=== PATIENT | female | born 1945 | race Caucasian/White ===

== ENCOUNTER 2018-05-05 09:03 | Day surgery (SDC) | payer MEDICARE, OTHER ==
[~2018-05-05 09:03] MED LIST: Lactated Ringers 1,000 ML IV SCH; Lidocaine 2% 5 ML SDV ONE; Midazolam 1 MG/ML 2 ML SDV ONE; Propofol 200 MG/20 ML SDV ONE; fentaNYL 100 MCG/2 ML SDV ONE
--- NOTE | 2018-05-05 09:43 | PCM.PREANE ---
Preanesthetic Assessment - Procedure Proposed Procedure: Colonoscopy - Anesthesia/Transfusion/Family Hx Anesthesia History: Prior Anesthesia Without Reaction Other Type of Anesthesia Reaction Comment: she was told she was a difficult intubation several yrs ago, none recently Family History of Anesthesia Reaction: No Transfusion History: No Prior Transfusion(s) - Review of Systems General: Other (planned weight loss (400 to 320)) Pulmonary: Other (sleep apnea) Cardiovascular: Other (HTN - 3 meds) Gastrointestinal: Other (change in bowel habits) Neurological: No Symptoms Other: Reports: Diabetes - Physical Assessment NPO Status Date: 05/04/18 NPO Status Time: 22:00 Height: 5 ft 10 in Weight: 329 lb ASA Class: 3 Mental Status: Alert & Oriented x3 Airway Class: Mallampati = 2 Dentition: Reports: Dentures (permanent) Thyro-Mental Finger Breadths: 3 Mouth Opening Finger Breadths: 3 ROM/Head Extension: Limited/Partial (short, full neck) Cardiovascular: Regular Rate, Regular Rhythm, Murmurs (holosystolic murmur - LSB ) - Imaging/EKG Impressions: ordered EKG; murmur not known to patient - Allergies Allergies/Adverse Reactions: Allergies Allergy/AdvReac Type Severity Reaction Status Date / Time contrast dye Allergy "makes me Uncoded 05/01/18 10:24 goofy" - Blood Blood Available: No Product(s) Available: None - Acknowledgements Anesthesia Type Planned: MAC Pt an Appropriate Candidate for the Planned Anesthesia: Yes Alternatives and Risks of Anesthesia Discussed w Pt/Guardian: Yes Pt/Guardian Understands and Agrees with Anesthesia Plan: Yes PreAnesthesia Questionnaire Cardiovascular History: Reports: Hypertension Respiratory History: Reports: Sleep Apnea Other Respiratory History: uses CPAP Gastrointestinal History: Reports: Colon Polyp, Diverticulosis Genitourinary History: Reports: None 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: Musculoskeletal History: Reports: Osteoarthritis Endocrine/Metabolic History: Reports: Diabetes, Type II, Obesity/BMI 30+ Oncologic (Cancer) History: Reports: Basal Cell Carcinoma Dermatologic History: Reports: None - Past Surgical History Head Surgeries/Procedures: Reports: None GI Surgical History: Reports: Appendectomy, Cholecystectomy, Colonoscopy Female Surgical History: Reports: Hysterectomy, Salpingo-Oophorectomy Musculoskeletal Surgical History: Reports: Hip Replacement, Knee Replacement Other Musculoskeletal Surgeries/Procedures:: rt MAURICIO, maximo TKA Dermatological Surgical History: Reports: Skin Biopsy - SUBSTANCE USE Smoking Status *Q: Never Smoker Recreational Drug Use History: No - HOME MEDS Home Medications: Home Meds Atenolol 100 mg PO DAILY 05/01/18 [History] Cholecalciferol (Vitamin D3) [Vitamin D3] 2,000 units PO DAILY 05/01/18 [History ] Furosemide 20 mg PO DAILY 05/01/18 [History] Glimepiride [Amaryl] 2 mg PO DAILY 05/01/18 [History] Labetalol HCl [Labetalol] 200 mg PO BID 05/01/18 [History] Losartan Potassium 100 mg PO DAILY 05/01/18 [History] hydrALAZINE HCl [Hydralazine HCl] 25 mg PO BID 05/01/18 [History] - CURRENT (IN HOUSE) MEDS Current Meds: Current Medications Lactated Ringer's (Ringers, Lactated) 1,000 mls @ 125 mls/hr IV ASDIRECTED YOLI
[2018-05-05] MEDS ORDERED: Propofol 200 MG/20 ML SDV ONE (11:00)
--- NOTE | 2018-05-05 11:27 | PCM.OPNOTE ---
- General Post-Op/Procedure Note Date of Surgery/Procedure: 05/05/18 Operative Procedure(s): Colonoscopy with cold sigmoid colon polypectomy Pre Op Diagnosis: Change in bowel habits. Personal history of colon polyps. Post-Op Diagnosis: Sigmoid colon polyp. Pancolonic diverticulosis. Anesthesia Technique: MAC (ASA III) Primary Surgeon: David Lui Condition: Good Free Text/Narrative:: DICTATION [id number] CPT CODE 67577
[2018-05-05] MEDS ORDERED: Lactated Ringers 1,000 ML IV SCH (11:30)
--- NOTE | 2018-05-05 11:36 | PCM.POSTAN ---
POST ANESTHESIA ASSESSMENT - MENTAL STATUS Mental Status: Alert, Oriented - VITAL SIGNS SaO2: 96 (RA) - RESPIRATORY Respiratory Status: Respiratory Rate WNL, Airway Patent, O2 Saturation Stable - CARDIOVASCULAR CV Status: Pulse Rate WNL, Blood Pressure Stable - GASTROINTESTINAL GI Status: No Symptoms - POST OP HYDRATION Hydration Status: Adequate & Stable
--- NOTE | 2018-05-05 12:10 | PCM48HPAN ---
Post Anesthesia Note - EVALUATION WITHIN 48HRS OF ANESTHETIC Vital Signs in Normal Range: Yes Patient Participated in Evaluation: Yes Respiratory Function Stable: Yes Airway Patent: Yes Cardiovascular Function Stable: Yes Hydration Status Stable: Yes Pain Control Satisfactory: Yes Nausea and Vomiting Control Satisfactory: Yes Mental Status Recovered: Yes Resp Rate: 19 - COMMENTS/OBSERVATIONS Free Text/Narrative:: Changing into street clothes...stated she was treated well.
--- NOTE | 2018-05-05 12:51 | OR ---
SURGEON: David Liu M.D. DATE OF PROCEDURE: 05/05/2018 OPERATION PERFORMED: Colonoscopy with cold sigmoid colon polypectomy. ANESTHESIA: MAC. ASA CLASSIFICATION: III. PREOPERATIVE DIAGNOSES: 1. Change in bowel habits. 2. Personal history of colon polyps. POSTOPERATIVE DIAGNOSES: 1. Sigmoid colon polyp. 2. Pancolonic diverticulosis. DESCRIPTION OF PROCEDURE: The patient was taken to the endoscopy room and positioned on the endoscopy table in the left lateral decubitus position. Time-out was called for appropriate identification of the patient and procedure. Monitored anesthesia care was provided. The colonoscope was inserted into the rectum and advanced with great difficulty to the cecum. Despite multiple maneuvers, we could never retroflex the colonoscope in the cecum. The colonoscope was then slowly withdrawn. Cecum, ascending colon, hepatic flexure, transverse colon, splenic flexure, and descending colon show no tumors or polyps. Multiple diverticula were identified. No stricture, spasm, or bleeding was noted. There was no evidence of inflammatory bowel disease. One polyp was encountered in the sigmoid colon and removed with cold biopsy forceps. Again, noted with the diverticular changes. The colonoscope was withdrawn to the rectum and retroflexed to visualize the anal orifice from above. No tumors or polyps were seen in the distal rectum and there were no acute hemorrhoidal changes. The colonoscope was then straightened, the rectum aspirated, and the colonoscope removed. The patient tolerated the procedure well and was taken to recovery room in stable condition. ALE MAN /[id number]
== END 2018-05-05 12:25 | disposition home or self-care (01) ==
LOC: MW.SDS 09:03
PROVIDERS: ATTEND Surgery
DX: R19.4 Change in bowel habit (principal); D12.5 Benign neoplasm of sigmoid colon; K57.30 Diverticulosis of large intestine without perforation or abscess without bleeding; I10 Essential (primary) hypertension; E11.9 Type 2 diabetes mellitus without complications; E66.01 Morbid (severe) obesity due to excess calories; Z68.42 Body mass index [BMI] 45.0-49.9, adult; G47.30 Sleep apnea, unspecified; Z86.010 Personal history of colon polyps; Z79.84 Long term (current) use of oral hypoglycemic drugs; Z79.899 Other long term (current) drug therapy; Z99.89 Dependence on other enabling machines and devices
CPT/HCPCS: 45380; 93005; J2250; J3010; 00811; J2704

== ENCOUNTER 2021-03-15 10:40 | Inpatient (IN) | payer MEDICARE, OTHER ==
[2021-03-15] MEDS ORDERED: Sodium Chloride 0.9% 10 ML Syringe FLUSH PRN (10:42)
[2021-03-15] MEDS ORDERED: Sodium Chloride 0.9% 2.5 ML Syringe FLUSH PRN (10:42)
--- NOTE | 2021-03-15 10:57 | EDM.PDOC ---
ED HPI GENERAL MEDICAL PROBLEM - General Stated Complaint: EMS Time Seen by Provider: 03/15/21 10:47 Source of Information: Reports: Patient History Limitations: Reports: No Limitations - History of Present Illness INITIAL COMMENTS - FREE TEXT/NARRATIVE: HISTORY AND PHYSICAL: History of present illness: Patient is a 75-year-old female who presents to the emergency room by [facility] (she lives near [place], [place]) with complaints of increased weakness. Patient lives at home with her , who helps take care of her. The states that she has had increased weakness and has not been up out of the chair to ambulate in a few days. She does have a history of dementia/confusion but is able to follow commands appropriately. The reports that they have been discussing care home placement but "it would be an act of God to get her there". Patient offers no current complaints, but states its painful to move her around. Denies any recent injury or falls. Review of systems: As per history of present illness and below otherwise all systems reviewed and negative. Past medical history: As per history of present illness and as reviewed below otherwise noncontributory. Surgical history: As per history of present illness and as reviewed below otherwise noncontributory. Social history: See social history for further information Family history: As per history of present illness and as reviewed below otherwise noncontributory. Physical exam: General: Well developed and well nourished. Alert and talking. History of dementia, unable to determine baseline. She follows commands but doesn't answer questions appropriate ( states this is baseline). Nontoxic in appearance and in no acute distress. Vital signs are stable and have been reviewed by me. Nursing notes were reviewed. HEENT: Atraumatic, normocephalic, pupils equal and reactive bilaterally, negative for conjunctival pallor or scleral icterus, mucous membranes dry, TMs normal bilaterally, throat clear, neck supple, nontender, trachea midline. No drooling or trismus noted. No meningeal signs. No hot potato voice noted. Lungs: Clear to auscultation bilaterally. No wheezes, rales, or rhonchi. Chest nontender. Normal work of breathing, no accessory muscles used. Heart: S1S2, regular rate and rhythm without overt murmur, gallops, or rubs. No JVD. No peripheral edema Abdomen: Soft, nondistended, nontender. Incontient of stool and urine. Normoactive bowel sounds. Negative for masses or costovertebral tenderness. Skin: Skin break down to cocxy more extensive bilateral medial glutes extending to upper proximal thighs. No lesions or rashes noted. Hematologic: No petechiae or purpra. Mucosa appropriate color and normal nail bed color and refill. Extremities: Atraumatic, moves all extremities per self without difficulty or deficits, negative for cords or calf pain. Neurovascular unremarkable. Neuro: Awake, alert, oriented. Cranial nerves II through XII unremarkable. Cerebellum unremarkable. Motor and sensory unremarkable throughout. Exam nonfocal. Psychiatric: Mood and affect are appropriate. Normal thought process. Answering questions appropriately. Notes: *This patient was seen and evaluated during the 2019 SARS-CoV-2 novel coronavirus pandemic period. Community viral transmission is ongoing at time of this encounter and the emergency department is operating under pandemic response procedures. Pulmonary vascular congestion and mild pulmonary edema. Heart size upper normal. No pneumothorax or pleural effusion. No pneumothorax. No pneumonia per radiology, although viewing the x-ray it does appear to have an infiltrate to the RLL. Patient's COVID and UA is unremarkable. She does have extensive skin breakdown of her buttocks, proximal thighs going into the vagina.. Care was provided. Patient's has not been up here to the emergency room and was not able to get a hold of him via phone. We will admit her to Med-Surg for further care and management. Dr Luis was consulted and agreeable. Diagnostics: CBC, CMP, Troponin, CPK, EKG, CXR, COVID, UA Therapeutics: IV fluids, Rocephin Impression: Self care deficit Dementia Right lower lobe pneumonia Skin breakdown Weakness Plan: Med/Surg admission with telemetry Definitive disposition and diagnosis as appropriate pending reevaluation and review of above. - Related Data Allergies Allergy/AdvReac Type Severity Reaction Status Date / Time contrast dye Allergy "makes me Uncoded 03/15/21 13:30 goofy" Home Meds: Home Meds Furosemide 20 mg PO DAILY 05/01/18 [History] Labetalol HCl [Labetalol] 200 mg PO BID 05/01/18 [History] Losartan Potassium 50 mg PO DAILY 05/01/18 [History] hydrALAZINE HCl [Hydralazine HCl] 50 mg PO BID 05/01/18 [History] Donepezil HCl 10 mg PO BEDTIME 03/15/21 [History] Memantine HCl 5 mg PO BID 03/15/21 [History] Mirabegron [Myrbetriq] 50 mg PO DAILY 03/15/21 [History] Sertraline [Zoloft] 100 mg PO DAILY 03/15/21 [History] Past Medical History Cardiovascular History: Reports: Hypertension Respiratory History: Reports: Sleep Apnea Other Respiratory History: uses CPAP Gastrointestinal History: Reports: Colon Polyp, Diverticulosis Genitourinary History: Reports: 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: Musculoskeletal History: Reports: Osteoarthritis Endocrine/Metabolic History: Reports: Diabetes, Type II, Obesity/BMI 30+ Oncologic (Cancer) History: Reports: Basal Cell Carcinoma Dermatologic History: Reports: None - Past Surgical History Head Surgeries/Procedures: Reports: None GI Surgical History: Reports: Appendectomy, Cholecystectomy, Colonoscopy Female Surgical History: Reports: Hysterectomy, Salpingo-Oophorectomy Musculoskeletal Surgical History: Reports: Hip Replacement, Knee Replacement Other Musculoskeletal Surgeries/Procedures:: rt MAURICIO, maximo TKA Dermatological Surgical History: Reports: Skin Biopsy ED ROS GENERAL - Review of Systems Review Of Systems: Comprehensive ROS is negative, except as noted in HPI. ED EXAM, GENERAL - Physical Exam Exam: See Below (See dictation) Course - Vital Signs Last Recorded V/S: Last Vital Signs Temp 98.0 F 03/15/21 14:50 Pulse 65 03/15/21 14:50 Resp 19 03/15/21 14:50 BP 80/51 L 03/15/21 14:50 Pulse Ox 95 03/15/21 14:50 - Orders/Labs/Meds Orders: Active Orders 24 hr Category Date Time Status Sodium Chloride 0.9% [Normal Saline] 1,000 ml Med 03/15/21 12:28 Active IV STAT Sodium Chloride 0.9% [Saline Flush] Med 03/15/21 10:42 Active 10 ml FLUSH ASDIRECTED PRN Sodium Chloride 0.9% [Saline Flush] Med 03/15/21 10:42 Active 2.5 ml FLUSH ASDIRECTED PRN Saline Lock Insert [OM.PC] Stat Oth 03/15/21 10:42 Ordered Medication Orders Dextrose/Water (50% Dextrose In Water 50 Ml Syringe) 50 ml IVPUSH ASDIRECTED PRN PRN Reason: Hypoglycemia Donepezil HCl (Donepezil 10 Mg Tab) 10 mg PO DAILY [facility] Glucagon (Glucagon,Human Recombinant 1 Mg Vial) 1 mg IM ASDIRECTED PRN PRN Reason: Hypoglycemia Heparin Sodium (Porcine) (Heparin Sodium 5,000 Units/Ml Vial) 5,000 units SUBCUT Q12H [facility] Last Admin: 03/15/21 15:00 Dose: 5,000 units Documented by: GUNJAN Sodium Chloride (Normal Saline) 1,000 mls @ 125 mls/hr IV STAT ONE Stop: 03/15/21 20:27 Last Admin: 03/15/21 13:12 Dose: 125 mls/hr Documented by: SAILAJA Cefepime HCl 1 gm/ Premix 50 mls @ 100 mls/hr IV Q12H [facility] Last Admin: 03/15/21 16:32 Dose: 100 mls/hr Documented by: GUNJAN Insulin Aspart (Insulin Aspart 100 Units/Ml 3 Ml Pen) 0 unit SUBCUT TIDAC [facility]; Protocol Labetalol HCl (Labetalol 100 Mg Tab) 200 mg PO BID [facility] Memantine (Memantine 10 Mg Tab) 5 mg PO BID [facility] Nystatin (Nystatin Topical Powder 15 Gm Bottle) 0 gm TOP QID [facility] Last Admin: 03/15/21 17:57 Dose: 1 applic Documented by: GUNJAN Sertraline HCl (Sertraline 100 Mg Tab) 100 mg PO DAILY [facility] Sodium Chloride (Sodium Chloride 0.9% 10 Ml Syringe) 10 ml FLUSH ASDIRECTED PRN PRN Reason: Keep Vein Open Last Admin: 03/15/21 11:06 Dose: 10 ml Documented by: SAILAJA Sodium Chloride (Sodium Chloride 0.9% 2.5 Ml Syringe) 2.5 ml FLUSH ASDIRECTED PRN PRN Reason: Keep Vein Open Last Admin: 03/15/21 11:06 Dose: 2.5 ml Documented by: SAILAJA Labs: Laboratory Tests 03/15/21 03/15/21 03/15/21 Range/Units 10:57 10:57 11:17 WBC 11.83 H (4.0-11.0) K/uL RBC 4.32 (4.30-5.90) M/uL Hgb 12.4 (12.0-16.0) g/dL Hct 38.5 (36.0-46.0) % MCV 89.1 (80.0-98.0) fL MCH 28.7 (27.0-32.0) pg MCHC 32.2 (31.0-37.0) g/dL RDW Std Deviation 50.7 (28.0-62.0) fl RDW Coeff of Litzy 16 H (11.0-15.0) % Plt Count 174 (150-400) K/uL MPV 11.00 (7.40-12.00) fL Neut % (Auto) 82.4 H (48.0-80.0) % Lymph % (Auto) 4.8 L (16.0-40.0) % [place] % (Auto) 11.8 (0.0-15.0) % Eos % (Auto) 0.8 (0.0-7.0) % Baso % (Auto) 0.2 (0.0-1.5) % Neut # (Auto) 9.7 H (1.4-5.7) K/uL Lymph # (Auto) 0.6 (0.6-2.4) K/uL [place] # (Auto) 1.4 H (0.0-0.8) K/uL Eos # (Auto) 0.1 (0.0-0.7) K/uL Baso # (Auto) 0.0 (0.0-0.1) K/uL Nucleated RBC % 0.0 /100WBC Nucleated RBCs # 0 K/uL Sodium 145 (136-145) mmol/L Potassium 3.6 (3.5-5.1) mmol/L Chloride 110 H (98-107) mmol/L Carbon Dioxide 26.0 (21.0-32.0) mmol/L BUN 39 H (7.0-18.0) mg/dL Creatinine 1.6 H (0.6-1.0) mg/dL Est Cr Clr Drug Dosing 29.09 mL/min Estimated GFR (MDRD) 31.3 ml/min Glucose 193 H (74-106) mg/dL Calcium 8.8 (8.5-10.1) mg/dL Total Bilirubin 1.2 H (0.2-1.0) mg/dL AST 21 (15-37) IU/L ALT 17 (14-63) IU/L Alkaline Phosphatase 61 (46-116) U/L Creatine Kinase 63 (26-308) U/L Troponin I < 0.050 (0.000-0.056) ng/mL Total Protein 7.1 (6.4-8.2) g/dL Albumin 2.5 L (3.4-5.0) g/dL Globulin 4.6 H (2.6-4.0) g/dL Albumin/Globulin Ratio 0.5 L (0.9-1.6) Urine Color Urine Appearance Urine pH (5.0-8.0) Ur Specific [place] (1.001-1.035) Urine Protein (NEGATIVE) mg/dL Urine Glucose (UA) (NEGATIVE) mg/dL Urine Ketones (NEGATIVE) mg/dL Urine Occult Blood (NEGATIVE) Urine Nitrite (NEGATIVE) Urine Bilirubin (NEGATIVE) Urine Urobilinogen (<2.0) EU/dL Ur Leukocyte Esterase (NEGATIVE) Urine RBC (0-2/HPF) Urine WBC (0-5/HPF) Ur Epithelial Cells (NONE-FEW) Other Crystals Urine Mucus (NONE-MOD) SARS-CoV-2 RNA (LUZ) NEGATIVE (NEGATIVE) 03/15/21 Range/Units 12:41 WBC (4.0-11.0) K/uL RBC (4.30-5.90) M/uL Hgb (12.0-16.0) g/dL Hct (36.0-46.0) % MCV (80.0-98.0) fL MCH (27.0-32.0) pg MCHC (31.0-37.0) g/dL RDW Std Deviation (28.0-62.0) fl RDW Coeff of [place] (11.0-15.0) % Plt Count (150-400) K/uL MPV (7.40-12.00) fL Neut % (Auto) (48.0-80.0) % Lymph % (Auto) (16.0-40.0) % [place] % (Auto) (0.0-15.0) % Eos % (Auto) (0.0-7.0) % Baso % (Auto) (0.0-1.5) % Neut # (Auto) (1.4-5.7) K/uL Lymph # (Auto) (0.6-2.4) K/uL [place] # (Auto) (0.0-0.8) K/uL Eos # (Auto) (0.0-0.7) K/uL Baso # (Auto) (0.0-0.1) K/uL Nucleated RBC % /100WBC Nucleated RBCs # K/uL Sodium (136-145) mmol/L Potassium (3.5-5.1) mmol/L Chloride (98-107) mmol/L Carbon Dioxide (21.0-32.0) mmol/L BUN (7.0-18.0) mg/dL Creatinine (0.6-1.0) mg/dL Est Cr Clr Drug Dosing mL/min Estimated GFR (MDRD) ml/min Glucose (74-106) mg/dL Calcium (8.5-10.1) mg/dL Total Bilirubin (0.2-1.0) mg/dL AST (15-37) IU/L ALT (14-63) IU/L Alkaline Phosphatase (46-116) U/L Creatine Kinase (26-308) U/L Troponin I (0.000-0.056) ng/mL Total Protein (6.4-8.2) g/dL Albumin (3.4-5.0) g/dL Globulin (2.6-4.0) g/dL Albumin/Globulin Ratio (0.9-1.6) Urine Color YELLOW Urine Appearance CLEAR Urine pH 5.5 (5.0-8.0) Ur Specific [place] 1.025 (1.001-1.035) Urine Protein 30 H (NEGATIVE) mg/dL Urine Glucose (UA) NEGATIVE (NEGATIVE) mg/dL Urine Ketones NEGATIVE (NEGATIVE) mg/dL Urine Occult Blood TRACE-INTACT H (NEGATIVE) Urine Nitrite NEGATIVE (NEGATIVE) Urine Bilirubin NEGATIVE (NEGATIVE) Urine Urobilinogen 1.0 (<2.0) EU/dL Ur Leukocyte Esterase NEGATIVE (NEGATIVE) Urine RBC 2-4 (0-2/HPF) Urine WBC 0-2 (0-5/HPF) Ur Epithelial Cells FEW (NONE-FEW) Other Crystals FEW Urine Mucus LIGHT (NONE-MOD) SARS-CoV-2 RNA (LUZ) (NEGATIVE) Meds: Medications Generic Name Dose Route Start Last Admin Trade Name Freq PRN Reason Stop Dose Admin Dextrose/Water 50 ml 03/15/21 18:47 50% Dextrose In Water 50 Ml Syringe IVPUSH ASDIRECTED PRN Hypoglycemia Donepezil HCl 10 mg 03/16/21 09:00 Donepezil 10 Mg Tab PO DAILY YOLI Glucagon 1 mg 03/15/21 18:47 Glucagon,Human Recombinant 1 Mg Vial IM ASDIRECTED PRN Hypoglycemia Heparin Sodium (Porcine) 5,000 units 03/15/21 14:45 03/15/21 15:00 Heparin Sodium 5,000 Units/Ml Vial SUBCUT 5,000 units Q12H YOLI Administration Sodium Chloride 1,000 mls @ 125 mls/hr 03/15/21 12:28 03/15/21 13:12 Normal Saline IV 03/15/21 20:27 125 mls/hr STAT ONE Administration Cefepime HCl 1 gm/ Premix 50 mls @ 100 mls/hr 03/15/21 16:00 03/15/21 16:32 IV 100 mls/hr Q12H YOLI Administration Insulin Aspart 0 unit 03/16/21 07:30 Insulin Aspart 100 Units/Ml 3 Ml Pen SUBCUT TIDAC [facility] Protocol Labetalol HCl 200 mg 03/15/21 21:00 Labetalol 100 Mg Tab PO BID YOLI Memantine 5 mg 03/16/21 09:00 Memantine 10 Mg Tab PO BID YOLI Nystatin 0 gm 03/15/21 18:00 03/15/21 17:57 Nystatin Topical Powder 15 Gm Bottle TOP 1 applic QID YOLI Administration Sertraline HCl 100 mg 03/16/21 09:00 Sertraline 100 Mg Tab PO DAILY YOLI Sodium Chloride 10 ml 03/15/21 10:42 03/15/21 11:06 Sodium Chloride 0.9% 10 Ml Syringe FLUSH 10 ml ASDIRECTED PRN Administration Keep Vein Open Sodium Chloride 2.5 ml 03/15/21 10:42 03/15/21 11:06 Sodium Chloride 0.9% 2.5 Ml Syringe FLUSH 2.5 ml ASDIRECTED PRN Administration Keep Vein Open Discontinued Medications Generic Name Dose Route Start Last Admin Trade Name Freq PRN Reason Stop Dose Admin Ceftriaxone Sodium/Dextrose 1 50 mls @ 100 mls/hr 03/15/21 13:09 03/15/21 13:12 gm/ Premix IV 03/15/21 13:38 100 mls/hr ONETIME ONE Administration Departure - Departure Time of Disposition: 19:54 Disposition: Admitted As Inpatient 65 Clinical Impression: Self-care deficit, Skin breakdown, Weakness Dementia Qualifiers: Dementia type: unspecified type Right lower lobe pneumonia Qualifiers: Pneumonia type: due to unspecified organism Qualified Code(s): J18.9 - Pneumonia, unspecified organism - Discharge Information Sepsis Event Note (ED) - Focused Exam Vital Signs: Vital Signs Temp Pulse Resp BP Pulse Ox 03/15/21 10:45 99.4 F 62 18 181/54 H 95 - My Orders Last 24 Hours: My Active Orders 03/15/21 10:42 Sodium Chloride 0.9% [Saline Flush] 10 ml FLUSH ASDIRECTED PRN Sodium Chloride 0.9% [Saline Flush] 2.5 ml FLUSH ASDIRECTED PRN Saline Lock Insert [OM.PC] Stat 03/15/21 12:28 Sodium Chloride 0.9% [Normal Saline] 1,000 ml IV STAT - Assessment/Plan Last 24 Hours: My Active Orders 03/15/21 10:42 Sodium Chloride 0.9% [Saline Flush] 10 ml FLUSH ASDIRECTED PRN Sodium Chloride 0.9% [Saline Flush] 2.5 ml FLUSH ASDIRECTED PRN Saline Lock Insert [OM.PC] Stat 03/15/21 12:28 Sodium Chloride 0.9% [Normal Saline] 1,000 ml IV STAT
--- NOTE | 2021-03-15 11:24 | PCM.EKG ---
#1 Interpretation EKG Date: 03/15/21 Time: 10:53 Rhythm: NSR Rate (Beats/Min): 58 [place]: Normal P-Wave: Present QRS: Normal ST-T: Normal QT: Normal Comparison: No Change (2017) EKG Interpretation Comments: Sinus Rhythm with ectopic atrial beats
[2021-03-15 11:58] LABS: BLOOD UREA NITROGEN,BUN 39 mg/dL (7.0-18.0); CHLORIDE,CL 110 mmol/L (98-107); GLUCOSE RANDOM 193 mg/dL (74-106); POTASSIUM,K 3.6 mmol/L (3.5-5.1); SODIUM,NA 145 mmol/L (136-145)
--- NOTE | 2021-03-15 12:02 | CR ---
INDICATION: Confusion. TECHNIQUE: One-view IMPRESSION : Pulmonary vascular congestion and mild pulmonary edema. Heart size upper normal. No pneumothorax or pleural effusion. No pneumothorax. No pneumonia. Dictated by Kareem Weaver MD @ 03/15/2021 12:00:[address] Kareem Weaver @ Mar 15 2021 12:00PM
[2021-03-15] MEDS ORDERED: Sodium Chloride 0.9% 1,000 ML IV ONE (12:28)
[2021-03-15] MEDS ORDERED: cefTRIAXone 1 GM in Premix Bag 1 BAG IV ONE (13:09)
--- NOTE | 2021-03-15 13:23 | CT ---
INDICATION: Altered mental status. TECHNIQUE: Noncontrast head CT. FINDINGS: No intracranial hemorrhage or hydrocephalus. No mass effect or shift of midline structures. Cerebral and cerebellar atrophy appropriate for the patient`s age. No significant small vessel ischemic type change in the deep white matter of the cerebral hemispheres. Hyperostosis frontalis. The calvarium and skull base are negative for acute fractures although please note there is significant motion artifact degrading image quality. IMPRESSION: 1. No acute intracranial process identified. 2. Chronic age related changes intracranially. 3. No definite calvarial or skullbase fracture. Significant motion artifact degrades image quality. Please note that all CT scans at this facility use dose modulation, iterative reconstruction, and/or weight-based dosing when appropriate to reduce radiation dose to as low as reasonably achievable. Dictated by Alber Vega MD @ 03/15/2021 1:23:[address] Alber Vega @ Mar 15 2021 1:23PM
--- NOTE | 2021-03-15 14:40 | PCM.HP.2 ---
H&P History of Present Illness - General Date of Service: 03/15/21 Admit Problem/Dx: Admission Diagnosis/Problem Admission Diagnosis/Problem Pneumonia Source of Information: Family History Limitations: Reports: Other (Dementia ) - History of Present Illness Initial Comments - Free Text/Narative: Patient is a 75-year-old female with a significant past medical history of dementia, sleep apnea, hypertension, type 2 diabetes presenting today from [place] via ambulance with a chief complaint of increased weakness. Patient is nonverbal and has dementia at baseline and medical history is being relayed to me via phone and son. lives with patient [place] from [facility] and has noticed since Saturday increasing weakness lethargy and decreased p.o. intake. Patient has also been laying in bed against her baseline which is walking around sometimes with assistance of a cane and or sometimes with a walker. notes that conversations regarding long term placement were held prior to this stepdown in her physical abilities but patient had not expressed any definitive answers. ED course: EKG: Sinus rhythm with ectopic atrial beats Chest x-ray: Pulmonary vascular congestion and mild pulmonary edema no pneumonia/pneumothorax. Head CT: No acute intracranial abnormalities. Chronic age-related changes intracranially UA negative for nitrite/leukocyte esterase. Leukocytosis of 11. HERBERT 1.6. Covid negative Bedside: Patient nonverbal at baseline Discussed case with /son. Endorses patient is DNR/DNI and will consider long term placement. Has endorsed patient has been increasingly fatigued/tired and moving away from her baseline since returning back from [place] 1 month prior. Only complaint that patient has been having to family has been random aches and pains and shoulders and knees. - Related Data Allergies/Adverse Reactions: Allergies Allergy/AdvReac Type Severity Reaction Status Date / Time contrast dye Allergy "makes me Uncoded 03/15/21 13:30 goofy" Home Medications: Home Meds Furosemide 20 mg PO DAILY 05/01/18 [History] Labetalol HCl [Labetalol] 200 mg PO BID 05/01/18 [History] Losartan Potassium 50 mg PO DAILY 05/01/18 [History] hydrALAZINE HCl [Hydralazine HCl] 50 mg PO BID 05/01/18 [History] Donepezil HCl 10 mg PO BEDTIME 03/15/21 [History] Memantine HCl 5 mg PO BID 03/15/21 [History] Mirabegron [Myrbetriq] 50 mg PO DAILY 03/15/21 [History] Sertraline [Zoloft] 100 mg PO DAILY 03/15/21 [History] Past Medical History HEENT History: Reports: Hard of Hearing Cardiovascular History: Reports: Hypertension Respiratory History: Reports: Sleep Apnea Other Respiratory History: uses CPAP Gastrointestinal History: Reports: Colon Polyp, Diverticulosis Genitourinary History: Reports: None, Other (See Below) Other Genitourinary History: stress incontinence [employer] History: Reports: Musculoskeletal History: Reports: Osteoarthritis Psychiatric History: Reports: Dementia Endocrine/Metabolic History: Reports: Diabetes, Type II, Obesity/BMI 30+ Oncologic (Cancer) History: Reports: Basal Cell Carcinoma Dermatologic History: Reports: None - Infectious Disease History Infectious Disease History: Reports: None - Past Surgical History Head Surgeries/Procedures: Reports: None HEENT Surgical History: Reports: None GI Surgical History: Reports: Appendectomy, Cholecystectomy, Colonoscopy Female Surgical History: Reports: Hysterectomy, Salpingo-Oophorectomy Musculoskeletal Surgical History: Reports: Hip Replacement, Knee Replacement Other Musculoskeletal Surgeries/Procedures:: rt MAURICIO, maximo TKA Dermatological Surgical History: Reports: Skin Biopsy Social & Family History - Family History Family Medical History: No Pertinent Family History - Tobacco Use Tobacco Use Status *Q: Never Tobacco User - Caffeine Use Caffeine Use: Reports: Soda - Recreational Drug Use Recreational Drug Use: No H&P Review of Systems - Review of Systems: Review Of Systems: Unable To Obtain Reason Not Obtained: significant dementia Exam - Exam Exam: See Below - Vital Signs Vital Signs: Last Vital Signs Temp 99.4 F 03/15/21 10:45 Pulse 62 03/15/21 13:15 Resp 18 03/15/21 13:15 BP 160/117 H 03/15/21 13:15 Pulse Ox 97 03/15/21 13:15 Weight: 107.955 kg - Exam Quality Assessment: No: Supplemental Oxygen General: Alert, Lethargic HEENT: EOMI Neck: Supple, Trachea Midline Lungs: Clear to Auscultation, Normal Respiratory Effort Cardiovascular: Regular Rate, Regular Rhythm GI/Abdominal Exam: Soft, Non-Tender Extremities: Normal Inspection Skin: Other (pressure ulcer noted over buttocks and posterior upper thighs bilaterally; more pronounced on left ) Neuro Extensive - Mental Status: Alert, Normal Mood/Affect Psychiatric: Alert - Patient Data Lab Results Last 24 hrs: Laboratory Results - last 24 hr 03/15/21 03/15/21 03/15/21 Range/Units 10:57 10:57 11:17 WBC 11.83 H (4.0-11.0) K/uL RBC 4.32 (4.30-5.90) M/uL Hgb 12.4 (12.0-16.0) g/dL Hct 38.5 (36.0-46.0) % MCV 89.1 (80.0-98.0) fL MCH 28.7 (27.0-32.0) pg MCHC 32.2 (31.0-37.0) g/dL RDW Std Deviation 50.7 (28.0-62.0) fl RDW Coeff of Litzy 16 H (11.0-15.0) % Plt Count 174 (150-400) K/uL MPV 11.00 (7.40-12.00) fL Neut % (Auto) 82.4 H (48.0-80.0) % Lymph % (Auto) 4.8 L (16.0-40.0) % Bradley % (Auto) 11.8 (0.0-15.0) % Eos % (Auto) 0.8 (0.0-7.0) % Baso % (Auto) 0.2 (0.0-1.5) % Neut # (Auto) 9.7 H (1.4-5.7) K/uL Lymph # (Auto) 0.6 (0.6-2.4) K/uL Bradley # (Auto) 1.4 H (0.0-0.8) K/uL Eos # (Auto) 0.1 (0.0-0.7) K/uL Baso # (Auto) 0.0 (0.0-0.1) K/uL Nucleated RBC % 0.0 /100WBC Nucleated RBCs # 0 K/uL Sodium 145 (136-145) mmol/L Potassium 3.6 (3.5-5.1) mmol/L Chloride 110 H (98-107) mmol/L Carbon Dioxide 26.0 (21.0-32.0) mmol/L BUN 39 H (7.0-18.0) mg/dL Creatinine 1.6 H (0.6-1.0) mg/dL Est Cr Clr Drug Dosing 29.09 mL/min Estimated GFR (MDRD) 31.3 ml/min Glucose 193 H (74-106) mg/dL Calcium 8.8 (8.5-10.1) mg/dL Total Bilirubin 1.2 H (0.2-1.0) mg/dL AST 21 (15-37) IU/L ALT 17 (14-63) IU/L Alkaline Phosphatase 61 (46-116) U/L Creatine Kinase 63 (26-308) U/L Troponin I < 0.050 (0.000-0.056) ng/mL Total Protein 7.1 (6.4-8.2) g/dL Albumin 2.5 L (3.4-5.0) g/dL Globulin 4.6 H (2.6-4.0) g/dL Albumin/Globulin Ratio 0.5 L (0.9-1.6) Urine Color Urine Appearance Urine pH (5.0-8.0) Ur Specific Neihart (1.001-1.035) Urine Protein (NEGATIVE) mg/dL Urine Glucose (UA) (NEGATIVE) mg/dL Urine Ketones (NEGATIVE) mg/dL Urine Occult Blood (NEGATIVE) Urine Nitrite (NEGATIVE) Urine Bilirubin (NEGATIVE) Urine Urobilinogen (<2.0) EU/dL Ur Leukocyte Esterase (NEGATIVE) Urine RBC (0-2/HPF) Urine WBC (0-5/HPF) Ur Epithelial Cells (NONE-FEW) Other Crystals Urine Mucus (NONE-MOD) SARS-CoV-2 RNA (LUZ) NEGATIVE (NEGATIVE) 03/15/21 Range/Units 12:41 WBC (4.0-11.0) K/uL RBC (4.30-5.90) M/uL Hgb (12.0-16.0) g/dL Hct (36.0-46.0) % MCV (80.0-98.0) fL MCH (27.0-32.0) pg MCHC (31.0-37.0) g/dL RDW Std Deviation (28.0-62.0) fl RDW Coeff of Litzy (11.0-15.0) % Plt Count (150-400) K/uL MPV (7.40-12.00) fL Neut % (Auto) (48.0-80.0) % Lymph % (Auto) (16.0-40.0) % Bradley % (Auto) (0.0-15.0) % Eos % (Auto) (0.0-7.0) % Baso % (Auto) (0.0-1.5) % Neut # (Auto) (1.4-5.7) K/uL Lymph # (Auto) (0.6-2.4) K/uL Bradley # (Auto) (0.0-0.8) K/uL Eos # (Auto) (0.0-0.7) K/uL Baso # (Auto) (0.0-0.1) K/uL Nucleated RBC % /100WBC Nucleated RBCs # K/uL Sodium (136-145) mmol/L Potassium (3.5-5.1) mmol/L Chloride (98-107) mmol/L Carbon Dioxide (21.0-32.0) mmol/L BUN (7.0-18.0) mg/dL Creatinine (0.6-1.0) mg/dL Est Cr Clr Drug Dosing mL/min Estimated GFR (MDRD) ml/min Glucose (74-106) mg/dL Calcium (8.5-10.1) mg/dL Total Bilirubin (0.2-1.0) mg/dL AST (15-37) IU/L ALT (14-63) IU/L Alkaline Phosphatase (46-116) U/L Creatine Kinase (26-308) U/L Troponin I (0.000-0.056) ng/mL Total Protein (6.4-8.2) g/dL Albumin (3.4-5.0) g/dL Globulin (2.6-4.0) g/dL Albumin/Globulin Ratio (0.9-1.6) Urine Color YELLOW Urine Appearance CLEAR Urine pH 5.5 (5.0-8.0) Ur Specific [place] 1.025 (1.001-1.035) Urine Protein 30 H (NEGATIVE) mg/dL Urine Glucose (UA) NEGATIVE (NEGATIVE) mg/dL Urine Ketones NEGATIVE (NEGATIVE) mg/dL Urine Occult Blood TRACE-INTACT H (NEGATIVE) Urine Nitrite NEGATIVE (NEGATIVE) Urine Bilirubin NEGATIVE (NEGATIVE) Urine Urobilinogen 1.0 (<2.0) EU/dL Ur Leukocyte Esterase NEGATIVE (NEGATIVE) Urine RBC 2-4 (0-2/HPF) Urine WBC 0-2 (0-5/HPF) Ur Epithelial Cells FEW (NONE-FEW) Other Crystals FEW Urine Mucus LIGHT (NONE-MOD) SARS-CoV-2 RNA (LUZ) (NEGATIVE) Result Diagrams: 03/15/21 10:57 03/15/21 10:57 Sepsis Event Note - Evaluation Sepsis Screening Result: No Definite Risk - Focused Exam Vital Signs: Vital Signs Temp Pulse Resp BP Pulse Ox 03/15/21 13:15 62 18 160/117 H 97 03/15/21 10:45 99.4 F 62 18 181/54 H 95 - Problem List (1) Weakness SNOMED Code(s): 30770783 ICD Code: R53.1 - WEAKNESS Status: Acute Current Visit: Yes (2) Dementia SNOMED Code(s): 49989532 ICD Code: F03.90 - UNSPECIFIED DEMENTIA WITHOUT BEHAVIORAL DISTURBANCE Status: Acute Current Visit: Yes (3) Dehydration SNOMED Code(s): 20141664 ICD Code: E86.0 - DEHYDRATION Status: Acute Current Visit: Yes Problem List Initiated/Reviewed/Updated: Yes Orders Last 24hrs: Active Orders 24 hr Category Date Time Status Admission Status [Patient Status] [ADT] Stat ADT 03/15/21 13:04 Active Antiembolic Devices [RC] PER UNIT ROUTINE Care 03/15/21 14:38 Active Oxygen Therapy [RC] PRN Care 03/15/21 14:37 Active Up With Assistance [RC] ASDIRECTED Care 03/15/21 14:37 Active VTE/DVT Education [RC] PER UNIT ROUTINE Care 03/15/21 14:37 Active Vital Signs [RC] Q4H Care 03/15/21 14:37 Active Regular Diet [DIET] Diet 03/15/21 Dinner Active Donepezil [Aricept] Med 03/16/21 09:00 Ordered 10 mg PO DAILY Memantine [Namenda] Med 03/16/21 09:00 Ordered 5 mg PO DAILY Sertraline [Zoloft] Med 03/16/21 09:00 Ordered 100 mg PO DAILY Sodium Chloride 0.9% [Normal Saline] 1,000 ml Med 03/15/21 12:28 Active IV STAT Sodium Chloride 0.9% [Saline Flush] Med 03/15/21 10:42 Active 10 ml FLUSH ASDIRECTED PRN Sodium Chloride 0.9% [Saline Flush] Med 03/15/21 10:42 Active 2.5 ml FLUSH ASDIRECTED PRN Saline Lock Insert [OM.PC] Stat Ot 03/15/21 10:42 Ordered Sequential Compression Device [OM.PC] Per Unit Routine Ot 03/15/21 14:37 Ordered Resuscitation Status Routine Resus Stat 03/15/21 14:37 Ordered Medication Orders Donepezil HCl (Donepezil 10 Mg Tab) 10 mg PO DAILY YOLI Sodium Chloride (Normal Saline) 1,000 mls @ 125 mls/hr IV STAT ONE Stop: 03/15/21 20:27 Last Admin: 03/15/21 13:12 Dose: 125 mls/hr Documented by: SAILAJA Memantine (Memantine 10 Mg Tab) 5 mg PO DAILY YOLI Sertraline HCl (Sertraline 100 Mg Tab) 100 mg PO DAILY YOLI Sodium Chloride (Sodium Chloride 0.9% 10 Ml Syringe) 10 ml FLUSH ASDIRECTED PRN PRN Reason: Keep Vein Open Last Admin: 03/15/21 11:06 Dose: 10 ml Documented by: SAILAJA Sodium Chloride (Sodium Chloride 0.9% 2.5 Ml Syringe) 2.5 ml FLUSH ASDIRECTED PRN PRN Reason: Keep Vein Open Last Admin: 03/15/21 11:06 Dose: 2.5 ml Documented by: SAILAJA Assessment/Plan Comment:: Assessment: 1. Weakness/fatigue in the setting of dehydration 2. HERBERT 3. Skin ulcer/skin breakdown possibly stage II 3. History of dementia 5. Mild pulmonary congestion without pneumonia 5. Past medical history: Hypertension, type 2 diabetes, dementia, osteoarthritis Plan. admit to inpatient. DNR/DNI. I's and O's per routine Vitals per routine DVT prophylaxis: Heparin Catheter care. 1. Dehydration/HERBERT: Continue IV fluids for total of 1 L NS. Running at 125 cc/h. Continue to monitor I's and O's routinely/vitals. Concerns about giving more fluids in the setting of mild pulmonary congestion. Patient is currently satting on O2/room air Continue to monitor. Recheck BMP in AM 2. Skin breakdown: skin breakdown w. odor noted on posterior buttocks/thighs on admission by nursing staff; area cleaned and wound cultures obtained and sent. Cefepime renal dosing started; may consider broader spectrum if not responding ; no acute signs of sepsis in light of normal VSS and marginally elevated WBC; enterostomal care consult placed for further recommendations. 2. Concerns about dehydration and mild UTI: UA came back negative however was given 1 g of Rocephin. Will send for cultures to ensure no UTI is not the culprit for patient's recent decline.Continue catheter care 3. Past medical history: Continue home medications except Myrbetriq. 4. Weakness: /son endorses patient has been ambulating on her own with a cane/walker but up until Saturday this has changed. Will order PT/OT to evaluate ambulation/ability to feed and take care of herself. 5. Extensive conversation with POA /son regarding goals of care. Would like to keep patient comfortable and continue medications as needed. Currently working on having patient admitted to long term. We will continue to monitor and adjust medications to ensure that this.
[2021-03-15] MEDS: Heparin Sodium 5,000 Units/ML Vial SUBCUT SCH (15:00)
[2021-03-15] MEDS ORDERED: Cefepime 1 GM Vial IM SCH (15:45)
[2021-03-15] MEDS: Cefepime 1 GM in Premix Bag 1 BAG IV SCH (16:32)
[2021-03-15] MEDS: Nystatin Topical Powder 15 GM Bottle TOP SCH (17:57)
[2021-03-15] MEDS ORDERED: Glucagon,Human Recombinant 1 MG Vial IM PRN (18:47)
[2021-03-15] MEDS ORDERED: 50% Dextrose in Water 50 ML Syringe IVPUSH PRN (18:47)
[2021-03-15] MEDS ORDERED: Labetalol 100 MG Tab PO SCH (21:00)
[2021-03-15] MEDS ORDERED: Non-Formulary Medication 1 Each (Memantine Hcl [Memantine Hcl] 5 MG Tablet) PO SCH (21:00)
[2021-03-16] MEDS: Nystatin Topical Powder 15 GM Bottle TOP SCH ×4 (00:28→17:35)
[2021-03-16] MEDS: Cefepime 1 GM in Premix Bag 1 BAG IV SCH ×2 (03:40→16:03)
[2021-03-16] MEDS: Heparin Sodium 5,000 Units/ML Vial SUBCUT SCH ×2 (03:40→14:05)
[2021-03-16 06:05] LABS: CARBON DIOXIDE,CO2 25.9 mmol/L (21.0-32.0); POTASSIUM,K 3.7 mmol/L (3.5-5.1)
--- NOTE | 2021-03-16 09:25 | PCM.PN ---
- General Info Date of Service: 03/16/21 Subjective Update: Bedside: awake. No acute distress but is having some difficulty coughing up secretions ; increased discomfort w movement but abates when not moving Functional Status: Reports: Other - Review of Systems Pulmonary: Reports: No Symptoms Cardiovascular: Reports: No Symptoms Neurological: Reports: Pre-Existing Deficit (ROS otherwise unhelpful due to dementia ) - Patient Data Vitals - Most Recent: Last Vital Signs Temp 99.0 F 03/16/21 07:11 Pulse 53 L 03/16/21 07:11 Resp 16 03/16/21 07:11 BP 96/71 03/16/21 07:11 Pulse Ox 95 03/16/21 07:11 Weight - Most Recent: 107.955 kg I&O - Last 24 Hours: Intake & Output 03/15/21 03/16/21 03/16/21 22:59 06:59 14:59 Intake Total 837 450 Output Total 250 400 Balance 587 50 Lab Results Last 24 Hours: Laboratory Results - last 24 hr 03/15/21 03/15/21 03/15/21 Range/Units 10:57 10:57 11:17 WBC 11.83 H (4.0-11.0) K/uL RBC 4.32 (4.30-5.90) M/uL Hgb 12.4 (12.0-16.0) g/dL Hct 38.5 (36.0-46.0) % MCV 89.1 (80.0-98.0) fL MCH 28.7 (27.0-32.0) pg MCHC 32.2 (31.0-37.0) g/dL RDW Std Deviation 50.7 (28.0-62.0) fl RDW Coeff of Litzy 16 H (11.0-15.0) % Plt Count 174 (150-400) K/uL MPV 11.00 (7.40-12.00) fL Neut % (Auto) 82.4 H (48.0-80.0) % Lymph % (Auto) 4.8 L (16.0-40.0) % [place] % (Auto) 11.8 (0.0-15.0) % Eos % (Auto) 0.8 (0.0-7.0) % Baso % (Auto) 0.2 (0.0-1.5) % Neut # (Auto) 9.7 H (1.4-5.7) K/uL Lymph # (Auto) 0.6 (0.6-2.4) K/uL [place] # (Auto) 1.4 H (0.0-0.8) K/uL Eos # (Auto) 0.1 (0.0-0.7) K/uL Baso # (Auto) 0.0 (0.0-0.1) K/uL Nucleated RBC % 0.0 /100WBC Nucleated RBCs # 0 K/uL Sodium 145 (136-145) mmol/L Potassium 3.6 (3.5-5.1) mmol/L Chloride 110 H (98-107) mmol/L Carbon Dioxide 26.0 (21.0-32.0) mmol/L BUN 39 H (7.0-18.0) mg/dL Creatinine 1.6 H (0.6-1.0) mg/dL Est Cr Clr Drug Dosing 29.09 mL/min Estimated GFR (MDRD) 31.3 ml/min Glucose 193 H (74-106) mg/dL POC Glucose (70-99) mg/dL Calcium 8.8 (8.5-10.1) mg/dL Total Bilirubin 1.2 H (0.2-1.0) mg/dL AST 21 (15-37) IU/L ALT 17 (14-63) IU/L Alkaline Phosphatase 61 (46-116) U/L Creatine Kinase 63 (26-308) U/L Troponin I < 0.050 (0.000-0.056) ng/mL Total Protein 7.1 (6.4-8.2) g/dL Albumin 2.5 L (3.4-5.0) g/dL Globulin 4.6 H (2.6-4.0) g/dL Albumin/Globulin Ratio 0.5 L (0.9-1.6) Urine Color Urine Appearance Urine pH (5.0-8.0) Ur Specific [place] (1.001-1.035) Urine Protein (NEGATIVE) mg/dL Urine Glucose (UA) (NEGATIVE) mg/dL Urine Ketones (NEGATIVE) mg/dL Urine Occult Blood (NEGATIVE) Urine Nitrite (NEGATIVE) Urine Bilirubin (NEGATIVE) Urine Urobilinogen (<2.0) EU/dL Ur Leukocyte Esterase (NEGATIVE) Urine RBC (0-2/HPF) Urine WBC (0-5/HPF) Ur Epithelial Cells (NONE-FEW) Other Crystals Urine Mucus (NONE-MOD) SARS-CoV-2 RNA (LUZ) NEGATIVE (NEGATIVE) 03/15/21 03/16/21 03/16/21 Range/Units 12:41 05:35 05:35 WBC 9.24 (4.0-11.0) K/uL RBC 4.06 L (4.30-5.90) M/uL Hgb 11.6 L (12.0-16.0) g/dL Hct 36.7 (36.0-46.0) % MCV 90.4 (80.0-98.0) fL MCH 28.6 (27.0-32.0) pg MCHC 31.6 (31.0-37.0) g/dL RDW Std Deviation 52.4 (28.0-62.0) fl RDW Coeff of Litzy 16 H (11.0-15.0) % Plt Count 177 (150-400) K/uL MPV 11.80 (7.40-12.00) fL Neut % (Auto) 77.3 (48.0-80.0) % Lymph % (Auto) 9.5 L (16.0-40.0) % [place] % (Auto) 10.5 (0.0-15.0) % Eos % (Auto) 2.4 (0.0-7.0) % Baso % (Auto) 0.3 (0.0-1.5) % Neut # (Auto) 7.1 H (1.4-5.7) K/uL Lymph # (Auto) 0.9 (0.6-2.4) K/uL [place] # (Auto) 1.0 H (0.0-0.8) K/uL Eos # (Auto) 0.2 (0.0-0.7) K/uL Baso # (Auto) 0.0 (0.0-0.1) K/uL Nucleated RBC % 0.0 /100WBC Nucleated RBCs # 0 K/uL Sodium 147 H (136-145) mmol/L Potassium 3.7 (3.5-5.1) mmol/L Chloride 113 H (98-107) mmol/L Carbon Dioxide 25.9 (21.0-32.0) mmol/L BUN 41 H (7.0-18.0) mg/dL Creatinine 1.8 H (0.6-1.0) mg/dL Est Cr Clr Drug Dosing 25.86 mL/min Estimated GFR (MDRD) 27.4 ml/min Glucose 166 H (74-106) mg/dL POC Glucose (70-99) mg/dL Calcium 8.7 (8.5-10.1) mg/dL Total Bilirubin (0.2-1.0) mg/dL AST (15-37) IU/L ALT (14-63) IU/L Alkaline Phosphatase (46-116) U/L Creatine Kinase (26-308) U/L Troponin I (0.000-0.056) ng/mL Total Protein (6.4-8.2) g/dL Albumin (3.4-5.0) g/dL Globulin (2.6-4.0) g/dL Albumin/Globulin Ratio (0.9-1.6) Urine Color YELLOW Urine Appearance CLEAR Urine pH 5.5 (5.0-8.0) Ur Specific [place] 1.025 (1.001-1.035) Urine Protein 30 H (NEGATIVE) mg/dL Urine Glucose (UA) NEGATIVE (NEGATIVE) mg/dL Urine Ketones NEGATIVE (NEGATIVE) mg/dL Urine Occult Blood TRACE-INTACT H (NEGATIVE) Urine Nitrite NEGATIVE (NEGATIVE) Urine Bilirubin NEGATIVE (NEGATIVE) Urine Urobilinogen 1.0 (<2.0) EU/dL Ur Leukocyte Esterase NEGATIVE (NEGATIVE) Urine RBC 2-4 (0-2/HPF) Urine WBC 0-2 (0-5/HPF) Ur Epithelial Cells FEW (NONE-FEW) Other Crystals FEW Urine Mucus LIGHT (NONE-MOD) SARS-CoV-2 RNA (LUZ) (NEGATIVE) 03/16/21 Range/Units 06:19 WBC (4.0-11.0) K/uL RBC (4.30-5.90) M/uL Hgb (12.0-16.0) g/dL Hct (36.0-46.0) % MCV (80.0-98.0) fL MCH (27.0-32.0) pg MCHC (31.0-37.0) g/dL RDW Std Deviation (28.0-62.0) fl RDW Coeff of Lit[place] (11.0-15.0) % Plt Count (150-400) K/uL MPV (7.40-12.00) fL Neut % (Auto) (48.0-80.0) % Lymph % (Auto) (16.0-40.0) % [place] % (Auto) (0.0-15.0) % Eos % (Auto) (0.0-7.0) % Baso % (Auto) (0.0-1.5) % Neut # (Auto) (1.4-5.7) K/uL Lymph # (Auto) (0.6-2.4) K/uL [place] # (Auto) (0.0-0.8) K/uL Eos # (Auto) (0.0-0.7) K/uL Baso # (Auto) (0.0-0.1) K/uL Nucleated RBC % /100WBC Nucleated RBCs # K/uL Sodium (136-145) mmol/L Potassium (3.5-5.1) mmol/L Chloride (98-107) mmol/L Carbon Dioxide (21.0-32.0) mmol/L BUN (7.0-18.0) mg/dL Creatinine (0.6-1.0) mg/dL Est Cr Clr Drug Dosing mL/min Estimated GFR (MDRD) ml/min Glucose (74-106) mg/dL POC Glucose 157 H (70-99) mg/dL Calcium (8.5-10.1) mg/dL Total Bilirubin (0.2-1.0) mg/dL AST (15-37) IU/L ALT (14-63) IU/L Alkaline Phosphatase (46-116) U/L Creatine Kinase (26-308) U/L Troponin I (0.000-0.056) ng/mL Total Protein (6.4-8.2) g/dL Albumin (3.4-5.0) g/dL Globulin (2.6-4.0) g/dL Albumin/Globulin Ratio (0.9-1.6) Urine Color Urine Appearance Urine pH (5.0-8.0) Ur Specific [place] (1.001-1.035) Urine Protein (NEGATIVE) mg/dL Urine Glucose (UA) (NEGATIVE) mg/dL Urine Ketones (NEGATIVE) mg/dL Urine Occult Blood (NEGATIVE) Urine Nitrite (NEGATIVE) Urine Bilirubin (NEGATIVE) Urine Urobilinogen (<2.0) EU/dL Ur Leukocyte Esterase (NEGATIVE) Urine RBC (0-2/HPF) Urine WBC (0-5/HPF) Ur Epithelial Cells (NONE-FEW) Other Crystals Urine Mucus (NONE-MOD) SARS-CoV-2 RNA (LUZ) (NEGATIVE) Med Orders - Current: Current Medications Dextrose/Water (50% Dextrose In Water 50 Ml Syringe) 50 ml IVPUSH ASDIRECTED PRN PRN Reason: Hypoglycemia Donepezil HCl (Donepezil 10 Mg Tab) 10 mg PO DAILY [facility] Glucagon (Glucagon,Human Recombinant 1 Mg Vial) 1 mg IM ASDIRECTED PRN PRN Reason: Hypoglycemia Heparin Sodium (Porcine) (Heparin Sodium 5,000 Units/Ml Vial) 5,000 units SUBCUT Q12H [facility] Last Admin: 03/16/21 03:40 Dose: 5,000 units Documented by: Cefepime HCl 1 gm/ Premix 50 mls @ 100 mls/hr IV Q12H [facility] Last Admin: 03/16/21 03:40 Dose: 100 mls/hr Documented by: Insulin Aspart (Insulin Aspart 100 Units/Ml 3 Ml Pen) 0 unit SUBCUT TIDAC [facility]; Protocol Labetalol HCl (Labetalol 100 Mg Tab) 100 mg PO BID [facility] Memantine (Memantine 10 Mg Tab) 5 mg PO BID [facility] Nystatin (Nystatin Topical Powder 15 Gm Bottle) 0 gm TOP QID [facility] Last Admin: 03/16/21 06:20 Dose: 1 applic Documented by: Sertraline HCl (Sertraline 100 Mg Tab) 100 mg PO DAILY [facility] Sodium Chloride (Sodium Chloride 0.9% 10 Ml Syringe) 10 ml FLUSH ASDIRECTED PRN PRN Reason: Keep Vein Open Last Admin: 03/15/21 11:06 Dose: 10 ml Documented by: Sodium Chloride (Sodium Chloride 0.9% 2.5 Ml Syringe) 2.5 ml FLUSH ASDIRECTED PRN PRN Reason: Keep Vein Open Last Admin: 03/15/21 11:06 Dose: 2.5 ml Documented by: Discontinued Medications Sodium Chloride (Normal Saline) 1,000 mls @ 125 mls/hr IV STAT ONE Stop: 03/15/21 20:27 Last Admin: 03/15/21 13:12 Dose: 125 mls/hr Documented by: Ceftriaxone Sodium/Dextrose 1 (gm/ Premix) 50 mls @ 100 mls/hr IV ONETIME ONE Stop: 03/15/21 13:38 Last Admin: 03/15/21 13:12 Dose: 100 mls/hr Documented by: Labetalol HCl (Labetalol 100 Mg Tab) 200 mg PO BID [facility] Last Admin: 03/15/21 21:24 Dose: 200 mg Documented by: - Exam General: Alert HEENT: EOMI Lungs: Clear to Auscultation, Normal Respiratory Effort Cardiovascular: Regular Rate, Irregular Rhythm GI/Abdominal Exam: Soft, Non-Tender Skin: Other (skin breakdown noted over posterior back/sacrum and upper posterior thighs /) Psy/Mental Status: Alert - Patient Data Lab Results Last 24 hrs: Laboratory Results - last 24 hr 03/15/21 03/15/21 03/15/21 Range/Units 10:57 10:57 11:17 WBC 11.83 H (4.0-11.0) K/uL RBC 4.32 (4.30-5.90) M/uL Hgb 12.4 (12.0-16.0) g/dL Hct 38.5 (36.0-46.0) % MCV 89.1 (80.0-98.0) fL MCH 28.7 (27.0-32.0) pg MCHC 32.2 (31.0-37.0) g/dL RDW Std Deviation 50.7 (28.0-62.0) fl RDW Coeff of Litzy 16 H (11.0-15.0) % Plt Count 174 (150-400) K/uL MPV 11.00 (7.40-12.00) fL Neut % (Auto) 82.4 H (48.0-80.0) % Lymph % (Auto) 4.8 L (16.0-40.0) % [place] % (Auto) 11.8 (0.0-15.0) % Eos % (Auto) 0.8 (0.0-7.0) % Baso % (Auto) 0.2 (0.0-1.5) % Neut # (Auto) 9.7 H (1.4-5.7) K/uL Lymph # (Auto) 0.6 (0.6-2.4) K/uL [place] # (Auto) 1.4 H (0.0-0.8) K/uL Eos # (Auto) 0.1 (0.0-0.7) K/uL Baso # (Auto) 0.0 (0.0-0.1) K/uL Nucleated RBC % 0.0 /100WBC Nucleated RBCs # 0 K/uL Sodium 145 (136-145) mmol/L Potassium 3.6 (3.5-5.1) mmol/L Chloride 110 H (98-107) mmol/L Carbon Dioxide 26.0 (21.0-32.0) mmol/L BUN 39 H (7.0-18.0) mg/dL Creatinine 1.6 H (0.6-1.0) mg/dL Est Cr Clr Drug Dosing 29.09 mL/min Estimated GFR (MDRD) 31.3 ml/min Glucose 193 H (74-106) mg/dL POC Glucose (70-99) mg/dL Calcium 8.8 (8.5-10.1) mg/dL Total Bilirubin 1.2 H (0.2-1.0) mg/dL AST 21 (15-37) IU/L ALT 17 (14-63) IU/L Alkaline Phosphatase 61 (46-116) U/L Creatine Kinase 63 (26-308) U/L Troponin I < 0.050 (0.000-0.056) ng/mL Total Protein 7.1 (6.4-8.2) g/dL Albumin 2.5 L (3.4-5.0) g/dL Globulin 4.6 H (2.6-4.0) g/dL Albumin/Globulin Ratio 0.5 L (0.9-1.6) Urine Color Urine Appearance Urine pH (5.0-8.0) Ur Specific [place] (1.001-1.035) Urine Protein (NEGATIVE) mg/dL Urine Glucose (UA) (NEGATIVE) mg/dL Urine Ketones (NEGATIVE) mg/dL Urine Occult Blood (NEGATIVE) Urine Nitrite (NEGATIVE) Urine Bilirubin (NEGATIVE) Urine Urobilinogen (<2.0) EU/dL Ur Leukocyte Esterase (NEGATIVE) Urine RBC (0-2/HPF) Urine WBC (0-5/HPF) Ur Epithelial Cells (NONE-FEW) Other Crystals Urine Mucus (NONE-MOD) SARS-CoV-2 RNA (LUZ) NEGATIVE (NEGATIVE) 03/15/21 03/16/21 03/16/21 Range/Units 12:41 05:35 05:35 WBC 9.24 (4.0-11.0) K/uL RBC 4.06 L (4.30-5.90) M/uL Hgb 11.6 L (12.0-16.0) g/dL Hct 36.7 (36.0-46.0) % MCV 90.4 (80.0-98.0) fL MCH 28.6 (27.0-32.0) pg MCHC 31.6 (31.0-37.0) g/dL RDW Std Deviation 52.4 (28.0-62.0) fl RDW Coeff of [place] 16 H (11.0-15.0) % Plt Count 177 (150-400) K/uL MPV 11.80 (7.40-12.00) fL Neut % (Auto) 77.3 (48.0-80.0) % Lymph % (Auto) 9.5 L (16.0-40.0) % [place] % (Auto) 10.5 (0.0-15.0) % Eos % (Auto) 2.4 (0.0-7.0) % Baso % (Auto) 0.3 (0.0-1.5) % Neut # (Auto) 7.1 H (1.4-5.7) K/uL Lymph # (Auto) 0.9 (0.6-2.4) K/uL [place] # (Auto) 1.0 H (0.0-0.8) K/uL Eos # (Auto) 0.2 (0.0-0.7) K/uL Baso # (Auto) 0.0 (0.0-0.1) K/uL Nucleated RBC % 0.0 /100WBC Nucleated RBCs # 0 K/uL Sodium 147 H (136-145) mmol/L Potassium 3.7 (3.5-5.1) mmol/L Chloride 113 H (98-107) mmol/L Carbon Dioxide 25.9 (21.0-32.0) mmol/L BUN 41 H (7.0-18.0) mg/dL Creatinine 1.8 H (0.6-1.0) mg/dL Est Cr Clr Drug Dosing 25.86 mL/min Estimated GFR (MDRD) 27.4 ml/min Glucose 166 H (74-106) mg/dL POC Glucose (70-99) mg/dL Calcium 8.7 (8.5-10.1) mg/dL Total Bilirubin (0.2-1.0) mg/dL AST (15-37) IU/L ALT (14-63) IU/L Alkaline Phosphatase (46-116) U/L Creatine Kinase (26-308) U/L Troponin I (0.000-0.056) ng/mL Total Protein (6.4-8.2) g/dL Albumin (3.4-5.0) g/dL Globulin (2.6-4.0) g/dL Albumin/Globulin Ratio (0.9-1.6) Urine Color YELLOW Urine Appearance CLEAR Urine pH 5.5 (5.0-8.0) Ur Specific [place] 1.025 (1.001-1.035) Urine Protein 30 H (NEGATIVE) mg/dL Urine Glucose (UA) NEGATIVE (NEGATIVE) mg/dL Urine Ketones NEGATIVE (NEGATIVE) mg/dL Urine Occult Blood TRACE-INTACT H (NEGATIVE) Urine Nitrite NEGATIVE (NEGATIVE) Urine Bilirubin NEGATIVE (NEGATIVE) Urine Urobilinogen 1.0 (<2.0) EU/dL Ur Leukocyte Esterase NEGATIVE (NEGATIVE) Urine RBC 2-4 (0-2/HPF) Urine WBC 0-2 (0-5/HPF) Ur Epithelial Cells FEW (NONE-FEW) Other Crystals FEW Urine Mucus LIGHT (NONE-MOD) SARS-CoV-2 RNA (LUZ) (NEGATIVE) 03/16/21 Range/Units 06:19 WBC (4.0-11.0) K/uL RBC (4.30-5.90) M/uL Hgb (12.0-16.0) g/dL Hct (36.0-46.0) % MCV (80.0-98.0) fL MCH (27.0-32.0) pg MCHC (31.0-37.0) g/dL RDW Std Deviation (28.0-62.0) fl RDW Coeff of [place] (11.0-15.0) % Plt Count (150-400) K/uL MPV (7.40-12.00) fL Neut % (Auto) (48.0-80.0) % Lymph % (Auto) (16.0-40.0) % [place] % (Auto) (0.0-15.0) % Eos % (Auto) (0.0-7.0) % Baso % (Auto) (0.0-1.5) % Neut # (Auto) (1.4-5.7) K/uL Lymph # (Auto) (0.6-2.4) K/uL [place] # (Auto) (0.0-0.8) K/uL Eos # (Auto) (0.0-0.7) K/uL Baso # (Auto) (0.0-0.1) K/uL Nucleated RBC % /100WBC Nucleated RBCs # K/uL Sodium (136-145) mmol/L Potassium (3.5-5.1) mmol/L Chloride (98-107) mmol/L Carbon Dioxide (21.0-32.0) mmol/L BUN (7.0-18.0) mg/dL Creatinine (0.6-1.0) mg/dL Est Cr Clr Drug Dosing mL/min Estimated GFR (MDRD) ml/min Glucose (74-106) mg/dL POC Glucose 157 H (70-99) mg/dL Calcium (8.5-10.1) mg/dL Total Bilirubin (0.2-1.0) mg/dL AST (15-37) IU/L ALT (14-63) IU/L Alkaline Phosphatase (46-116) U/L Creatine Kinase (26-308) U/L Troponin I (0.000-0.056) ng/mL Total Protein (6.4-8.2) g/dL Albumin (3.4-5.0) g/dL Globulin (2.6-4.0) g/dL Albumin/Globulin Ratio (0.9-1.6) Urine Color Urine Appearance Urine pH (5.0-8.0) Ur Specific [place] (1.001-1.035) Urine Protein (NEGATIVE) mg/dL Urine Glucose (UA) (NEGATIVE) mg/dL Urine Ketones (NEGATIVE) mg/dL Urine Occult Blood (NEGATIVE) Urine Nitrite (NEGATIVE) Urine Bilirubin (NEGATIVE) Urine Urobilinogen (<2.0) EU/dL Ur Leukocyte Esterase (NEGATIVE) Urine RBC (0-2/HPF) Urine WBC (0-5/HPF) Ur Epithelial Cells (NONE-FEW) Other Crystals Urine Mucus (NONE-MOD) SARS-CoV-2 RNA (LUZ) (NEGATIVE) Result Diagrams: 03/16/21 05:35 03/16/21 05:35 Sepsis Event Note - Evaluation Sepsis Screening Result: No Definite Risk - Focused Exam Vital Signs: Vital Signs Temp Temp Pulse Resp BP Pulse Ox 03/16/21 07:11 99.0 F 53 L 16 96/71 95 03/16/21 04:08 98.6 F 64 18 131/57 L 94 L 03/16/21 00:25 98.3 F 60 18 121/82 94 L - Problem List & Annotations (1) Weakness SNOMED Code(s): 03395669 Code(s): R53.1 - WEAKNESS Status: Acute Current Visit: Yes (2) Dementia SNOMED Code(s): 64615271 Code(s): F03.90 - UNSPECIFIED DEMENTIA WITHOUT BEHAVIORAL DISTURBANCE St atus: Acute Current Visit: Yes Qualifiers: Dementia type: unspecified type (3) Dehydration SNOMED Code(s): 10599150 Code(s): E86.0 - DEHYDRATION Status: Acute Current Visit: Yes (4) Self-care deficit SNOMED Code(s): 077054427 Code(s): Z78.9 - OTHER SPECIFIED HEALTH STATUS Status: Acute Current Visit: Yes (5) Skin breakdown SNOMED Code(s): 355895297 Code(s): R23.8 - OTHER SKIN CHANGES Status: Acute Current Visit: Yes - Problem List Review Problem List Initiated/Reviewed/Updated: Yes - My Orders Last 24 Hours: My Active Orders 03/15/21 13:54 Telemetry Monitoring [Cardiac Monitoring] [RC] Q8H 03/15/21 14:37 Oxygen Therapy [RC] PRN Up With Assistance [RC] ASDIRECTED VTE/DVT Education [RC] PER UNIT ROUTINE Vital Signs [RC] Q4H Sequential Compression Device [OM.PC] Per Unit Routine Resuscitation Status Routine 03/15/21 14:38 Antiembolic Devices [RC] PER UNIT ROUTINE 03/15/21 14:45 Heparin Sodium 5,000 units SUBCUT Q12H 03/15/21 15:20 CULTURE WOUND [RM] Urgent 03/15/21 15:21 Consult to Wound Care Services [CONS] Routine 03/15/21 Dinner Regular Diet [DIET] Cefepime [Maxipime in D5W 1 GM/50 ML] 1 gm Premix Bag 1 bag IV Q12H 03/15/21 18:00 Nystatin [Nystop] See Dose Instructions TOP QID 03/15/21 18:46 Accu Check [Blood Glucose Check, Bedside] [RC] TIDMEALS 03/15/21 18:47 Dextrose 50% in Water 50 ml IVPUSH ASDIRECTED PRN Glucagon,Human Recombinant [GlucaGen] 1 mg IM ASDIRECTED PRN 03/16/21 07:30 Insulin Aspart [NovoLOG] See Protocol SUBCUT TIDAC 03/16/21 08:50 Oral Care [OM.PC] Routine 03/16/21 08:51 Labetalol [Normodyne] 100 mg PO BID 03/16/21 09:00 Donepezil [Aricept] 10 mg PO DAILY Memantine [Namenda] 5 mg PO BID Sertraline [Zoloft] 100 mg PO DAILY 03/17/21 05:11 BMP [BASIC METABOLIC PANEL,BMP] [CHEM] AM CBC WITH AUTO DIFF [HEME] AM 03/18/21 05:11 BMP [BASIC METABOLIC PANEL,BMP] [CHEM] AM CBC WITH AUTO DIFF [HEME] AM - Plan Plan:: Assessment: 1. Weakness/fatigue in the setting of dehydration 2. HERBERT 3. Skin ulcer/skin breakdown 3. History of dementia 5. Mild pulmonary congestion without pneumonia 5. Past medical history: Hypertension, type 2 diabetes, dementia, osteoarthritis Plan. 1. Dehydration/HERBERT: Continue IV fluids at 75 cc 1/2 NS . Continue to monitor I's and O's routinely/vitals. Concerns about giving more fluids in the setting of mild pulmonary congestion. Patient is currently satting on O2/room air Continue to monitor. Recheck BMP in AM Oral care ordered Will decrease labetalol dosing to 100 mg BID; hold AM dosing 2. Skin breakdown: Continue Cefepime renal dosing; may consider broader spect rum if not responding ; enterostomal care will continue care and recommendations ; we appreciate their help with this patient Increased pain w. movement ; possibly from skin abrasion; plain radiographs of pelvis/hips bilaterally ordered 2. Concerns about dehydration: Continue catheter care; IV fluids given 3. Past medical history: Continue home medications except Myrbetriq. reduce Labetolol to 100 mg BID 4. Weakness: PT/OT to evaluate ambulation/ability to feed and take care of herself. 5. Extensive conversation with POA /son regarding goals of care. Would like to keep patient comfortable and continue medications as needed. Currently working on having patient admitted to [facility]. We will continue to monitor and adjust medications to ensure that this.
[2021-03-16] MEDS: Insulin Aspart 100 Units/ML 3 ML Pen SUBCUT SCH ×3 (09:53→17:35)
[2021-03-16] MEDS: Memantine 10 MG Tab PO SCH ×2 (09:54→21:00)
[2021-03-16] MEDS: Labetalol 100 MG Tab PO SCH ×2 (09:55→21:35)
[2021-03-16] MEDS: Sertraline 100 MG Tab PO SCH (09:55)
[2021-03-16] MEDS: Donepezil 10 MG Tab PO SCH (09:55)
[2021-03-16] MEDS: Acetaminophen 500 MG Tab PO PRN (11:42)
[2021-03-16] MEDS: Sodium Chloride 0.45% 1,000 ML IV SCH (14:05)
--- NOTE | 2021-03-16 14:20 | CR ---
Indication: Bilateral hip pain Technique: Pelvis and bilateral hip 5 view Comparison: None Findings: Bones: Alignment is normal. No fractures or bone lesions. Joint spaces: Hardware from a right hip arthroplasty is in satisfactory position without evidence of loosening. There is advanced osteoarthritis in the left hip with joint space narrowing, subchondral sclerosis, and small periarticular osteophytes. Soft tissues: Unremarkable. Impression: Unremarkable right hip arthroplasty. Advanced left hip joint osteoarthritis. No other finding to explain pain. Dictated by Ravinder Arora MD @ 03/16/2021 2:18:[address] Ravinder Arora @ Mar 16 2021 2:18PM
[2021-03-16] MEDS ORDERED: hydrALAZINE 25 MG Tab PO ONE (22:18)
[2021-03-17] MEDS: Heparin Sodium 5,000 Units/ML Vial SUBCUT SCH ×2 (02:45→15:07)
[2021-03-17] MEDS: Sodium Chloride 0.45% 1,000 ML IV SCH ×2 (04:00→15:06)
[2021-03-17] MEDS: Cefepime 1 GM in Premix Bag 1 BAG IV SCH ×2 (04:00→17:22)
[2021-03-17] MEDS: Nystatin Topical Powder 15 GM Bottle TOP SCH ×4 (06:00→17:23)
[2021-03-17 06:53] LABS: CARBON DIOXIDE,CO2 23.4 mmol/L (21.0-32.0); POTASSIUM,K 3.5 mmol/L (3.5-5.1)
[2021-03-17] MEDS: Insulin Aspart 100 Units/ML 3 ML Pen SUBCUT SCH ×3 (08:01→17:22)
[2021-03-17] MEDS ORDERED: Sodium Chloride 0.9% 500 ML IV ONE (11:00)
[2021-03-17] MEDS: Labetalol 100 MG Tab PO SCH (11:11)
[2021-03-17] MEDS: hydrALAZINE 25 MG Tab PO SCH ×2 (11:12→20:46)
[2021-03-17] MEDS: Donepezil 10 MG Tab PO SCH (11:18)
[2021-03-17] MEDS: Memantine 10 MG Tab PO SCH ×2 (11:19→20:56)
[2021-03-17] MEDS: Sertraline 100 MG Tab PO SCH (11:19)
--- NOTE | 2021-03-17 12:15 | PCM.PN ---
- General Info Date of Service: 03/17/21 Subjective Update: Bedside: no acute distress. Pain and discomfort only w. movement - Review of Systems General: Denies: Fever Neurological: Reports: Pre-Existing Deficit (hx of dementia; uanble to get accurate ROS ) - Patient Data Vitals - Most Recent: Last Vital Signs Temp 99.3 F 03/17/21 07:59 Pulse 50 L 03/17/21 11:11 Resp 20 03/17/21 07:59 BP 152/62 H 03/17/21 11:12 Pulse Ox 95 03/17/21 07:59 Weight - Most Recent: 107.955 kg I&O - Last 24 Hours: Intake & Output 03/16/21 03/17/21 03/17/21 22:59 06:59 14:59 Intake Total 700 1400 Output Total 450 475 Balance 250 925 Lab Results Last 24 Hours: Laboratory Results - last 24 hr 03/16/21 03/17/21 03/17/21 Range/Units 16:31 06:08 06:08 WBC 7.19 (4.0-11.0) K/uL RBC 3.95 L (4.30-5.90) M/uL Hgb 11.5 L (12.0-16.0) g/dL Hct 35.5 L (36.0-46.0) % MCV 89.9 (80.0-98.0) fL MCH 29.1 (27.0-32.0) pg MCHC 32.4 (31.0-37.0) g/dL RDW Std Deviation 51.1 (28.0-62.0) fl RDW Coeff of Litzy 15 (11.0-15.0) % Plt Count 179 (150-400) K/uL MPV 11.70 (7.40-12.00) fL Neut % (Auto) 71.4 (48.0-80.0) % Lymph % (Auto) 12.4 L (16.0-40.0) % [place] % (Auto) 10.7 (0.0-15.0) % Eos % (Auto) 5.1 (0.0-7.0) % Baso % (Auto) 0.4 (0.0-1.5) % Neut # (Auto) 5.1 (1.4-5.7) K/uL Lymph # (Auto) 0.9 (0.6-2.4) K/uL [place] # (Auto) 0.8 (0.0-0.8) K/uL Eos # (Auto) 0.4 (0.0-0.7) K/uL Baso # (Auto) 0.0 (0.0-0.1) K/uL Nucleated RBC % 0.0 /100WBC Nucleated RBCs # 0 K/uL Sodium 144 (136-145) mmol/L Potassium 3.5 (3.5-5.1) mmol/L Chloride 112 H (98-107) mmol/L Carbon Dioxide 23.4 (21.0-32.0) mmol/L BUN 41 H (7.0-18.0) mg/dL Creatinine 1.6 H (0.6-1.0) mg/dL Est Cr Clr Drug Dosing 29.09 mL/min Estimated GFR (MDRD) 31.3 ml/min Glucose 139 H (74-106) mg/dL POC Glucose 165 H (70-99) mg/dL Calcium 8.6 (8.5-10.1) mg/dL 03/17/21 Range/Units 11:00 WBC (4.0-11.0) K/uL RBC (4.30-5.90) M/uL Hgb (12.0-16.0) g/dL Hct (36.0-46.0) % MCV (80.0-98.0) fL MCH (27.0-32.0) pg MCHC (31.0-37.0) g/dL RDW Std Deviation (28.0-62.0) fl RDW Coeff of Litzy (11.0-15.0) % Plt Count (150-400) K/uL MPV (7.40-12.00) fL Neut % (Auto) (48.0-80.0) % Lymph % (Auto) (16.0-40.0) % [place] % (Auto) (0.0-15.0) % Eos % (Auto) (0.0-7.0) % Baso % (Auto) (0.0-1.5) % Neut # (Auto) (1.4-5.7) K/uL Lymph # (Auto) (0.6-2.4) K/uL [place] # (Auto) (0.0-0.8) K/uL Eos # (Auto) (0.0-0.7) K/uL Baso # (Auto) (0.0-0.1) K/uL Nucleated RBC % /100WBC Nucleated RBCs # K/uL Sodium (136-145) mmol/L Potassium (3.5-5.1) mmol/L Chloride (98-107) mmol/L Carbon Dioxide (21.0-32.0) mmol/L BUN (7.0-18.0) mg/dL Creatinine (0.6-1.0) mg/dL Est Cr Clr Drug Dosing mL/min Estimated GFR (MDRD) ml/min Glucose (74-106) mg/dL POC Glucose 126 H (70-99) mg/dL Calcium (8.5-10.1) mg/dL Med Orders - Current: Current Medications Acetaminophen (Acetaminophen 500 Mg Tab) 500 mg PO Q4H PRN PRN Reason: Pain Last Admin: 03/16/21 11:42 Dose: 500 mg Documented by: Dextrose/Water (50% Dextrose In Water 50 Ml Syringe) 50 ml IVPUSH ASDIRECTED PRN PRN Reason: Hypoglycemia Donepezil HCl (Donepezil 10 Mg Tab) 10 mg PO DAILY [facility] Last Admin: 03/17/21 11:18 Dose: 10 mg Documented by: Glucagon (Glucagon,Human Recombinant 1 Mg Vial) 1 mg IM ASDIRECTED PRN PRN Reason: Hypoglycemia Heparin Sodium (Porcine) (Heparin Sodium 5,000 Units/Ml Vial) 5,000 units SUBCU T Q12H [facility] Last Admin: 03/17/21 02:45 Dose: 5,000 units Documented by: Hydralazine HCl (Hydralazine 25 Mg Tab) 25 mg PO Q12HR [facility] Last Admin: 03/17/21 11:12 Dose: 25 mg Documented by: Cefepime HCl 1 gm/ Premix 50 mls @ 100 mls/hr IV Q12H [facility] Last Admin: 03/17/21 04:00 Dose: 100 mls/hr Documented by: Sodium Chloride (Sodium Chloride 0.45%) 1,000 mls @ 75 mls/hr IV Q13H [facility] Last Admin: 03/17/21 04:00 Dose: 75 mls/hr Documented by: Insulin Aspart (Insulin Aspart 100 Units/Ml 3 Ml Pen) 0 unit SUBCUT TIDAC [facility]; Protocol Last Admin: 03/17/21 11:20 Dose: Not Given Documented by: Labetalol HCl (Labetalol 100 Mg Tab) 100 mg PO BID [facility] Last Admin: 03/17/21 11:11 Dose: Not Given Documented by: Memantine (Memantine 10 Mg Tab) 5 mg PO BID [facility] Last Admin: 03/17/21 11:19 Dose: 5 mg Documented by: Nystatin (Nystatin Topical Powder 15 Gm Bottle) 0 gm TOP QID [facility] Last Admin: 03/17/21 06:00 Dose: 1 applic Documented by: Sertraline HCl (Sertraline 100 Mg Tab) 100 mg PO DAILY [facility] Last Admin: 03/17/21 11:19 Dose: 100 mg Documented by: Sodium Chloride (Sodium Chloride 0.9% 10 Ml Syringe) 10 ml FLUSH ASDIRECTED PRN PRN Reason: Keep Vein Open Last Admin: 03/15/21 11:06 Dose: 10 ml Documented by: Sodium Chloride (Sodium Chloride 0.9% 2.5 Ml Syringe) 2.5 ml FLUSH ASDIRECTED PRN PRN Reason: Keep Vein Open Last Admin: 03/15/21 11:06 Dose: 2.5 ml Documented by: Discontinued Medications Hydralazine HCl (Hydralazine 25 Mg Tab) 25 mg PO ONETIME ONE Stop: 03/16/21 22:19 Last Admin: 03/16/21 22:30 Dose: 25 mg Documented by: Sodium Chloride (Normal Saline) 1,000 mls @ 125 mls/hr IV STAT ONE Stop: 03/15/21 20:27 Last Admin: 03/15/21 13:12 Dose: 125 mls/hr Documented by: Ceftriaxone Sodium/Dextrose 1 (gm/ Premix) 50 mls @ 100 mls/hr IV ONETIME ONE Stop: 03/15/21 13:38 Last Admin: 03/15/21 13:12 Dose: 100 mls/hr Documented by: Sodium Chloride (Normal Saline) 500 mls @ 999 mls/hr IV ONETIME ONE Stop: 03/17/21 11:30 Labetalol HCl (Labetalol 100 Mg Tab) 200 mg PO BID [facility] Last Admin: 03/15/21 21:24 Dose: 200 mg Documented by: - Exam General: Alert HEENT: EOMI Neck: Supple Lungs: Clear to Auscultation, Normal Respiratory Effort Cardiovascular: Regular Rate, Irregular Rhythm Skin: Other (skin breakdown opver posterior back , posterior thighs unchanged from yesterday ) Psy/Mental Status: Alert - Patient Data Lab Results Last 24 hrs: Laboratory Results - last 24 hr 03/16/21 03/17/21 03/17/21 Range/Units 16:31 06:08 06:08 WBC 7.19 (4.0-11.0) K/uL RBC 3.95 L (4.30-5.90) M/uL Hgb 11.5 L (12.0-16.0) g/dL Hct 35.5 L (36.0-46.0) % MCV 89.9 (80.0-98.0) fL MCH 29.1 (27.0-32.0) pg MCHC 32.4 (31.0-37.0) g/dL RDW Std Deviation 51.1 (28.0-62.0) fl RDW Coeff of Litzy 15 (11.0-15.0) % Plt Count 179 (150-400) K/uL MPV 11.70 (7.40-12.00) fL Neut % (Auto) 71.4 (48.0-80.0) % Lymph % (Auto) 12.4 L (16.0-40.0) % [place] % (Auto) 10.7 (0.0-15.0) % Eos % (Auto) 5.1 (0.0-7.0) % Baso % (Auto) 0.4 (0.0-1.5) % Neut # (Auto) 5.1 (1.4-5.7) K/uL Lymph # (Auto) 0.9 (0.6-2.4) K/uL [place] # (Auto) 0.8 (0.0-0.8) K/uL Eos # (Auto) 0.4 (0.0-0.7) K/uL Baso # (Auto) 0.0 (0.0-0.1) K/uL Nucleated RBC % 0.0 /100WBC Nucleated RBCs # 0 K/uL Sodium 144 (136-145) mmol/L Potassium 3.5 (3.5-5.1) mmol/L Chloride 112 H (98-107) mmol/L Carbon Dioxide 23.4 (21.0-32.0) mmol/L BUN 41 H (7.0-18.0) mg/dL Creatinine 1.6 H (0.6-1.0) mg/dL Est Cr Clr Drug Dosing 29.09 mL/min Estimated GFR (MDRD) 31.3 ml/min Glucose 139 H (74-106) mg/dL POC Glucose 165 H (70-99) mg/dL Calcium 8.6 (8.5-10.1) mg/dL 03/17/21 Range/Units 11:00 WBC (4.0-11.0) K/uL RBC (4.30-5.90) M/uL Hgb (12.0-16.0) g/dL Hct (36.0-46.0) % MCV (80.0-98.0) fL MCH (27.0-32.0) pg MCHC (31.0-37.0) g/dL RDW Std Deviation (28.0-62.0) fl RDW Coeff of Litzy (11.0-15.0) % Plt Count (150-400) K/uL MPV (7.40-12.00) fL Neut % (Auto) (48.0-80.0) % Lymph % (Auto) (16.0-40.0) % [place] % (Auto) (0.0-15.0) % Eos % (Auto) (0.0-7.0) % Baso % (Auto) (0.0-1.5) % Neut # (Auto) (1.4-5.7) K/uL Lymph # (Auto) (0.6-2.4) K/uL [place] # (Auto) (0.0-0.8) K/uL Eos # (Auto) (0.0-0.7) K/uL Baso # (Auto) (0.0-0.1) K/uL Nucleated RBC % /100WBC Nucleated RBCs # K/uL Sodium (136-145) mmol/L Potassium (3.5-5.1) mmol/L Chloride (98-107) mmol/L Carbon Dioxide (21.0-32.0) mmol/L BUN (7.0-18.0) mg/dL Creatinine (0.6-1.0) mg/dL Est Cr Clr Drug Dosing mL/min Estimated GFR (MDRD) ml/min Glucose (74-106) mg/dL POC Glucose 126 H (70-99) mg/dL Calcium (8.5-10.1) mg/dL Result Diagrams: 03/17/21 06:08 03/17/21 06:08 Sepsis Event Note - Evaluation Sepsis Screening Result: No Definite Risk - Focused Exam Vital Signs: Vital Signs Temp Pulse Pulse Resp BP BP Pulse Ox 03/17/21 11:12 152/62 H 03/17/21 11:11 50 L 03/17/21 07:59 99.3 F 50 L 20 95 03/17/21 04:00 98.8 F 51 L 17 175/75 H 96 03/17/21 00:56 98.2 F 60 17 140/85 94 L - Problem List & Annotations (1) Weakness SNOMED Code(s): 31925688 Code(s): R53.1 - WEAKNESS Status: Acute Current Visit: Yes (2) Dementia SNOMED Code(s): 82843787 Code(s): F03.90 - UNSPECIFIED DEMENTIA WITHOUT BEHAVIORAL DISTURBANCE Status: Acute Current Visit: Yes Qualifiers: Dementia type: unspecified type (3) Dehydration SNOMED Code(s): 86827298 Code(s): E86.0 - DEHYDRATION Status: Acute Current Visit: Yes (4) Self-care deficit SNOMED Code(s): 731437835 Code(s): Z78.9 - OTHER SPECIFIED HEALTH STATUS Status: Acute Current Visit: Yes (5) Skin breakdown SNOMED Code(s): 715400278 Code(s): R23.8 - OTHER SKIN CHANGES Status: Acute Current Visit: Yes - Problem List Review Problem List Initiated/Reviewed/Updated: Yes - My Orders Last 24 Hours: My Active Orders 03/16/21 11:30 Acetaminophen [Tylenol Extra Strength] 500 mg PO Q4H PRN Sodium Chloride 0.45% 1,000 ml IV Q13H 03/18/21 05:11 BMP [BASIC METABOLIC PANEL,BMP] [CHEM] AM CBC WITH AUTO DIFF [HEME] AM - Plan Plan:: Assessment: 1. Weakness/fatigue in the setting of dehydration 2. HERBERT:improving 3. Skin ulcer/skin breakdown 3. History of dementia 5. Mild pulmonary congestion without pneumonia 5. Past medical history: Hypertension, type 2 diabetes, dementia, osteoarthritis Plan. 1. Dehydration/HERBERT: Continue IV fluids at 75 cc 1/2 NS . Continue to monitor I's and O's routinely/vitals. Concerns about giving more fluids in the setting of mild pulmonary congestion. Additional 500 cc bolus this AM due to poor urine output Patient is currently satting on O2/room air Continue to monitor. Oral care ordered Will decrease labetalol dosing to 100 mg BID; hold dosing for HR < 55; BID dosing for hydralazine as well for BP control. Continue to monitor 2. Skin breakdown: Continue Cefepime renal dosing; may consider broader spectrum if not responding ; enterostomal care will continue care and recommendations ; we appreciate their help with this patient Increased pain w. movement ; possibly from skin abrasion; plain radiographs of pelvis/hips bilaterally negative for acute fx/dislo; significant OA noted bilaterally 2. Concerns about dehydration: Continue catheter care; IV fluids given 3. Past medical history: Continue home medications except Myrbetriq. reduce Labetolol to 100 mg BID 4. Weakness: PT/OT to evaluate ambulation/ability to feed and take care of herself. 5. Extensive conversation with POA /son regarding goals of care. Would like to keep patient comfortable and continue medications as needed. Currently working on having patient admitted to [facility]. We will continue to monitor and adjust medications to ensure that this.
[2021-03-17] MEDS ORDERED: LORazepam 2 MG/ML SDV IVPUSH PRN (14:03)
[2021-03-17] MEDS: Apixaban 5 MG Tab PO SCH (20:46)
[2021-03-18] MEDS: Nystatin Topical Powder 15 GM Bottle TOP SCH ×4 (00:04→18:07)
[2021-03-18] MEDS: Sodium Chloride 0.45% 1,000 ML IV SCH ×2 (02:34→09:25)
[2021-03-18] MEDS: Cefepime 1 GM in Premix Bag 1 BAG IV SCH ×2 (03:10→15:31)
[2021-03-18 06:32] LABS: CARBON DIOXIDE,CO2 22.7 mmol/L (21.0-32.0); POTASSIUM,K 3.7 mmol/L (3.5-5.1)
[2021-03-18] MEDS: Insulin Aspart 100 Units/ML 3 ML Pen SUBCUT SCH ×3 (08:52→17:48)
[2021-03-18] MEDS: hydrALAZINE 25 MG Tab PO SCH ×2 (08:56→21:06)
[2021-03-18] MEDS: Apixaban 5 MG Tab PO SCH ×2 (08:56→21:07)
[2021-03-18] MEDS: Memantine 10 MG Tab PO SCH ×2 (08:57→21:07)
[2021-03-18] MEDS: Donepezil 10 MG Tab PO SCH (08:57)
[2021-03-18] MEDS: Sertraline 100 MG Tab PO SCH (08:57)
--- NOTE | 2021-03-18 13:10 | PCM.PN ---
- General Info Date of Service: 03/18/21 - Review of Systems Systems Review Comment:: denies any pain - Patient Data Vitals - Most Recent: Last Vital Signs Temp 37.2 C 03/18/21 12:00 Pulse 58 L 03/18/21 12:00 Resp 14 03/18/21 12:00 BP 148/56 H 03/18/21 12:00 Pulse Ox 95 03/18/21 12:00 Weight - Most Recent: 107.955 kg I&O - Last 24 Hours: Intake & Output 03/17/21 03/18/21 03/18/21 22:59 06:59 14:59 Intake Total 480 2737 100 Output Total 80 70 Balance -32 205C 11F Lab Results Last 24 Hours: Laboratory Results - last 24 hr 03/17/21 03/18/21 03/18/21 Range/Units 16:25 05:22 05:22 WBC 6.66 (4.0-11.0) K/uL RBC 3.83 L (4.30-5.90) M/uL Hgb 11.1 L (12.0-16.0) g/dL Hct 34.5 L (36.0-46.0) % MCV 90.1 (80.0-98.0) fL MCH 29.0 (27.0-32.0) pg MCHC 32.2 (31.0-37.0) g/dL RDW Std Deviation 50.4 (28.0-62.0) fl RDW Coeff of Litzy 15 (11.0-15.0) % Plt Count 202 (150-400) K/uL MPV 11.90 (7.40-12.00) fL Neut % (Auto) 69.3 (48.0-80.0) % Lymph % (Auto) 13.5 L (16.0-40.0) % [place] % (Auto) 11.0 (0.0-15.0) % Eos % (Auto) 5.7 (0.0-7.0) % Baso % (Auto) 0.5 (0.0-1.5) % Neut # (Auto) 4.6 (1.4-5.7) K/uL Lymph # (Auto) 0.9 (0.6-2.4) K/uL [place] # (Auto) 0.7 (0.0-0.8) K/uL Eos # (Auto) 0.4 (0.0-0.7) K/uL Baso # (Auto) 0.0 (0.0-0.1) K/uL Nucleated RBC % 0.0 /100WBC Nucleated RBCs # 0 K/uL Sodium 142 (136-145) mmol/L Potassium 3.7 (3.5-5.1) mmol/L Chloride 111 H (98-107) mmol/L Carbon Dioxide 22.7 (21.0-32.0) mmol/L BUN 38 H (7.0-18.0) mg/dL Creatinine 1.4 H (0.6-1.0) mg/dL Est Cr Clr Drug Dosing 33.24 mL/min Estimated GFR (MDRD) 36.6 ml/min Glucose 129 H (74-106) mg/dL POC Glucose 112 H (70-99) mg/dL Calcium 8.7 (8.5-10.1) mg/dL 03/18/21 03/18/21 Range/Units 06:41 11:17 WBC (4.0-11.0) K/uL RBC (4.30-5.90) M/uL Hgb (12.0-16.0) g/dL Hct (36.0-46.0) % MCV (80.0-98.0) fL MCH (27.0-32.0) pg MCHC (31.0-37.0) g/dL RDW Std Deviation (28.0-62.0) fl RDW Coeff of Litzy (11.0-15.0) % Plt Count (150-400) K/uL MPV (7.40-12.00) fL Neut % (Auto) (48.0-80.0) % Lymph % (Auto) (16.0-40.0) % [place] % (Auto) (0.0-15.0) % Eos % (Auto) (0.0-7.0) % Baso % (Auto) (0.0-1.5) % Neut # (Auto) (1.4-5.7) K/uL Lymph # (Auto) (0.6-2.4) K/uL [place] # (Auto) (0.0-0.8) K/uL Eos # (Auto) (0.0-0.7) K/uL Baso # (Auto) (0.0-0.1) K/uL Nucleated RBC % /100WBC Nucleated RBCs # K/uL Sodium (136-145) mmol/L Potassium (3.5-5.1) mmol/L Chloride (98-107) mmol/L Carbon Dioxide (21.0-32.0) mmol/L BUN (7.0-18.0) mg/dL Creatinine (0.6-1.0) mg/dL Est Cr Clr Drug Dosing mL/min Estimated GFR (MDRD) ml/min Glucose (74-106) mg/dL POC Glucose 135 H 131 H (70-99) mg/dL Calcium (8.5-10.1) mg/dL Chris Results Last 24 Hours: Microbiology 03/15/21 15:20 Wound Culture - Final Sacrum Escherichia Coli Enterococcus Faecalis Skin Silvina Med Orders - Current: Current Medications Acetaminophen (Acetaminophen 500 Mg Tab) 500 mg PO Q4H PRN PRN Reason: Pain Last Admin: 03/16/21 11:42 Dose: 500 mg Documented by: Apixaban (Apixaban 5 Mg Tab) 5 mg PO BID [facility] Last Admin: 03/18/21 08:56 Dose: 5 mg Documented by: Dextrose/Water (50% Dextrose In Water 50 Ml Syringe) 50 ml IVPUSH ASDIRECTED PRN PRN Reason: Hypoglycemia Docusate Sodium (Docusate Sodium 100 Mg Cap) 100 mg PO BID PRN PRN Reason: Constipation Donepezil HCl (Donepezil 10 Mg Tab) 10 mg PO DAILY [facility] Last Admin: 03/18/21 08:57 Dose: 10 mg Documented by: Glucagon (Glucagon,Human Recombinant 1 Mg Vial) 1 mg IM ASDIRECTED PRN PRN Reason: Hypoglycemia Hydralazine HCl (Hydralazine 25 Mg Tab) 25 mg PO Q12HR [facility] Last Admin: 03/18/21 08:56 Dose: 25 mg Documented by: Cefepime HCl 1 gm/ Premix 50 mls @ 100 mls/hr IV Q12H [facility] Last Admin: 03/18/21 03:10 Dose: 100 mls/hr Documented by: Sodium Chloride (Sodium Chloride 0.45%) 1,000 mls @ 75 mls/hr IV Q13H [facility] Last Admin: 03/18/21 09:25 Dose: 75 mls/hr Documented by: Insulin Aspart (Insulin Aspart 100 Units/Ml 3 Ml Pen) 0 unit SUBCUT TIDAC [facility]; Protocol Last Admin: 03/18/21 11:19 Dose: Not Given Documented by: Lorazepam (Lorazepam 2 Mg/Ml Sdv) 0.5 mg IVPUSH Q4H PRN PRN Reason: Agitation Last Admin: 03/17/21 19:14 Dose: 0.5 mg Documented by: Memantine (Memantine 10 Mg Tab) 5 mg PO BID [facility] Last Admin: 03/18/21 08:57 Dose: 5 mg Documented by: Nystatin (Nystatin Topical Powder 15 Gm Bottle) 0 gm TOP QID [facility] Last Admin: 03/18/21 12:31 Dose: 1 applic Documented by: Sertraline HCl (Sertraline 100 Mg Tab) 100 mg PO DAILY [facility] Last Admin: 03/18/21 08:57 Dose: 100 mg Documented by: Sodium Chloride (Sodium Chloride 0.9% 10 Ml Syringe) 10 ml FLUSH ASDIRECTED PRN PRN Reason: Keep Vein Open Last Admin: 03/15/21 11:06 Dose: 10 ml Documented by: Sodium Chloride (Sodium Chloride 0.9% 2.5 Ml Syringe) 2.5 ml FLUSH ASDIRECTED PRN PRN Reason: Keep Vein Open Last Admin: 03/15/21 11:06 Dose: 2.5 ml Documented by: Discontinued Medications Heparin Sodium (Porcine) (Heparin Sodium 5,000 Units/Ml Vial) 5,000 units SUBCUT Q12H [facility] Last Admin: 03/17/21 15:07 Dose: 5,000 units Documented by: Hydralazine HCl (Hydralazine 25 Mg Tab) 25 mg PO ONETIME ONE Stop: 03/16/21 22:19 Last Admin: 03/16/21 22:30 Dose: 25 mg Documented by: Sodium Chloride (Normal Saline) 1,000 mls @ 125 mls/hr IV STAT ONE Stop: 03/15/21 20:27 Last Admin: 03/15/21 13:12 Dose: 125 mls/hr Documented by: Ceftriaxone Sodium/Dextrose 1 (gm/ Premix) 50 mls @ 100 mls/hr IV ONETIME ONE Stop: 03/15/21 13:38 Last Admin: 03/15/21 13:12 Dose: 100 mls/hr Documented by: Sodium Chloride (Normal Saline) 500 mls @ 999 mls/hr IV ONETIME ONE Stop: 03/17/21 11:30 Last Admin: 03/17/21 11:05 Dose: 999 mls/hr Documented by: Labetalol HCl (Labetalol 100 Mg Tab) 200 mg PO BID [facility] Last Admin: 03/15/21 21:24 Dose: 200 mg Documented by: Labetalol HCl (Labetalol 100 Mg Tab) 100 mg PO BID [facility] Last Admin: 03/17/21 11:11 Dose: Not Given Documented by: - Exam General: Cooperative, No Acute Distress. No: Oriented Lungs: Clear to Auscultation, Normal Respiratory Effort Cardiovascular: Regular Rate, Regular Rhythm GI/Abdominal Exam: Soft, Non-Tender, No Distention Extremities: Non-Tender, No Pedal Edema Skin: Other (skin abrasions on posterior proximal thighs bilateraly, with some erythema, no drainage noted, but wounds are wet) - Patient Data Lab Results Last 24 hrs: Laboratory Results - last 24 hr 03/17/21 03/18/21 03/18/21 Range/Units 16:25 05:22 05:22 WBC 6.66 (4.0-11.0) K/uL RBC 3.83 L (4.30-5.90) M/uL Hgb 11.1 L (12.0-16.0) g/dL Hct 34.5 L (36.0-46.0) % MCV 90.1 (80.0-98.0) fL MCH 29.0 (27.0-32.0) pg MCHC 32.2 (31.0-37.0) g/dL RDW Std Deviation 50.4 (28.0-62.0) fl RDW Coeff of Litzy 15 (11.0-15.0) % Plt Count 202 (150-400) K/uL MPV 11.90 (7.40-12.00) fL Neut % (Auto) 69.3 (48.0-80.0) % Lymph % (Auto) 13.5 L (16.0-40.0) % [place] % (Auto) 11.0 (0.0-15.0) % Eos % (Auto) 5.7 (0.0-7.0) % Baso % (Auto) 0.5 (0.0-1.5) % Neut # (Auto) 4.6 (1.4-5.7) K/uL Lymph # (Auto) 0.9 (0.6-2.4) K/uL [place] # (Auto) 0.7 (0.0-0.8) K/uL Eos # (Auto) 0.4 (0.0-0.7) K/uL Baso # (Auto) 0.0 (0.0-0.1) K/uL Nucleated RBC % 0.0 /100WBC Nucleated RBCs # 0 K/uL Sodium 142 (136-145) mmol/L Potassium 3.7 (3.5-5.1) mmol/L Chloride 111 H (98-107) mmol/L Carbon Dioxide 22.7 (21.0-32.0) mmol/L BUN 38 H (7.0-18.0) mg/dL Creatinine 1.4 H (0.6-1.0) mg/dL Est Cr Clr Drug Dosing 33.24 mL/min Estimated GFR (MDRD) 36.6 ml/min Glucose 129 H (74-106) mg/dL POC Glucose 112 H (70-99) mg/dL Calcium 8.7 (8.5-10.1) mg/dL 03/18/21 03/18/21 Range/Units 06:41 11:17 WBC (4.0-11.0) K/uL RBC (4.30-5.90) M/uL Hgb (12.0-16.0) g/dL Hct (36.0-46.0) % MCV (80.0-98.0) fL MCH (27.0-32.0) pg MCHC (31.0-37.0) g/dL RDW Std Deviation (28.0-62.0) fl RDW Coeff of Litzy (11.0-15.0) % Plt Count (150-400) K/uL MPV (7.40-12.00) fL Neut % (Auto) (48.0-80.0) % Lymph % (Auto) (16.0-40.0) % [place] % (Auto) (0.0-15.0) % Eos % (Auto) (0.0-7.0) % Baso % (Auto) (0.0-1.5) % Neut # (Auto) (1.4-5.7) K/uL Lymph # (Auto) (0.6-2.4) K/uL [place] # (Auto) (0.0-0.8) K/uL Eos # (Auto) (0.0-0.7) K/uL Baso # (Auto) (0.0-0.1) K/uL Nucleated RBC % /100WBC Nucleated RBCs # K/uL Sodium (136-145) mmol/L Potassium (3.5-5.1) mmol/L Chloride (98-107) mmol/L Carbon Dioxide (21.0-32.0) mmol/L BUN (7.0-18.0) mg/dL Creatinine (0.6-1.0) mg/dL Est Cr Clr Drug Dosing mL/min Estimated GFR (MDRD) ml/min Glucose (74-106) mg/dL POC Glucose 135 H 131 H (70-99) mg/dL Calcium (8.5-10.1) mg/dL Result Diagrams: 03/18/21 05:22 03/18/21 05:22 Chris Results Last 24 hrs: Microbiology 03/15/21 15:20 Wound Culture - Final Sacrum Escherichia Coli Enterococcus Faecalis Skin Silvina Sepsis Event Note - Evaluation Sepsis Screening Result: No Definite Risk - Focused Exam Vital Signs: Vital Signs Temp Pulse Resp BP BP BP BP 03/18/21 12:00 37.2 C 58 L 14 148/56 H 135/54 L 03/18/21 08:56 137/52 L 03/18/21 08:00 37.0 C 56 L 16 138/52 L 03/18/21 04:35 36.6 C 51 L 18 92/56 L Pulse Ox 03/18/21 12:00 95 03/18/21 08:56 03/18/21 08:00 95 03/18/21 04:35 96 - Problem List Review Problem List Initiated/Reviewed/Updated: Yes - My Orders Last 24 Hours: My Active Orders 03/18/21 13:04 Docusate Sodium [Colace] 100 mg PO BID PRN - Plan Plan:: 75 yo female with pmh of dementia admitted for general weakness, cellulitis and acute kidney injury. 1. Cellulitis with skin breakdown down over proximal posterior legs, on Cefepime, cultures pending 2. HERBERT: improved with fluids, CXR reported possible pulmonary edema so watching for signs of fluid overload, 3. HTN: holding labetalol due to bradycardia, resumed hydralazine. 4. A.fib: new onset, echocardiogram report pending, started Eliquis 5. generalized weakness: PT consulted, patient will likely need SNF placement.
[2021-03-18] MEDS: Docusate Sodium 100 MG Cap PO PRN (18:07)
[2021-03-19] MEDS: Nystatin Topical Powder 15 GM Bottle TOP SCH ×5 (00:17→23:52)
[2021-03-19] MEDS: Cefepime 1 GM in Premix Bag 1 BAG IV SCH ×2 (03:00→16:59)
[2021-03-19 06:33] LABS: CARBON DIOXIDE,CO2 22.4 mmol/L (21.0-32.0); POTASSIUM,K 3.9 mmol/L (3.5-5.1)
[2021-03-19] MEDS: Insulin Aspart 100 Units/ML 3 ML Pen SUBCUT SCH ×3 (07:30→17:21)
[2021-03-19] MEDS: Sertraline 100 MG Tab PO SCH (08:57)
[2021-03-19] MEDS: Apixaban 5 MG Tab PO SCH ×2 (08:57→19:59)
[2021-03-19] MEDS: Donepezil 10 MG Tab PO SCH (08:58)
[2021-03-19] MEDS: Memantine 10 MG Tab PO SCH ×2 (08:59→20:00)
[2021-03-19] MEDS: hydrALAZINE 25 MG Tab PO SCH ×2 (09:37→19:59)
--- NOTE | 2021-03-19 12:08 | PCM.PN ---
- General Info Date of Service: 03/19/21 - Review of Systems Systems Review Comment:: no complaints - Patient Data Vitals - Most Recent: Last Vital Signs Temp 37.2 C 03/19/21 09:23 Pulse 53 L 03/19/21 09:23 Resp 17 03/19/21 09:23 BP 172/66 H 03/19/21 09:37 Pulse Ox 96 03/19/21 09:23 Weight - Most Recent: 107.955 kg I&O - Last 24 Hours: Intake & Output 03/18/21 03/19/21 03/19/21 22:59 06:59 14:59 Intake Total 1617 335 Output Total 20 85 Balance 143C -49) @ Lab Results Last 24 Hours: Laboratory Results - last 24 hr 03/18/21 03/19/21 03/19/21 Range/Units 16:54 05:25 05:25 WBC 6.41 (4.0-11.0) K/uL RBC 4.02 L (4.30-5.90) M/uL Hgb 11.4 L (12.0-16.0) g/dL Hct 35.6 L (36.0-46.0) % MCV 88.6 (80.0-98.0) fL MCH 28.4 (27.0-32.0) pg MCHC 32.0 (31.0-37.0) g/dL RDW Std Deviation 48.2 (28.0-62.0) fl RDW Coeff of Litzy 15 (11.0-15.0) % Plt Count 211 (150-400) K/uL MPV 11.60 (7.40-12.00) fL Neut % (Auto) 67.6 (48.0-80.0) % Lymph % (Auto) 13.6 L (16.0-40.0) % [place] % (Auto) 11.9 (0.0-15.0) % Eos % (Auto) 6.4 (0.0-7.0) % Baso % (Auto) 0.5 (0.0-1.5) % Neut # (Auto) 4.3 (1.4-5.7) K/uL Lymph # (Auto) 0.9 (0.6-2.4) K/uL [place] # (Auto) 0.8 (0.0-0.8) K/uL Eos # (Auto) 0.4 (0.0-0.7) K/uL Baso # (Auto) 0.0 (0.0-0.1) K/uL Nucleated RBC % 0.0 /100WBC Nucleated RBCs # 0 K/uL Sodium 140 (136-145) mmol/L Potassium 3.9 (3.5-5.1) mmol/L Chloride 106 (98-107) mmol/L Carbon Dioxide 22.4 (21.0-32.0) mmol/L BUN 32 H (7.0-18.0) mg/dL Creatinine 1.4 H (0.6-1.0) mg/dL Est Cr Clr Drug Dosing 33.24 mL/min Estimated GFR (MDRD) 36.6 ml/min Glucose 127 H (74-106) mg/dL POC Glucose 134 H (70-99) mg/dL Calcium 8.6 (8.5-10.1) mg/dL Total Bilirubin 0.5 (0.2-1.0) mg/dL AST 23 (15-37) IU/L ALT 20 (14-63) IU/L Alkaline Phosphatase 54 (46-116) U/L Total Protein 6.3 L (6.4-8.2) g/dL Albumin 2.2 L (3.4-5.0) g/dL Globulin 4.1 H (2.6-4.0) g/dL Albumin/Globulin Ratio 0.5 L (0.9-1.6) // Range/Units 06:53 WBC (4.0-11.0) K/uL RBC (4.30-5.90) M/uL Hgb (12.0-16.0) g/dL Hct (36.0-46.0) % MCV (80.0-98.0) fL MCH (27.0-32.0) pg MCHC (31.0-37.0) g/dL RDW Std Deviation (28.0-62.0) fl RDW Coeff of Litzy (11.0-15.0) % Plt Count (150-400) K/uL MPV (7.40-12.00) fL Neut % (Auto) (48.0-80.0) % Lymph % (Auto) (16.0-40.0) % [place] % (Auto) (0.0-15.0) % Eos % (Auto) (0.0-7.0) % Baso % (Auto) (0.0-1.5) % Neut # (Auto) (1.4-5.7) K/uL Lymph # (Auto) (0.6-2.4) K/uL [place] # (Auto) (0.0-0.8) K/uL Eos # (Auto) (0.0-0.7) K/uL Baso # (Auto) (0.0-0.1) K/uL Nucleated RBC % /100WBC Nucleated RBCs # K/uL Sodium (136-145) mmol/L Potassium (3.5-5.1) mmol/L Chloride (98-107) mmol/L Carbon Dioxide (21.0-32.0) mmol/L BUN (7.0-18.0) mg/dL Creatinine (0.6-1.0) mg/dL Est Cr Clr Drug Dosing mL/min Estimated GFR (MDRD) ml/min Glucose (74-106) mg/dL POC Glucose 113 H (70-99) mg/dL Calcium (8.5-10.1) mg/dL Total Bilirubin (0.2-1.0) mg/dL AST (15-37) IU/L ALT (14-63) IU/L Alkaline Phosphatase (46-116) U/L Total Protein (6.4-8.2) g/dL Albumin (3.4-5.0) g/dL Globulin (2.6-4.0) g/dL Albumin/Globulin Ratio (0.9-1.6) Med Orders - Current: Current Medications Acetaminophen (Acetaminophen 500 Mg Tab) 500 mg PO Q4H PRN PRN Reason: Pain Last Admin: 03/16/21 11:42 Dose: 500 mg Documented by: Apixaban (Apixaban 5 Mg Tab) 5 mg PO BID YOLI Last Admin: 03/19/21 08:57 Dose: 5 mg Documented by: Dextrose/Water (50% Dextrose In Water 50 Ml Syringe) 50 ml IVPUSH ASDIRECTED PRN PRN Reason: Hypoglycemia Docusate Sodium (Docusate Sodium 100 Mg Cap) 100 mg PO BID PRN PRN Reason: Constipation Last Admin: 03/18/21 18:07 Dose: 100 mg Documented by: Donepezil HCl (Donepezil 10 Mg Tab) 10 mg PO DAILY [facility] Last Admin: 03/19/21 08:58 Dose: 10 mg Documented by: Glucagon (Glucagon,Human Recombinant 1 Mg Vial) 1 mg IM ASDIRECTED PRN PRN Reason: Hypoglycemia Hydralazine HCl (Hydralazine 25 Mg Tab) 25 mg PO Q12HR [facility] Last Admin: 03/19/21 09:37 Dose: 25 mg Documented by: Cefepime HCl 1 gm/ Premix 50 mls @ 100 mls/hr IV Q12H [facility] Last Admin: 03/19/21 03:00 Dose: 100 mls/hr Documented by: Insulin Aspart (Insulin Aspart 100 Units/Ml 3 Ml Pen) 0 unit SUBCUT TIDAC [facility]; Protocol Last Admin: 03/19/21 07:30 Dose: Not Given Documented by: Lorazepam (Lorazepam 2 Mg/Ml Sdv) 0.5 mg IVPUSH Q4H PRN PRN Reason: Agitation Last Admin: 03/17/21 19:14 Dose: 0.5 mg Documented by: Memantine (Memantine 10 Mg Tab) 5 mg PO BID [facility] Last Admin: 03/19/21 08:59 Dose: 5 mg Documented by: Nystatin (Nystatin Topical Powder 15 Gm Bottle) 0 gm TOP QID [facility] Last Admin: 03/19/21 06:29 Dose: 1 applic Documented by: Sertraline HCl (Sertraline 100 Mg Tab) 100 mg PO DAILY [facility] Last Admin: 03/19/21 08:57 Dose: 100 mg Documented by: Sodium Chloride (Sodium Chloride 0.9% 10 Ml Syringe) 10 ml FLUSH ASDIRECTED PRN PRN Reason: Keep Vein Open Last Admin: 03/15/21 11:06 Dose: 10 ml Documented by: Sodium Chloride (Sodium Chloride 0.9% 2.5 Ml Syringe) 2.5 ml FLUSH ASDIRECTED PRN PRN Reason: Keep Vein Open Last Admin: 03/15/21 11:06 Dose: 2.5 ml Documented by: Discontinued Medications Heparin Sodium (Porcine) (Heparin Sodium 5,000 Units/Ml Vial) 5,000 units SUBCUT Q12H [facility] Last Admin: 03/17/21 15:07 Dose: 5,000 units Documented by: Hydralazine HCl (Hydralazine 25 Mg Tab) 25 mg PO ONETIME ONE Stop: 03/16/21 22:19 Last Admin: 03/16/21 22:30 Dose: 25 mg Documented by: Sodium Chloride (Normal Saline) 1,000 mls @ 125 mls/hr IV STAT ONE Stop: 03/15/21 20:27 Last Admin: 03/15/21 13:12 Dose: 125 mls/hr Documented by: Ceftriaxone Sodium/Dextrose 1 (gm/ Premix) 50 mls @ 100 mls/hr IV ONETIME ONE Stop: 03/15/21 13:38 Last Admin: 03/15/21 13:12 Dose: 100 mls/hr Documented by: Sodium Chloride (Sodium Chloride 0.45%) 1,000 mls @ 75 mls/hr IV Q13H [facility] Last Admin: 03/18/21 09:25 Dose: 75 mls/hr Documented by: Sodium Chloride (Normal Saline) 500 mls @ 999 mls/hr IV ONETIME ONE Stop: 03/17/21 11:30 Last Admin: 03/17/21 11:05 Dose: 999 mls/hr Documented by: Labetalol HCl (Labetalol 100 Mg Tab) 200 mg PO BID [facility] Last Admin: 03/15/21 21:24 Dose: 200 mg Documented by: Labetalol HCl (Labetalol 100 Mg Tab) 100 mg PO BID [facility] Last Admin: 03/17/21 11:11 Dose: Not Given Documented by: - Exam General: No: Oriented Neck: Supple Lungs: Clear to Auscultation, Normal Respiratory Effort Cardiovascular: Regular Rate, Regular Rhythm GI/Abdominal Exam: Soft, Non-Tender, No Distention Skin: Other (no change in abrasions of posterior proxima thighs bilaterally) - Patient Data Lab Results Last 24 hrs: Laboratory Results - last 24 hr 03/18/21 03/19/21 03/19/21 Range/Units 16:54 05:25 05:25 WBC 6.41 (4.0-11.0) K/uL RBC 4.02 L (4.30-5.90) M/uL Hgb 11.4 L (12.0-16.0) g/dL Hct 35.6 L (36.0-46.0) % MCV 88.6 (80.0-98.0) fL MCH 28.4 (27.0-32.0) pg MCHC 32.0 (31.0-37.0) g/dL RDW Std Deviation 48.2 (28.0-62.0) fl RDW Coeff of Litzy 15 (11.0-15.0) % Plt Count 211 (150-400) K/uL MPV 11.60 (7.40-12.00) fL Neut % (Auto) 67.6 (48.0-80.0) % Lymph % (Auto) 13.6 L (16.0-40.0) % [place] % (Auto) 11.9 (0.0-15.0) % Eos % (Auto) 6.4 (0.0-7.0) % Baso % (Auto) 0.5 (0.0-1.5) % Neut # (Auto) 4.3 (1.4-5.7) K/uL Lymph # (Auto) 0.9 (0.6-2.4) K/uL [place] # (Auto) 0.8 (0.0-0.8) K/uL Eos # (Auto) 0.4 (0.0-0.7) K/uL Baso # (Auto) 0.0 (0.0-0.1) K/uL Nucleated RBC % 0.0 /100WBC Nucleated RBCs # 0 K/uL Sodium 140 (136-145) mmol/L Potassium 3.9 (3.5-5.1) mmol/L Chloride 106 (98-107) mmol/L Carbon Dioxide 22.4 (21.0-32.0) mmol/L BUN 32 H (7.0-18.0) mg/dL Creatinine 1.4 H (0.6-1.0) mg/dL Est Cr Clr Drug Dosing 33.24 mL/min Estimated GFR (MDRD) 36.6 ml/min Glucose 127 H (74-106) mg/dL POC Glucose 134 H (70-99) mg/dL Calcium 8.6 (8.5-10.1) mg/dL Total Bilirubin 0.5 (0.2-1.0) mg/dL AST 23 (15-37) IU/L ALT 20 (14-63) IU/L Alkaline Phosphatase 54 (46-116) U/L Total Protein 6.3 L (6.4-8.2) g/dL Albumin 2.2 L (3.4-5.0) g/dL Globulin 4.1 H (2.6-4.0) g/dL Albumin/Globulin Ratio 0.5 L (0.9-1.6) 03/19/21 Range/Units 06:53 WBC (4.0-11.0) K/uL RBC (4.30-5.90) M/uL Hgb (12.0-16.0) g/dL Hct (36.0-46.0) % MCV (80.0-98.0) fL MCH (27.0-32.0) pg MCHC (31.0-37.0) g/dL RDW Std Deviation (28.0-62.0) fl RDW Coeff of Litzy (11.0-15.0) % Plt Count (150-400) K/uL MPV (7.40-12.00) fL Neut % (Auto) (48.0-80.0) % Lymph % (Auto) (16.0-40.0) % [place] % (Auto) (0.0-15.0) % Eos % (Auto) (0.0-7.0) % Baso % (Auto) (0.0-1.5) % Neut # (Auto) (1.4-5.7) K/uL Lymph # (Auto) (0.6-2.4) K/uL [place] # (Auto) (0.0-0.8) K/uL Eos # (Auto) (0.0-0.7) K/uL Baso # (Auto) (0.0-0.1) K/uL Nucleated RBC % /100WBC Nucleated RBCs # K/uL Sodium (136-145) mmol/L Potassium (3.5-5.1) mmol/L Chloride (98-107) mmol/L Carbon Dioxide (21.0-32.0) mmol/L BUN (7.0-18.0) mg/dL Creatinine (0.6-1.0) mg/dL Est Cr Clr Drug Dosing mL/min Estimated GFR (MDRD) ml/min Glucose (74-106) mg/dL POC Glucose 113 H (70-99) mg/dL Calcium (8.5-10.1) mg/dL Total Bilirubin (0.2-1.0) mg/dL AST (15-37) IU/L ALT (14-63) IU/L Alkaline Phosphatase (46-116) U/L Total Protein (6.4-8.2) g/dL Albumin (3.4-5.0) g/dL Globulin (2.6-4.0) g/dL Albumin/Globulin Ratio (0.9-1.6) Result Diagrams: 03/19/21 05:25 03/19/21 05:25 Sepsis Event Note - Evaluation Sepsis Screening Result: No Definite Risk - Focused Exam Vital Signs: Vital Signs Temp Pulse Resp BP BP Pulse Ox 03/19/21 09:37 172/66 H 03/19/21 09:23 37.2 C 53 L 17 172/66 H 96 03/19/21 04:25 74 130/64 03/19/21 03:36 36.6 C 54 L 18 96 - Problem List Review Problem List Initiated/Reviewed/Updated: Yes - My Orders Last 24 Hours: My Active Orders 03/18/21 13:04 Docusate Sodium [Colace] 100 mg PO BID PRN 03/20/21 05:11 CBC WITH AUTO DIFF [HEME] AM COMPREHENSIVE METABOLIC PN,CMP [CHEM] AM - Plan Plan:: 75 yo female with pmh of dementia admitted for general weakness, cellulitis and acute kidney injury. 1. Cellulitis with skin breakdown down over proximal posterior legs, on Cefepime, cultures pending 2. HERBERT: improved with fluids, CXR reported possible pulmonary edema so watching for signs of fluid overload, 3. HTN: holding labetalol due to bradycardia, resumed hydralazine. 4. A.fib: new onset, echocardiogram report pending, started Eliquis 5. generalized weakness: PT consulted, patient will likely need SNF placement. 6. dispo: pending placement
[2021-03-19] MEDS: Docusate Sodium 100 MG Cap PO PRN (20:01)
[2021-03-20] MEDS: Cefepime 1 GM in Premix Bag 1 BAG IV SCH ×2 (03:50→17:07)
[2021-03-20 06:07] LABS: CARBON DIOXIDE,CO2 24.9 mmol/L (21.0-32.0); POTASSIUM,K 3.8 mmol/L (3.5-5.1)
[2021-03-20] MEDS: Nystatin Topical Powder 15 GM Bottle TOP SCH ×4 (06:30→23:59)
[2021-03-20] MEDS ORDERED: Bisacodyl 10 MG Supp RECTAL ONE (07:33)
[2021-03-20] MEDS: Insulin Aspart 100 Units/ML 3 ML Pen SUBCUT SCH ×3 (08:33→17:10)
[2021-03-20] MEDS: Sertraline 100 MG Tab PO SCH (08:44)
[2021-03-20] MEDS: Apixaban 5 MG Tab PO SCH ×2 (08:45→22:46)
[2021-03-20] MEDS: Memantine 10 MG Tab PO SCH ×2 (08:45→22:46)
[2021-03-20] MEDS: Donepezil 10 MG Tab PO SCH (08:45)
[2021-03-20] MEDS: hydrALAZINE 25 MG Tab PO SCH ×2 (08:47→22:56)
[2021-03-20] MEDS: amLODIPine 5 MG Tab PO SCH (12:32)
--- NOTE | 2021-03-20 12:49 | PCM.PN ---
<Grant Gambino - Last Filed: 03/20/21 12:46> - General Info Date of Service: 03/20/21 Subjective Update: No new complaints this AM - Review of Systems General: Denies: Fever Pulmonary: Denies: No Symptoms Cardiovascular: Denies: Chest Pain (ROS not accurate as pt has dementia/non- verbal ) - Patient Data Vitals - Most Recent: Last Vital Signs Temp 98.6 F 03/20/21 12:26 Pulse 58 L 03/20/21 12:26 Resp 17 03/20/21 12:26 BP 189/57 H 03/20/21 12:32 Pulse Ox 96 03/20/21 12:26 Weight - Most Recent: 107.955 kg Bad tableLab Results Last 24 Hours: Laboratory Results - last 24 hr 03/19/21 03/20/21 03/20/21 Range/Units 17: 05:10 05:10 WBC 6.77 (4.0-11.0) K/uL RBC 4.20 L (4.30-5.90) M/uL Hgb 12.1 (12.0-16.0) g/dL Hct 36.7 (36.0-46.0) % MCV 87.4 (80.0-98.0) fL MCH 28.8 (27.0-32.0) pg MCHC 33.0 (31.0-37.0) g/dL RDW Std Deviation 46.4 (28.0-62.0) fl RDW Coeff of Litzy 15 (11.0-15.0) % Plt Count 227 (150-400) K/uL MPV 11.40 (7.40-12.00) fL Neut % (Auto) 67.2 (48.0-80.0) % Lymph % (Auto) 12.9 L (16.0-40.0) % Moore % (Auto) 15.2 H (0.0-15.0) % Eos % (Auto) 4.4 (0.0-7.0) % Baso % (Auto) 0.3 (0.0-1.5) % Neut # (Auto) 4.6 (1.4-5.7) K/uL Lymph # (Auto) 0.9 (0.6-2.4) K/uL Moore # (Auto) 1.0 H (0.0-0.8) K/uL Eos # (Auto) 0.3 (0.0-0.7) K/uL Baso # (Auto) 0.0 (0.0-0.1) K/uL Nucleated RBC % 0.0 /100WBC Nucleated RBCs # 0 K/uL Sodium 139 (136-145) mmol/L Potassium 3.8 (3.5-5.1) mmol/L Chloride 106 (98-107) mmol/L Carbon Dioxide 24.9 (21.0-32.0) mmol/L BUN 26 H (7.0-18.0) mg/dL Creatinine 1.3 H (0.6-1.0) mg/dL Est Cr Clr Drug Dosing 35.80 mL/min Estimated GFR (MDRD) 39.8 ml/min Glucose 125 H (74-106) mg/dL POC Glucose 109 H (70-99) mg/dL Calcium 8.8 (8.5-10.1) mg/dL Total Bilirubin 0.5 (0.2-1.0) mg/dL AST 31 (15-37) IU/L ALT 22 (14-63) IU/L Alkaline Phosphatase 59 (46-116) U/L Total Protein 6.5 (6.4-8.2) g/dL Albumin 2.2 L (3.4-5.0) g/dL Globulin 4.3 H (2.6-4.0) g/dL Albumin/Globulin Ratio 0.5 L (0.9-1.6) 03/20/21 03/20/21 Range/Units 06:28 12:24 WBC (4.0-11.0) K/uL RBC (4.30-5.90) M/uL Hgb (12.0-16.0) g/dL Hct (36.0-46.0) % MCV (80.0-98.0) fL MCH (27.0-32.0) pg MCHC (31.0-37.0) g/dL RDW Std Deviation (28.0-62.0) fl RDW Coeff of Litzy (11.0-15.0) % Plt Count (150-400) K/uL MPV (7.40-12.00) fL Neut % (Auto) (48.0-80.0) % Lymph % (Auto) (16.0-40.0) % Moore % (Auto) (0.0-15.0) % Eos % (Auto) (0.0-7.0) % Baso % (Auto) (0.0-1.5) % Neut # (Auto) (1.4-5.7) K/uL Lymph # (Auto) (0.6-2.4) K/uL Moore # (Auto) (0.0-0.8) K/uL Eos # (Auto) (0.0-0.7) K/uL Baso # (Auto) (0.0-0.1) K/uL Nucleated RBC % /100WBC Nucleated RBCs # K/uL Sodium (136-145) mmol/L Potassium (3.5-5.1) mmol/L Chloride (98-107) mmol/L Carbon Dioxide (21.0-32.0) mmol/L BUN (7.0-18.0) mg/dL Creatinine (0.6-1.0) mg/dL Est Cr Clr Drug Dosing mL/min Estimated GFR (MDRD) ml/min Glucose (74-106) mg/dL POC Glucose 116 H 135 H (70-99) mg/dL Calcium (8.5-10.1) mg/dL Total Bilirubin (0.2-1.0) mg/dL AST (15-37) IU/L ALT (14-63) IU/L Alkaline Phosphatase (46-116) U/L Total Protein (6.4-8.2) g/dL Albumin (3.4-5.0) g/dL Globulin (2.6-4.0) g/dL Albumin/Globulin Ratio (0.9-1.6) Med Orders - Current: Current Medications Acetaminophen (Acetaminophen 500 Mg Tab) 500 mg PO Q4H PRN PRN Reason: Pain Last Admin: 03/16/21 11:42 Dose: 500 mg Documented by: Amlodipine Besylate (Amlodipine 5 Mg Tab) 5 mg PO DAILY [facility] Last Admin: 03/20/21 12:32 Dose: 5 mg Documented by: Apixaban (Apixaban 5 Mg Tab) 5 mg PO BID [facility] Last Admin: 03/20/21 08:45 Dose: 5 mg Documented by: Dextrose/Water (50% Dextrose In Water 50 Ml Syringe) 50 ml IVPUSH ASDIRECTED PRN PRN Reason: Hypoglycemia Docusate Sodium (Docusate Sodium 100 Mg Cap) 100 mg PO BID PRN PRN Reason: Constipation Last Admin: 03/19/21 20:01 Dose: 100 mg Documented by: Donepezil HCl (Donepezil 10 Mg Tab) 10 mg PO DAILY [facility] Last Admin: 03/20/21 08:45 Dose: 10 mg Documented by: Glucagon (Glucagon,Human Recombinant 1 Mg Vial) 1 mg IM ASDIRECTED PRN PRN Reason: Hypoglycemia Hydralazine HCl (Hydralazine 25 Mg Tab) 25 mg PO Q12HR [facility] Last Admin: 03/20/21 08:47 Dose: 25 mg Documented by: Cefepime HCl 1 gm/ Premix 50 mls @ 100 mls/hr IV Q12H [facility] Last Admin: 03/20/21 03:50 Dose: 100 mls/hr Documented by: Insulin Aspart (Insulin Aspart 100 Units/Ml 3 Ml Pen) 0 unit SUBCUT TIDAC [facility]; Protocol Last Admin: 03/20/21 12:25 Dose: Not Given Documented by: Lorazepam (Lorazepam 2 Mg/Ml Sdv) 0.5 mg IVPUSH Q4H PRN PRN Reason: Agitation Last Admin: 03/17/21 19:14 Dose: 0.5 mg Documented by: Memantine (Memantine 10 Mg Tab) 5 mg PO BID [facility] Last Admin: 03/20/21 08:45 Dose: 5 mg Documented by: Nystatin (Nystatin Topical Powder 15 Gm Bottle) 0 gm TOP QID [facility] Last Admin: 03/20/21 12:33 Dose: 1 applic Documented by: Sertraline HCl (Sertraline 100 Mg Tab) 100 mg PO DAILY [facility] Last Admin: 03/20/21 08:44 Dose: 100 mg Documented by: Sodium Chloride (Sodium Chloride 0.9% 10 Ml Syringe) 10 ml FLUSH ASDIRECTED PRN PRN Reason: Keep Vein Open Last Admin: 03/15/21 11:06 Dose: 10 ml Documented by: Sodium Chloride (Sodium Chloride 0.9% 2.5 Ml Syringe) 2.5 ml FLUSH ASDIRECTED PRN PRN Reason: Keep Vein Open Last Admin: 03/15/21 11:06 Dose: 2.5 ml Documented by: Discontinued Medications Bisacodyl (Bisacodyl 10 Mg Supp) 10 mg RECTAL ONETIME ONE Stop: 03/20/21 07:34 Last Admin: 03/20/21 08:44 Dose: 10 mg Documented by: Heparin Sodium (Porcine) (Heparin Sodium 5,000 Units/Ml Vial) 5,000 units SUBCUT Q12H [facility] Last Admin: 03/17/21 15:07 Dose: 5,000 units Documented by: Hydralazine HCl (Hydralazine 25 Mg Tab) 25 mg PO ONETIME ONE Stop: 03/16/21 22:19 Last Admin: 03/16/21 22:30 Dose: 25 mg Documented by: Sodium Chloride (Normal Saline) 1,000 mls @ 125 mls/hr IV STAT ONE Stop: 03/15/21 20:27 Last Admin: 03/15/21 13:12 Dose: 125 mls/hr Documented by: Ceftriaxone Sodium/Dextrose 1 (gm/ Premix) 50 mls @ 100 mls/hr IV ONETIME ONE Stop: 03/15/21 13:38 Last Admin: 03/15/21 13:12 Dose: 100 mls/hr Documented by: Sodium Chloride (Sodium Chloride 0.45%) 1,000 mls @ 75 mls/hr IV Q13H [facility] Last Admin: 03/18/21 09:25 Dose: 75 mls/hr Documented by: Sodium Chloride (Normal Saline) 500 mls @ 999 mls/hr IV ONETIME ONE Stop: 03/17/21 11:30 Last Admin: 03/17/21 11:05 Dose: 999 mls/hr Documented by: Labetalol HCl (Labetalol 100 Mg Tab) 200 mg PO BID [facility] Last Admin: 03/15/21 21:24 Dose: 200 mg Documented by: Labetalol HCl (Labetalol 100 Mg Tab) 100 mg PO BID [facility] Last Admin: 03/17/21 11:11 Dose: Not Given Documented by: - Exam General: Alert Lungs: Clear to Auscultation, Normal Respiratory Effort Cardiovascular: Regular Rate, Irregular Rhythm GI/Abdominal Exam: Soft Back Exam: Other (skin abrasions improving ; ) Psy/Mental Status: Alert - Patient Data Lab Results Last 24 hrs: Laboratory Results - last 24 hr 03/19/21 03/20/21 03/20/21 Range/Units 17:21 05:10 05:10 WBC 6.77 (4.0-11.0) K/uL RBC 4.20 L (4.30-5.90) M/uL Hgb 12.1 (12.0-16.0) g/dL Hct 36.7 (36.0-46.0) % MCV 87.4 (80.0-98.0) fL MCH 28.8 (27.0-32.0) pg MCHC 33.0 (31.0-37.0) g/dL RDW Std Deviation 46.4 (28.0-62.0) fl RDW Coeff of Litzy 15 (11.0-15.0) % Plt Count 227 (150-400) K/uL MPV 11.40 (7.40-12.00) fL Neut % (Auto) 67.2 (48.0-80.0) % Lymph % (Auto) 12.9 L (16.0-40.0) % Moore % (Auto) 15.2 H (0.0-15.0) % Eos % (Auto) 4.4 (0.0-7.0) % Baso % (Auto) 0.3 (0.0-1.5) % Neut # (Auto) 4.6 (1.4-5.7) K/uL Lymph # (Auto) 0.9 (0.6-2.4) K/uL Moore # (Auto) 1.0 H (0.0-0.8) K/uL Eos # (Auto) 0.3 (0.0-0.7) K/uL Baso # (Auto) 0.0 (0.0-0.1) K/uL Nucleated RBC % 0.0 /100WBC Nucleated RBCs # 0 K/uL Sodium 139 (136-145) mmol/L Potassium 3.8 (3.5-5.1) mmol/L Chloride 106 (98-107) mmol/L Carbon Dioxide 24.9 (21.0-32.0) mmol/L BUN 26 H (7.0-18.0) mg/dL Creatinine 1.3 H (0.6-1.0) mg/dL Est Cr Clr Drug Dosing 35.80 mL/min Estimated GFR (MDRD) 39.8 ml/min Glucose 125 H (74-106) mg/dL POC Glucose 109 H (70-99) mg/dL Calcium 8.8 (8.5-10.1) mg/dL Total Bilirubin 0.5 (0.2-1.0) mg/dL AST 31 (15-37) IU/L ALT 22 (14-63) IU/L Alkaline Phosphatase 59 (46-116) U/L Total Protein 6.5 (6.4-8.2) g/dL Albumin 2.2 L (3.4-5.0) g/dL Globulin 4.3 H (2.6-4.0) g/dL Albumin/Globulin Ratio 0.5 L (0.9-1.6) 03/20/21 03/20/21 Range/Units 06:28 12:24 WBC (4.0-11.0) K/uL RBC (4.30-5.90) M/uL Hgb (12.0-16.0) g/dL Hct (36.0-46.0) % MCV (80.0-98.0) fL MCH (27.0-32.0) pg MCHC (31.0-37.0) g/dL RDW Std Deviation (28.0-62.0) fl RDW Coeff of Litzy (11.0-15.0) % Plt Count (150-400) K/uL MPV (7.40-12.00) fL Neut % (Auto) (48.0-80.0) % Lymph % (Auto) (16.0-40.0) % Moore % (Auto) (0.0-15.0) % Eos % (Auto) (0.0-7.0) % Baso % (Auto) (0.0-1.5) % Neut # (Auto) (1.4-5.7) K/uL Lymph # (Auto) (0.6-2.4) K/uL Moore # (Auto) (0.0-0.8) K/uL Eos # (Auto) (0.0-0.7) K/uL Baso # (Auto) (0.0-0.1) K/uL Nucleated RBC % /100WBC Nucleated RBCs # K/uL Sodium (136-145) mmol/L Potassium (3.5-5.1) mmol/L Chloride (98-107) mmol/L Carbon Dioxide (21.0-32.0) mmol/L BUN (7.0-18.0) mg/dL Creatinine (0.6-1.0) mg/dL Est Cr Clr Drug Dosing mL/min Estimated GFR (MDRD) ml/min Glucose (74-106) mg/dL POC Glucose 116 H 135 H (70-99) mg/dL Calcium (8.5-10.1) mg/dL Total Bilirubin (0.2-1.0) mg/dL AST (15-37) IU/L ALT (14-63) IU/L Alkaline Phosphatase (46-116) U/L Total Protein (6.4-8.2) g/dL Albumin (3.4-5.0) g/dL Globulin (2.6-4.0) g/dL Albumin/Globulin Ratio (0.9-1.6) Result Diagrams: 03/20/21 05:10 03/20/21 05:10 Sepsis Event Note - Evaluation Sepsis Screening Result: No Definite Risk - Focused Exam Vital Signs: Vital Signs Temp Pulse Resp BP BP Pulse Ox 03/20/21 12:32 189/57 H 03/20/21 12:26 98.6 F 58 L 17 189/57 H 96 03/20/21 08:47 179/68 H 03/20/21 08:34 98.0 F 51 L 18 179/68 H 96 03/20/21 03:57 98.7 F 50 L 18 162/72 H 96 - Problem List & Annotations (1) Weakness SNOMED Code(s): 78588535 Code(s): R53.1 - WEAKNESS Status: Acute Current Visit: Yes (2) Dementia SNOMED Code(s): 46528314 Code(s): F03.90 - UNSPECIFIED DEMENTIA WITHOUT BEHAVIORAL DISTURBANCE Status: Acute Current Visit: Yes Qualifiers: Dementia type: unspecified type (3) Dehydration SNOMED Code(s): 04119526 Code(s): E86.0 - DEHYDRATION Status: Acute Current Visit: Yes (4) Self-care deficit SNOMED Code(s): 947095530 Code(s): Z78.9 - OTHER SPECIFIED HEALTH STATUS Status: Acute Current Visit: Yes (5) Skin breakdown SNOMED Code(s): 465268012 Code(s): R23.8 - OTHER SKIN CHANGES Status: Acute Current Visit: Yes - Problem List Review Problem List Initiated/Reviewed/Updated: Yes - My Orders Last 24 Hours: My Active Orders 03/20/21 12:15 amLODIPine [Norvasc] 5 mg PO DAILY - Plan Plan:: 75 yo female with pmh of dementia admitted for general weakness, cellulitis and acute kidney injury. 1. Cellulitis with skin breakdown down over proximal posterior legs, on Cefepime, cultures suggest enterococcus faecalis, ec magdy and skin isaiah; sensitive to levofloxacin; can switch to PO at discharge 2. HERBERT: improved with fluids 3. HTN: holding labetalol due to bradycardia, resumed hydralazine ; added Amlodipine 5 mg today ; can titrate as needed 4. A.fib: new onset, echocardiogram report pending, continue Eliquis 5. generalized weakness: PT consulted, patient will likely need SNF placement. 6. dispo: pending placement <Alyssa Armstrong - Last Filed: 03/20/21 18:21> - Patient Data Vitals - Most Recent: Last Vital Signs Temp 37.1 C 03/20/21 17:12 Pulse 55 L 03/20/21 17:12 Resp 17 03/20/21 17:12 BP 177/57 H 03/20/21 17:12 Pulse Ox 94 L 03/20/21 17:12 I&O - Last 24 Hours: Intake & Output 03/20/21 03/20/21 03/20/21 06:59 14:59 22:59 Intake Total 305 215 Output Total 80 115 Balance -47) @ -92/ Lab Results Last 24 Hours: Laboratory Results - last 24 hr 03/20/21 03/20/21 03/20/21 Range/Units 05:10 05:10 06:28 WBC 6.77 (4.0-11.0) K/uL RBC 4.20 L (4.30-5.90) M/uL Hgb 12.1 (12.0-16.0) g/dL Hct 36.7 (36.0-46.0) % MCV 87.4 (80.0-98.0) fL MCH 28.8 (27.0-32.0) pg MCHC 33.0 (31.0-37.0) g/dL RDW Std Deviation 46.4 (28.0-62.0) fl RDW Coeff of Litzy 15 (11.0-15.0) % Plt Count 227 (150-400) K/uL MPV 11.40 (7.40-12.00) fL Neut % (Auto) 67.2 (48.0-80.0) % Lymph % (Auto) 12.9 L (16.0-40.0) % Moore % (Auto) 15.2 H (0.0-15.0) % Eos % (Auto) 4.4 (0.0-7.0) % Baso % (Auto) 0.3 (0.0-1.5) % Neut # (Auto) 4.6 (1.4-5.7) K/uL Lymph # (Auto) 0.9 (0.6-2.4) K/uL Moore # (Auto) 1.0 H (0.0-0.8) K/uL Eos # (Auto) 0.3 (0.0-0.7) K/uL Baso # (Auto) 0.0 (0.0-0.1) K/uL Nucleated RBC % 0.0 /100WBC Nucleated RBCs # 0 K/uL Sodium 139 (136-145) mmol/L Potassium 3.8 (3.5-5.1) mmol/L Chloride 106 (98-107) mmol/L Carbon Dioxide 24.9 (21.0-32.0) mmol/L BUN 26 H (7.0-18.0) mg/dL Creatinine 1.3 H (0.6-1.0) mg/dL Est Cr Clr Drug Dosing 35.80 mL/min Estimated GFR (MDRD) 39.8 ml/min Glucose 125 H (74-106) mg/dL POC Glucose 116 H (70-99) mg/dL Calcium 8.8 (8.5-10.1) mg/dL Total Bilirubin 0.5 (0.2-1.0) mg/dL AST 31 (15-37) IU/L ALT 22 (14-63) IU/L Alkaline Phosphatase 59 (46-116) U/L Total Protein 6.5 (6.4-8.2) g/dL Albumin 2.2 L (3.4-5.0) g/dL Globulin 4.3 H (2.6-4.0) g/dL Albumin/Globulin Ratio 0.5 L (0.9-1.6) 03/20/21 03/20/21 Range/Units 12:24 17:09 WBC (4.0-11.0) K/uL RBC (4.30-5.90) M/uL Hgb (12.0-16.0) g/dL Hct (36.0-46.0) % MCV (80.0-98.0) fL MCH (27.0-32.0) pg MCHC (31.0-37.0) g/dL RDW Std Deviation (28.0-62.0) fl RDW Coeff of Litzy (11.0-15.0) % Plt Count (150-400) K/uL MPV (7.40-12.00) fL Neut % (Auto) (48.0-80.0) % Lymph % (Auto) (16.0-40.0) % Moore % (Auto) (0.0-15.0) % Eos % (Auto) (0.0-7.0) % Baso % (Auto) (0.0-1.5) % Neut # (Auto) (1.4-5.7) K/uL Lymph # (Auto) (0.6-2.4) K/uL Moore # (Auto) (0.0-0.8) K/uL Eos # (Auto) (0.0-0.7) K/uL Baso # (Auto) (0.0-0.1) K/uL Nucleated RBC % /100WBC Nucleated RBCs # K/uL Sodium (136-145) mmol/L Potassium (3.5-5.1) mmol/L Chloride (98-107) mmol/L Carbon Dioxide (21.0-32.0) mmol/L BUN (7.0-18.0) mg/dL Creatinine (0.6-1.0) mg/dL Est Cr Clr Drug Dosing mL/min Estimated GFR (MDRD) ml/min Glucose (74-106) mg/dL POC Glucose 135 H 118 H (70-99) mg/dL Calcium (8.5-10.1) mg/dL Total Bilirubin (0.2-1.0) mg/dL AST (15-37) IU/L ALT (14-63) IU/L Alkaline Phosphatase (46-116) U/L Total Protein (6.4-8.2) g/dL Albumin (3.4-5.0) g/dL Globulin (2.6-4.0) g/dL Albumin/Globulin Ratio (0.9-1.6) Med Orders - Current: Current Medications Acetaminophen (Acetaminophen 500 Mg Tab) 500 mg PO Q4H PRN PRN Reason: Pain Last Admin: 03/16/21 11:42 Dose: 500 mg Documented by: Amlodipine Besylate (Amlodipine 5 Mg Tab) 5 mg PO DAILY [facility] Last Admin: 03/20/21 12:32 Dose: 5 mg Documented by: Apixaban (Apixaban 5 Mg Tab) 5 mg PO BID [facility] Last Admin: 03/20/21 08:45 Dose: 5 mg Documented by: Dextrose/Water (50% Dextrose In Water 50 Ml Syringe) 50 ml IVPUSH ASDIRECTED P RN PRN Reason: Hypoglycemia Docusate Sodium (Docusate Sodium 100 Mg Cap) 100 mg PO BID PRN PRN Reason: Constipation Last Admin: 03/19/21 20:01 Dose: 100 mg Documented by: Donepezil HCl (Donepezil 10 Mg Tab) 10 mg PO DAILY [facility] Last Admin: 03/20/21 08:45 Dose: 10 mg Documented by: Glucagon (Glucagon,Human Recombinant 1 Mg Vial) 1 mg IM ASDIRECTED PRN PRN Reason: Hypoglycemia Hydralazine HCl (Hydralazine 25 Mg Tab) 25 mg PO Q12HR [facility] Last Admin: 03/20/21 08:47 Dose: 25 mg Documented by: Cefepime HCl 1 gm/ Premix 50 mls @ 100 mls/hr IV Q12H [facility] Last Admin: 03/20/21 17:07 Dose: 100 mls/hr Documented by: Insulin Aspart (Insulin Aspart 100 Units/Ml 3 Ml Pen) 0 unit SUBCUT TIDAC [facility]; Protocol Last Admin: 03/20/21 17:10 Dose: Not Given Documented by: Lorazepam (Lorazepam 2 Mg/Ml Sdv) 0.5 mg IVPUSH Q4H PRN PRN Reason: Agitation Last Admin: 03/17/21 19:14 Dose: 0.5 mg Documented by: Memantine (Memantine 10 Mg Tab) 5 mg PO BID [facility] Last Admin: 03/20/21 08:45 Dose: 5 mg Documented by: Nystatin (Nystatin Topical Powder 15 Gm Bottle) 0 gm TOP QID [facility] Last Admin: 03/20/21 17:10 Dose: 1 applic Documented by: Sertraline HCl (Sertraline 100 Mg Tab) 100 mg PO DAILY [facility] Last Admin: 03/20/21 08:44 Dose: 100 mg Documented by: Sodium Chloride (Sodium Chloride 0.9% 10 Ml Syringe) 10 ml FLUSH ASDIRECTED PRN PRN Reason: Keep Vein Open Last Admin: 03/15/21 11:06 Dose: 10 ml Documented by: Sodium Chloride (Sodium Chloride 0.9% 2.5 Ml Syringe) 2.5 ml FLUSH ASDIRECTED PRN PRN Reason: Keep Vein Open Last Admin: 03/15/21 11:06 Dose: 2.5 ml Documented by: Discontinued Medications Bisacodyl (Bisacodyl 10 Mg Supp) 10 mg RECTAL ONETIME ONE Stop: 03/20/21 07:34 Last Admin: 03/20/21 08:44 Dose: 10 mg Documented by: Heparin Sodium (Porcine) (Heparin Sodium 5,000 Units/Ml Vial) 5,000 units SUBCUT Q12H [facility] Last Admin: 03/17/21 15:07 Dose: 5,000 units Documented by: Hydralazine HCl (Hydralazine 25 Mg Tab) 25 mg PO ONETIME ONE Stop: 03/16/21 22:19 Last Admin: 03/16/21 22:30 Dose: 25 mg Documented by: Sodium Chloride (Normal Saline) 1,000 mls @ 125 mls/hr IV STAT ONE Stop: 03/15/21 20:27 Last Admin: 03/15/21 13:12 Dose: 125 mls/hr Documented by: Ceftriaxone Sodium/Dextrose 1 (gm/ Premix) 50 mls @ 100 mls/hr IV ONETIME ONE Stop: 03/15/21 13:38 Last Admin: 03/15/21 13:12 Dose: 100 mls/hr Documented by: Sodium Chloride (Sodium Chloride 0.45%) 1,000 mls @ 75 mls/hr IV Q13H [facility] Last Admin: 03/18/21 09:25 Dose: 75 mls/hr Documented by: Sodium Chloride (Normal Saline) 500 mls @ 999 mls/hr IV ONETIME ONE Stop: 03/17/21 11:30 Last Admin: 03/17/21 11:05 Dose: 999 mls/hr Documented by: Labetalol HCl (Labetalol 100 Mg Tab) 200 mg PO BID [facility] Last Admin: 03/15/21 21:24 Dose: 200 mg Documented by: Labetalol HCl (Labetalol 100 Mg Tab) 100 mg PO BID [facility] Last Admin: 03/17/21 11:11 Dose: Not Given Documented by: - Patient Data Lab Results Last 24 hrs: Laboratory Results - last 24 hr 03/20/21 03/20/21 03/20/21 Range/Units 05:10 05:10 06:28 WBC 6.77 (4.0-11.0) K/uL RBC 4.20 L (4.30-5.90) M/uL Hgb 12.1 (12.0-16.0) g/dL Hct 36.7 (36.0-46.0) % MCV 87.4 (80.0-98.0) fL MCH 28.8 (27.0-32.0) pg MCHC 33.0 (31.0-37.0) g/dL RDW Std Deviation 46.4 (28.0-62.0) fl RDW Coeff of Litzy 15 (11.0-15.0) % Plt Count 227 (150-400) K/uL MPV 11.40 (7.40-12.00) fL Neut % (Auto) 67.2 (48.0-80.0) % Lymph % (Auto) 12.9 L (16.0-40.0) % Moore % (Auto) 15.2 H (0.0-15.0) % Eos % (Auto) 4.4 (0.0-7.0) % Baso % (Auto) 0.3 (0.0-1.5) % Neut # (Auto) 4.6 (1.4-5.7) K/uL Lymph # (Auto) 0.9 (0.6-2.4) K/uL Moore # (Auto) 1.0 H (0.0-0.8) K/uL Eos # (Auto) 0.3 (0.0-0.7) K/uL Baso # (Auto) 0.0 (0.0-0.1) K/uL Nucleated RBC % 0.0 /100WBC Nucleated RBCs # 0 K/uL Sodium 139 (136-145) mmol/L Potassium 3.8 (3.5-5.1) mmol/L Chloride 106 (98-107) mmol/L Carbon Dioxide 24.9 (21.0-32.0) mmol/L BUN 26 H (7.0-18.0) mg/dL Creatinine 1.3 H (0.6-1.0) mg/dL Est Cr Clr Drug Dosing 35.80 mL/min Estimated GFR (MDRD) 39.8 ml/min Glucose 125 H (74-106) mg/dL POC Glucose 116 H (70-99) mg/dL Calcium 8.8 (8.5-10.1) mg/dL Total Bilirubin 0.5 (0.2-1.0) mg/dL AST 31 (15-37) IU/L ALT 22 (14-63) IU/L Alkaline Phosphatase 59 (46-116) U/L Total Protein 6.5 (6.4-8.2) g/dL Albumin 2.2 L (3.4-5.0) g/dL Globulin 4.3 H (2.6-4.0) g/dL Albumin/Globulin Ratio 0.5 L (0.9-1.6) 03/20/21 03/20/21 Range/Units 12:24 17:09 WBC (4.0-11.0) K/uL RBC (4.30-5.90) M/uL Hgb (12.0-16.0) g/dL Hct (36.0-46.0) % MCV (80.0-98.0) fL MCH (27.0-32.0) pg MCHC (31.0-37.0) g/dL RDW Std Deviation (28.0-62.0) fl RDW Coeff of Litzy (11.0-15.0) % Plt Count (150-400) K/uL MPV (7.40-12.00) fL Neut % (Auto) (48.0-80.0) % Lymph % (Auto) (16.0-40.0) % Moore % (Auto) (0.0-15.0) % Eos % (Auto) (0.0-7.0) % Baso % (Auto) (0.0-1.5) % Neut # (Auto) (1.4-5.7) K/uL Lymph # (Auto) (0.6-2.4) K/uL Moore # (Auto) (0.0-0.8) K/uL Eos # (Auto) (0.0-0.7) K/uL Baso # (Auto) (0.0-0.1) K/uL Nucleated RBC % /100WBC Nucleated RBCs # K/uL Sodium (136-145) mmol/L Potassium (3.5-5.1) mmol/L Chloride (98-107) mmol/L Carbon Dioxide (21.0-32.0) mmol/L BUN (7.0-18.0) mg/dL Creatinine (0.6-1.0) mg/dL Est Cr Clr Drug Dosing mL/min Estimated GFR (MDRD) ml/min Glucose (74-106) mg/dL POC Glucose 135 H 118 H (70-99) mg/dL Calcium (8.5-10.1) mg/dL Total Bilirubin (0.2-1.0) mg/dL AST (15-37) IU/L ALT (14-63) IU/L Alkaline Phosphatase (46-116) U/L Total Protein (6.4-8.2) g/dL Albumin (3.4-5.0) g/dL Globulin (2.6-4.0) g/dL Albumin/Globulin Ratio (0.9-1.6) Result Diagrams: 03/20/21 05:10 03/20/21 05:10 Sepsis Event Note - Focused Exam Vital Signs: Vital Signs Temp Pulse Resp BP BP Pulse Ox 03/20/21 17:12 37.1 C 55 L 17 177/57 H 94 L 03/20/21 12:32 189/57 H 03/20/21 12:26 37.0 C 58 L 17 189/57 H 96 03/20/21 08:47 179/68 H 03/20/21 08:34 36.7 C 51 L 18 179/68 H 96 - Plan Plan:: I have seen and evaluated the patient. I have discussed findings and treatment plan with resident. I agree with the assessment and plan in the following note.
[2021-03-21] MEDS: Cefepime 1 GM in Premix Bag 1 BAG IV SCH ×2 (03:45→17:34)
[2021-03-21] MEDS: Nystatin Topical Powder 15 GM Bottle TOP SCH ×3 (06:04→18:49)
[2021-03-21] MEDS: Insulin Aspart 100 Units/ML 3 ML Pen SUBCUT SCH ×3 (08:42→17:35)
[2021-03-21 09:05] LABS: CARBON DIOXIDE,CO2 24.4 mmol/L (21.0-32.0); POTASSIUM,K 4.4 mmol/L (3.5-5.1)
[2021-03-21] MEDS: Memantine 10 MG Tab PO SCH ×4 (09:11→21:06)
[2021-03-21] MEDS: amLODIPine 5 MG Tab PO SCH ×3 (09:11→10:57)
[2021-03-21] MEDS: Sertraline 100 MG Tab PO SCH ×3 (09:11→10:57)
[2021-03-21] MEDS: Apixaban 5 MG Tab PO SCH ×4 (09:12→21:06)
[2021-03-21] MEDS: Donepezil 10 MG Tab PO SCH ×3 (09:12→10:57)
[2021-03-21] MEDS: hydrALAZINE 25 MG Tab PO SCH ×4 (09:12→21:06)
--- NOTE | 2021-03-21 11:42 | PCM.PN ---
- General Info Date of Service: 03/21/21 Subjective Update: Bedside: no new complaints - Review of Systems General: Denies: Fever Pulmonary: Denies: Shortness of Breath Cardiovascular: Denies: Chest Pain Neurological: Reports: Pre-Existing Deficit (baseline dementia; unreliable ROS ) - Patient Data Vitals - Most Recent: Last Vital Signs Temp 98.2 F 03/21/21 09:00 Pulse 50 L 03/21/21 09:00 Resp 19 03/21/21 09:00 BP 139/63 03/21/21 10:57 Pulse Ox 97 03/21/21 09:00 Weight - Most Recent: 107.955 kg Bad tableLab Results Last 24 Hours: Laboratory Results - last 24 hr 03/20/21 03/20/21 03/21/21 Range/Units 12:24 17:09 06:32 WBC (4.0-11.0) K/uL RBC (4.30-5.90) M/uL Hgb (12.0-16.0) g/dL Hct (36.0-46.0) % MCV (80.0-98.0) fL MCH (27.0-32.0) pg MCHC (31.0-37.0) g/dL RDW Std Deviation (28.0-62.0) fl RDW Coeff of Litzy (11.0-15.0) % Plt Count (150-400) K/uL MPV (7.40-12.00) fL Neut % (Auto) (48.0-80.0) % Lymph % (Auto) (16.0-40.0) % [place] % (Auto) (0.0-15.0) % Eos % (Auto) (0.0-7.0) % Baso % (Auto) (0.0-1.5) % Neut # (Auto) (1.4-5.7) K/uL Lymph # (Auto) (0.6-2.4) K/uL [place] # (Auto) (0.0-0.8) K/uL Eos # (Auto) (0.0-0.7) K/uL Baso # (Auto) (0.0-0.1) K/uL Nucleated RBC % /100WBC Nucleated RBCs # K/uL Sodium (136-145) mmol/L Potassium (3.5-5.1) mmol/L Chloride (98-107) mmol/L Carbon Dioxide (21.0-32.0) mmol/L BUN (7.0-18.0) mg/dL Creatinine (0.6-1.0) mg/dL Est Cr Clr Drug Dosing mL/min Estimated GFR (MDRD) ml/min Glucose (74-106) mg/dL POC Glucose 135 H 118 H 126 H (70-99) mg/dL Calcium (8.5-10.1) mg/dL 03/21/21 03/21/21 Range/Units 08:30 08:30 WBC 8.31 (4.0-11.0) K/uL RBC 4.43 (4.30-5.90) M/uL Hgb 12.8 (12.0-16.0) g/dL Hct 38.6 (36.0-46.0) % MCV 87.1 (80.0-98.0) fL MCH 28.9 (27.0-32.0) pg MCHC 33.2 (31.0-37.0) g/dL RDW Std Deviation 46.7 (28.0-62.0) fl RDW Coeff of Litzy 15 (11.0-15.0) % Plt Count 224 (150-400) K/uL MPV 11.00 (7.40-12.00) fL Neut % (Auto) 72.3 (48.0-80.0) % Lymph % (Auto) 11.1 L (16.0-40.0) % [place] % (Auto) 13.2 (0.0-15.0) % Eos % (Auto) 3.2 (0.0-7.0) % Baso % (Auto) 0.2 (0.0-1.5) % Neut # (Auto) 6.0 H (1.4-5.7) K/uL Lymph # (Auto) 0.9 (0.6-2.4) K/uL [place] # (Auto) 1.1 H (0.0-0.8) K/uL Eos # (Auto) 0.3 (0.0-0.7) K/uL Baso # (Auto) 0.0 (0.0-0.1) K/uL Nucleated RBC % 0.0 /100WBC Nucleated RBCs # 0 K/uL Sodium 143 (136-145) mmol/L Potassium 4.4 (3.5-5.1) mmol/L Chloride 109 H (98-107) mmol/L Carbon Dioxide 24.4 (21.0-32.0) mmol/L BUN 25 H (7.0-18.0) mg/dL Creatinine 1.2 H (0.6-1.0) mg/dL Est Cr Clr Drug Dosing 38.78 mL/min Estimated GFR (MDRD) 43.7 ml/min Glucose 131 H (74-106) mg/dL POC Glucose (70-99) mg/dL Calcium 8.5 (8.5-10.1) mg/dL Med Orders - Current: Current Medications Acetaminophen (Acetaminophen 500 Mg Tab) 500 mg PO Q4H PRN PRN Reason: Pain Last Admin: 03/16/21 11:42 Dose: 500 mg Documented by: Amlodipine Besylate (Amlodipine 5 Mg Tab) 5 mg PO DAILY [facility] Last Admin: 03/21/21 10:57 Dose: 5 mg Documented by: Apixaban (Apixaban 5 Mg Tab) 5 mg PO BID [facility] Last Admin: 03/21/21 10:55 Dose: 5 mg Documented by: Dextrose/Water (50% Dextrose In Water 50 Ml Syringe) 50 ml IVPUSH ASDIRECTED PRN PRN Reason: Hypoglycemia Docusate Sodium (Docusate Sodium 100 Mg Cap) 100 mg PO BID PRN PRN Reason: Constipation Last Admin: 03/19/21 20:01 Dose: 100 mg Documented by: Donepezil HCl (Donepezil 10 Mg Tab) 10 mg PO DAILY [facility] Last Admin: 03/21/21 10:57 Dose: 10 mg Documented by: Glucagon (Glucagon,Human Recombinant 1 Mg Vial) 1 mg IM ASDIRECTED PRN PRN Reason: Hypoglycemia Hydralazine HCl (Hydralazine 25 Mg Tab) 25 mg PO Q12HR [facility] Last Admin: 03/21/21 10:54 Dose: 25 mg Documented by: Cefepime HCl 1 gm/ Premix 50 mls @ 100 mls/hr IV Q12H [facility] Last Admin: 03/21/21 03:45 Dose: 100 mls/hr Documented by: Insulin Aspart (Insulin Aspart 100 Units/Ml 3 Ml Pen) 0 unit SUBCUT TIDAC [facility]; Protocol Last Admin: 03/21/21 08:42 Dose: Not Given Documented by: Lorazepam (Lorazepam 2 Mg/Ml Sdv) 0.5 mg IVPUSH Q4H PRN PRN Reason: Agitation Last Admin: 03/17/21 19:14 Dose: 0.5 mg Documented by: Memantine (Memantine 10 Mg Tab) 5 mg PO BID [facility] Last Admin: 03/21/21 10:56 Dose: 5 mg Documented by: Nystatin (Nystatin Topical Powder 15 Gm Bottle) 0 gm TOP QID [facility] Last Admin: 03/21/21 06:04 Dose: 1 applic Documented by: Sertraline HCl (Sertraline 100 Mg Tab) 100 mg PO DAILY [facility] Last Admin: 03/21/21 10:57 Dose: 100 mg Documented by: Sodium Chloride (Sodium Chloride 0.9% 10 Ml Syringe) 10 ml FLUSH ASDIRECTED PRN PRN Reason: Keep Vein Open Last Admin: 03/15/21 11:06 Dose: 10 ml Documented by: Sodium Chloride (Sodium Chloride 0.9% 2.5 Ml Syringe) 2.5 ml FLUSH ASDIRECTED PRN PRN Reason: Keep Vein Open Last Admin: 03/15/21 11:06 Dose: 2.5 ml Documented by: Discontinued Medications Bisacodyl (Bisacodyl 10 Mg Supp) 10 mg RECTAL ONETIME ONE Stop: 03/20/21 07:34 Last Admin: 03/20/21 08:44 Dose: 10 mg Documented by: Heparin Sodium (Porcine) (Heparin Sodium 5,000 Units/Ml Vial) 5,000 units SUBCUT Q12H [facility] Last Admin: 03/17/21 15:07 Dose: 5,000 units Documented by: Hydralazine HCl (Hydralazine 25 Mg Tab) 25 mg PO ONETIME ONE Stop: 03/16/21 22:19 Last Admin: 03/16/21 22:30 Dose: 25 mg Documented by: Sodium Chloride (Normal Saline) 1,000 mls @ 125 mls/hr IV STAT ONE Stop: 03/15/21 20:27 Last Admin: 03/15/21 13:12 Dose: 125 mls/hr Documented by: Ceftriaxone Sodium/Dextrose 1 (gm/ Premix) 50 mls @ 100 mls/hr IV ONETIME ONE Stop: 03/15/21 13:38 Last Admin: 03/15/21 13:12 Dose: 100 mls/hr Documented by: Sodium Chloride (Sodium Chloride 0.45%) 1,000 mls @ 75 mls/hr IV Q13H [facility] Last Admin: 03/18/21 09:25 Dose: 75 mls/hr Documented by: Sodium Chloride (Normal Saline) 500 mls @ 999 mls/hr IV ONETIME ONE Stop: 03/17/21 11:30 Last Admin: 03/17/21 11:05 Dose: 999 mls/hr Documented by: Labetalol HCl (Labetalol 100 Mg Tab) 200 mg PO BID [facility] Last Admin: 03/15/21 21:24 Dose: 200 mg Documented by: Labetalol HCl (Labetalol 100 Mg Tab) 100 mg PO BID [facility] Last Admin: 03/17/21 11:11 Dose: Not Given Documented by: - Exam General: Alert Lungs: Clear to Auscultation, Normal Respiratory Effort Cardiovascular: Irregular Rhythm GI/Abdominal Exam: Soft, Non-Tender Skin: Other (increased skin sloughing of lower back noted ; stage 1-2 pressure ulcers noted over buttocks and posterior thighs left > right ) Wound/Incisions: Decubitis Psy/Mental Status: Alert, Normal Mood - Patient Data Lab Results Last 24 hrs: Laboratory Results - last 24 hr 03/20/21 03/20/21 03/21/21 Range/Units 12:24 17:09 06:32 WBC (4.0-11.0) K/uL RBC (4.30-5.90) M/uL Hgb (12.0-16.0) g/dL Hct (36.0-46.0) % MCV (80.0-98.0) fL MCH (27.0-32.0) pg MCHC (31.0-37.0) g/dL RDW Std Deviation (28.0-62.0) fl RDW Coeff of Litzy (11.0-15.0) % Plt Count (150-400) K/uL MPV (7.40-12.00) fL Neut % (Auto) (48.0-80.0) % Lymph % (Auto) (16.0-40.0) % [place] % (Auto) (0.0-15.0) % Eos % (Auto) (0.0-7.0) % Baso % (Auto) (0.0-1.5) % Neut # (Auto) (1.4-5.7) K/uL Lymph # (Auto) (0.6-2.4) K/uL [place] # (Auto) (0.0-0.8) K/uL Eos # (Auto) (0.0-0.7) K/uL Baso # (Auto) (0.0-0.1) K/uL Nucleated RBC % /100WBC Nucleated RBCs # K/uL Sodium (136-145) mmol/L Potassium (3.5-5.1) mmol/L Chloride (98-107) mmol/L Carbon Dioxide (21.0-32.0) mmol/L BUN (7.0-18.0) mg/dL Creatinine (0.6-1.0) mg/dL Est Cr Clr Drug Dosing mL/min Estimated GFR (MDRD) ml/min Glucose (74-106) mg/dL POC Glucose 135 H 118 H 126 H (70-99) mg/dL Calcium (8.5-10.1) mg/dL 03/21/21 03/21/21 Range/Units 08:30 08:30 WBC 8.31 (4.0-11.0) K/uL RBC 4.43 (4.30-5.90) M/uL Hgb 12.8 (12.0-16.0) g/dL Hct 38.6 (36.0-46.0) % MCV 87.1 (80.0-98.0) fL MCH 28.9 (27.0-32.0) pg MCHC 33.2 (31.0-37.0) g/dL RDW Std Deviation 46.7 (28.0-62.0) fl RDW Coeff of Litzy 15 (11.0-15.0) % Plt Count 224 (150-400) K/uL MPV 11.00 (7.40-12.00) fL Neut % (Auto) 72.3 (48.0-80.0) % Lymph % (Auto) 11.1 L (16.0-40.0) % [place] % (Auto) 13.2 (0.0-15.0) % Eos % (Auto) 3.2 (0.0-7.0) % Baso % (Auto) 0.2 (0.0-1.5) % Neut # (Auto) 6.0 H (1.4-5.7) K/uL Lymph # (Auto) 0.9 (0.6-2.4) K/uL [place] # (Auto) 1.1 H (0.0-0.8) K/uL Eos # (Auto) 0.3 (0.0-0.7) K/uL Baso # (Auto) 0.0 (0.0-0.1) K/uL Nucleated RBC % 0.0 /100WBC Nucleated RBCs # 0 K/uL Sodium 143 (136-145) mmol/L Potassium 4.4 (3.5-5.1) mmol/L Chloride 109 H (98-107) mmol/L Carbon Dioxide 24.4 (21.0-32.0) mmol/L BUN 25 H (7.0-18.0) mg/dL Creatinine 1.2 H (0.6-1.0) mg/dL Est Cr Clr Drug Dosing 38.78 mL/min Estimated GFR (MDRD) 43.7 ml/min Glucose 131 H (74-106) mg/dL POC Glucose (70-99) mg/dL Calcium 8.5 (8.5-10.1) mg/dL Result Diagrams: 03/21/21 08:30 03/21/21 08:30 Sepsis Event Note - Evaluation Sepsis Screening Result: No Definite Risk - Focused Exam Vital Signs: Vital Signs Temp Pulse Resp BP BP BP Pulse Ox 03/21/21 10:57 139/63 03/21/21 10:54 139/63 03/21/21 09:00 98.2 F 50 L 19 139/63 97 03/21/21 03:48 98.2 F 50 L 19 175/72 H 96 - Problem List & Annotations (1) Weakness SNOMED Code(s): 62480986 Code(s): R53.1 - WEAKNESS Status: Acute Current Visit: Yes (2) Dementia SNOMED Code(s): 50249841 Code(s): F03.90 - UNSPECIFIED DEMENTIA WITHOUT BEHAVIORAL DISTURBANCE Status: Acute Current Visit: Yes Qualifiers: Dementia type: unspecified type (3) Dehydration SNOMED Code(s): 31790845 Code(s): E86.0 - DEHYDRATION Status: Acute Current Visit: Yes (4) Self-care deficit SNOMED Code(s): 223022431 Code(s): Z78.9 - OTHER SPECIFIED HEALTH STATUS Status: Acute Current Visit: Yes (5) Skin breakdown SNOMED Code(s): 572278992 Code(s): R23.8 - OTHER SKIN CHANGES Status: Acute Current Visit: Yes - Problem List Review Problem List Initiated/Reviewed/Updated: Yes - My Orders Last 24 Hours: My Active Orders 03/20/21 12:15 amLODIPine [Norvasc] 5 mg PO DAILY - Plan Plan:: 75 yo female with pmh of dementia admitted for general weakness, cellulitis and acute kidney injury. 1. Cellulitis with skin breakdown down over proximal posterior legs, on Cef epime, cultures suggest enterococcus faecalis, ec magdy and skin isaiah; sensitive to levofloxacin; can switch to PO at discharge 2. HERBERT: improved with fluids 3. HTN: holding labetalol due to bradycardia, resumed hydralazine ; cont Amlodipine 5 mg today ; can titrate as needed 4. A.fib: new onset, echocardiogram report pending, continue Eliquis 5. generalized weakness: PT consulted, patient will likely need SNF placement. Concerns regarding pts significant dementia w. wounds noted over back + decreased mobility and round-the -clock care; will discuss with family possible palliative consultation for goals of care discussion and intensity of treatment inpatient and at discharge 6. dispo: pending placement
--- NOTE | 2021-03-21 13:13 | ECHO ---
EXAM DATE: 03/15/21 PATIENT'S AGE: 75 The ECHO report has been scanned into [email or web address] and can be seen in this patient's EMR (Electronic Medical Record) under the REPORTS section. The report has also been scanned into PACS. XIANG
[2021-03-21] MEDS: Sodium Chloride 0.9% 250 ML IV SCH (18:47)
[2021-03-22] MEDS: Nystatin Topical Powder 15 GM Bottle TOP SCH ×4 (00:14→17:09)
[2021-03-22] MEDS: Cefepime 1 GM in Premix Bag 1 BAG IV SCH ×2 (04:30→15:32)
[2021-03-22] MEDS: Insulin Aspart 100 Units/ML 3 ML Pen SUBCUT SCH ×3 (07:41→18:40)
--- NOTE | 2021-03-22 09:08 | PCM.PN ---
- General Info Date of Service: 03/22/21 Subjective Update: Bedside: no acute signs of distress - Review of Systems General: Denies: Fever Psychiatric: Reports: No Symptoms (ROS not reliable ) - Patient Data Vitals - Most Recent: Last Vital Signs Temp 97.3 F 03/22/21 07:13 Pulse 57 L 03/22/21 07:13 Resp 16 03/22/21 07:13 BP 128/57 L 03/22/21 07:13 Pulse Ox 96 03/22/21 07:13 Weight - Most Recent: 107.955 kg I&O - Last 24 Hours: Intake & Output 03/21/21 03/22/21 03/22/21 22:59 06:59 14:59 Intake Total 200 280 Output Total 50 50 Balance -28$ -20$ Lab Results Last 24 Hours: Laboratory Results - last 24 hr 03/21/21 03/21/21 03/21/21 Range/Units 12:14 16:18 20:34 POC Glucose 131 H 110 H 173 H (70-99) mg/dL 03/22/21 Range/Units 07:02 POC Glucose 122 H (70-99) mg/dL Med Orders - Current: Current Medications Acetaminophen (Acetaminophen 500 Mg Tab) 500 mg PO Q4H PRN PRN Reason: Pain Last Admin: 03/16/21 11:42 Dose: 500 mg Documented by: Amlodipine Besylate (Amlodipine 5 Mg Tab) 5 mg PO DAILY [facility] Last Admin: 03/21/21 10:57 Dose: 5 mg Documented by: Apixaban (Apixaban 5 Mg Tab) 5 mg PO BID [facility] Last Admin: 03/21/21 21:06 Dose: 5 mg Documented by: Dextrose/Water (50% Dextrose In Water 50 Ml Syringe) 50 ml IVPUSH ASDIRECTED PRN PRN Reason: Hypoglycemia Docusate Sodium (Docusate Sodium 100 Mg Cap) 100 mg PO BID PRN PRN Reason: Constipation Last Admin: 03/19/21 20:01 Dose: 100 mg Documented by: Donepezil HCl (Donepezil 10 Mg Tab) 10 mg PO DAILY [facility] Last Admin: 03/21/21 10:57 Dose: 10 mg Documented by: Glucagon (Glucagon,Human Recombinant 1 Mg Vial) 1 mg IM ASDIRECTED PRN PRN Reason: Hypoglycemia Hydralazine HCl (Hydralazine 25 Mg Tab) 25 mg PO Q12HR [facility] Last Admin: 03/21/21 21:06 Dose: 25 mg Documented by: Cefepime HCl 1 gm/ Premix 50 mls @ 100 mls/hr IV Q12H [facility] Last Admin: 03/22/21 04:30 Dose: 100 mls/hr Documented by: Sodium Chloride (Normal Saline) 250 mls @ 999 mls/hr IV STAT [facility] Last Admin: 03/21/21 18:47 Dose: 999 mls/hr Documented by: Insulin Aspart (Insulin Aspart 100 Units/Ml 3 Ml Pen) 0 unit SUBCUT TIDAC [facility]; Protocol Last Admin: 03/22/21 07:41 Dose: Not Given Documented by: Lorazepam (Lorazepam 2 Mg/Ml Sdv) 0.5 mg IVPUSH Q4H PRN PRN Reason: Agitation Last Admin: 03/17/21 19:14 Dose: 0.5 mg Documented by: Memantine (Memantine 10 Mg Tab) 5 mg PO BID [facility] Last Admin: 03/21/21 21:06 Dose: 5 mg Documented by: Multi-Ingred Cream/Lotion/Oil/Oint (Zinc Oxide 13% Crm 56 Gm Tube) 0 gm TOP DAILY [facility] Nystatin (Nystatin Topical Powder 15 Gm Bottle) 0 gm TOP QID [facility] Last Admin: 03/22/21 06:49 Dose: 1 applic Documented by: Sertraline HCl (Sertraline 100 Mg Tab) 100 mg PO DAILY [facility] Last Admin: 03/21/21 10:57 Dose: 100 mg Documented by: Sodium Chloride (Sodium Chloride 0.9% 10 Ml Syringe) 10 ml FLUSH ASDIRECTED PRN PRN Reason: Keep Vein Open Last Admin: 03/15/21 11:06 Dose: 10 ml Documented by: Sodium Chloride (Sodium Chloride 0.9% 2.5 Ml Syringe) 2.5 ml FLUSH ASDIRECTED PRN PRN Reason: Keep Vein Open Last Admin: 03/15/21 11:06 Dose: 2.5 ml Documented by: Discontinued Medications Bisacodyl (Bisacodyl 10 Mg Supp) 10 mg RECTAL ONETIME ONE Stop: 03/20/21 07:34 Last Admin: 03/20/21 08:44 Dose: 10 mg Documented by: Heparin Sodium (Porcine) (Heparin Sodium 5,000 Units/Ml Vial) 5,000 units SUBCUT Q12H [facility] Last Admin: 03/17/21 15:07 Dose: 5,000 units Documented by: Hydralazine HCl (Hydralazine 25 Mg Tab) 25 mg PO ONETIME ONE Stop: 03/16/21 22:19 Last Admin: 03/16/21 22:30 Dose: 25 mg Documented by: Sodium Chloride (Normal Saline) 1,000 mls @ 125 mls/hr IV STAT ONE Stop: 03/15/21 20:27 Last Admin: 03/15/21 13:12 Dose: 125 mls/hr Documented by: Ceftriaxone Sodium/Dextrose 1 (gm/ Premix) 50 mls @ 100 mls/hr IV ONETIME ONE Stop: 03/15/21 13:38 Last Admin: 03/15/21 13:12 Dose: 100 mls/hr Documented by: Sodium Chloride (Sodium Chloride 0.45%) 1,000 mls @ 75 mls/hr IV Q13H [facility] Last Admin: 03/18/21 09:25 Dose: 75 mls/hr Documented by: Sodium Chloride (Normal Saline) 500 mls @ 999 mls/hr IV ONETIME ONE Stop: 03/17/21 11:30 Last Admin: 03/17/21 11:05 Dose: 999 mls/hr Documented by: Labetalol HCl (Labetalol 100 Mg Tab) 200 mg PO BID [facility] Last Admin: 03/15/21 21:24 Dose: 200 mg Documented by: Labetalol HCl (Labetalol 100 Mg Tab) 100 mg PO BID [facility] Last Admin: 03/17/21 11:11 Dose: Not Given Documented by: - Exam General: Alert, No Acute Distress Lungs: Clear to Auscultation, Normal Respiratory Effort Cardiovascular: Bradycardia GI/Abdominal Exam: Soft Skin: Other (wounds unchanged from yesterday ) Psy/Mental Status: Alert - Patient Data Lab Results Last 24 hrs: Laboratory Results - last 24 hr 03/21/21 03/21/21 03/21/21 Range/Units 12:14 16:18 20:34 POC Glucose 131 H 110 H 173 H (70-99) mg/dL 03/22/21 Range/Units 07:02 POC Glucose 122 H (70-99) mg/dL Result Diagrams: 03/21/21 08:30 03/21/21 08:30 Sepsis Event Note - Evaluation Sepsis Screening Result: No Definite Risk - Focused Exam Vital Signs: Vital Signs Temp Pulse Resp BP Pulse Ox 03/22/21 07:13 97.3 F 57 L 16 128/57 L 96 03/22/21 04:33 97.7 F 53 L 18 178/60 H 95 - Problem List & Annotations (1) Weakness SNOMED Code(s): 05341966 Code(s): R53.1 - WEAKNESS Status: Acute Current Visit: Yes (2) Dementia SNOMED Code(s): 31235901 Code(s): F03.90 - UNSPECIFIED DEMENTIA WITHOUT BEHAVIORAL DISTURBANCE Status: Acute Current Visit: Yes Qualifiers: Dementia type: unspecified type (3) Dehydration SNOMED Code(s): 44986712 Code(s): E86.0 - DEHYDRATION Status: Acute Current Visit: Yes (4) Self-care deficit SNOMED Code(s): 338107836 Code(s): Z78.9 - OTHER SPECIFIED HEALTH STATUS Status: Acute Current Visit: Yes (5) Skin breakdown SNOMED Code(s): 266159882 Code(s): R23.8 - OTHER SKIN CHANGES Status: Acute Current Visit: Yes - Problem List Review Problem List Initiated/Reviewed/Updated: Yes - My Orders Last 24 Hours: My Active Orders 03/21/21 18:08 Foot Care [RC] ASDIRECTED Consult to Hospice [CONS] Routine 03/21/21 18:15 Sodium Chloride 0.9% [Normal Saline] 250 ml IV STAT 03/22/21 09:15 Zinc Oxide [Desitin Creamy Diaper Rash Crm] See Dose Instructions TOP DAILY - Plan Plan:: 75 yo female with pmh of dementia admitted for general weakness, cellulitis and acute kidney injury. 1. Cellulitis with skin breakdown down over proximal posterior legs, on Cefepime, cultures suggest enterococcus faecalis, ec magdy and skin isaiah; sensitive to levofloxacin; can switch to PO at discharge : Desitin cream application daily to areas of skin breakdown :wound appears improved this AM w. granulation tissue 2. HERBERT: improved with fluids 3. HTN: holding labetalol due to bradycardia, resumed hydralazine ; hold Amlodipine 5 mg today ; can titrate as needed (possibly start 2.5 if necessary) 4. A.fib: new onset, echocardiogram report pending, continue Eliquis 5. generalized weakness: PT consulted, patient will likely need SNF placement. Spoke at length with son , SHAMAR Campo, regarding goals of care. Alber expressed understanding and also believes her dementia is advanced and this may be her new baseline. Alber would like to discuss goals of care with Palliative team to adress specifi goals of care and determine quality of life measures e.g : deferring physical therapy, pain medication etc Pain control: will give 1 mg morphine q4hrs PRN pain for prior to movement; 6. dispo: pending placement
[2021-03-22] MEDS: Apixaban 5 MG Tab PO SCH ×2 (09:19→20:44)
[2021-03-22] MEDS: Donepezil 10 MG Tab PO SCH (09:19)
[2021-03-22] MEDS: Sertraline 100 MG Tab PO SCH (09:19)
[2021-03-22] MEDS: hydrALAZINE 25 MG Tab PO SCH ×2 (09:20→20:46)
[2021-03-22] MEDS: Memantine 10 MG Tab PO SCH ×2 (09:20→20:45)
[2021-03-22] MEDS: amLODIPine 5 MG Tab PO SCH (09:23)
[2021-03-22] MEDS: Acetaminophen 500 MG Tab PO PRN (11:04)
[2021-03-22] MEDS ORDERED: Morphine 2 MG/ML SYRINGE IVPUSH PRN (11:04)
[2021-03-22] MEDS: Zinc Oxide 13% Crm 56 GM Tube TOP SCH (11:24)
[2021-03-23] MEDS: Nystatin Topical Powder 15 GM Bottle TOP SCH ×3 (00:16→12:37)
[2021-03-23] MEDS: Cefepime 1 GM in Premix Bag 1 BAG IV SCH (04:18)
[2021-03-23 06:16] LABS: CARBON DIOXIDE,CO2 24.4 mmol/L (21.0-32.0)
[2021-03-23] MEDS: Insulin Aspart 100 Units/ML 3 ML Pen SUBCUT SCH ×2 (07:35→12:36)
[2021-03-23] MEDS ORDERED: Sodium Chloride 0.9% 250 ML IV SCH (08:45)
[2021-03-23] MEDS: Sodium Chloride 0.9% 250 ML IV SCH (09:39)
[2021-03-23] MEDS: Donepezil 10 MG Tab PO SCH (09:40)
[2021-03-23] MEDS: Sertraline 100 MG Tab PO SCH (09:41)
[2021-03-23] MEDS: Memantine 10 MG Tab PO SCH (09:41)
[2021-03-23] MEDS: hydrALAZINE 25 MG Tab PO SCH (09:42)
[2021-03-23] MEDS: Apixaban 5 MG Tab PO SCH (09:42)
[2021-03-23] MEDS: Docusate Sodium 100 MG Cap PO PRN (09:43)
[2021-03-23] MEDS: Zinc Oxide 13% Crm 56 GM Tube TOP SCH (10:09)
--- NOTE | 2021-03-23 12:30 | PCM.DCSUM1 ---
Discharge Summary - Hospital Course Free Text/Narrative:: Patient is a 75-year-old female with a significant past medical history of dementia, sleep apnea, hypertension, type 2 diabetes presenting March 15, 2021 from [place] via ambulance with a chief complaint of increased weakness. Patient is nonverbal and has dementia at baseline and medical history is being relayed to me via father and son. lives with patient [address] [facility] and has noticed since Saturday increasing weakness lethargy and decreased p.o. intake. Patient has also been laying in bed against her baseline which is walking around sometimes with assistance of a cane and or sometimes with a walker. notes that conversations regarding penitentiary placement were held prior to this stepdown in her physical abilities but patient had not expressed any definitive answers. ED course: EKG: Sinus rhythm with ectopic atrial beats Chest x-ray: Pulmonary vascular congestion and mild pulmonary edema no pneumonia/pneumothorax. Head CT: No acute intracranial abnormalities. Chronic age-related changes intracranially UA negative for nitrite/leukocyte esterase. Leukocytosis of 11. HERBERT 1.6. Covid negative Hospital course: Discussed case with /son. Endorses patient is DNR/DNI and will consider penitentiary placement. Has endorsed patient has been increasingly fatigued/tired and moving away from her baseline since returning back from [place] 1 month prior. Only complaint that patient has been having to family has been random aches and pains and shoulders and knees. 75-year-old female with significant past medical history of dementia, sleep apnea, hypertension type 2 diabetes presenting with increasing weakness and fatigue and worsening dementia. Of note patient on admission was noted to have multiple bedsores and wounds over the posterior back and buttocks. Wound cultures were ordered showing ultimately E. coli/Enterococcus faecalis and skin isaiah. Patient was started on cefepime per cultures and has been on it throughout the stay of her hospital admission. Wound care was administered per enterostomal care consultation and patient was dried and cleaned daily with a dressing applied with zinc oxide. Pressure ulcers were noted to be stage I/stage II. Concerned about worsening ulceration secondary to patient's body habitus coupled with patient not ambulating at bedside. Chaney catheter was placed with concerns about not moving and medical noncompliance. Patient was combative at times especially with moving and was complaining of pains aches and sores doing her cleaning and wound dressing. Concerns about fracture/dislocation were brought up hip x-rays were ordered suggesting no acute fractures however osteoarthritis was noted. Following day of admission atrial fibrillation was noted on telemetry however heart rate was in the low 40s with the lowest/robbie at 36. Patient labetalol 200 mg twice daily was held and patient was ultimately started on hydralazine +eliquis. Patient was given as needed doses of BP meds but this was not needed often . Patient was tolerating foods with nursing staff at times but was also refusing medications secondary to dementia/mentation. Except for above-mentioned vital signs and bradycardia which improved with cessation of labetalol . CBC was unremarkable throughout her stay. Blood glucose was managed with sliding scale insulin. No severe electrolyte abnormalities noted throughout stay. Patient was Covid negative. Did discuss at length with son Alber who is the designated POA and about possible palliative care consult. Ultimate goal by family and per patient prior to her dementia was to be comfortable without any heroic measures. Palliative care consult placed. Patient was discharged in stable condition to [facility]. Wound care instructions were provided for enterostomal care. A. fib: Started on Eliquis 5 mg twice daily. Hypertension: Discontinued labetalol. Continue to hydralazine. Chaney catheter care Oxycodone 5 mg q 4-6 hts PRN prior to moving /dressing change Discussed case w. pts PCP, Dr Aparna Muñoz prior to discharge - Discharge Data Discharge Date: 03/23/21 Discharge Disposition: [facility] Condition: Stable - Referral to Home Health Primary Care Physician: Fermin Muñoz MD - Discharge Diagnosis/Problem(s) (1) Weakness SNOMED Code(s): 50738778 ICD Code: R53.1 - WEAKNESS Status: Acute (2) Dementia SNOMED Code(s): 89773346 ICD Code: F03.90 - UNSPECIFIED DEMENTIA WITHOUT BEHAVIORAL DISTURBANCE Status: Acute Qualifiers: Dementia type: unspecified type (3) Dehydration SNOMED Code(s): 95194150 ICD Code: E86.0 - DEHYDRATION Status: Acute (4) Self-care deficit SNOMED Code(s): 864651424 ICD Code: Z78.9 - OTHER SPECIFIED HEALTH STATUS Status: Acute (5) Skin breakdown SNOMED Code(s): 567887642 ICD Code: R23.8 - OTHER SKIN CHANGES Status: Acute - Patient Summary/Data Consults: Consultations 03/15/21 15:21 Consult to Wound Care Services [CONS] Routine 03/20/21 11:30 Consult to Physical Therapy [PT Evaluation and Treatment] [CONS] Routine 03/21/21 18:08 Consult to Hospice [CONS] Routine - Patient Instructions Diet: Heart Healthy Diet Diet, Other: soft Other/Special Instructions: Wound care instructions will be given along with discharge paperwork. A aplliative consult has been placed per family and POA. PT /OT ordered. Wound care ordered for bed sores noted prior to admission - Discharge Plan *PRESCRIPTION DRUG MONITORING PROGRAM REVIEWED*: No *COPY OF PRESCRIPTION DRUG MONITORING REPORT IN PATIENT TIFFANI: No Prescriptions/Med Rec: Zinc Oxide [Desitin Creamy Diaper Rash Crm] 1 gm TOP DAILY 30 Days #1 tube Apixaban [Eliquis] 5 mg PO BID 30 Days #60 tablet levoFLOXacin [Levofloxacin] 750 mg PO DAILY 3 Days #3 tablet Home Medications: Home Meds Furosemide 20 mg PO DAILY 05/01/18 [History] Losartan Potassium 50 mg PO DAILY 05/01/18 [History] Donepezil HCl 10 mg PO BEDTIME 03/15/21 [History] Memantine HCl 5 mg PO BID 03/15/21 [History] Mirabegron [Myrbetriq] 50 mg PO DAILY 03/15/21 [History] Sertraline [Zoloft] 100 mg PO DAILY 03/15/21 [History] Acetaminophen [Tylenol Extra Strength] 500 mg PO Q4H PRN tablet 03/23/21 [Rx] Apixaban [Eliquis] 5 mg PO BID 30 Days #60 tablet 03/23/21 [Rx] Docusate Sodium [Colace] 100 mg PO BID PRN cap 03/23/21 [Rx] Memantine [Namenda] 5 mg PO BID tablet 03/23/21 [Rx] Nystatin [Nystop] 1 gram TOP QID 21 Days #1 bottle 03/23/21 [Rx] Zinc Oxide [Desitin Creamy Diaper Rash Crm] 1 gm TOP DAILY 30 Days #1 tube 03/23/21 [Rx] hydrALAZINE [Apresoline] 25 mg PO Q12HR tablet 03/23/21 [Rx] levoFLOXacin [Levofloxacin] 750 mg PO DAILY 3 Days #3 tablet 03/23/21 [Rx] Referrals: Fermin Muñoz MD [Primary Care Provider] - 03/24/21 10:00 am - Discharge Summary/Plan Comment DC Time >30 min.: No - Patient Data Vitals - Most Recent: Last Vital Signs Temp 97.3 F 03/23/21 11:00 Pulse 45 L 03/23/21 11:00 Resp 18 03/23/21 11:00 BP 149/72 H 03/23/21 11:00 Pulse Ox 96 03/23/21 11:00 Weight - Most Recent: 107.955 kg I&O - Last 24 hours: Intake & Output 03/22/21 03/23/21 03/23/21 22:59 06:59 14:59 Intake Total 300 250 Output Total 40 50 Balance -8$ -23$ P Lab Results - Last 24 hrs: Laboratory Results - last 24 hr 03/22/21 03/22/21 03/23/21 Range/Units 12:24 17:19 04:45 Sodium 142 (136-145) mmol/L Potassium 4.0 (3.5-5.1) mmol/L Chloride 108 H (98-107) mmol/L Carbon Dioxide 24.4 (21.0-32.0) mmol/L BUN 27 H (7.0-18.0) mg/dL Creatinine 1.3 H (0.6-1.0) mg/dL Est Cr Clr Drug Dosing 35.80 mL/min Estimated GFR (MDRD) 39.8 ml/min Glucose 126 H (74-106) mg/dL POC Glucose 129 H 103 H (70-99) mg/dL Calcium 9.1 (8.5-10.1) mg/dL SARS-CoV-2 RNA (LUZ) (NEGATIVE) 03/23/21 03/23/21 03/23/21 Range/Units 06:32 10:20 11:32 Sodium (136-145) mmol/L Potassium (3.5-5.1) mmol/L Chloride (98-107) mmol/L Carbon Dioxide (21.0-32.0) mmol/L BUN (7.0-18.0) mg/dL Creatinine (0.6-1.0) mg/dL Est Cr Clr Drug Dosing mL/min Estimated GFR (MDRD) ml/min Glucose (74-106) mg/dL POC Glucose 111 H 117 H (70-99) mg/dL Calcium (8.5-10.1) mg/dL SARS-CoV-2 RNA (LUZ) NEGATIVE (NEGATIVE) Med Orders - Current: Current Medications Acetaminophen (Acetaminophen 500 Mg Tab) 500 mg PO Q4H PRN PRN Reason: Pain Last Admin: 03/22/21 11:04 Dose: 500 mg Documented by: Apixaban (Apixaban 5 Mg Tab) 5 mg PO BID [facility] Last Admin: 03/23/21 09:42 Dose: 5 mg Documented by: Dextrose/Water (50% Dextrose In Water 50 Ml Syringe) 50 ml IVPUSH ASDIRECTED PRN PRN Reason: Hypoglycemia Docusate Sodium (Docusate Sodium 100 Mg Cap) 100 mg PO BID PRN PRN Reason: Constipation Last Admin: 03/23/21 09:43 Dose: 100 mg Documented by: Donepezil HCl (Donepezil 10 Mg Tab) 10 mg PO DAILY [facility] Last Admin: 03/23/21 09:40 Dose: 10 mg Documented by: Glucagon (Glucagon,Human Recombinant 1 Mg Vial) 1 mg IM ASDIRECTED PRN PRN Reason: Hypoglycemia Hydralazine HCl (Hydralazine 25 Mg Tab) 25 mg PO Q12HR [facility] Last Admin: 03/23/21 09:42 Dose: 25 mg Documented by: Cefepime HCl 1 gm/ Premix 50 mls @ 100 mls/hr IV Q12H [facility] Last Admin: 03/23/21 04:18 Dose: 100 mls/hr Documented by: Sodium Chloride (Normal Saline) 250 mls @ 999 mls/hr IV STAT [facility] Last Admin: 03/23/21 09:39 Dose: 999 mls/hr Documented by: Sodium Chloride (Normal Saline) 250 mls @ 999 mls/hr IV STAT [facility] Insulin Aspart (Insulin Aspart 100 Units/Ml 3 Ml Pen) 0 unit SUBCUT TIDAC [facility]; Protocol Last Admin: 03/23/21 07:35 Dose: Not Given Documented by: Lorazepam (Lorazepam 2 Mg/Ml Sdv) 0.5 mg IVPUSH Q4H PRN PRN Reason: Agitation Last Admin: 03/17/21 19:14 Dose: 0.5 mg Documented by: Memantine (Memantine 10 Mg Tab) 5 mg PO BID [facility] Last Admin: 03/23/21 09:41 Dose: 5 mg Documented by: Morphine Sulfate (Morphine 2 Mg/Ml Syringe) 1 mg IVPUSH Q4H PRN PRN Reason: Pain Last Admin: 03/23/21 05:29 Dose: 1 mg Documented by: Multi-Ingred Cream/Lotion/Oil/Oint (Zinc Oxide 13% Crm 56 Gm Tube) 0 gm TOP DAILY [facility] Last Admin: 03/23/21 10:09 Dose: 1 applic Documented by: Nystatin (Nystatin Topical Powder 15 Gm Bottle) 0 gm TOP QID [facility] Last Admin: 03/23/21 06:35 Dose: 1 applic Documented by: Sertraline HCl (Sertraline 100 Mg Tab) 100 mg PO DAILY [facility] Last Admin: 03/23/21 09:41 Dose: 100 mg Documented by: Sodium Chloride (Sodium Chloride 0.9% 10 Ml Syringe) 10 ml FLUSH ASDIRECTED PRN PRN Reason: Keep Vein Open Last Admin: 03/15/21 11:06 Dose: 10 ml Documented by: Sodium Chloride (Sodium Chloride 0.9% 2.5 Ml Syringe) 2.5 ml FLUSH ASDIRECTED PRN PRN Reason: Keep Vein Open Last Admin: 03/15/21 11:06 Dose: 2.5 ml Documented by: Discontinued Medications Amlodipine Besylate (Amlodipine 5 Mg Tab) 5 mg PO DAILY [facility] Last Admin: 03/22/21 09:23 Dose: Not Given Documented by: Bisacodyl (Bisacodyl 10 Mg Supp) 10 mg RECTAL ONETIME ONE Stop: 03/20/21 07:34 Last Admin: 03/20/21 08:44 Dose: 10 mg Documented by: Heparin Sodium (Porcine) (Heparin Sodium 5,000 Units/Ml Vial) 5,000 units SUBCUT Q12H [facility] Last Admin: 03/17/21 15:07 Dose: 5,000 units Documented by: Hydralazine HCl (Hydralazine 25 Mg Tab) 25 mg PO ONETIME ONE Stop: 03/16/21 22:19 Last Admin: 03/16/21 22:30 Dose: 25 mg Documented by: Sodium Chloride (Normal Saline) 1,000 mls @ 125 mls/hr IV STAT ONE Stop: 03/15/21 20:27 Last Admin: 03/15/21 13:12 Dose: 125 mls/hr Documented by: Ceftriaxone Sodium/Dextrose 1 (gm/ Premix) 50 mls @ 100 mls/hr IV ONETIME ONE Stop: 03/15/21 13:38 Last Admin: 03/15/21 13:12 Dose: 100 mls/hr Documented by: Sodium Chloride (Sodium Chloride 0.45%) 1,000 mls @ 75 mls/hr IV Q13H [facility] Last Admin: 03/18/21 09:25 Dose: 75 mls/hr Documented by: Sodium Chloride (Normal Saline) 500 mls @ 999 mls/hr IV ONETIME ONE Stop: 03/17/21 11:30 Last Admin: 03/17/21 11:05 Dose: 999 mls/hr Documented by: Labetalol HCl (Labetalol 100 Mg Tab) 200 mg PO BID [facility] Last Admin: 03/15/21 21:24 Dose: 200 mg Documented by: Labetalol HCl (Labetalol 100 Mg Tab) 100 mg PO BID [facility] Last Admin: 03/17/21 11:11 Dose: Not Given Documented by:
== END 2021-03-23 12:25 | DRG 683 ==
LOC: MW.ED 10:40 → MW.MS 13:04
PROVIDERS: ADMIT Internal Medicine; ATTEND Internal Medicine
DX: J18.9 Pneumonia, unspecified organism (principal); R53.1 Weakness; N17.9 Acute kidney failure, unspecified; Z74.1 Need for assistance with personal care; L03.115 Cellulitis of right lower limb; L03.116 Cellulitis of left lower limb; E86.0 Dehydration; R09.89 Other specified symptoms and signs involving the circulatory and respiratory systems; F03.90 Unspecified dementia, unspecified severity, without behavioral disturbance, psychotic disturbance, mood disturbance, and anxiety; I10 Essential (primary) hypertension; M19.90 Unspecified osteoarthritis, unspecified site; I48.91 Unspecified atrial fibrillation; Z20.822 Contact with and (suspected) exposure to COVID-19; Z66 Do not resuscitate; H91.90 Unspecified hearing loss, unspecified ear; K57.90 Diverticulosis of intestine, part unspecified, without perforation or abscess without bleeding; E11.9 Type 2 diabetes mellitus without complications; E66.9 Obesity, unspecified; Z96.653 Presence of artificial knee joint, bilateral; Z96.641 Presence of right artificial hip joint; L89.322 Pressure ulcer of left buttock, stage 2; L89.312 Pressure ulcer of right buttock, stage 2; L89.892 Pressure ulcer of other site, stage 2; E11.622 Type 2 diabetes mellitus with other skin ulcer; B96.20 Unspecified Escherichia coli [E. coli] as the cause of diseases classified elsewhere; B95.2 Enterococcus as the cause of diseases classified elsewhere; B96.89 Other specified bacterial agents as the cause of diseases classified elsewhere; Z91.041 Radiographic dye allergy status; Z79.899 Other long term (current) drug therapy; Z78.9 Other specified health status; Z90.49 Acquired absence of other specified parts of digestive tract; Z90.710 Acquired absence of both cervix and uterus; G47.30 Sleep apnea, unspecified; Z85.828 Personal history of other malignant neoplasm of skin; Z86.010 Personal history of colon polyps; Z68.37 Body mass index [BMI] 37.0-37.9, adult
CPT/HCPCS: 70450; 71045; 80053; 81001; 82550; 84484; 85025; 93005; 99285; U0002; 36415; 73521; 73521-26; 80048; 82947; 87070; 87077; 87186; 93306; A9270-GY; J0692; J0696; J1644; J1815-GY; J2060; J2270; J7030; J7040; J7050

== ENCOUNTER 2021-04-05 14:45 | Inpatient (IN) | payer MEDICARE, OTHER ==
--- NOTE | 2021-04-05 14:55 | EDM.PDOC ---
ED HPI GENERAL MEDICAL PROBLEM - General Chief Complaint: Trauma Stated Complaint: FALL Time Seen by Provider: 04/05/21 14:48 Source of Information: Reports: EMS History Limitations: Reports: Altered Mental Status - History of Present Illness INITIAL COMMENTS - FREE TEXT/NARRATIVE: Patient is a 75-year-old female from longterm presents today from fall from standing. Patient was on a couch and had a possible seizure-like activity fell off and hit her head. There was no LOC. Patient currently not have any seizures. Patient baseline is not speaking but does follow some commands. Patient is get her baseline right now. Patient seems to be well extremities and does have any signs of trauma to the head. We rolled the patient patient did scream when moving her left knee we also ran a spine and did not see any signs of bruising on her back as well. Airway was intact I bilateral breath sounds and blood pressure circulation all over, Pain Score (Numeric/FACES): 0 - Related Data Allergies Allergy/AdvReac Type Severity Reaction Status Date / Time contrast dye Allergy "makes me Uncoded 04/05/21 15:02 goofy" Home Meds: Home Meds Furosemide 20 mg PO DAILY 05/01/18 [History] Losartan Potassium 50 mg PO DAILY 05/01/18 [History] Donepezil HCl 10 mg PO BEDTIME 03/15/21 [History] Mirabegron [Myrbetriq] 50 mg PO DAILY 03/15/21 [History] Sertraline [Zoloft] 100 mg PO DAILY 03/15/21 [History] Acetaminophen [Tylenol Extra Strength] 500 mg PO Q4H PRN tablet 03/23/21 [Rx] Docusate Sodium [Colace] 100 mg PO BID PRN cap 03/23/21 [Rx] Memantine [Namenda] 5 mg PO BID tablet 03/23/21 [Rx] Zinc Oxide [Desitin Creamy Diaper Rash Crm] 1 gm TOP DAILY 30 Days #1 tube 03/23/21 [Rx] levoFLOXacin [Levofloxacin] 750 mg PO DAILY 3 Days #3 tablet 03/23/21 [Rx] Apixaban [Eliquis] 5 mg PO BID 04/05/21 [History] Nystatin [Nystop] 1 gram TOP QID 04/05/21 [History] buPROPion [buPROPion XL] 150 mg PO DAILY 04/05/21 [History] hydrALAZINE [Apresoline] 25 mg PO Q12HR 04/05/21 [History] oxyCODONE 5 mg PO Q12H 04/05/21 [History] polyethylene glycoL 3350 [MiraLAX] 17 gm PO BID 04/05/21 [History] Past Medical History HEENT History: Reports: Hard of Hearing Cardiovascular History: Reports: Hypertension Respiratory History: Reports: Sleep Apnea Other Respiratory History: uses CPAP Gastrointestinal History: Reports: Colon Polyp, Diverticulosis Genitourinary History: Reports: None, Other (See Below) Other Genitourinary History: stress incontinence [employer] History: Reports: Musculoskeletal History: Reports: Osteoarthritis Psychiatric History: Reports: Dementia Endocrine/Metabolic History: Reports: Diabetes, Type II, Obesity/BMI 30+ Oncologic (Cancer) History: Reports: Basal Cell Carcinoma Dermatologic History: Reports: None - Infectious Disease History Infectious Disease History: Reports: None - Past Surgical History Head Surgeries/Procedures: Reports: None HEENT Surgical History: Reports: None GI Surgical History: Reports: Appendectomy, Cholecystectomy, Colonoscopy Female Surgical History: Reports: Hysterectomy, Salpingo-Oophorectomy Musculoskeletal Surgical History: Reports: Hip Replacement, Knee Replacement Other Musculoskeletal Surgeries/Procedures:: rt MAURICIO, maximo TKA Dermatological Surgical History: Reports: Skin Biopsy Social & Family History - Family History Family Medical History: No Pertinent Family History - Caffeine Use Caffeine Use: Reports: Soda Review of Systems - Review of Systems Review Of Systems: Unable To Obtain Reason Not Obtained: AMS ED EXAM, GENERAL - Physical Exam Exam: See Below Exam Limited By: Other (Nonverbal) General Appearance: Alert, WD/WN, No Apparent Distress Eye Exam: Bilateral Eye: EOMI, PERRL Head: Atraumatic, Normocephalic Neck: Other (In collar) Respiratory/Chest: No Respiratory Distress, Lungs Clear, Normal Breath Sounds Cardiovascular: Normal Peripheral Pulses, Regular Rate, Rhythm, No Edema Peripheral Pulses: 2+: Radial (L), Radial (R) GI/Abdominal: Normal Bowel Sounds, Soft, Non-Tender Back Exam: Normal Inspection Extremities: Normal Inspection. No: Non-Tender (Pain with movement of left knee) Neurological: Alert. No: Oriented (Seems to be baseline) Course - Vital Signs Last Recorded V/S: Last Vital Signs Temp 97.3 F 04/05/21 14:58 Pulse 83 04/05/21 14:58 Resp 18 04/05/21 14:58 BP Pulse Ox 94 L 04/05/21 14:58 - Orders/Labs/Meds Orders: Active Orders 24 hr Category Date Time Status EKG 12 Lead [EKG Documentation Completion] [RC] STAT Care 04/05/21 19:05 Ordered TROPONIN I [CHEM] Stat Lab 04/05/21 19:05 Ordered UA W/LINDSEY RFLX IF INDICATED [URIN] Stat Lab 04/05/21 19:03 Ordered Sodium Chloride 0.9% @ Wide Open @ Dosing Amount 20 ML/ Med 04/05/21 19:03 Ordered KG (1,000ml) Sodium Chloride 0.9% [Normal Saline] 1,000 ml IV .BOLUS Medication Orders Sodium Chloride (Normal Saline) 1,000 mls @ 999 mls/hr IV .BOLUS ONE Stop: 04/05/21 20:03 Labs: Laboratory Tests 04/05/21 04/05/21 04/05/21 Range/Units 16:49 16:49 16:49 WBC 12.75 H (4.0-11.0) K/uL RBC 5.56 (4.30-5.90) M/uL Hgb 16.2 H (12.0-16.0) g/dL Hct 50.3 H (36.0-46.0) % MCV 90.5 (80.0-98.0) fL MCH 29.1 (27.0-32.0) pg MCHC 32.2 (31.0-37.0) g/dL RDW Std Deviation 51.7 (28.0-62.0) fl RDW Coeff of Litzy 16 H (11.0-15.0) % Plt Count 154 (150-400) K/uL MPV 12.30 H (7.40-12.00) fL Neut % (Auto) 81.5 H (48.0-80.0) % Lymph % (Auto) 8.9 L (16.0-40.0) % Mingo % (Auto) 7.8 (0.0-15.0) % Eos % (Auto) 1.6 (0.0-7.0) % Baso % (Auto) 0.2 (0.0-1.5) % Neut # (Auto) 10.4 H (1.4-5.7) K/uL Lymph # (Auto) 1.1 (0.6-2.4) K/uL Mingo # (Auto) 1.0 H (0.0-0.8) K/uL Eos # (Auto) 0.2 (0.0-0.7) K/uL Baso # (Auto) 0.0 (0.0-0.1) K/uL Nucleated RBC % 0.0 /100WBC Nucleated RBCs # 0 K/uL INR 1.17 APTT 24.7 (18.6-31.3) SEC Sodium 155 H (136-145) mmol/L Potassium 4.1 (3.5-5.1) mmol/L Chloride 116 H (98-107) mmol/L Carbon Dioxide 24.4 (21.0-32.0) mmol/L BUN 93 H (7.0-18.0) mg/dL Creatinine 2.8 H (0.6-1.0) mg/dL Est Cr Clr Drug Dosing 17.86 mL/min Estimated GFR (MDRD) 16.4 ml/min Glucose 211 H (74-106) mg/dL Calcium 10.7 H (8.5-10.1) mg/dL Troponin I < 0.050 (0.000-0.056) ng/mL Meds: Medications Generic Name Dose Route Start Last Admin Trade Name Freq PRN Reason Stop Dose Admin Sodium Chloride 1,000 mls @ 999 mls/hr 04/05/21 19:03 Normal Saline IV 04/05/21 20:03 .BOLUS ONE - Re-Assessments/Exams Free Text/Narrative Re-Assessment/Exam: 04/05/21 19:08 Patient creatinine is 2.8 hypernatremic as well. Could been likely caused patient seizures. Patient will be admitted to the hospital for HERBERT. Departure - Departure Time of Disposition: 19:07 Disposition: Refer to Observation Condition: Good Clinical Impression: Fall, Seizure, HERBERT (acute kidney injury) - Discharge Information *PRESCRIPTION DRUG MONITORING PROGRAM REVIEWED*: Not Applicable *COPY OF PRESCRIPTION DRUG MONITORING REPORT IN PATIENT TIFFANI: Not Applicable Instructions: Seizure, Adult, Wewt-[id number] Forms: ED Department Discharge Sepsis Event Note (ED) - Focused Exam Vital Signs: Vital Signs Temp Pulse Resp Pulse Ox 04/05/21 14:58 97.3 F 83 18 94 L - My Orders Last 24 Hours: My Active Orders 04/05/21 19:03 UA W/LINDSEY RFLX IF INDICATED [URIN] Stat Sodium Chloride 0.9% @ Wide Open @ Dosing Amount 20 ML/KG (1,000ml) Sodium Chloride 0.9% [Normal Saline] 1,000 ml IV .BOLUS 04/05/21 19:05 EKG 12 Lead [EKG Documentation Completion] [RC] STAT TROPONIN I [CHEM] Stat - Assessment/Plan Last 24 Hours: My Active Orders 04/05/21 19:03 UA W/LINDSEY RFLX IF INDICATED [URIN] Stat Sodium Chloride 0.9% @ Wide Open @ Dosing Amount 20 ML/KG (1,000ml) Sodium Chloride 0.9% [Normal Saline] 1,000 ml IV .BOLUS 04/05/21 19:05 EKG 12 Lead [EKG Documentation Completion] [RC] STAT TROPONIN I [CHEM] Stat Plan: Patient is a 75-year-old female presents today for possible seizure and fall from standing. Will obtain CT head C-spine labs and reassess.
--- NOTE | 2021-04-05 15:46 | CT ---
For Patients: As a result of the Century Cures Act, medical imaging exams and procedure reports are released immediately into your electronic medical record. You may view this report before your referring provider. If you have questions, please contact your health care provider. INDICATION: Trauma, fall from couch on blood thinners. Patient has dementia. COMPARISON: CT head 03/15/2021. TECHNIQUE: CT of the head without IV contrast. Coronal and sagittal reconstructions are provided. FINDINGS: Exam significantly limited by motion artifact through the posterior fossa and skullbase. Within these limitations, no intracranial hemorrhage, mass effect, or acute infarct is identified. No midline shift. No abnormal extra-axial fluid collections. Mild generalized cerebral and cerebellar volume loss. Normal caliber ventricular system. Old tiny lacunar infarct in the right basal ganglia. Orbits and extraocular muscles are symmetric. The paranasal sinuses and mastoid air cells are clear. Mild hyperostosis frontalis internus. No definite acute fracture. Soft tissues are unremarkable. IMPRESSION: : 1. Exam significantly limited by motion artifact through the posterior fossa and skullbase. 2. Within these limitations, no acute intracranial findings are identified. Please note that all CT scans at this facility use dose modulation, iterative reconstruction, and/or weight-based dosing when appropriate to reduce radiation dose to as low as reasonably achievable. Dictated by Amaris Raoch MD @ 04/05/2021 3:46:[address] Amaris Roach @ Apr 05 2021 3:46PM
--- NOTE | 2021-04-05 15:54 | CT ---
For Patients: As a result of the Century Cures Act, medical imaging exams and procedure reports are released immediately into your electronic medical record. You may view this report before your referring provider. If you have questions, please contact your health care provider. Indication: Trauma, fall from couch, on blood thinners. Patient has dementia. Technique: CT of the cervical spine without IV contrast. Coronal and sagittal reconstructions. Comparison: None. Findings: No acute fracture or traumatic malalignment of the cervical spine. Vertebral body heights are well maintained. Normal vertebral body alignment. No significant disc space narrowing. Mild facet arthropathy. No significant spinal canal stenosis. No prevertebral soft tissue swelling. Visualized intracranial contents are unremarkable. The mastoid air cells are clear. Nodularity of the right thyroid lobe. Two tiny nodules along the left major fissure (series 502, image 130). The lung apices are otherwise clear. Impression: 1. No acute fracture or traumatic malalignment of the cervical spine. 2. Nodularity of the right thyroid lobe. This could be further evaluated with nonemergent thyroid ultrasound. Please note that all CT scans at this facility use dose modulation, iterative reconstruction, and/or weight-based dosing when appropriate to reduce radiation dose to as low as reasonably achievable. Dictated by Amaris Roach MD @ 04/05/2021 3:53:[address] Amaris Roach @ Apr 05 2021 3:53PM
--- NOTE | 2021-04-05 16:03 | CT ---
For Patients: As a result of the Century Cures Act, medical imaging exams and procedure reports are released immediately into your electronic medical record. You may view this report before your referring provider. If you have questions, please contact your health care provider. Indication: Trauma, fall from couch, on blood thinners. Patient has dementia. Technique: CT of the lumbar spine without IV contrast. Coronal and sagittal reconstructions. Comparison: None. Findings: Exam somewhat limited by motion artifact. There are 5 lumbar-type vertebral bodies. No acute fracture or traumatic malalignment of the lumbar spine. Vertebral body heights are well maintained. Minimal anterolisthesis of L4 on L5. No significant disc space narrowing. Diffuse facet arthropathy. The T12 vertebral body is partially included on this study and is negative. No significant spinal canal stenosis. Paraspinal soft tissues are unremarkable. The sacroiliac joints are unremarkable. Partially visualized right hip arthroplasty. Degenerative changes of the left hip. Cholecystectomy. Left renal cyst. Mild vascular calcifications. Impression: 1. No acute fracture or traumatic malalignment of the lumbar spine. 2. Minimal anterolisthesis of L4 on L5. 3. Diffuse facet arthropathy. Please note that all CT scans at this facility use dose modulation, iterative reconstruction, and/or weight-based dosing when appropriate to reduce radiation dose to as low as reasonably achievable. Dictated by Amaris Roach MD @ 04/05/2021 4:01:[address] Amaris Roach @ Apr 05 2021 4:01PM
--- NOTE | 2021-04-05 16:09 | CT ---
For Patients: As a result of the Century Cures Act, medical imaging exams and procedure reports are released immediately into your electronic medical record. You may view this report before your referring provider. If you have questions, please contact your health care provider. Indication: Trauma, fall from couch, on blood thinners. Patient has dementia. Technique: CT of the thoracic spine without IV contrast. Coronal and sagittal reconstructions. Comparison: None. Findings: Exam somewhat limited by motion artifact. There are 12 rib-bearing thoracic type vertebral bodies. The T12 vertebral body is only partially included on this study. Mild right convex thoracic curve. No acute fracture or traumatic malalignment of the thoracic spine. Vertebral body heights are well maintained. Normal vertebral body alignment. Schmorl`s node inferior endplate of T11. Mild diffuse anterior hypertrophic spurring. No significant spinal canal stenosis. Paraspinal soft tissues are unremarkable. Nodularity of the right thyroid lobe. Enlargement of the central pulmonary arteries which can be seen with pulmonary hypertension. Small hiatal hernia. Cholecystectomy. The visualized lungs are clear. Impression: 1. Exam somewhat limited by motion artifact. 2. Within these limitations, no acute fracture or traumatic malalignment of the thoracic spine is identified. Please note that all CT scans at this facility use dose modulation, iterative reconstruction, and/or weight-based dosing when appropriate to reduce radiation dose to as low as reasonably achievable. Dictated by Amaris Roach MD @ 04/05/2021 4:08:[address] Amaris Roach @ Apr 05 2021 4:08PM
--- NOTE | 2021-04-05 16:43 | CR ---
For Patients: As a result of the Cures Act, medical imaging exams and procedure reports are released immediately into your electronic medical record. You may view this report before your referring provider. If you have questions, please contact your health care provider. INDICATION: Fall from standing. TECHNIQUE: Chest 1 view. COMPARISON: Chest radiograph 03/15/2021. FINDINGS: Resolution of previously seen pulmonary vascular congestion. No focal consolidation, pleural effusion, or pneumothorax. Heart size upper limits of normal. Normal pulmonary vascularity. The bones are unremarkable. IMPRESSION: No acute cardiopulmonary findings. Dictated by Amaris Roach MD @ 04/05/2021 4:42:[address] Amaris Roach @ Apr 05 2021 4:42PM
--- NOTE | 2021-04-05 16:45 | CR ---
For Patients: As a result of the Cures Act, medical imaging exams and procedure reports are released immediately into your electronic medical record. You may view this report before your referring provider. If you have questions, please contact your health care provider. INDICATION: Fall from standing. TECHNIQUE: AP pelvis. COMPARISON: Pelvis radiograph 03/16/2021. FINDINGS: No acute fracture identified. The hips appear normally aligned. Right total hip arthroplasty appears intact. Moderate degenerative changes of the left hip. Degenerative changes of the lower lumbar spine. The sacroiliac joints are normal in appearance. Soft tissues are unremarkable. IMPRESSION: No acute findings. Dictated by Amaris Roach MD @ 04/05/2021 4:44:[address] Amaris Roach @ Apr 05 2021 4:44PM
[2021-04-05 17:31] LABS: BLOOD UREA NITROGEN,BUN 93 mg/dL (7.0-18.0); CARBON DIOXIDE,CO2 24.4 mmol/L (21.0-32.0); GLUCOSE RANDOM 211 mg/dL (74-106)
[2021-04-05 17:35] LABS: CHLORIDE,CL 116 mmol/L (98-107); POTASSIUM,K 4.1 mmol/L (3.5-5.1); SODIUM,NA 155 mmol/L (136-145)
--- NOTE | 2021-04-05 18:29 | CR ---
For Patients: As a result of the Cures Act, medical imaging exams and procedure reports are released immediately into your electronic medical record. You may view this report before your referring provider. If you have questions, please contact your health care provider. Indication: Fall, pain Technique: Three views of the left knee Comparison: None Findings/Impression: No evidence of acute fracture or joint dislocation. Knee arthroplasty appears intact. No sizable pleural effusion. Asymmetric widening of the medial patellofemoral compartment on sunrise view. Correlate clinically. Dictated by Felix Sheehan MD @ 04/05/2021 6:28:[address] Felix Sheehan @ Apr 05 2021 6:28PM
[2021-04-05] MEDS ORDERED: Sodium Chloride 0.9% 1,000 ML IV ONE (19:03)
--- NOTE | 2021-04-05 19:44 | PCM.EKG ---
#1 Interpretation EKG Interpretation Comments: EKG: As interpreted by ER physician: Germain: Nonspecific ST-T wave abnormalities Normal axis No evidence of ST elevation CT Atrial fibrillation with a heart rate of 82
[2021-04-05] MEDS ORDERED: Ondansetron 4 MG/2 ML SDV IVPUSH PRN (20:52)
[2021-04-05] MEDS ORDERED: Albuterol/Ipratropium 3.0-0.5 MG/3 ML Neb Soln NEB PRN (20:52)
[2021-04-05] MEDS ORDERED: Docusate Sodium 100 MG Cap PO PRN (20:59)
[2021-04-05] MEDS ORDERED: Pantoprazole 40 MG Vial IV SCH (21:00)
--- NOTE | 2021-04-05 21:15 | PCM.HP.2 ---
H&P History of Present Illness - General Date of Service: 04/05/21 Admit Problem/Dx: Admission Diagnosis/Problem Admission Diagnosis/Problem Kidney disease - History of Present Illness Initial Comments - Free Text/Narative: Patient is a 75-year-old female currently residing at [facility] who presents to the ER after sustaining a fall. According to the reports patient was sitting on the couch and had a possible seizure-like activity which resulted in her falling off and hitting her head. There was no reported loss of consciousness. Patient has no prior history of seizures. Patient is on a blood thinner. Patient does not speak but does follow some commands. CT of the head did not reveal any intracranial hemorrhage and CT of the whole spine did not reveal any fractures, x-ray of the the left knee, pelvis did not show any acute fractures either. Patient's lab work was significant for some h yponatremia as well as HERBERT with creatinine significant of 2.8. UA was also found to be positive for UTI. Patient was admitted to the hospital for further management all over, Pain Score (Numeric/FACES): 0 - Related Data Allergies/Adverse Reactions: Allergies Allergy/AdvReac Type Severity Reaction Status Date / Time contrast dye Allergy "makes me Uncoded 04/05/21 15:02 goofy" Home Medications: Home Meds Furosemide 20 mg PO DAILY 05/01/18 [History] Losartan Potassium 50 mg PO DAILY 05/01/18 [History] Donepezil HCl 10 mg PO BEDTIME 03/15/21 [History] Mirabegron [Myrbetriq] 50 mg PO DAILY 03/15/21 [History] Sertraline [Zoloft] 100 mg PO DAILY 03/15/21 [History] Acetaminophen [Tylenol Extra Strength] 500 mg PO Q4H PRN tablet 03/23/21 [Rx] Docusate Sodium [Colace] 100 mg PO BID PRN cap 03/23/21 [Rx] Memantine [Namenda] 5 mg PO BID tablet 03/23/21 [Rx] Zinc Oxide [Desitin Creamy Diaper Rash Crm] 1 gm TOP DAILY 30 Days #1 tube 03/23/21 [Rx] levoFLOXacin [Levofloxacin] 750 mg PO DAILY 3 Days #3 tablet 03/23/21 [Rx] Apixaban [Eliquis] 5 mg PO BID 04/05/21 [History] Nystatin [Nystop] 1 gram TOP QID 04/05/21 [History] buPROPion [buPROPion XL] 150 mg PO DAILY 04/05/21 [History] hydrALAZINE [Apresoline] 25 mg PO Q12HR 04/05/21 [History] oxyCODONE 5 mg PO Q12H 04/05/21 [History] polyethylene glycoL 3350 [MiraLAX] 17 gm PO BID 04/05/21 [History] Past Medical History HEENT History: Reports: Hard of Hearing Cardiovascular History: Reports: Hypertension Respiratory History: Reports: Sleep Apnea Other Respiratory History: uses CPAP Gastrointestinal History: Reports: Colon Polyp, Diverticulosis Genitourinary History: Reports: None, Other (See Below) Other Genitourinary History: stress incontinence 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: Musculoskeletal History: Reports: Osteoarthritis Psychiatric History: Reports: Dementia Endocrine/Metabolic History: Reports: Diabetes, Type II, Obesity/BMI 30+ Oncologic (Cancer) History: Reports: Basal Cell Carcinoma Dermatologic History: Reports: None - Infectious Disease History Infectious Disease History: Reports: None - Past Surgical History Head Surgeries/Procedures: Reports: None HEENT Surgical History: Reports: None GI Surgical History: Reports: Appendectomy, Cholecystectomy, Colonoscopy Female Surgical History: Reports: Hysterectomy, Salpingo-Oophorectomy Musculoskeletal Surgical History: Reports: Hip Replacement, Knee Replacement Other Musculoskeletal Surgeries/Procedures:: rt MAURICIO, maximo TKA Dermatological Surgical History: Reports: Skin Biopsy Social & Family History - Family History Family Medical History: No Pertinent Family History - Caffeine Use Caffeine Use: Reports: Soda H&P Review of Systems - Review of Systems: Review Of Systems: Unable To Obtain Reason Not Obtained: Patient is mute at baseline likely secondary to advanced dementia Exam - Exam Exam: See Below - Vital Signs Vital Signs: Last Vital Signs Temp 36.4 C 04/05/21 20:21 Pulse 82 04/05/21 20:21 Resp 18 04/05/21 20:21 BP 141/57 H 04/05/21 20:21 Pulse Ox 96 04/05/21 20:21 Weight: 93.44 kg - Exam Quality Assessment: No: Supplemental Oxygen General: Cooperative. No: Alert, Oriented Neck: Supple, Trachea Midline Lungs: Clear to Auscultation, Normal Respiratory Effort Cardiovascular: Regular Rate, Regular Rhythm GI/Abdominal Exam: Normal Bowel Sounds, Soft, Non-Tender Extremities: Normal Inspection, Normal Range of Motion, Non-Tender - Patient Data Lab Results Last 24 hrs: Laboratory Results - last 24 hr 04/05/21 04/05/21 04/05/21 Range/Units 16:49 16:49 16:49 WBC 12.75 H (4.0-11.0) K/uL RBC 5.56 (4.30-5.90) M/uL Hgb 16.2 H (12.0-16.0) g/dL Hct 50.3 H (36.0-46.0) % MCV 90.5 (80.0-98.0) fL MCH 29.1 (27.0-32.0) pg MCHC 32.2 (31.0-37.0) g/dL RDW Std Deviation 51.7 (28.0-62.0) fl RDW Coeff of Litzy 16 H (11.0-15.0) % Plt Count 154 (150-400) K/uL MPV 12.30 H (7.40-12.00) fL Neut % (Auto) 81.5 H (48.0-80.0) % Lymph % (Auto) 8.9 L (16.0-40.0) % [place] % (Auto) 7.8 (0.0-15.0) % Eos % (Auto) 1.6 (0.0-7.0) % Baso % (Auto) 0.2 (0.0-1.5) % Neut # (Auto) 10.4 H (1.4-5.7) K/uL Lymph # (Auto) 1.1 (0.6-2.4) K/uL [place] # (Auto) 1.0 H (0.0-0.8) K/uL Eos # (Auto) 0.2 (0.0-0.7) K/uL Baso # (Auto) 0.0 (0.0-0.1) K/uL Nucleated RBC % 0.0 /100WBC Nucleated RBCs # 0 K/uL INR 1.17 APTT 24.7 (18.6-31.3) SEC Sodium 155 H (136-145) mmol/L Potassium 4.1 (3.5-5.1) mmol/L Chloride 116 H (98-107) mmol/L Carbon Dioxide 24.4 (21.0-32.0) mmol/L BUN 93 H (7.0-18.0) mg/dL Creatinine 2.8 H (0.6-1.0) mg/dL Est Cr Clr Drug Dosing 17.86 mL/min Estimated GFR (MDRD) 16.4 ml/min Glucose 211 H (74-106) mg/dL Calcium 10.7 H (8.5-10.1) mg/dL Troponin I < 0.050 (0.000-0.056) ng/mL Urine Color Urine Appearance Urine pH (5.0-8.0) Ur Specific [place] (1.001-1.035) Urine Protein (NEGATIVE) mg/dL Urine Glucose (UA) (NEGATIVE) mg/dL Urine Ketones (NEGATIVE) mg/dL Urine Occult Blood (NEGATIVE) Urine Nitrite (NEGATIVE) Urine Bilirubin (NEGATIVE) Urine Ictotest Urine Urobilinogen (<2.0) EU/dL Ur Leukocyte Esterase (NEGATIVE) Urine RBC (0-2/HPF) Urine WBC (0-5/HPF) Ur Epithelial Cells (NONE-FEW) Amorphous Sediment (NEGATIVE) Urine Bacteria (NEGATIVE) Urine Yeast Urinalysis Comment SARS-CoV-2 RNA (LUZ) (NEGATIVE) 04/05/21 04/05/21 04/05/21 Range/Units 19:15 19:15 20:10 WBC (4.0-11.0) K/uL RBC (4.30-5.90) M/uL Hgb (12.0-16.0) g/dL Hct (36.0-46.0) % MCV (80.0-98.0) fL MCH (27.0-32.0) pg MCHC (31.0-37.0) g/dL RDW Std Deviation (28.0-62.0) fl RDW Coeff of Litzy (11.0-15.0) % Plt Count (150-400) K/uL MPV (7.40-12.00) fL Neut % (Auto) (48.0-80.0) % Lymph % (Auto) (16.0-40.0) % [place] % (Auto) (0.0-15.0) % Eos % (Auto) (0.0-7.0) % Baso % (Auto) (0.0-1.5) % Neut # (Auto) (1.4-5.7) K/uL Lymph # (Auto) (0.6-2.4) K/uL [place] # (Auto) (0.0-0.8) K/uL Eos # (Auto) (0.0-0.7) K/uL Baso # (Auto) (0.0-0.1) K/uL Nucleated RBC % /100WBC Nucleated RBCs # K/uL INR APTT (18.6-31.3) SEC Sodium (136-145) mmol/L Potassium (3.5-5.1) mmol/L Chloride (98-107) mmol/L Carbon Dioxide (21.0-32.0) mmol/L BUN (7.0-18.0) mg/dL Creatinine (0.6-1.0) mg/dL Est Cr Clr Drug Dosing mL/min Estimated GFR (MDRD) ml/min Glucose (74-106) mg/dL Calcium (8.5-10.1) mg/dL Troponin I < 0.050 (0.000-0.056) ng/mL Urine Color YELLOW Urine Appearance CLOUDY Urine pH 5.0 (5.0-8.0) Ur Specific [place] >= 1.030 (1.001-1.035) Urine Protein >=300 H (NEGATIVE) mg/dL Urine Glucose (UA) NEGATIVE (NEGATIVE) mg/dL Urine Ketones TRACE H (NEGATIVE) mg/dL Urine Occult Blood LARGE H (NEGATIVE) Urine Nitrite POSITIVE H (NEGATIVE) Urine Bilirubin MODERATE H (NEGATIVE) Urine Ictotest NEGATIVE Urine Urobilinogen 2.0 H (<2.0) EU/dL Ur Leukocyte Esterase MODERATE H (NEGATIVE) Urine RBC 3-6 (0-2/HPF) Urine WBC 15-20 (0-5/HPF) Ur Epithelial Cells RARE (NONE-FEW) Amorphous Sediment LIGHT (NEGATIVE) Urine Bacteria 2+ H (NEGATIVE) Urine Yeast MODERATE Urinalysis Comment SARS-CoV-2 RNA (LUZ) NEGATIVE (NEGATIVE) Result Diagrams: 04/05/21 16:49 04/05/21 16:49 Sepsis Event Note - Evaluation Sepsis Screening Result: No Definite Risk - Focused Exam Vital Signs: Vital Signs Temp Pulse Resp BP Pulse Ox 04/05/21 20:21 36.4 C 82 18 141/57 H 96 04/05/21 19:45 90 18 173/136 H 99 04/05/21 19:05 67 18 165/103 H 96 04/05/21 14:58 36.3 C 83 18 94 L - Problem List (1) HERBERT (acute kidney injury) SNOMED Code(s): 55075027, 54724555 ICD Code: N17.9 - ACUTE KIDNEY FAILURE, UNSPECIFIED Status: Acute Current Visit: Yes (2) Fall SNOMED Code(s): 9816639, 487201510 ICD Code: W19.XXXA - UNSPECIFIED FALL, INITIAL ENCOUNTER Status: Acute Current Visit: Yes (3) Dehydration SNOMED Code(s): 42048517 ICD Code: E86.0 - DEHYDRATION Status: Acute Current Visit: No (4) Dementia SNOMED Code(s): 93437448 ICD Code: F03.90 - UNSPECIFIED DEMENTIA WITHOUT BEHAVIORAL DISTURBANCE Status: Acute Current Visit: No Qualifiers: Dementia type: unspecified type Problem List Initiated/Reviewed/Updated: Yes Orders Last 24hrs: Active Orders 24 hr Category Date Time Status Patient Status [ADT] Routine ADT 04/05/21 19:09 Active Ambulate [RC] ASDIRECTED Care 04/05/21 20:52 Active Antiembolic Devices [RC] PER UNIT ROUTINE Care 04/05/21 20:54 Active Oxygen Therapy [RC] PRN Care 04/05/21 20:52 Active Pulse Oximetry [RC] PRN Care 04/05/21 20:52 Active RT Aerosol Therapy [RC] ASDIRECTED Care 04/05/21 20:54 Active Telemetry Monitoring [Cardiac Monitoring] [RC] . Care 04/05/21 20:21 Active DIRECTED VTE/DVT Education [RC] PER UNIT ROUTINE Care 04/05/21 20:52 Active Vital Signs [RC] Q4H Care 04/05/21 20:52 Active Clear Liquid Diet [DIET] Diet 04/05/21 Dinner Active BMP [BASIC METABOLIC PANEL,BMP] [CHEM] AM Lab 04/06/21 05:11 Ordered CBC WITH AUTO DIFF [HEME] AM Lab 04/06/21 05:11 Ordered CULTURE URINE [MREF] Routine Lab 04/05/21 20:10 Ordered MAGNESIUM [CHEM] AM Lab 04/06/21 05:11 Ordered PHOSPHORUS [CHEM] AM Lab 04/06/21 05:11 Ordered Acetaminophen [Tylenol Extra Strength] Med 04/05/21 20:59 Active 500 mg PO Q4H PRN Albuterol/Ipratropium [DuoNeb 3.0-0.5 MG/3 ML] Med 04/05/21 20:52 Active 3 ml NEB Q4HRRT PRN Dextrose 5% in Water 1,000 ml Med 04/05/21 21:00 Active IV ASDIRECTED Docusate Sodium [Colace] Med 04/05/21 20:59 Active 100 mg PO BID PRN Donepezil [Aricept] Med 04/05/21 21:00 Active 10 mg PO BEDTIME Memantine [Namenda] Med 04/05/21 21:00 Active 5 mg PO BID Nystatin [Nystop] Med 04/06/21 00:00 Active 0 gm TOP QID Ondansetron [Zofran] Med 04/05/21 20:52 Active 4 mg IVPUSH Q4H PRN Pantoprazole [ProTONIX IV] Med 04/05/21 21:00 Active 40 mg IV DAILY Sertraline [Zoloft] Med 04/06/21 09:00 Active 100 mg PO DAILY buPROPion [Wellbutrin XL] Med 04/06/21 09:00 Active 150 mg PO DAILY cefTRIAXone [Rocephin in Dextrose,Iso-Osm 1 GM/50 ML] 1 Med 04/05/21 21:00 Active gm Premix Bag 1 bag IV Q24H hydrALAZINE [Apresoline] Med 04/05/21 21:00 Active 25 mg PO Q12HR Sequential Compression Device [OM.PC] Per Unit Routine Oth 04/05/21 20:53 Ordered Medication Orders Acetaminophen (Acetaminophen 500 Mg Tab) 500 mg PO Q4H PRN PRN Reason: Pain Albuterol/Ipratropium (Albuterol/Ipratropium 3.0-0.5 Mg/3 Ml Neb Soln) 3 ml NEB Q4HRRT PRN PRN Reason: Shortness Of Breath/wheezing Bupropion HCl (Bupropion 150 Mg Tab.Er) 150 mg PO DAILY YOLI Docusate Sodium (Docusate Sodium 100 Mg Cap) 100 mg PO BID PRN PRN Reason: Constipation Donepezil HCl (Donepezil 10 Mg Tab) 10 mg PO BEDTIME YOLI Hydralazine HCl (Hydralazine 25 Mg Tab) 25 mg PO Q12HR YOLI Ceftriaxone Sodium/Dextrose 1 (gm/ Premix) 50 mls @ 100 mls/hr IV Q24H YOLI Dextrose/Water (Dextrose 5% In Water) 1,000 mls @ 100 mls/hr IV ASDIRECTED YOLI Memantine (Memantine 10 Mg Tab) 5 mg PO BID YOLI Nystatin (Nystatin Topical Powder 15 Gm Bottle) 0 gm TOP QID YOLI Ondansetron HCl (Ondansetron 4 Mg/2 Ml Sdv) 4 mg IVPUSH Q4H PRN PRN Reason: Nausea/Vomiting Pantoprazole Sodium (Pantoprazole 40 Mg Vial) 40 mg IV DAILY YOLI Sertraline HCl (Sertraline 100 Mg Tab) 100 mg PO DAILY YOLI Assessment/Plan Comment:: 75-year-old female admitted secondary to fall, unsure patient had a seizure CT of the brain although suboptimal study did not reveal any bleeding, CT of the spine was negative for any acute fractures, x-ray of the left knee and pelvis are negative for acute fractures as well Patient appears to be mildly dehydrated on exam as well as lab findings suggest possible hypovolemic hyponatremia with likely prerenal HERBERT We will start patient on D5 water to correct hypernatremia Repeat BMP in a.m. UA suggestive for UTI Start IV ceftriaxone Follow-up and urine culture Continue home medications as appropriate DuoNebs as needed Monitor and replete electrolytes as necessary
[2021-04-05] MEDS: hydrALAZINE 25 MG Tab PO SCH (21:30)
[2021-04-05] MEDS: cefTRIAXone 1 GM in Premix Bag 1 BAG IV SCH (21:30)
[2021-04-05] MEDS: Memantine 10 MG Tab PO SCH (21:30)
[2021-04-05] MEDS: Donepezil 10 MG Tab PO SCH (21:34)
[2021-04-05] MEDS: Dextrose 5% in Water 1,000 ML IV SCH (23:00)
[2021-04-06] MEDS: Nystatin Topical Powder 15 GM Bottle TOP SCH ×4 (05:25→17:45)
[2021-04-06 06:45] LABS: CARBON DIOXIDE,CO2 26.8 mmol/L (21.0-32.0); POTASSIUM,K 4.2 mmol/L (3.5-5.1)
[2021-04-06] MEDS: Pantoprazole 40 MG in Sodium Chloride 0.9% 10 ML IV SCH (08:38)
--- NOTE | 2021-04-06 09:28 | PCM.PN ---
- General Info Date of Service: 04/06/21 Admission Dx/Problem (Free Text): Admission Diagnosis/Problem Admission Diagnosis/Problem Kidney disease Subjective Update: Nonverbal patient appears comfortable lying in bed - Patient Data Vitals - Most Recent: Last Vital Signs Temp 96.4 F L 04/06/21 07:30 Pulse 87 04/06/21 07:30 Resp 17 04/06/21 07:30 BP 139/73 04/06/21 07:30 Pulse Ox 97 04/06/21 07:30 Weight - Most Recent: 93.44 kg I&O - Last 24 Hours: Intake & Output 04/05/21 04/06/21 04/06/21 22:59 06:59 14:59 Intake Total 100 Output Total 200 Balance -100 Lab Results Last 24 Hours: Laboratory Results - last 24 hr 04/05/21 04/05/21 04/05/21 Range/Units 16:49 16:49 16:49 WBC 12.75 H (4.0-11.0) K/uL RBC 5.56 (4.30-5.90) M/uL Hgb 16.2 H (12.0-16.0) g/dL Hct 50.3 H (36.0-46.0) % MCV 90.5 (80.0-98.0) fL MCH 29.1 (27.0-32.0) pg MCHC 32.2 (31.0-37.0) g/dL RDW Std Deviation 51.7 (28.0-62.0) fl RDW Coeff of Litzy 16 H (11.0-15.0) % Plt Count 154 (150-400) K/uL MPV 12.30 H (7.40-12.00) fL Neut % (Auto) 81.5 H (48.0-80.0) % Lymph % (Auto) 8.9 L (16.0-40.0) % [place] % (Auto) 7.8 (0.0-15.0) % Eos % (Auto) 1.6 (0.0-7.0) % Baso % (Auto) 0.2 (0.0-1.5) % Neut # (Auto) 10.4 H (1.4-5.7) K/uL Lymph # (Auto) 1.1 (0.6-2.4) K/uL [place] # (Auto) 1.0 H (0.0-0.8) K/uL Eos # (Auto) 0.2 (0.0-0.7) K/uL Baso # (Auto) 0.0 (0.0-0.1) K/uL Nucleated RBC % 0.0 /100WBC Nucleated RBCs # 0 K/uL INR 1.17 APTT 24.7 (18.6-31.3) SEC Sodium 155 H (136-145) mmol/L Potassium 4.1 (3.5-5.1) mmol/L Chloride 116 H (98-107) mmol/L Carbon Dioxide 24.4 (21.0-32.0) mmol/L BUN 93 H (7.0-18.0) mg/dL Creatinine 2.8 H (0.6-1.0) mg/dL Est Cr Clr Drug Dosing 17.86 mL/min Estimated GFR (MDRD) 16.4 ml/min Glucose 211 H (74-106) mg/dL POC Glucose (70-99) mg/dL Calcium 10.7 H (8.5-10.1) mg/dL Phosphorus (2.6-4.7) mg/dL Magnesium (1.8-2.4) mg/dL Troponin I < 0.050 (0.000-0.056) ng/mL Urine Color Urine Appearance Urine pH (5.0-8.0) Ur Specific [place] (1.001-1.035) Urine Protein (NEGATIVE) mg/dL Urine Glucose (UA) (NEGATIVE) mg/dL Urine Ketones (NEGATIVE) mg/dL Urine Occult Blood (NEGATIVE) Urine Nitrite (NEGATIVE) Urine Bilirubin (NEGATIVE) Urine Ictotest Urine Urobilinogen (<2.0) EU/dL Ur Leukocyte Esterase (NEGATIVE) Urine RBC (0-2/HPF) Urine WBC (0-5/HPF) Ur Epithelial Cells (NONE-FEW) Amorphous Sediment (NEGATIVE) Urine Bacteria (NEGATIVE) Urine Yeast Urinalysis Comment SARS-CoV-2 RNA (LUZ) (NEGATIVE) 04/05/21 04/05/21 04/05/21 Range/Units 19:15 19:15 20:10 WBC (4.0-11.0) K/uL RBC (4.30-5.90) M/uL Hgb (12.0-16.0) g/dL Hct (36.0-46.0) % MCV (80.0-98.0) fL MCH (27.0-32.0) pg MCHC (31.0-37.0) g/dL RDW Std Deviation (28.0-62.0) fl RDW Coeff of Litzy (11.0-15.0) % Plt Count (150-400) K/uL MPV (7.40-12.00) fL Neut % (Auto) (48.0-80.0) % Lymph % (Auto) (16.0-40.0) % [place] % (Auto) (0.0-15.0) % Eos % (Auto) (0.0-7.0) % Baso % (Auto) (0.0-1.5) % Neut # (Auto) (1.4-5.7) K/uL Lymph # (Auto) (0.6-2.4) K/uL [place] # (Auto) (0.0-0.8) K/uL Eos # (Auto) (0.0-0.7) K/uL Baso # (Auto) (0.0-0.1) K/uL Nucleated RBC % /100WBC Nucleated RBCs # K/uL INR APTT (18.6-31.3) SEC Sodium (136-145) mmol/L Potassium (3.5-5.1) mmol/L Chloride (98-107) mmol/L Carbon Dioxide (21.0-32.0) mmol/L BUN (7.0-18.0) mg/dL Creatinine (0.6-1.0) mg/dL Est Cr Clr Drug Dosing mL/min Estimated GFR (MDRD) ml/min Glucose (74-106) mg/dL POC Glucose (70-99) mg/dL Calcium (8.5-10.1) mg/dL Phosphorus (2.6-4.7) mg/dL Magnesium (1.8-2.4) mg/dL Troponin I < 0.050 (0.000-0.056) ng/mL Urine Color YELLOW Urine Appearance CLOUDY Urine pH 5.0 (5.0-8.0) Ur Specific [place] >= 1.030 (1.001-1.035) Urine Protein >=300 H (NEGATIVE) mg/dL Urine Glucose (UA) NEGATIVE (NEGATIVE) mg/dL Urine Ketones TRACE H (NEGATIVE) mg/dL Urine Occult Blood LARGE H (NEGATIVE) Urine Nitrite POSITIVE H (NEGATIVE) Urine Bilirubin MODERATE H (NEGATIVE) Urine Ictotest NEGATIVE Urine Urobilinogen 2.0 H (<2.0) EU/dL Ur Leukocyte Esterase MODERATE H (NEGATIVE) Urine RBC 3-6 (0-2/HPF) Urine WBC 15-20 (0-5/HPF) Ur Epithelial Cells RARE (NONE-FEW) Amorphous Sediment LIGHT (NEGATIVE) Urine Bacteria 2+ H (NEGATIVE) Urine Yeast MODERATE Urinalysis Comment SARS-CoV-2 RNA (LUZ) NEGATIVE (NEGATIVE) 04/06/21 04/06/21 04/06/21 Range/Units 05:28 05:40 05:40 WBC 10.69 (4.0-11.0) K/uL RBC 5.13 (4.30-5.90) M/uL Hgb 14.9 (12.0-16.0) g/dL Hct 46.5 H (36.0-46.0) % MCV 90.6 (80.0-98.0) fL MCH 29.0 (27.0-32.0) pg MCHC 32.0 (31.0-37.0) g/dL RDW Std Deviation 52.8 (28.0-62.0) fl RDW Coeff of Litzy 16 H (11.0-15.0) % Plt Count 135 L (150-400) K/uL MPV 13.20 H (7.40-12.00) fL Neut % (Auto) 73.6 (48.0-80.0) % Lymph % (Auto) 13.1 L (16.0-40.0) % [place] % (Auto) 9.1 (0.0-15.0) % Eos % (Auto) 3.7 (0.0-7.0) % Baso % (Auto) 0.5 (0.0-1.5) % Neut # (Auto) 7.9 H (1.4-5.7) K/uL Lymph # (Auto) 1.4 (0.6-2.4) K/uL [place] # (Auto) 1.0 H (0.0-0.8) K/uL Eos # (Auto) 0.4 (0.0-0.7) K/uL Baso # (Auto) 0.1 (0.0-0.1) K/uL Nucleated RBC % 0.0 /100WBC Nucleated RBCs # 0 K/uL INR APTT (18.6-31.3) SEC Sodium 157 H (136-145) mmol/L Potassium 4.2 (3.5-5.1) mmol/L Chloride 121 H (98-107) mmol/L Carbon Dioxide 26.8 (21.0-32.0) mmol/L BUN 95 H (7.0-18.0) mg/dL Creatinine 2.7 H (0.6-1.0) mg/dL Est Cr Clr Drug Dosing 18.52 mL/min Estimated GFR (MDRD) 17.1 ml/min Glucose 207 H (74-106) mg/dL POC Glucose 181 H (70-99) mg/dL Calcium 9.9 (8.5-10.1) mg/dL Phosphorus 3.8 (2.6-4.7) mg/dL Magnesium 2.2 (1.8-2.4) mg/dL Troponin I (0.000-0.056) ng/mL Urine Color Urine Appearance Urine pH (5.0-8.0) Ur Specific [place] (1.001-1.035) Urine Protein (NEGATIVE) mg/dL Urine Glucose (UA) (NEGATIVE) mg/dL Urine Ketones (NEGATIVE) mg/dL Urine Occult Blood (NEGATIVE) Urine Nitrite (NEGATIVE) Urine Bilirubin (NEGATIVE) Urine Ictotest Urine Urobilinogen (<2.0) EU/dL Ur Leukocyte Esterase (NEGATIVE) Urine RBC (0-2/HPF) Urine WBC (0-5/HPF) Ur Epithelial Cells (NONE-FEW) Amorphous Sediment (NEGATIVE) Urine Bacteria (NEGATIVE) Urine Yeast Urinalysis Comment SARS-CoV-2 RNA (LUZ) (NEGATIVE) Med Orders - Current: Current Medications Acetaminophen (Acetaminophen 500 Mg Tab) 500 mg PO Q4H PRN PRN Reason: Pain Albuterol/Ipratropium (Albuterol/Ipratropium 3.0-0.5 Mg/3 Ml Neb Soln) 3 ml NEB Q4HRRT PRN PRN Reason: Shortness Of Breath/wheezing Bupropion HCl (Bupropion 150 Mg Tab.Er) 150 mg PO DAILY [facility] Docusate Sodium (Docusate Sodium 100 Mg Cap) 100 mg PO BID PRN PRN Reason: Constipation Donepezil HCl (Donepezil 10 Mg Tab) 10 mg PO BEDTIME [facility] Last Admin: 04/05/21 21:34 Dose: 10 mg Documented by: Hydralazine HCl (Hydralazine 25 Mg Tab) 25 mg PO Q12HR [facility] Last Admin: 04/05/21 21:30 Dose: 25 mg Documented by: Ceftriaxone Sodium/Dextrose 1 (gm/ Premix) 50 mls @ 100 mls/hr IV Q24H [facility] Last Admin: 04/05/21 21:30 Dose: 100 mls/hr Documented by: Dextrose/Water (Dextrose 5% In Water) 1,000 mls @ 100 mls/hr IV ASDIRECTED [facility] Last Admin: 04/05/21 23:00 Dose: 100 mls/hr Documented by: Pantoprazole Sodium 40 mg/ (Sodium Chloride) 10 mls @ 200 mls/hr IV DAILY [facility] Last Admin: 04/06/21 08:38 Dose: 200 mls/hr Documented by: Memantine (Memantine 10 Mg Tab) 5 mg PO BID [facility] Last Admin: 04/05/21 21:30 Dose: 5 mg Documented by: Nystatin (Nystatin Topical Powder 15 Gm Bottle) 0 gm TOP QID [facility] Last Admin: 04/06/21 05:25 Dose: 1 applic Documented by: Ondansetron HCl (Ondansetron 4 Mg/2 Ml Sdv) 4 mg IVPUSH Q4H PRN PRN Reason: Nausea/Vomiting Sertraline HCl (Sertraline 100 Mg Tab) 100 mg PO DAILY [facility] Discontinued Medications Sodium Chloride (Normal Saline) 1,000 mls @ 999 mls/hr IV .BOLUS ONE Stop: 04/05/21 20:03 Last Admin: 04/05/21 19:47 Dose: 999 mls/hr Documented by: Pantoprazole Sodium (Pantoprazole 40 Mg Vial) 40 mg IV DAILY [facility] Last Admin: 04/05/21 21:34 Dose: 40 mg Documented by: - Exam General: Alert Lungs: Clear to Auscultation, Normal Respiratory Effort Cardiovascular: Regular Rate, Regular Rhythm GI/Abdominal Exam: Normal Bowel Sounds, Soft, Non-Tender Back Exam: Normal Inspection, Full Range of Motion Extremities: Normal Inspection, Normal Range of Motion, Non-Tender, No Pedal Edema Skin: Warm, Dry, Other (Tenting noted) Wound/Incisions: Erythema (Candidiasis noted under breasts as well as abdominal folds.) Neurological: No New Focal Deficit Psy/Mental Status: Alert, Normal Affect, Normal Mood - Patient Data Lab Results Last 24 hrs: Laboratory Results - last 24 hr 04/05/21 04/05/21 04/05/21 Range/Units 16:49 16:49 16:49 WBC 12.75 H (4.0-11.0) K/uL RBC 5.56 (4.30-5.90) M/uL Hgb 16.2 H (12.0-16.0) g/dL Hct 50.3 H (36.0-46.0) % MCV 90.5 (80.0-98.0) fL MCH 29.1 (27.0-32.0) pg MCHC 32.2 (31.0-37.0) g/dL RDW Std Deviation 51.7 (28.0-62.0) fl RDW Coeff of Litzy 16 H (11.0-15.0) % Plt Count 154 (150-400) K/uL MPV 12.30 H (7.40-12.00) fL Neut % (Auto) 81.5 H (48.0-80.0) % Lymph % (Auto) 8.9 L (16.0-40.0) % [place] % (Auto) 7.8 (0.0-15.0) % Eos % (Auto) 1.6 (0.0-7.0) % Baso % (Auto) 0.2 (0.0-1.5) % Neut # (Auto) 10.4 H (1.4-5.7) K/uL Lymph # (Auto) 1.1 (0.6-2.4) K/uL [place] # (Auto) 1.0 H (0.0-0.8) K/uL Eos # (Auto) 0.2 (0.0-0.7) K/uL Baso # (Auto) 0.0 (0.0-0.1) K/uL Nucleated RBC % 0.0 /100WBC Nucleated RBCs # 0 K/uL INR 1.17 APTT 24.7 (18.6-31.3) SEC Sodium 155 H (136-145) mmol/L Potassium 4.1 (3.5-5.1) mmol/L Chloride 116 H (98-107) mmol/L Carbon Dioxide 24.4 (21.0-32.0) mmol/L BUN 93 H (7.0-18.0) mg/dL Creatinine 2.8 H (0.6-1.0) mg/dL Est Cr Clr Drug Dosing 17.86 mL/min Estimated GFR (MDRD) 16.4 ml/min Glucose 211 H (74-106) mg/dL POC Glucose (70-99) mg/dL Calcium 10.7 H (8.5-10.1) mg/dL Phosphorus (2.6-4.7) mg/dL Magnesium (1.8-2.4) mg/dL Troponin I < 0.050 (0.000-0.056) ng/mL Urine Color Urine Appearance Urine pH (5.0-8.0) Ur Specific [place] (1.001-1.035) Urine Protein (NEGATIVE) mg/dL Urine Glucose (UA) (NEGATIVE) mg/dL Urine Ketones (NEGATIVE) mg/dL Urine Occult Blood (NEGATIVE) Urine Nitrite (NEGATIVE) Urine Bilirubin (NEGATIVE) Urine Ictotest Urine Urobilinogen (<2.0) EU/dL Ur Leukocyte Esterase (NEGATIVE) Urine RBC (0-2/HPF) Urine WBC (0-5/HPF) Ur Epithelial Cells (NONE-FEW) Amorphous Sediment (NEGATIVE) Urine Bacteria (NEGATIVE) Urine Yeast Urinalysis Comment SARS-CoV-2 RNA (LUZ) (NEGATIVE) 04/05/21 04/05/21 04/05/21 Range/Units 19:15 19:15 20:10 WBC (4.0-11.0) K/uL RBC (4.30-5.90) M/uL Hgb (12.0-16.0) g/dL Hct (36.0-46.0) % MCV (80.0-98.0) fL MCH (27.0-32.0) pg MCHC (31.0-37.0) g/dL RDW Std Deviation (28.0-62.0) fl RDW Coeff of Litzy (11.0-15.0) % Plt Count (150-400) K/uL MPV (7.40-12.00) fL Neut % (Auto) (48.0-80.0) % Lymph % (Auto) (16.0-40.0) % [place] % (Auto) (0.0-15.0) % Eos % (Auto) (0.0-7.0) % Baso % (Auto) (0.0-1.5) % Neut # (Auto) (1.4-5.7) K/uL Lymph # (Auto) (0.6-2.4) K/uL [place] # (Auto) (0.0-0.8) K/uL Eos # (Auto) (0.0-0.7) K/uL Baso # (Auto) (0.0-0.1) K/uL Nucleated RBC % /100WBC Nucleated RBCs # K/uL INR APTT (18.6-31.3) SEC Sodium (136-145) mmol/L Potassium (3.5-5.1) mmol/L Chloride (98-107) mmol/L Carbon Dioxide (21.0-32.0) mmol/L BUN (7.0-18.0) mg/dL Creatinine (0.6-1.0) mg/dL Est Cr Clr Drug Dosing mL/min Estimated GFR (MDRD) ml/min Glucose (74-106) mg/dL POC Glucose (70-99) mg/dL Calcium (8.5-10.1) mg/dL Phosphorus (2.6-4.7) mg/dL Magnesium (1.8-2.4) mg/dL Troponin I < 0.050 (0.000-0.056) ng/mL Urine Color YELLOW Urine Appearance CLOUDY Urine pH 5.0 (5.0-8.0) Ur Specific [place] >= 1.030 (1.001-1.035) Urine Protein >=300 H (NEGATIVE) mg/dL Urine Glucose (UA) NEGATIVE (NEGATIVE) mg/dL Urine Ketones TRACE H (NEGATIVE) mg/dL Urine Occult Blood LARGE H (NEGATIVE) Urine Nitrite POSITIVE H (NEGATIVE) Urine Bilirubin MODERATE H (NEGATIVE) Urine Ictotest NEGATIVE Urine Urobilinogen 2.0 H (<2.0) EU/dL Ur Leukocyte Esterase MODERATE H (NEGATIVE) Urine RBC 3-6 (0-2/HPF) Urine WBC 15-20 (0-5/HPF) Ur Epithelial Cells RARE (NONE-FEW) Amorphous Sediment LIGHT (NEGATIVE) Urine Bacteria 2+ H (NEGATIVE) Urine Yeast MODERATE Urinalysis Comment SARS-CoV-2 RNA (LUZ) NEGATIVE (NEGATIVE) 04/06/21 04/06/21 04/06/21 Range/Units 05:28 05:40 05:40 WBC 10.69 (4.0-11.0) K/uL RBC 5.13 (4.30-5.90) M/uL Hgb 14.9 (12.0-16.0) g/dL Hct 46.5 H (36.0-46.0) % MCV 90.6 (80.0-98.0) fL MCH 29.0 (27.0-32.0) pg MCHC 32.0 (31.0-37.0) g/dL RDW Std Deviation 52.8 (28.0-62.0) fl RDW Coeff of Litzy 16 H (11.0-15.0) % Plt Count 135 L (150-400) K/uL MPV 13.20 H (7.40-12.00) fL Neut % (Auto) 73.6 (48.0-80.0) % Lymph % (Auto) 13.1 L (16.0-40.0) % [place] % (Auto) 9.1 (0.0-15.0) % Eos % (Auto) 3.7 (0.0-7.0) % Baso % (Auto) 0.5 (0.0-1.5) % Neut # (Auto) 7.9 H (1.4-5.7) K/uL Lymph # (Auto) 1.4 (0.6-2.4) K/uL [place] # (Auto) 1.0 H (0.0-0.8) K/uL Eos # (Auto) 0.4 (0.0-0.7) K/uL Baso # (Auto) 0.1 (0.0-0.1) K/uL Nucleated RBC % 0.0 /100WBC Nucleated RBCs # 0 K/uL INR APTT (18.6-31.3) SEC Sodium 157 H (136-145) mmol/L Potassium 4.2 (3.5-5.1) mmol/L Chloride 121 H (98-107) mmol/L Carbon Dioxide 26.8 (21.0-32.0) mmol/L BUN 95 H (7.0-18.0) mg/dL Creatinine 2.7 H (0.6-1.0) mg/dL Est Cr Clr Drug Dosing 18.52 mL/min Estimated GFR (MDRD) 17.1 ml/min Glucose 207 H (74-106) mg/dL POC Glucose 181 H (70-99) mg/dL Calcium 9.9 (8.5-10.1) mg/dL Phosphorus 3.8 (2.6-4.7) mg/dL Magnesium 2.2 (1.8-2.4) mg/dL Troponin I (0.000-0.056) ng/mL Urine Color Urine Appearance Urine pH (5.0-8.0) Ur Specific [place] (1.001-1.035) Urine Protein (NEGATIVE) mg/dL Urine Glucose (UA) (NEGATIVE) mg/dL Urine Ketones (NEGATIVE) mg/dL Urine Occult Blood (NEGATIVE) Urine Nitrite (NEGATIVE) Urine Bilirubin (NEGATIVE) Urine Ictotest Urine Urobilinogen (<2.0) EU/dL Ur Leukocyte Esterase (NEGATIVE) Urine RBC (0-2/HPF) Urine WBC (0-5/HPF) Ur Epithelial Cells (NONE-FEW) Amorphous Sediment (NEGATIVE) Urine Bacteria (NEGATIVE) Urine Yeast Urinalysis Comment SARS-CoV-2 RNA (LUZ) (NEGATIVE) Result Diagrams: 04/06/21 05:40 04/06/21 05:40 Sepsis Event Note - Evaluation Sepsis Screening Result: No Definite Risk - Focused Exam Vital Signs: Vital Signs Temp Pulse Resp BP BP Pulse Ox 04/06/21 07:30 96.4 F L 87 17 139/73 97 04/06/21 03:45 96.9 F 73 17 135/61 97 04/06/21 00:00 96.6 F L 76 17 134/53 L 96 04/05/21 21:30 105/75 - Problem List & Annotations (1) Fall SNOMED Code(s): 3079203, 342655347 Code(s): W19.XXXA - UNSPECIFIED FALL, INITIAL ENCOUNTER Status: Acute Current Visit: Yes Qualifiers: Encounter type: initial encounter Qualified Code(s): W19.XXXA - Unspecified fall, initial encounter (2) Candidiasis of breast SNOMED Code(s): 43241585, 133495409 Code(s): B37.89 - OTHER SITES OF CANDIDIASIS Status: Acute Current Visit: Yes (3) Hypernatremia SNOMED Code(s): 273145262 Code(s): E87.0 - HYPEROSMOLALITY AND HYPERNATREMIA Status: Acute Current Visit: Yes (4) UTI (urinary tract infection) SNOMED Code(s): 91129498 Code(s): N39.0 - URINARY TRACT INFECTION, SITE NOT SPECIFIED Status: Acute Current Visit: Yes (5) HERBERT (acute kidney injury) SNOMED Code(s): 55142502, 11896826 Code(s): N17.9 - ACUTE KIDNEY FAILURE, UNSPECIFIED Status: Acute Current Visit: Yes (6) Dehydration SNOMED Code(s): 81637581 Code(s): E86.0 - DEHYDRATION Status: Acute Current Visit: No (7) Dementia SNOMED Code(s): 51868666 Code(s): F03.90 - UNSPECIFIED DEMENTIA WITHOUT BEHAVIORAL DISTURBANCE Status: Chronic Current Visit: No Qualifiers: Dementia type: unspecified type (8) Self-care deficit SNOMED Code(s): 315258452 Code(s): Z78.9 - OTHER SPECIFIED HEALTH STATUS Status: Chronic Current Visit: No (9) Hypertension SNOMED Code(s): 12577841 Code(s): I10 - ESSENTIAL (PRIMARY) HYPERTENSION Status: Chronic Current Visit: Yes - Problem List Review Problem List Initiated/Reviewed/Updated: Yes - My Orders Last 24 Hours: My Active Orders 04/06/21 08:33 Intake and Output [RC] QSHIFT - Plan Plan:: 75-year-old female admitted secondary to fall, unsure patient had a seizure 1. 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 CT head negative -Continue to monitor -PT to evaluate when patient more alert 2. Hypernatremia -Sodium remains elevated this morning 157 -Urine appears dark skin tenting noted patient likely dehydrated will give 1 L LR bolus -Encourage free water intake -Continue D5 at 125/h -Recheck sodium this evening 3. UTI -Continue Rocephin -urine cultures pending -Chaney catheter in place 4. HERBERT - Hold nephrotoxic meds - IVFs 5. Hypertension -Continue antihypertensive medications VTE prophylaxis: Eliquis GI prophylaxis: Protonix CODE STATUS: DNR/DNI Dispo: 2-3 days pending improvement
[2021-04-06] MEDS: hydrALAZINE 25 MG Tab PO SCH ×2 (09:41→21:37)
[2021-04-06] MEDS: Acetaminophen 500 MG Tab PO PRN (09:41)
[2021-04-06] MEDS: buPROPion 150 MG Tab.ER PO SCH (09:43)
[2021-04-06] MEDS: Sertraline 100 MG Tab PO SCH (09:44)
[2021-04-06] MEDS: Memantine 10 MG Tab PO SCH ×2 (09:44→21:36)
[2021-04-06] MEDS ORDERED: Lactated Ringers 1,000 ML IV ONE (12:21)
[2021-04-06 16:51] LABS: CARBON DIOXIDE,CO2 27.1 mmol/L (21.0-32.0)
[2021-04-06] MEDS: cefTRIAXone 1 GM in Premix Bag 1 BAG IV SCH (21:30)
[2021-04-06] MEDS: Donepezil 10 MG Tab PO SCH (21:36)
[2021-04-07] MEDS: Nystatin Topical Powder 15 GM Bottle TOP SCH ×5 (00:59→23:24)
[2021-04-07] MEDS: Dextrose 5% in Water 1,000 ML IV SCH ×2 (01:02→11:46)
[2021-04-07] MEDS: Acetaminophen 500 MG Tab PO PRN (06:01)
[2021-04-07 06:09] LABS: CARBON DIOXIDE,CO2 26.4 mmol/L (21.0-32.0); POTASSIUM,K 3.5 mmol/L (3.5-5.1)
--- NOTE | 2021-04-07 08:09 | PCM.PN ---
- General Info Date of Service: 04/07/21 Admission Dx/Problem (Free Text): Admission Diagnosis/Problem Admission Diagnosis/Problem Kidney disease Subjective Update: Non verbal - Patient Data Vitals - Most Recent: Last Vital Signs Temp 97.7 F 04/07/21 04:45 Pulse 56 L 04/07/21 04:45 Resp 17 04/07/21 04:45 BP 132/63 04/07/21 04:45 Pulse Ox 96 04/07/21 04:45 Weight - Most Recent: 93.44 kg I&O - Last 24 Hours: Intake & Output 04/06/21 04/07/21 04/07/21 22:59 06:59 14:59 Intake Total 2040 300 Output Total 400 650 Balance 1640 -350 Lab Results Last 24 Hours: Laboratory Results - last 24 hr 04/06/21 04/07/21 04/07/21 Range/Units 16:20 05:05 05:05 WBC 7.92 (4.0-11.0) K/uL RBC 4.72 (4.30-5.90) M/uL Hgb 13.6 (12.0-16.0) g/dL Hct 43.0 (36.0-46.0) % MCV 91.1 (80.0-98.0) fL MCH 28.8 (27.0-32.0) pg MCHC 31.6 (31.0-37.0) g/dL RDW Std Deviation 52.2 (28.0-62.0) fl RDW Coeff of Litzy 15 (11.0-15.0) % Plt Count 129 L (150-400) K/uL MPV 13.50 H (7.40-12.00) fL Neut % (Auto) 69.4 (48.0-80.0) % Lymph % (Auto) 15.9 L (16.0-40.0) % [place] % (Auto) 7.6 (0.0-15.0) % Eos % (Auto) 6.7 (0.0-7.0) % Baso % (Auto) 0.4 (0.0-1.5) % Neut # (Auto) 5.5 (1.4-5.7) K/uL Lymph # (Auto) 1.3 (0.6-2.4) K/uL [place] # (Auto) 0.6 (0.0-0.8) K/uL Eos # (Auto) 0.5 (0.0-0.7) K/uL Baso # (Auto) 0.0 (0.0-0.1) K/uL Nucleated RBC % 0.0 /100WBC Nucleated RBCs # 0 K/uL Sodium 152 H 148 H (136-145) mmol/L Potassium 4.0 3.5 (3.5-5.1) mmol/L Chloride 116 H 114 H (98-107) mmol/L Carbon Dioxide 27.1 26.4 (21.0-32.0) mmol/L BUN 87 H 72 H (7.0-18.0) mg/dL Creatinine 2.3 H 1.9 H (0.6-1.0) mg/dL Est Cr Clr Drug Dosing 21.75 26.32 mL/min Estimated GFR (MDRD) 20.6 25.7 ml/min Glucose 172 H 179 H (74-106) mg/dL Calcium 9.4 9.2 (8.5-10.1) mg/dL Med Orders - Current: Current Medications Acetaminophen (Acetaminophen 500 Mg Tab) 500 mg PO Q4H PRN PRN Reason: Pain Last Admin: 04/07/21 06:01 Dose: 500 mg Documented by: Albuterol/Ipratropium (Albuterol/Ipratropium 3.0-0.5 Mg/3 Ml Neb Soln) 3 ml NEB Q4HRRT PRN PRN Reason: Shortness Of Breath/wheezing Bupropion HCl (Bupropion 150 Mg Tab.Er) 150 mg PO DAILY [facility] Last Admin: 04/06/21 09:43 Dose: 150 mg Documented by: Docusate Sodium (Docusate Sodium 100 Mg Cap) 100 mg PO BID PRN PRN Reason: Constipation Donepezil HCl (Donepezil 10 Mg Tab) 10 mg PO BEDTIME [facility] Last Admin: 04/06/21 21:36 Dose: 10 mg Documented by: Hydralazine HCl (Hydralazine 25 Mg Tab) 25 mg PO Q12HR [facility] Last Admin: 04/06/21 21:37 Dose: 25 mg Documented by: Ceftriaxone Sodium/Dextrose 1 (gm/ Premix) 50 mls @ 100 mls/hr IV Q24H [facility] Last Admin: 04/06/21 21:30 Dose: 100 mls/hr Documented by: Dextrose/Water (Dextrose 5% In Water) 1,000 mls @ 125 mls/hr IV ASDIRECTED [facility] Last Admin: 04/07/21 01:02 Dose: 100 mls/hr Documented by: Pantoprazole Sodium 40 mg/ (Sodium Chloride) 10 mls @ 200 mls/hr IV DAILY [facility] Last Admin: 04/06/21 08:38 Dose: 200 mls/hr Documented by: Memantine (Memantine 10 Mg Tab) 5 mg PO BID [facility] Last Admin: 04/06/21 21:36 Dose: 5 mg Documented by: Nystatin (Nystatin Topical Powder 15 Gm Bottle) 0 gm TOP QID [facility] Last Admin: 04/07/21 05:55 Dose: 1 applic Documented by: Ondansetron HCl (Ondansetron 4 Mg/2 Ml Sdv) 4 mg IVPUSH Q4H PRN PRN Reason: Nausea/Vomiting Sertraline HCl (Sertraline 100 Mg Tab) 100 mg PO DAILY [facility] Last Admin: 04/06/21 09:44 Dose: 100 mg Documented by: Discontinued Medications Sodium Chloride (Normal Saline) 1,000 mls @ 999 mls/hr IV .BOLUS ONE Stop: 04/05/21 20:03 Last Admin: 04/05/21 19:47 Dose: 999 mls/hr Documented by: Lactated Ringer's (Ringers, Lactated) 1,000 mls @ 999 mls/hr IV .BOLUS ONE Stop: 04/06/21 13:21 Last Admin: 04/06/21 12:52 Dose: 999 mls/hr Documented by: Pantoprazole Sodium (Pantoprazole 40 Mg Vial) 40 mg IV DAILY [facility] Last Admin: 04/05/21 21:34 Dose: 40 mg Documented by: - Exam General: Alert, No Acute Distress Lungs: Clear to Auscultation, Normal Respiratory Effort Cardiovascular: Regular Rate, Regular Rhythm GI/Abdominal Exam: Normal Bowel Sounds, Soft, Non-Tender Extremities: Normal Inspection, Normal Range of Motion, Non-Tender, No Pedal Edema Skin: Warm, Dry Wound/Incisions: Erythema (under breasts, candidiasis) Neurological: No New Focal Deficit Psy/Mental Status: Alert - Patient Data Lab Results Last 24 hrs: Laboratory Results - last 24 hr 04/06/21 04/07/21 04/07/21 Range/Units 16:20 05:05 05:05 WBC 7.92 (4.0-11.0) K/uL RBC 4.72 (4.30-5.90) M/uL Hgb 13.6 (12.0-16.0) g/dL Hct 43.0 (36.0-46.0) % MCV 91.1 (80.0-98.0) fL MCH 28.8 (27.0-32.0) pg MCHC 31.6 (31.0-37.0) g/dL RDW Std Deviation 52.2 (28.0-62.0) fl RDW Coeff of Litzy 15 (11.0-15.0) % Plt Count 129 L (150-400) K/uL MPV 13.50 H (7.40-12.00) fL Neut % (Auto) 69.4 (48.0-80.0) % Lymph % (Auto) 15.9 L (16.0-40.0) % [place] % (Auto) 7.6 (0.0-15.0) % Eos % (Auto) 6.7 (0.0-7.0) % Baso % (Auto) 0.4 (0.0-1.5) % Neut # (Auto) 5.5 (1.4-5.7) K/uL Lymph # (Auto) 1.3 (0.6-2.4) K/uL [place] # (Auto) 0.6 (0.0-0.8) K/uL Eos # (Auto) 0.5 (0.0-0.7) K/uL Baso # (Auto) 0.0 (0.0-0.1) K/uL Nucleated RBC % 0.0 /100WBC Nucleated RBCs # 0 K/uL Sodium 152 H 148 H (136-145) mmol/L Potassium 4.0 3.5 (3.5-5.1) mmol/L Chloride 116 H 114 H (98-107) mmol/L Carbon Dioxide 27.1 26.4 (21.0-32.0) mmol/L BUN 87 H 72 H (7.0-18.0) mg/dL Creatinine 2.3 H 1.9 H (0.6-1.0) mg/dL Est Cr Clr Drug Dosing 21.75 26.32 mL/min Estimated GFR (MDRD) 20.6 25.7 ml/min Glucose 172 H 179 H (74-106) mg/dL Calcium 9.4 9.2 (8.5-10.1) mg/dL Result Diagrams: 04/07/21 05:05 04/07/21 05:05 Sepsis Event Note - Evaluation Sepsis Screening Result: No Definite Risk - Focused Exam Vital Signs: Vital Signs Temp Pulse Resp BP BP Pulse Ox 04/07/21 04:45 97.7 F 56 L 17 132/63 96 04/07/21 01:00 97.7 F 58 L 16 129/65 97 04/06/21 21:37 133/64 - Problem List & Annotations (1) Fall SNOMED Code(s): 4699833, 521110279 Code(s): W19.XXXA - UNSPECIFIED FALL, INITIAL ENCOUNTER Status: Acute Current Visit: Yes Qualifiers: Encounter type: initial encounter Qualified Code(s): W19.XXXA - Unspecified fall, initial encounter (2) Candidiasis of breast SNOMED Code(s): 57761397, 747583866 Code(s): B37.89 - OTHER SITES OF CANDIDIASIS Status: Acute Current Visit: Yes (3) Hypernatremia SNOMED Code(s): 015964106 Code(s): E87.0 - HYPEROSMOLALITY AND HYPERNATREMIA Status: Acute Current Visit: Yes (4) UTI (urinary tract infection) SNOMED Code(s): 00948493 Code(s): N39.0 - URINARY TRACT INFECTION, SITE NOT SPECIFIED Status: Acute Current Visit: Yes (5) HERBERT (acute kidney injury) SNOMED Code(s): 25580919, 78589355 Code(s): N17.9 - ACUTE KIDNEY FAILURE, UNSPECIFIED Status: Acute Current Visit: Yes (6) Dehydration SNOMED Code(s): 15508631 Code(s): E86.0 - DEHYDRATION Status: Acute Current Visit: No (7) Dementia SNOMED Code(s): 75170467 Code(s): F03.90 - UNSPECIFIED DEMENTIA WITHOUT BEHAVIORAL DISTURBANCE Status: Chronic Current Visit: No Qualifiers: Dementia type: unspecified type (8) Self-care deficit SNOMED Code(s): 318015740 Code(s): Z78.9 - OTHER SPECIFIED HEALTH STATUS Status: Chronic Current Visit: No (9) Hypertension SNOMED Code(s): 40358842 Code(s): I10 - ESSENTIAL (PRIMARY) HYPERTENSION Status: Chronic Current Visit: Yes - Problem List Review Problem List Initiated/Reviewed/Updated: Yes - My Orders Last 24 Hours: My Active Orders 04/06/21 08:33 Intake and Output [RC] QSHIFT 04/06/21 12:21 Lactated Ringers [Ringers, Lactated] 1,000 ml IV .BOLUS 04/06/21 19:19 Resuscitation Status Routine 04/08/21 05:11 BASIC METABOLIC PANEL,BMP [CHEM] AM CBC WITH AUTO DIFF [HEME] AM - Plan Plan:: 75-year-old female admitted secondary to fall, unsure patient had a seizure 1. Fall -[employer] Tender fall [place] seizure-like activity unsure of any seizure. CT head negative -Continue to monitor -PT to evaluate when patient more alert 2. Hypernatremia -Improving with hydration -Urine clearing -Encourage free water intake -Continue D5 at 125/h -Recheck sodium this evening 3. UTI -Continue Rocephin -urine cultures pending -Chaney catheter in place, noted the catheter is chronic. Upon further investigation Chaney catheter was not replaced with a new catheter in ER upon admission. Will remove Chaney and replace with new at this time. 4. HERBERT - Improving - Hold nephrotoxic meds - IVFs 5. Hypertension -Continue antihypertensive medications VTE prophylaxis: Eliquis GI prophylaxis: Protonix CODE STATUS: DNR/DNI Dispo: will make inpatient as she will likely need 1-2 more days
[2021-04-07] MEDS: Pantoprazole 40 MG in Sodium Chloride 0.9% 10 ML IV SCH (08:48)
[2021-04-07] MEDS: Memantine 10 MG Tab PO SCH ×2 (08:50→20:40)
[2021-04-07] MEDS: hydrALAZINE 25 MG Tab PO SCH ×2 (08:51→20:39)
[2021-04-07] MEDS: Sertraline 100 MG Tab PO SCH (08:51)
[2021-04-07] MEDS: buPROPion 150 MG Tab.ER PO SCH (08:51)
[2021-04-07 16:18] LABS: CARBON DIOXIDE,CO2 23.6 mmol/L (21.0-32.0); POTASSIUM,K 4.1 mmol/L (3.5-5.1)
[2021-04-07] MEDS: Lactated Ringers 1,000 ML IV SCH (17:27)
[2021-04-07] MEDS: cefTRIAXone 1 GM in Premix Bag 1 BAG IV SCH (20:36)
[2021-04-07] MEDS: Donepezil 10 MG Tab PO SCH (20:39)
[2021-04-08] MEDS: Nystatin Topical Powder 15 GM Bottle TOP SCH ×3 (05:44→17:03)
[2021-04-08] MEDS: Lactated Ringers 1,000 ML IV SCH ×3 (06:25→22:10)
[2021-04-08 06:31] LABS: CARBON DIOXIDE,CO2 26.3 mmol/L (21.0-32.0)
[2021-04-08] MEDS: Pantoprazole 40 MG in Sodium Chloride 0.9% 10 ML IV SCH (08:59)
[2021-04-08] MEDS: Memantine 10 MG Tab PO SCH ×2 (09:57→22:00)
[2021-04-08] MEDS: hydrALAZINE 25 MG Tab PO SCH ×2 (09:57→22:01)
[2021-04-08] MEDS: Sertraline 100 MG Tab PO SCH (09:58)
[2021-04-08] MEDS: buPROPion 150 MG Tab.ER PO SCH (09:58)
--- NOTE | 2021-04-08 17:06 | PCM.PN ---
- General Info Date of Service: 04/08/21 Admission Dx/Problem (Free Text): Admission Diagnosis/Problem Admission Diagnosis/Problem Kidney disease Subjective Update: Patient has been seen at bedside, resting in bed uncomfortably, opening her eyes to stimulus maintaining eye contact follow some basic commands is usually nonverbal but does speak occasionally. P.o. intake has been minimal. Patient's was at bedside and was given a short update Functional Status: Reports: Urinating. Denies: Tolerating Diet, Ambulating - Review of Systems General: Denies: Weakness Systems Review Comment:: Unable to obtain review of systems due to patient's nonverbal status - Patient Data Vitals - Most Recent: Last Vital Signs Temp 35.2 C L 04/08/21 15:00 Pulse 41 L 04/08/21 15:00 Resp 16 04/08/21 15:00 BP 138/42 L 04/08/21 15:00 Pulse Ox 97 04/08/21 15:00 Weight - Most Recent: 93.44 kg I&O - Last 24 Hours: Intake & Output 04/08/21 04/08/21 04/08/21 06:59 14:59 22:59 Intake Total 1378 1779 Output Total 950 1000 Balance 428 779 Lab Results Last 24 Hours: Laboratory Results - last 24 hr 04/08/21 04/08/21 Range/Units 06:05 06:05 WBC 7.35 (4.0-11.0) K/uL RBC 4.82 (4.30-5.90) M/uL Hgb 13.7 (12.0-16.0) g/dL Hct 43.2 (36.0-46.0) % MCV 89.6 (80.0-98.0) fL MCH 28.4 (27.0-32.0) pg MCHC 31.7 (31.0-37.0) g/dL RDW Std Deviation 49.2 (28.0-62.0) fl RDW Coeff of Litzy 15 (11.0-15.0) % Plt Count 119 L (150-400) K/uL MPV 11.80 (7.40-12.00) fL Neut % (Auto) 66.4 (48.0-80.0) % Lymph % (Auto) 18.5 (16.0-40.0) % Andrews % (Auto) 8.7 (0.0-15.0) % Eos % (Auto) 6.0 (0.0-7.0) % Baso % (Auto) 0.4 (0.0-1.5) % Neut # (Auto) 4.9 (1.4-5.7) K/uL Lymph # (Auto) 1.4 (0.6-2.4) K/uL Andrews # (Auto) 0.6 (0.0-0.8) K/uL Eos # (Auto) 0.4 (0.0-0.7) K/uL Baso # (Auto) 0.0 (0.0-0.1) K/uL Nucleated RBC % 0.0 /100WBC Nucleated RBCs # 0 K/uL Sodium 144 (136-145) mmol/L Potassium 4.0 (3.5-5.1) mmol/L Chloride 112 H (98-107) mmol/L Carbon Dioxide 26.3 (21.0-32.0) mmol/L BUN 51 H (7.0-18.0) mg/dL Creatinine 1.6 H (0.6-1.0) mg/dL Est Cr Clr Drug Dosing 31.26 mL/min Estimated GFR (MDRD) 31.3 ml/min Glucose 121 H (74-106) mg/dL Calcium 9.2 (8.5-10.1) mg/dL Chris Results Last 24 Hours: Microbiology 04/06/21 02:40 Urine Culture - Preliminary Urine Maliha Albicans Med Orders - Current: Current Medications Acetaminophen (Acetaminophen 500 Mg Tab) 500 mg PO Q4H PRN PRN Reason: Pain Last Admin: 04/07/21 06:01 Dose: 500 mg Documented by: Albuterol/Ipratropium (Albuterol/Ipratropium 3.0-0.5 Mg/3 Ml Neb Soln) 3 ml NEB Q4HRRT PRN PRN Reason: Shortness Of Breath/wheezing Bupropion HCl (Bupropion 150 Mg Tab.Er) 150 mg PO DAILY [facility] Last Admin: 04/08/21 09:58 Dose: 150 mg Documented by: Docusate Sodium (Docusate Sodium 100 Mg Cap) 100 mg PO BID PRN PRN Reason: Constipation Hydralazine HCl (Hydralazine 25 Mg Tab) 25 mg PO Q12HR [facility] Last Admin: 04/08/21 09:57 Dose: 25 mg Documented by: Pantoprazole Sodium 40 mg/ (Sodium Chloride) 10 mls @ 200 mls/hr IV DAILY [facility] Last Admin: 04/08/21 08:59 Dose: 200 mls/hr Documented by: Lactated Ringer's (Ringers, Lactated) 1,000 mls @ 100 mls/hr IV Q10H [facility] Last Admin: 04/08/21 16:54 Dose: 100 mls/hr Documented by: Memantine (Memantine 10 Mg Tab) 5 mg PO BID [facility] Last Admin: 04/08/21 09:57 Dose: 5 mg Documented by: Nystatin (Nystatin Topical Powder 15 Gm Bottle) 0 gm TOP QID [facility] Last Admin: 04/08/21 17:03 Dose: 1 applic Documented by: Ondansetron HCl (Ondansetron 4 Mg/2 Ml Sdv) 4 mg IVPUSH Q4H PRN PRN Reason: Nausea/Vomiting Sertraline HCl (Sertraline 100 Mg Tab) 100 mg PO DAILY [facility] Last Admin: 04/08/21 09:58 Dose: 100 mg Documented by: Discontinued Medications Donepezil HCl (Donepezil 10 Mg Tab) 10 mg PO BEDTIME [facility] Last Admin: 04/07/21 20:39 Dose: 10 mg Documented by: Sodium Chloride (Normal Saline) 1,000 mls @ 999 mls/hr IV .BOLUS ONE Stop: 04/05/21 20:03 Last Admin: 04/05/21 19:47 Dose: 999 mls/hr Documented by: Ceftriaxone Sodium/Dextrose 1 (gm/ Premix) 50 mls @ 100 mls/hr IV Q24H [facility] Last Admin: 04/07/21 20:36 Dose: 100 mls/hr Documented by: Dextrose/Water (Dextrose 5% In Water) 1,000 mls @ 125 mls/hr IV ASDIRECTED [facility] Last Admin: 04/07/21 11:46 Dose: 100 mls/hr Documented by: Lactated Ringer's (Ringers, Lactated) 1,000 mls @ 999 mls/hr IV .BOLUS ONE Stop: 04/06/21 13:21 Last Admin: 04/06/21 12:52 Dose: 999 mls/hr Documented by: Pantoprazole Sodium (Pantoprazole 40 Mg Vial) 40 mg IV DAILY [facility] Last Admin: 04/05/21 21:34 Dose: 40 mg Documented by: - Exam Urinary Catheter Total Time: 0Days 6Hours General: Cooperative, No Acute Distress. No: Alert, Oriented Lungs: Clear to Auscultation Cardiovascular: Regular Rate, Regular Rhythm GI/Abdominal Exam: Normal Bowel Sounds, Soft, Non-Tender - Patient Data Lab Results Last 24 hrs: Laboratory Results - last 24 hr 04/08/21 04/08/21 Range/Units 06:05 06:05 WBC 7.35 (4.0-11.0) K/uL RBC 4.82 (4.30-5.90) M/uL Hgb 13.7 (12.0-16.0) g/dL Hct 43.2 (36.0-46.0) % MCV 89.6 (80.0-98.0) fL MCH 28.4 (27.0-32.0) pg MCHC 31.7 (31.0-37.0) g/dL RDW Std Deviation 49.2 (28.0-62.0) fl RDW Coeff of Litzy 15 (11.0-15.0) % Plt Count 119 L (150-400) K/uL MPV 11.80 (7.40-12.00) fL Neut % (Auto) 66.4 (48.0-80.0) % Lymph % (Auto) 18.5 (16.0-40.0) % Andrews % (Auto) 8.7 (0.0-15.0) % Eos % (Auto) 6.0 (0.0-7.0) % Baso % (Auto) 0.4 (0.0-1.5) % Neut # (Auto) 4.9 (1.4-5.7) K/uL Lymph # (Auto) 1.4 (0.6-2.4) K/uL Andrews # (Auto) 0.6 (0.0-0.8) K/uL Eos # (Auto) 0.4 (0.0-0.7) K/uL Baso # (Auto) 0.0 (0.0-0.1) K/uL Nucleated RBC % 0.0 /100WBC Nucleated RBCs # 0 K/uL Sodium 144 (136-145) mmol/L Potassium 4.0 (3.5-5.1) mmol/L Chloride 112 H (98-107) mmol/L Carbon Dioxide 26.3 (21.0-32.0) mmol/L BUN 51 H (7.0-18.0) mg/dL Creatinine 1.6 H (0.6-1.0) mg/dL Est Cr Clr Drug Dosing 31.26 mL/min Estimated GFR (MDRD) 31.3 ml/min Glucose 121 H (74-106) mg/dL Calcium 9.2 (8.5-10.1) mg/dL Result Diagrams: 04/08/21 06:05 04/08/21 06:05 Chris Results Last 24 hrs: Microbiology 04/06/21 02:40 Urine Culture - Preliminary Urine Maliha Albicans Sepsis Event Note - Evaluation Sepsis Screening Result: No Definite Risk - Focused Exam Vital Signs: Vital Signs Temp Pulse Resp BP BP BP Pulse Ox 04/08/21 15:00 35.2 C L 41 L 16 138/42 L 97 04/08/21 11:54 35.9 C L 59 L 18 140/58 L 97 04/08/21 09:57 140/59 L 04/08/21 08:56 36.2 C 53 L 17 140/59 L 100 - Problem List & Annotations (1) HERBERT (acute kidney injury) SNOMED Code(s): 66994376, 60513768 Code(s): N17.9 - ACUTE KIDNEY FAILURE, UNSPECIFIED Status: Acute Current Visit: Yes (2) Fall SNOMED Code(s): 9006047, 055738292 Code(s): W19.XXXA - UNSPECIFIED FALL, INITIAL ENCOUNTER Status: Acute Current Visit: Yes Qualifiers: Encounter type: initial encounter Qualified Code(s): W19.XXXA - Unspecified fall, initial encounter (3) Dehydration SNOMED Code(s): 92551550 Code(s): E86.0 - DEHYDRATION Status: Acute Current Visit: No (4) Dementia SNOMED Code(s): 99002741 Code(s): F03.90 - UNSPECIFIED DEMENTIA WITHOUT BEHAVIORAL DISTURBANCE Status: Chronic Current Visit: No Qualifiers: Dementia type: unspecified type - Problem List Review Problem List Initiated/Reviewed/Updated: Yes - Plan Plan:: 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 CT head negative -Continue to monitor -PT to evaluate when patient more alert 2. Hypernatremia -Resolved with IV hydration -Urine clearing -Encourage free water intake -Patient does not have significant oral intake which is a concern, will continue to encourage oral feeds. If patient does not eat well may require further goals of care discussion with the family. 3. UTI -We will discontinue Rocephin as urine cultures are showing yeast -Chaney catheter in place, noted the catheter is chronic. Has been replaced yesterday 4. HERBERT - Improving - Hold nephrotoxic meds - IVFs 5. Hypertension -Continue antihypertensive medications VTE prophylaxis: Eliquis GI prophylaxis: Protonix CODE STATUS: DNR/DNI Dispo: will make inpatient as she will likely need 1-2 more iwona
[2021-04-09] MEDS: Nystatin Topical Powder 15 GM Bottle TOP SCH ×4 (00:58→11:25)
[2021-04-09 07:13] LABS: CARBON DIOXIDE,CO2 29.6 mmol/L (21.0-32.0); POTASSIUM,K 3.8 mmol/L (3.5-5.1)
[2021-04-09] MEDS ORDERED: Apixaban 5 MG Tab PO SCH (09:00)
[2021-04-09] MEDS: Pantoprazole 40 MG in Sodium Chloride 0.9% 10 ML IV SCH (09:25)
[2021-04-09] MEDS: Sertraline 100 MG Tab PO SCH (09:31)
[2021-04-09] MEDS: buPROPion 150 MG Tab.ER PO SCH (09:31)
[2021-04-09] MEDS ORDERED: Phosphorus #1 250 MG Tab PO ONE (09:31)
[2021-04-09] MEDS: hydrALAZINE 25 MG Tab PO SCH (09:31)
[2021-04-09] MEDS: Memantine 10 MG Tab PO SCH (09:31)
[2021-04-09] MEDS ORDERED: Magnesium Sulfate/Water 4 GM/100 ML BAG IV ONE (09:32)
--- NOTE | 2021-04-09 10:10 | PCM.PN ---
- General Info Date of Service: 04/09/21 - Patient Data Vitals - Most Recent: Last Vital Signs Temp 97.2 F 04/09/21 07:44 Pulse 48 L 04/09/21 07:44 Resp 17 04/09/21 07:44 BP 149/56 H 04/09/21 09:31 Pulse Ox 95 04/09/21 07:44 Weight - Most Recent: 206 lb I&O - Last 24 Hours: Intake & Output 04/08/21 04/09/21 04/09/21 22:59 06:59 14:59 Intake Total 2031 Output Total 1000 Balance 1031 Lab Results Last 24 Hours: Laboratory Results - last 24 hr 04/09/21 04/09/21 Range/Units 06:15 06:15 WBC 6.40 (4.0-11.0) K/uL RBC 4.55 (4.30-5.90) M/uL Hgb 13.1 (12.0-16.0) g/dL Hct 40.4 (36.0-46.0) % MCV 88.8 (80.0-98.0) fL MCH 28.8 (27.0-32.0) pg MCHC 32.4 (31.0-37.0) g/dL RDW Std Deviation 47.4 (28.0-62.0) fl RDW Coeff of Litzy 15 (11.0-15.0) % Plt Count 108 L (150-400) K/uL MPV 11.60 (7.40-12.00) fL Neut % (Auto) 65.3 (48.0-80.0) % Lymph % (Auto) 18.0 (16.0-40.0) % [place] % (Auto) 11.1 (0.0-15.0) % Eos % (Auto) 5.3 (0.0-7.0) % Baso % (Auto) 0.3 (0.0-1.5) % Neut # (Auto) 4.2 (1.4-5.7) K/uL Lymph # (Auto) 1.2 (0.6-2.4) K/uL [place] # (Auto) 0.7 (0.0-0.8) K/uL Eos # (Auto) 0.3 (0.0-0.7) K/uL Baso # (Auto) 0.0 (0.0-0.1) K/uL Nucleated RBC % 0.0 /100WBC Nucleated RBCs # 0 K/uL Sodium 146 H (136-145) mmol/L Potassium 3.8 (3.5-5.1) mmol/L Chloride 113 H (98-107) mmol/L Carbon Dioxide 29.6 (21.0-32.0) mmol/L BUN 32 H (7.0-18.0) mg/dL Creatinine 1.3 H (0.6-1.0) mg/dL Est Cr Clr Drug Dosing 38.47 mL/min Estimated GFR (MDRD) 39.8 ml/min Glucose 109 H (74-106) mg/dL Calcium 9.2 (8.5-10.1) mg/dL Phosphorus 2.4 L (2.6-4.7) mg/dL Magnesium 1.5 L (1.8-2.4) mg/dL Chris Results Last 24 Hours: Microbiology 04/06/21 02:40 Urine Culture - Final Urine Maliha Albicans Med Orders - Current: Current Medications Acetaminophen (Acetaminophen 500 Mg Tab) 500 mg PO Q4H PRN PRN Reason: Pain Last Admin: 04/07/21 06:01 Dose: 500 mg Documented by: Albuterol/Ipratropium (Albuterol/Ipratropium 3.0-0.5 Mg/3 Ml Neb Soln) 3 ml NEB Q4HRRT PRN PRN Reason: Shortness Of Breath/wheezing Apixaban (Apixaban 5 Mg Tab) 5 mg PO BID [facility] Bupropion HCl (Bupropion 150 Mg Tab.Er) 150 mg PO DAILY [facility] Last Admin: 04/09/21 09:31 Dose: 150 mg Documented by: Docusate Sodium (Docusate Sodium 100 Mg Cap) 100 mg PO BID PRN PRN Reason: Constipation Hydralazine HCl (Hydralazine 25 Mg Tab) 25 mg PO Q12HR [facility] Last Admin: 04/09/21 09:31 Dose: 25 mg Documented by: Pantoprazole Sodium 40 mg/ (Sodium Chloride) 10 mls @ 200 mls/hr IV DAILY [facility] Last Admin: 04/09/21 09:25 Dose: 200 mls/hr Documented by: Lactated Ringer's (Ringers, Lactated) 1,000 mls @ 100 mls/hr IV Q10H [facility] Last Admin: 04/08/21 22:10 Dose: 100 mls/hr Documented by: Magnesium Sulfate (Magnesium Sulfate In Water 4 Gm/100 Ml) 4 gm in 100 mls @ 33.333 mls/hr IV ONETIME ONE Stop: 04/09/21 12:31 Memantine (Memantine 10 Mg Tab) 5 mg PO BID [facility] Last Admin: 04/09/21 09:31 Dose: 5 mg Documented by: Nystatin (Nystatin Topical Powder 15 Gm Bottle) 0 gm TOP QID [facility] Last Admin: 04/09/21 07:07 Dose: Not Given Documented by: Ondansetron HCl (Ondansetron 4 Mg/2 Ml Sdv) 4 mg IVPUSH Q4H PRN PRN Reason: Nausea/Vomiting Sertraline HCl (Sertraline 100 Mg Tab) 100 mg PO DAILY [facility] Last Admin: 04/09/21 09:31 Dose: 100 mg Documented by: Discontinued Medications Donepezil HCl (Donepezil 10 Mg Tab) 10 mg PO BEDTIME [facility] Last Admin: 04/07/21 20:39 Dose: 10 mg Documented by: Sodium Chloride (Normal Saline) 1,000 mls @ 999 mls/hr IV .BOLUS ONE Stop: 04/05/21 20:03 Last Admin: 04/05/21 19:47 Dose: 999 mls/hr Documented by: Ceftriaxone Sodium/Dextrose 1 (gm/ Premix) 50 mls @ 100 mls/hr IV Q24H [facility] Last Admin: 04/07/21 20:36 Dose: 100 mls/hr Documented by: Dextrose/Water (Dextrose 5% In Water) 1,000 mls @ 125 mls/hr IV ASDIRECTED [facility] Last Admin: 04/07/21 11:46 Dose: 100 mls/hr Documented by: Lactated Ringer's (Ringers, Lactated) 1,000 mls @ 999 mls/hr IV .BOLUS ONE Stop: 04/06/21 13:21 Last Admin: 04/06/21 12:52 Dose: 999 mls/hr Documented by: Pantoprazole Sodium (Pantoprazole 40 Mg Vial) 40 mg IV DAILY [facility] Last Admin: 04/05/21 21:34 Dose: 40 mg Documented by: Sodium Phosphate (Phosphorus #1 250 Mg Tab) 250 mg PO ONETIME ONE Stop: 04/09/21 09:32 Last Admin: 04/09/21 09:41 Dose: 250 mg Documented by: - Exam Urinary Catheter Total Time: 0Days 6Hours - Patient Data Lab Results Last 24 hrs: Laboratory Results - last 24 hr 04/09/21 04/09/21 Range/Units 06:15 06:15 WBC 6.40 (4.0-11.0) K/uL RBC 4.55 (4.30-5.90) M/uL Hgb 13.1 (12.0-16.0) g/dL Hct 40.4 (36.0-46.0) % MCV 88.8 (80.0-98.0) fL MCH 28.8 (27.0-32.0) pg MCHC 32.4 (31.0-37.0) g/dL RDW Std Deviation 47.4 (28.0-62.0) fl RDW Coeff of Litzy 15 (11.0-15.0) % Plt Count 108 L (150-400) K/uL MPV 11.60 (7.40-12.00) fL Neut % (Auto) 65.3 (48.0-80.0) % Lymph % (Auto) 18.0 (16.0-40.0) % [place] % (Auto) 11.1 (0.0-15.0) % Eos % (Auto) 5.3 (0.0-7.0) % Baso % (Auto) 0.3 (0.0-1.5) % Neut # (Auto) 4.2 (1.4-5.7) K/uL Lymph # (Auto) 1.2 (0.6-2.4) K/uL Thurston # (Auto) 0.7 (0.0-0.8) K/uL Eos # (Auto) 0.3 (0.0-0.7) K/uL Baso # (Auto) 0.0 (0.0-0.1) K/uL Nucleated RBC % 0.0 /100WBC Nucleated RBCs # 0 K/uL Sodium 146 H (136-145) mmol/L Potassium 3.8 (3.5-5.1) mmol/L Chloride 113 H (98-107) mmol/L Carbon Dioxide 29.6 (21.0-32.0) mmol/L BUN 32 H (7.0-18.0) mg/dL Creatinine 1.3 H (0.6-1.0) mg/dL Est Cr Clr Drug Dosing 38.47 mL/min Estimated GFR (MDRD) 39.8 ml/min Glucose 109 H (74-106) mg/dL Calcium 9.2 (8.5-10.1) mg/dL Phosphorus 2.4 L (2.6-4.7) mg/dL Magnesium 1.5 L (1.8-2.4) mg/dL Result Diagrams: 04/09/21 06:15 04/09/21 06:15 Chris Results Last 24 hrs: Microbiology 04/06/21 02:40 Urine Culture - Final Urine Maliha Albicans Sepsis Event Note - Evaluation Sepsis Screening Result: No Definite Risk - Focused Exam Vital Signs: Vital Signs Temp Pulse Resp BP BP Pulse Ox 04/09/21 09:31 149/56 H 04/09/21 07:44 97.2 F 48 L 17 149/56 H 95 04/09/21 01:53 97.8 F 45 L 16 154/71 H 95 - Plan Plan:: 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 CT head negative -Continue to monitor -PT to evaluate when patient more alert 2. Hypernatremia -Resolved with IV hydration -Urine clearing -Encourage free water intake -Patient does not have significant oral intake which is a concern, will continue to encourage oral feeds. If patient does not eat well may require further goals of care discussion with the family. 3. UTI -We will discontinue Rocephin as urine cultures are showing yeast -Chaney catheter in place, noted the catheter is chronic. Has been replaced yesterday 4. HERBERT - Improving - Hold nephrotoxic meds - IVFs 5. Hypertension -Continue antihypertensive medications VTE prophylaxis: Eliquis GI prophylaxis: Protonix CODE STATUS: DNR/DNI Dispo: will make inpatient as she will likely need 1-2 more iwona
[2021-04-09] MEDS ORDERED: Fluconazole 100 MG Tab PO ONE (11:00)
--- NOTE | 2021-04-09 11:09 | PCM.DCSUM1 ---
Discharge Summary - Hospital Course Diagnosis: Stroke: No - Discharge Data Discharge Disposition: Home, Self-Care 01 Condition: Fair - Referral to Home Health Primary Care Physician: PCP None - Discharge Diagnosis/Problem(s) (1) HERBERT (acute kidney injury) SNOMED Code(s): 50489088, 02364801 ICD Code: N17.9 - ACUTE KIDNEY FAILURE, UNSPECIFIED Status: Acute Current Visit: Yes (2) Fall SNOMED Code(s): 2680699, 618072437 ICD Code: W19.XXXA - UNSPECIFIED FALL, INITIAL ENCOUNTER Status: Acute Current Visit: Yes Qualifiers: Encounter type: initial encounter Qualified Code(s): W19.XXXA - Unspecified fall, initial encounter (3) Dehydration SNOMED Code(s): 12017101 ICD Code: E86.0 - DEHYDRATION Status: Acute Current Visit: No (4) Dementia SNOMED Code(s): 50071164 ICD Code: F03.90 - UNSPECIFIED DEMENTIA WITHOUT BEHAVIORAL DISTURBANCE Status: Chronic Current Visit: No Qualifiers: Dementia type: unspecified type - Patient Instructions Diet: Mechanical Soft Activity: As Tolerated Driving: Do Not Drive Showering/Bathing: May Shower Notify Provider of: Fever, Increased Pain, Swelling and Redness, Drainage, Nausea and/or Vomiting Other/Special Instructions: Donepezil was held due to bradycardia, resume as tolerated. cont PT/OT as tolerated - Discharge Plan *PRESCRIPTION DRUG MONITORING PROGRAM REVIEWED*: Not Applicable *COPY OF PRESCRIPTION DRUG MONITORING REPORT IN PATIENT TIFFANI: Not Applicable Prescriptions/Med Rec: Fluconazole [Diflucan] 200 mg PO DAILY #14 tablet Home Medications: Home Meds Furosemide 20 mg PO DAILY 05/01/18 [History] Losartan Potassium 50 mg PO DAILY 05/01/18 [History] Mirabegron [Myrbetriq] 50 mg PO DAILY 03/15/21 [History] Sertraline [Zoloft] 100 mg PO DAILY 03/15/21 [History] Acetaminophen [Tylenol Extra Strength] 500 mg PO Q4H PRN tablet 03/23/21 [Rx] Docusate Sodium [Colace] 100 mg PO BID PRN cap 03/23/21 [Rx] Memantine [Namenda] 5 mg PO BID tablet 03/23/21 [Rx] Zinc Oxide [Desitin Creamy Diaper Rash Crm] 1 gm TOP DAILY 30 Days #1 tube 03/23/21 [Rx] Apixaban [Eliquis] 5 mg PO BID 04/05/21 [History] Nystatin [Nystop] 1 gram TOP QID 04/05/21 [History] buPROPion [buPROPion XL] 150 mg PO DAILY 04/05/21 [History] hydrALAZINE [Apresoline] 25 mg PO Q12HR 04/05/21 [History] oxyCODONE 5 mg PO Q12H 04/05/21 [History] polyethylene glycoL 3350 [MiraLAX] 17 gm PO BID 04/05/21 [History] Fluconazole [Diflucan] 200 mg PO DAILY #14 tablet 04/09/21 [Rx] Referrals: Fermin Muñoz MD [Ordering Only Provider] - - Patient Data Vitals - Most Recent: Last Vital Signs Temp 36.2 C 04/09/21 07:44 Pulse 48 L 04/09/21 07:44 Resp 17 04/09/21 07:44 BP 149/56 H 04/09/21 09:31 Pulse Ox 95 04/09/21 07:44 Weight - Most Recent: 93.44 kg I&O - Last 24 hours: Intake & Output 04/08/21 04/09/21 04/09/21 22:59 06:59 14:59 Intake Total 2031 Output Total 1000 Balance 1031 Lab Results - Last 24 hrs: Laboratory Results - last 24 hr 04/09/21 04/09/21 Range/Units 06:15 06:15 WBC 6.40 (4.0-11.0) K/uL RBC 4.55 (4.30-5.90) M/uL Hgb 13.1 (12.0-16.0) g/dL Hct 40.4 (36.0-46.0) % MCV 88.8 (80.0-98.0) fL MCH 28.8 (27.0-32.0) pg MCHC 32.4 (31.0-37.0) g/dL RDW Std Deviation 47.4 (28.0-62.0) fl RDW Coeff of Litzy 15 (11.0-15.0) % Plt Count 108 L (150-400) K/uL MPV 11.60 (7.40-12.00) fL Neut % (Auto) 65.3 (48.0-80.0) % Lymph % (Auto) 18.0 (16.0-40.0) % [place] % (Auto) 11.1 (0.0-15.0) % Eos % (Auto) 5.3 (0.0-7.0) % Baso % (Auto) 0.3 (0.0-1.5) % Neut # (Auto) 4.2 (1.4-5.7) K/uL Lymph # (Auto) 1.2 (0.6-2.4) K/uL [place] # (Auto) 0.7 (0.0-0.8) K/uL Eos # (Auto) 0.3 (0.0-0.7) K/uL Baso # (Auto) 0.0 (0.0-0.1) K/uL Nucleated RBC % 0.0 /100WBC Nucleated RBCs # 0 K/uL Sodium 146 H (136-145) mmol/L Potassium 3.8 (3.5-5.1) mmol/L Chloride 113 H (98-107) mmol/L Carbon Dioxide 29.6 (21.0-32.0) mmol/L BUN 32 H (7.0-18.0) mg/dL Creatinine 1.3 H (0.6-1.0) mg/dL Est Cr Clr Drug Dosing 38.47 mL/min Estimated GFR (MDRD) 39.8 ml/min Glucose 109 H (74-106) mg/dL Calcium 9.2 (8.5-10.1) mg/dL Phosphorus 2.4 L (2.6-4.7) mg/dL Magnesium 1.5 L (1.8-2.4) mg/dL LINDSEY Results - Last 24 hrs: Microbiology 04/06/21 02:40 Urine Culture - Final Urine Maliha Albicans Med Orders - Current: Current Medications Acetaminophen (Acetaminophen 500 Mg Tab) 500 mg PO Q4H PRN PRN Reason: Pain Last Admin: 04/07/21 06:01 Dose: 500 mg Documented by: Albuterol/Ipratropium (Albuterol/Ipratropium 3.0-0.5 Mg/3 Ml Neb Soln) 3 ml NEB Q4HRRT PRN PRN Reason: Shortness Of Breath/wheezing Apixaban (Apixaban 5 Mg Tab) 5 mg PO BID COUNT INCLUDES THE [facility] Last Admin: 04/09/21 10:06 Dose: 5 mg Documented by: Bupropion HCl (Bupropion 150 Mg Tab.Er) 150 mg PO DAILY COUNT INCLUDES THE [facility] Last Admin: 04/09/21 09:31 Dose: 150 mg Documented by: Docusate Sodium (Docusate Sodium 100 Mg Cap) 100 mg PO BID PRN PRN Reason: Constipation Fluconazole (Fluconazole 100 Mg Tab) 200 mg PO DAILY COUNT INCLUDES THE [facility] Hydralazine HCl (Hydralazine 25 Mg Tab) 25 mg PO Q12HR COUNT INCLUDES THE [facility] Last Admin: 04/09/21 09:31 Dose: 25 mg Documented by: Pantoprazole Sodium 40 mg/ (Sodium Chloride) 10 mls @ 200 mls/hr IV DAILY COUNT INCLUDES THE [facility] Last Admin: 04/09/21 09:25 Dose: 200 mls/hr Documented by: Lactated Ringer's (Ringers, Lactated) 1,000 mls @ 100 mls/hr IV Q10H COUNT INCLUDES THE [facility] Last Admin: 04/08/21 22:10 Dose: 100 mls/hr Documented by: Magnesium Sulfate (Magnesium Sulfate In Water 4 Gm/100 Ml) 4 gm in 100 mls @ 33.333 mls/hr IV ONETIME ONE Stop: 04/09/21 12:31 Last Admin: 04/09/21 10:07 Dose: 33.333 mls/hr Documented by: Memantine (Memantine 10 Mg Tab) 5 mg PO BID COUNT INCLUDES THE [facility] Last Admin: 04/09/21 09:31 Dose: 5 mg Documented by: Nystatin (Nystatin Topical Powder 15 Gm Bottle) 0 gm TOP QID COUNT INCLUDES THE [facility] Last Admin: 04/09/21 07:07 Dose: Not Given Documented by: Ondansetron HCl (Ondansetron 4 Mg/2 Ml Sdv) 4 mg IVPUSH Q4H PRN PRN Reason: Nausea/Vomiting Sertraline HCl (Sertraline 100 Mg Tab) 100 mg PO DAILY COUNT INCLUDES THE [facility] Last Admin: 04/09/21 09:31 Dose: 100 mg Documented by: Discontinued Medications Donepezil HCl (Donepezil 10 Mg Tab) 10 mg PO BEDTIME COUNT INCLUDES THE [facility] Last Admin: 04/07/21 20:39 Dose: 10 mg Documented by: Fluconazole (Fluconazole 100 Mg Tab) 200 mg PO ONETIME ONE Stop: 04/09/21 11:01 Sodium Chloride (Normal Saline) 1,000 mls @ 999 mls/hr IV .BOLUS ONE Stop: 04/05/21 20:03 Last Admin: 04/05/21 19:47 Dose: 999 mls/hr Documented by: Ceftriaxone Sodium/Dextrose 1 (gm/ Premix) 50 mls @ 100 mls/hr IV Q24H COUNT INCLUDES THE [facility] Last Admin: 04/07/21 20:36 Dose: 100 mls/hr Documented by: Dextrose/Water (Dextrose 5% In Water) 1,000 mls @ 125 mls/hr IV ASDIRECTED COUNT INCLUDES THE [facility] Last Admin: 04/07/21 11:46 Dose: 100 mls/hr Documented by: Lactated Ringer's (Ringers, Lactated) 1,000 mls @ 999 mls/hr IV .BOLUS ONE Stop: 04/06/21 13:21 Last Admin: 04/06/21 12:52 Dose: 999 mls/hr Documented by: Pantoprazole Sodium (Pantoprazole 40 Mg Vial) 40 mg IV DAILY COUNT INCLUDES THE [facility] Last Admin: 04/05/21 21:34 Dose: 40 mg Documented by: Sodium Phosphate (Phosphorus #1 250 Mg Tab) 250 mg PO ONETIME ONE Stop: 04/09/21 09:32 Last Admin: 04/09/21 09:41 Dose: 250 mg Documented by:
[2021-04-09] MEDS ORDERED: Fluconazole 100 MG Tab PO SCH (11:30)
== END 2021-04-09 13:20 | DRG 683 ==
LOC: MW.ED 14:45 → MW.MS 19:09 → MW.ED 20:38 → OBSVTOIN 04-07 11:37
PROVIDERS: ADMIT Student in an Organized Health Care Education/Training Program; ATTEND Student in an Organized Health Care Education/Training Program
DX: N17.9 Acute kidney failure, unspecified (principal); E87.0 Hyperosmolality and hypernatremia; B37.89 Other sites of candidiasis; W19.XXXA Unspecified fall, initial encounter; N39.0 Urinary tract infection, site not specified; R56.9 Unspecified convulsions; Z66 Do not resuscitate; Z20.822 Contact with and (suspected) exposure to COVID-19; E86.0 Dehydration; F03.90 Unspecified dementia, unspecified severity, without behavioral disturbance, psychotic disturbance, mood disturbance, and anxiety; H91.90 Unspecified hearing loss, unspecified ear; I10 Essential (primary) hypertension; K57.90 Diverticulosis of intestine, part unspecified, without perforation or abscess without bleeding; E11.9 Type 2 diabetes mellitus without complications; M19.90 Unspecified osteoarthritis, unspecified site; E66.9 Obesity, unspecified; N39.3 Stress incontinence (female) (male); Z96.653 Presence of artificial knee joint, bilateral; Z96.641 Presence of right artificial hip joint; G47.30 Sleep apnea, unspecified; R00.1 Bradycardia, unspecified; Z91.041 Radiographic dye allergy status; Z79.899 Other long term (current) drug therapy; Z90.49 Acquired absence of other specified parts of digestive tract; Z90.710 Acquired absence of both cervix and uterus; Z78.9 Other specified health status; Z68.30 Body mass index [BMI] 30.0-30.9, adult; Z85.828 Personal history of other malignant neoplasm of skin; Z79.01 Long term (current) use of anticoagulants
CPT/HCPCS: 36415 ×3; 70450; 71045; 72125; 72128; 72131; 72170; 73562; 80048 ×4; 81001; 82947; 83735; 84100; 84484 ×2; 85025 ×3; 85610; 85730; 87086; 93005; 99285; A9270 ×17; C9113 ×3; J0696 ×2; J7030; J7060 ×2; J7120; U0002; 96365; 96375; 96376; 99284; G0378; J3475

== ENCOUNTER 2021-05-22 23:39 | Inpatient (IN) | payer MEDICARE, OTHER ==
[2021-05-22] MEDS ORDERED: Sodium Chloride 0.9% 1,000 ML IV ONE (23:41)
[2021-05-22] MEDS ORDERED: Sodium Chloride 0.9% 10 ML Syringe FLUSH PRN (23:41)
--- NOTE | 2021-05-22 23:52 | EDM.PDOC ---
ED HPI GENERAL MEDICAL PROBLEM - General Stated Complaint: MASS ON NECK Time Seen by Provider: 05/22/21 23:40 Source of Information: Reports: [facility]way Records History Limitations: Reports: Other (demented nonverbal) - History of Present Illness INITIAL COMMENTS - FREE TEXT/NARRATIVE: 75-year-old female past medical history nonverbal with dementia, hypertension, atrial fibrillation on Eliquis presents for mass on neck and fever. Patient is unable to provide history secondary to baseline dementia. History is from nursing on paperwork. History also from EMS. Patient for the last day has had a growing mass on left side of neck that was warm and tender to palpation. She was [facility] a provider [facility] this morning and has been given 2 times doses of Augmentin as well as Tylenol throughout the day which did not seem to be resolving symptoms. They note that the mass seems to be growing. No other history provided. - Related Data Allergies Allergy/AdvReac Type Severity Reaction Status Date / Time contrast dye Allergy "makes me Uncoded 04/05/21 15:02 goofy" Home Meds: Home Meds Furosemide 20 mg PO DAILY 05/01/18 [History] Losartan Potassium 50 mg PO DAILY 05/01/18 [History] Mirabegron [Myrbetriq] 50 mg PO DAILY 03/15/21 [History] Sertraline [Zoloft] 100 mg PO DAILY 03/15/21 [History] Acetaminophen [Tylenol Extra Strength] 500 mg PO Q4H PRN tablet 03/23/21 [Rx] Docusate Sodium [Colace] 100 mg PO BID PRN cap 03/23/21 [Rx] Memantine [Namenda] 5 mg PO BID tablet 03/23/21 [Rx] Zinc Oxide [Desitin Creamy Diaper Rash Crm] 1 gm TOP DAILY 30 Days #1 tube 03/23/21 [Rx] Apixaban [Eliquis] 5 mg PO BID 04/05/21 [History] Nystatin [Nystop] 1 gram TOP QID 04/05/21 [History] buPROPion [buPROPion XL] 150 mg PO DAILY 04/05/21 [History] hydrALAZINE [Apresoline] 25 mg PO Q12HR 04/05/21 [History] oxyCODONE 5 mg PO Q12H 04/05/21 [History] polyethylene glycoL 3350 [MiraLAX] 17 gm PO BID 04/05/21 [History] Fluconazole [Diflucan] 200 mg PO DAILY #14 tablet 04/09/21 [Rx] Past Medical History HEENT History: Reports: Hard of Hearing Cardiovascular History: Reports: Hypertension Respiratory History: Reports: Sleep Apnea Other Respiratory History: uses CPAP Gastrointestinal History: Reports: Colon Polyp, Diverticulosis Genitourinary History: Reports: None, Other (See Below) Other Genitourinary History: stress incontinence [employer]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: Musculoskeletal History: Reports: Osteoarthritis Psychiatric History: Reports: Dementia Endocrine/Metabolic History: Reports: Diabetes, Type II, Obesity/BMI 30+ Oncologic (Cancer) History: Reports: Basal Cell Carcinoma Dermatologic History: Reports: None - Infectious Disease History Infectious Disease History: Reports: None - Past Surgical History Head Surgeries/Procedures: Reports: None HEENT Surgical History: Reports: None GI Surgical History: Reports: Appendectomy, Cholecystectomy, Colonoscopy Female Surgical History: Reports: Hysterectomy, Salpingo-Oophorectomy Musculoskeletal Surgical History: Reports: Hip Replacement, Knee Replacement Other Musculoskeletal Surgeries/Procedures:: rt MAURICIO, maximo TKA Dermatological Surgical History: Reports: Skin Biopsy Social & Family History - Family History Family Medical History: No Pertinent Family History - Caffeine Use Caffeine Use: Reports: Soda ED ROS GENERAL - Review of Systems Review Of Systems: Comprehensive ROS is negative, except as noted in HPI. ED EXAM, GENERAL - Physical Exam Exam: See Below Exam Limited By: Other (nonverbal dementia) General Appearance: WD/WN, No Apparent Distress Eye Exam: Bilateral Eye: PERRL Throat/Mouth: No Airway Compromise Head: Atraumatic, Normocephalic Neck: Other (large palpable warm mass on left sided neck consistent with possible lymphadenitis) Respiratory/Chest: No Respiratory Distress, Lungs Clear, Normal Breath Sounds, No Accessory Muscle Use Cardiovascular: Normal Peripheral Pulses GI/Abdominal: Soft, Non-Tender Extremities: Normal Inspection, Other (no open wounds on b/l heels) Neurological: Alert Psychiatric: Normal Affect, Normal Mood Skin Exam: Warm, Dry, Intact, Normal Color #1 Interpretation EKG Date: 05/22/21 Time: 23:55 Rhythm: A-Fib Rate (Beats/Min): 85 [place]: Normal P-Wave: Present QRS: Normal ST-T: Normal QT: Normal EKG Interpretation Comments: Afib no ischemic changes Course - Vital Signs Last Recorded V/S: Last Vital Signs Temp 101.3 F H 05/22/21 23:50 Pulse 86 05/22/21 23:50 Resp 18 05/22/21 23:50 BP 144/66 H 05/22/21 23:50 Pulse Ox 95 05/22/21 23:50 - Orders/Labs/Meds Orders: Active Orders 24 hr Category Date Time Status EKG Documentation Completion [RC] STAT Care 05/22/21 23:41 Active CORONAVIRUS COVID-19 LUZ [MOLEC] Stat Lab 05/22/21 23:41 Ordered CULTURE BLOOD [BC] Stat Lab 05/23/21 00:00 Received CULTURE BLOOD [BC] Stat Lab 05/23/21 00:35 Received REFLEX LACTIC ACID YES OR NO [CHEM] Routine Lab 05/23/21 00:42 Received Sodium Chloride 0.9% [Normal Saline] 1,000 ml Med 05/23/21 01:18 Active IV .Bolus Sodium Chloride 0.9% [Saline Flush] Med 05/22/21 23:41 Active 10 ml FLUSH ASDIRECTED PRN Sodium Chloride 0.9% [Saline Flush] Med 05/22/21 23:41 Active 2.5 ml FLUSH ASDIRECTED PRN VANCOmycin 1.5 GM/300 ML 1.5 gm Med 05/23/21 01:44 Ordered Premix Bag 1 bag IV ONETIME Blood Culture x2 Reflex Set [OM.PC] Stat Oth 05/23/21 00:10 Ordered Saline Lock Insert [OM.PC] Stat Oth 05/22/21 23:41 Ordered Medication Orders Sodium Chloride (Normal Saline) 1,000 mls @ 999 mls/hr IV .Bolus ONE Stop: 05/23/21 02:18 Vancomycin HCl 1.5 gm/ Premix 300 mls @ 200 mls/hr IV ONETIME ONE Stop: 05/23/21 03:13 Sodium Chloride (Sodium Chloride 0.9% 10 Ml Syringe) 10 ml FLUSH ASDIRECTED PRN PRN Reason: Keep Vein Open Last Admin: 05/23/21 00:40 Dose: 10 ml Documented by: KEMAR Sodium Chloride (Sodium Chloride 0.9% 2.5 Ml Syringe) 2.5 ml FLUSH ASDIRECTED PRN PRN Reason: Keep Vein Open Last Admin: 05/23/21 00:41 Dose: 2.5 ml Documented by: [facility] Labs: Laboratory Tests 05/23/21 05/23/21 05/23/21 Range/Units 00:00 00:00 00:00 WBC 23.96 H (4.0-11.0) K/uL RBC 4.91 (4.30-5.90) M/uL Hgb 14.5 (12.0-16.0) g/dL Hct 43.7 (36.0-46.0) % MCV 89.0 (80.0-98.0) fL MCH 29.5 (27.0-32.0) pg MCHC 33.2 (31.0-37.0) g/dL RDW Std Deviation 52.9 (28.0-62.0) fl RDW Coeff of Litzy 16 H (11.0-15.0) % Plt Count 131 L (150-400) K/uL MPV 12.20 H (7.40-12.00) fL Neut % (Auto) 88.6 H (48.0-80.0) % Lymph % (Auto) 4.7 L (16.0-40.0) % [place] % (Auto) 6.6 (0.0-15.0) % Eos % (Auto) 0.0 (0.0-7.0) % Baso % (Auto) 0.1 (0.0-1.5) % Neut # (Auto) 21.2 H (1.4-5.7) K/uL Lymph # (Auto) 1.1 (0.6-2.4) K/uL [place] # (Auto) 1.6 H (0.0-0.8) K/uL Eos # (Auto) 0.0 (0.0-0.7) K/uL Baso # (Auto) 0.0 (0.0-0.1) K/uL Nucleated RBC % 0.0 /100WBC Nucleated RBCs # 0 K/uL Sodium 147 H (136-145) mmol/L Potassium 3.3 L (3.5-5.1) mmol/L Chloride 112 H (98-107) mmol/L Carbon Dioxide 24.1 (21.0-32.0) mmol/L BUN 51 H (7.0-18.0) mg/dL Creatinine 1.8 H (0.6-1.0) mg/dL Est Cr Clr Drug Dosing TNP Estimated GFR (MDRD) 27.4 ml/min Glucose 354 H (74-106) mg/dL Lactic Acid 2.1 H* (0.4-2.0) mmol/L Calcium 9.7 (8.5-10.1) mg/dL Magnesium 1.9 (1.8-2.4) mg/dL Total Bilirubin 0.7 (0.2-1.0) mg/dL AST 24 (15-37) IU/L ALT 34 (14-63) IU/L Alkaline Phosphatase 89 (46-116) U/L Troponin I < 0.050 (0.000-0.056) ng/mL C-Reactive Protein 23.10 H (0.00-0.90) mg/dL Total Protein 7.0 (6.4-8.2) g/dL Albumin 2.6 L (3.4-5.0) g/dL Globulin 4.4 H (2.6-4.0) g/dL Albumin/Globulin Ratio 0.6 L (0.9-1.6) Urine Color Urine Appearance Urine pH (5.0-8.0) Ur Specific [place] (1.001-1.035) Urine Protein (NEGATIVE) mg/dL Urine Glucose (UA) (NEGATIVE) mg/dL Urine Ketones (NEGATIVE) mg/dL Urine Occult Blood (NEGATIVE) Urine Nitrite (NEGATIVE) Urine Bilirubin (NEGATIVE) Urine Urobilinogen (<2.0) EU/dL Ur Leukocyte Esterase (NEGATIVE) Urine RBC (0-2/HPF) Urine WBC (0-5/HPF) Ur Epithelial Cells (NONE-FEW) Triple Phos Crystals (NEGATIVE) Amorphous Sediment (NEGATIVE) Urine Bacteria (NEGATIVE) 05/23/21 Range/Units 00:45 WBC (4.0-11.0) K/uL RBC (4.30-5.90) M/uL Hgb (12.0-16.0) g/dL Hct (36.0-46.0) % MCV (80.0-98.0) fL MCH (27.0-32.0) pg MCHC (31.0-37.0) g/dL RDW Std Deviation (28.0-62.0) fl RDW Coeff of Litzy (11.0-15.0) % Plt Count (150-400) K/uL MPV (7.40-12.00) fL Neut % (Auto) (48.0-80.0) % Lymph % (Auto) (16.0-40.0) % [place] % (Auto) (0.0-15.0) % Eos % (Auto) (0.0-7.0) % Baso % (Auto) (0.0-1.5) % Neut # (Auto) (1.4-5.7) K/uL Lymph # (Auto) (0.6-2.4) K/uL [place] # (Auto) (0.0-0.8) K/uL Eos # (Auto) (0.0-0.7) K/uL Baso # (Auto) (0.0-0.1) K/uL Nucleated RBC % /100WBC Nucleated RBCs # K/uL Sodium (136-145) mmol/L Potassium (3.5-5.1) mmol/L Chloride (98-107) mmol/L Carbon Dioxide (21.0-32.0) mmol/L BUN (7.0-18.0) mg/dL Creatinine (0.6-1.0) mg/dL Est Cr Clr Drug Dosing Estimated GFR (MDRD) ml/min Glucose (74-106) mg/dL Lactic Acid (0.4-2.0) mmol/L Calcium (8.5-10.1) mg/dL Magnesium (1.8-2.4) mg/dL Total Bilirubin (0.2-1.0) mg/dL AST (15-37) IU/L ALT (14-63) IU/L Alkaline Phosphatase (46-116) U/L Troponin I (0.000-0.056) ng/mL C-Reactive Protein (0.00-0.90) mg/dL Total Protein (6.4-8.2) g/dL Albumin (3.4-5.0) g/dL Globulin (2.6-4.0) g/dL Albumin/Globulin Ratio (0.9-1.6) Urine Color YELLOW Urine Appearance CLOUDY Urine pH 8.5 H (5.0-8.0) Ur Specific [place] <= 1.005 (1.001-1.035) Urine Protein 100 H (NEGATIVE) mg/dL Urine Glucose (UA) 250 H (NEGATIVE) mg/dL Urine Ketones NEGATIVE (NEGATIVE) mg/dL Urine Occult Blood MODERATE H (NEGATIVE) Urine Nitrite POSITIVE H (NEGATIVE) Urine Bilirubin NEGATIVE (NEGATIVE) Urine Urobilinogen 0.2 (<2.0) EU/dL Ur Leukocyte Esterase LARGE H (NEGATIVE) Urine RBC 20-30 (0-2/HPF) Urine WBC 3-6 (0-5/HPF) Ur Epithelial Cells FEW (NONE-FEW) Triple Phos Crystals MANY (NEGATIVE) Amorphous Sediment MODERATE (NEGATIVE) Urine Bacteria 1+ H (NEGATIVE) Meds: Medications Generic Name Dose Route Start Last Admin Trade Name Freq PRN Reason Stop Dose Admin Sodium Chloride 1,000 mls @ 999 mls/hr 05/23/21 01:18 Normal Saline IV 05/23/21 02:18 .Bolus ONE Vancomycin HCl 1.5 gm/ Premix 300 mls @ 200 mls/hr 05/23/21 01:44 IV 05/23/21 03:13 ONETIME ONE Sodium Chloride 10 ml 05/22/21 23:41 05/23/21 00:40 Sodium Chloride 0.9% 10 Ml Syringe FLUSH 10 ml ASDIRECTED PRN Administration Keep Vein Open Sodium Chloride 2.5 ml 05/22/21 23:41 05/23/21 00:41 Sodium Chloride 0.9% 2.5 Ml Syringe FLUSH 2.5 ml ASDIRECTED PRN Administration Keep Vein Open Discontinued Medications Generic Name Dose Route Start Last Admin Trade Name Cristian PRN Reason Stop Dose Admin Sodium Chloride 1,000 mls @ 999 mls/hr 05/22/21 23:41 05/23/21 00:40 Normal Saline IV 05/23/21 00:41 999 mls/hr .Bolus ONE Administration Piperacillin Sod/Tazobactam 50 mls @ 100 mls/hr 05/23/21 00:09 05/23/21 00:40 Sod 3.375 gm/ Sodium Chloride IV 05/23/21 00:38 100 mls/hr ONETIME ONE Administration - Re-Assessments/Exams Free Text/Narrative Re-Assessment/Exam: 05/22/21 23:52 Patient presents with fever and left-sided neck mass. Will get sepsis work-up labs and CT imaging of the neck. 05/23/21 01:18 Patient's labs remarkable for leukocytosis, hypernatremia, elevated lactate of 2.1, elevated BUN and creatinine at baseline, hyperglycemia. 2 L IV fluid bolus has been ordered which covers 20 cc/kg of ideal body weight. Zosyn has been ordered. Patient does have evidence of urinary tract infection. Blood cultures have been drawn. 05/23/21 01:47 CT imaging is remarkable for severe parotitis with surrounding cellulitis. No abscess formation. No evidence of fascitis or muscular involvement. Spoke with Dr. Luis hospitalist who recommends adding vancomycin for MRSA coverage and agrees to admit. Departure - Departure Time of Disposition: 01:48 Disposition: Admitted As Inpatient 65 Condition: Fair Clinical Impression: Parotitis Cellulitis Qualifiers: Site of cellulitis: neck Qualified Code(s): L03.221 - Cellulitis of neck - Discharge Information Referrals: Fermin Muñoz MD [Primary Care Provider] - Critical Care Note - Critical Care Note Total Time (mins): 40 Sepsis Event Note (ED) - Focused Exam Vital Signs: Vital Signs Temp Pulse Resp BP Pulse Ox 05/22/21 23:50 101.3 F H 86 18 144/66 H 95 - My Orders Last 24 Hours: My Active Orders 05/22/21 23:41 EKG Documentation Completion [RC] STAT CORONAVIRUS COVID-19 LUZ [MOLEC] Stat Sodium Chloride 0.9% [Saline Flush] 10 ml FLUSH ASDIRECTED PRN Sodium Chloride 0.9% [Saline Flush] 2.5 ml FLUSH ASDIRECTED PRN Saline Lock Insert [OM.PC] Stat 05/23/21 00:00 CULTURE BLOOD [BC] Stat 05/23/21 00:10 Blood Culture x2 Reflex Set [OM.PC] Stat 05/23/21 00:35 CULTURE BLOOD [BC] Stat 05/23/21 00:42 REFLEX LACTIC ACID YES OR NO [CHEM] Routine 05/23/21 01:18 Sodium Chloride 0.9% [Normal Saline] 1,000 ml IV .Bolus 05/23/21 01:44 VANCOmycin 1.5 GM/300 ML 1.5 gm Premix Bag 1 bag IV ONETIME - Assessment/Plan Last 24 Hours: My Active Orders 05/22/21 23:41 EKG Documentation Completion [RC] STAT CORONAVIRUS COVID-19 ULZ [MOLEC] Stat Sodium Chloride 0.9% [Saline Flush] 10 ml FLUSH ASDIRECTED PRN Sodium Chloride 0.9% [Saline Flush] 2.5 ml FLUSH ASDIRECTED PRN Saline Lock Insert [OM.PC] Stat 05/23/21 00:00 CULTURE BLOOD [BC] Stat 05/23/21 00:10 Blood Culture x2 Reflex Set [OM.PC] Stat 05/23/21 00:35 CULTURE BLOOD [BC] Stat 05/23/21 00:42 REFLEX LACTIC ACID YES OR NO [CHEM] Routine 05/23/21 01:18 Sodium Chloride 0.9% [Normal Saline] 1,000 ml IV .Bolus 05/23/21 01:44 VANCOmycin 1.5 GM/300 ML 1.5 gm Premix Bag 1 bag IV ONETIME
[2021-05-23] MEDS ORDERED: Piperacillin/Tazobactam 3.375 GM in Sodium Chloride 0.9% 50 ML IV ONE (00:09)
--- NOTE | 2021-05-23 00:33 | CR ---
For Patients: As a result of the Cures Act, medical imaging exams and procedure reports are released immediately into your electronic medical record. You may view this report before your referring provider. If you have questions, please contact your health care provider. INDICATION: Fever shortness of breath TECHNIQUE: Chest radiograph 1 view COMPARISON: 04/05/2021 FINDINGS: Moderate degradation of image quality noted due to body habitus. Mediastinum: The mediastinum is normal in appearance. The heart silhouette is normal in size and morphology. Lung: Both lungs are unremarkable in appearance. No sign of pleural effusion seen. No pneumothorax is identified. Bone and Soft tissue: Unremarkable for age. IMPRESSION: 1. No acute cardiopulmonary disease is seen. Dictated by: Jose E Goodman MD @ 05/23/2021 00:31:58 (Electronically Signed)
[2021-05-23 00:39] LABS: BLOOD UREA NITROGEN,BUN 51 mg/dL (7.0-18.0); CARBON DIOXIDE,CO2 24.1 mmol/L (21.0-32.0); CHLORIDE,CL 112 mmol/L (98-107); GLUCOSE RANDOM 354 mg/dL (74-106); POTASSIUM,K 3.3 mmol/L (3.5-5.1); SODIUM,NA 147 mmol/L (136-145)
[2021-05-23] MEDS: Sodium Chloride 0.9% 2.5 ML Syringe FLUSH PRN (00:41)
[2021-05-23] MEDS ORDERED: Sodium Chloride 0.9% 1,000 ML IV ONE (01:18)
--- NOTE | 2021-05-23 01:32 | CT ---
For Patients: As a result of the Century Cures Act, medical imaging exams and procedure reports are released immediately into your electronic medical record. You may view this report before your referring provider. If you have questions, please contact your health care provider. INDICATION: Left neck swelling with fever. No IV contrast due to elevated GFR. CT NECK WITHOUT CONTRAST TECHNIQUE: Axial multidetector CT imaging was performed through the neck without intravenous contrast administration. Coronal and sagittal reconstructions were generated. FINDINGS: Evaluation is moderately limited by lack of IV contrast. There is marked enlargement of the left parotid with surrounding fat stranding, consistent with severe left-sided parotitis. Subcutaneous fat stranding consistent with cellulitis extends inferiorly from the left parotid to the left supraclavicular region and overlying the left trapezius muscle. Inflammation also extends into the deeper left neck with thickening of the left pharyngeal wall and effacement of the left piriform sinus. There is no definite fluid collection suggestive of an abscess. There are a few upper normal sized left jugulodigastric lymph nodes which are likely reactive. No sialoliths are identified. The right parotid, submandibular, and thyroid glands are unremarkable aside from mild lobulation and nodularity of the right thyroid lobe which could be further evaluated with outpatient thyroid ultrasound. There are mild atherosclerotic calcifications at the carotid bulbs bilaterally, greatest on the left. Osseous structures show no significant findings aside from spinal degenerative changes. Included lung apices are unremarkable. IMPRESSION: 1. Limited evaluation due to lack of IV contrast. 2. Severe left-sided parotitis, with surrounding cellulitis which extends deeper into the left neck with thickening of the left pharyngeal wall and effacement of the left piriform sinus. Cellulitis also extends inferiorly into the left supraclavicular region and overlying the left trapezius muscle. 3. No abscess identified. SHANNON LUCAS MD [facility] Dictated by Julio César Lucas MD @ 05/23/2021 1:31:28 AM Please note that all CT scans at this facility use dose modulation, iterative reconstruction, and/or weight-based dosing when appropriate to reduce radiation dose to as low as reasonably achievable. Dictated by: Julio César Lucas MD @ 05/23/2021 01:32:01 (Electronically Signed)
[2021-05-23] MEDS ORDERED: VANCOmycin 1.5 GM/300 ML 1.5 GM in Premix Bag 1 BAG IV ONE (01:44)
[2021-05-23] MEDS ORDERED: Sodium Chloride 0.9% 1,000 ML IV SCH (02:15)
--- NOTE | 2021-05-23 02:25 | PCM.HP.2 ---
H&P History of Present Illness - General Date of Service: 05/23/21 Admit Problem/Dx: Admission Diagnosis/Problem Admission Diagnosis/Problem Cellulitis - History of Present Illness Initial Comments - Free Text/Narative: 75 yo female with pmh of dementia, hypertension, SCARLETT, and atrial fibrillation who presented to the ED from [place] as nurses noted fever and jaw/neck mass. According to family patient had not been eating well for past few days. The neck mass appeared two days ago and has been getting larger. - Related Data Allergies/Adverse Reactions: Allergies Allergy/AdvReac Type Severity Reaction Status Date / Time contrast dye Allergy "makes me Uncoded 05/23/21 03:24 goofy" Home Medications: Home Meds Furosemide 20 mg PO DAILY 05/01/18 [History] Losartan Potassium 50 mg PO DAILY 05/01/18 [History] Mirabegron [Myrbetriq] 50 mg PO DAILY 03/15/21 [History] Sertraline [Zoloft] 100 mg PO DAILY 03/15/21 [History] Acetaminophen [Tylenol Extra Strength] 500 mg PO Q4H PRN tablet 03/23/21 [Rx] Docusate Sodium [Colace] 100 mg PO BID PRN cap 03/23/21 [Rx] Memantine [Namenda] 5 mg PO BID tablet 03/23/21 [Rx] Zinc Oxide [Desitin Creamy Diaper Rash Crm] 1 gm TOP DAILY 30 Days #1 tube 03/23/21 [Rx] Apixaban [Eliquis] 5 mg PO BID 04/05/21 [History] Nystatin [Nystop] 1 gram TOP QID 04/05/21 [History] buPROPion [buPROPion XL] 150 mg PO DAILY 04/05/21 [History] hydrALAZINE [Apresoline] 25 mg PO Q12HR 04/05/21 [History] oxyCODONE 5 mg PO Q12H 04/05/21 [History] polyethylene glycoL 3350 [MiraLAX] 17 gm PO BID 04/05/21 [History] Fluconazole [Diflucan] 200 mg PO DAILY #14 tablet 04/09/21 [Rx] Amoxicillin/Clavulanate K [Augmentin 875-125 MG] 1 tab PO BID 05/23/21 [History] Past Medical History HEENT History: Reports: Hard of Hearing Cardiovascular History: Reports: Hypertension Respiratory History: Reports: Sleep Apnea Other Respiratory History: uses CPAP Gastrointestinal History: Reports: Colon Polyp, Diverticulosis Genitourinary History: Reports: None, Other (See Below) Other Genitourinary History: stress incontinence [employer] History: Reports: Musculoskeletal History: Reports: Osteoarthritis Psychiatric History: Reports: Dementia Endocrine/Metabolic History: Reports: Diabetes, Type II, Obesity/BMI 30+ Oncologic (Cancer) History: Reports: Basal Cell Carcinoma Dermatologic History: Reports: None - Infectious Disease History Infectious Disease History: Reports: None - Past Surgical History Head Surgeries/Procedures: Reports: None HEENT Surgical History: Reports: None GI Surgical History: Reports: Appendectomy, Cholecystectomy, Colonoscopy Female Surgical History: Reports: Hysterectomy, Salpingo-Oophorectomy Musculoskeletal Surgical History: Reports: Hip Replacement, Knee Replacement Other Musculoskeletal Surgeries/Procedures:: rt MAURICIO, maximo TKA Dermatological Surgical History: Reports: Skin Biopsy Social & Family History - Family History Family Medical History: No Pertinent Family History - Tobacco Use Tobacco Use Status *Q: Never Tobacco User - Caffeine Use Caffeine Use: Reports: None - Recreational Drug Use Recreational Drug Use: No H&P Review of Systems - Review of Systems: Review Of Systems: Comprehensive ROS is negative, except as noted in HPI. Exam - Exam Exam: See Below - Vital Signs Vital Signs: Last Vital Signs Temp 38.5 C H 05/22/21 23:50 Pulse 86 05/22/21 23:50 Resp 18 05/22/21 23:50 BP 144/66 H 05/22/21 23:50 Pulse Ox 95 05/22/21 23:50 - Exam General: No: Mild Distress HEENT: Other (left preauricular mass noted, no drainage, no erythema) Lungs: Clear to Auscultation, Normal Respiratory Effort Cardiovascular: Regular Rate, Regular Rhythm GI/Abdominal Exam: Soft, Non-Tender Extremities: Non-Tender, No Pedal Edema Skin: Warm, Dry, Intact Neurological: No: Focal Deficit - Patient Data Lab Results Last 24 hrs: Laboratory Results - last 24 hr 05/23/21 05/23/21 05/23/21 Range/Units 00:00 00:00 00:00 WBC 23.96 H (4.0-11.0) K/uL RBC 4.91 (4.30-5.90) M/uL Hgb 14.5 (12.0-16.0) g/dL Hct 43.7 (36.0-46.0) % MCV 89.0 (80.0-98.0) fL MCH 29.5 (27.0-32.0) pg MCHC 33.2 (31.0-37.0) g/dL RDW Std Deviation 52.9 (28.0-62.0) fl RDW Coeff of Litzy 16 H (11.0-15.0) % Plt Count 131 L (150-400) K/uL MPV 12.20 H (7.40-12.00) fL Neut % (Auto) 88.6 H (48.0-80.0) % Lymph % (Auto) 4.7 L (16.0-40.0) % Laurens % (Auto) 6.6 (0.0-15.0) % Eos % (Auto) 0.0 (0.0-7.0) % Baso % (Auto) 0.1 (0.0-1.5) % Neut # (Auto) 21.2 H (1.4-5.7) K/uL Lymph # (Auto) 1.1 (0.6-2.4) K/uL Laurens # (Auto) 1.6 H (0.0-0.8) K/uL Eos # (Auto) 0.0 (0.0-0.7) K/uL Baso # (Auto) 0.0 (0.0-0.1) K/uL Nucleated RBC % 0.0 /100WBC Nucleated RBCs # 0 K/uL Sodium 147 H (136-145) mmol/L Potassium 3.3 L (3.5-5.1) mmol/L Chloride 112 H (98-107) mmol/L Carbon Dioxide 24.1 (21.0-32.0) mmol/L BUN 51 H (7.0-18.0) mg/dL Creatinine 1.8 H (0.6-1.0) mg/dL Est Cr Clr Drug Dosing TNP Estimated GFR (MDRD) 27.4 ml/min Glucose 354 H (74-106) mg/dL Lactic Acid 2.1 H* (0.4-2.0) mmol/L Calcium 9.7 (8.5-10.1) mg/dL Magnesium 1.9 (1.8-2.4) mg/dL Total Bilirubin 0.7 (0.2-1.0) mg/dL AST 24 (15-37) IU/L ALT 34 (14-63) IU/L Alkaline Phosphatase 89 (46-116) U/L Troponin I < 0.050 (0.000-0.056) ng/mL C-Reactive Protein 23.10 H (0.00-0.90) mg/dL Total Protein 7.0 (6.4-8.2) g/dL Albumin 2.6 L (3.4-5.0) g/dL Globulin 4.4 H (2.6-4.0) g/dL Albumin/Globulin Ratio 0.6 L (0.9-1.6) Urine Color Urine Appearance Urine pH (5.0-8.0) Ur Specific Canadensis (1.001-1.035) Urine Protein (NEGATIVE) mg/dL Urine Glucose (UA) (NEGATIVE) mg/dL Urine Ketones (NEGATIVE) mg/dL Urine Occult Blood (NEGATIVE) Urine Nitrite (NEGATIVE) Urine Bilirubin (NEGATIVE) Urine Urobilinogen (<2.0) EU/dL Ur Leukocyte Esterase (NEGATIVE) Urine RBC (0-2/HPF) Urine WBC (0-5/HPF) Ur Epithelial Cells (NONE-FEW) Triple Phos Crystals (NEGATIVE) Amorphous Sediment (NEGATIVE) Urine Bacteria (NEGATIVE) 05/23/21 Range/Units 00:45 WBC (4.0-11.0) K/uL RBC (4.30-5.90) M/uL Hgb (12.0-16.0) g/dL Hct (36.0-46.0) % MCV (80.0-98.0) fL MCH (27.0-32.0) pg MCHC (31.0-37.0) g/dL RDW Std Deviation (28.0-62.0) fl RDW Coeff of Litzy (11.0-15.0) % Plt Count (150-400) K/uL MPV (7.40-12.00) fL Neut % (Auto) (48.0-80.0) % Lymph % (Auto) (16.0-40.0) % Laurens % (Auto) (0.0-15.0) % Eos % (Auto) (0.0-7.0) % Baso % (Auto) (0.0-1.5) % Neut # (Auto) (1.4-5.7) K/uL Lymph # (Auto) (0.6-2.4) K/uL Laurens # (Auto) (0.0-0.8) K/uL Eos # (Auto) (0.0-0.7) K/uL Baso # (Auto) (0.0-0.1) K/uL Nucleated RBC % /100WBC Nucleated RBCs # K/uL Sodium (136-145) mmol/L Potassium (3.5-5.1) mmol/L Chloride (98-107) mmol/L Carbon Dioxide (21.0-32.0) mmol/L BUN (7.0-18.0) mg/dL Creatinine (0.6-1.0) mg/dL Est Cr Clr Drug Dosing Estimated GFR (MDRD) ml/min Glucose (74-106) mg/dL Lactic Acid (0.4-2.0) mmol/L Calcium (8.5-10.1) mg/dL Magnesium (1.8-2.4) mg/dL Total Bilirubin (0.2-1.0) mg/dL AST (15-37) IU/L ALT (14-63) IU/L Alkaline Phosphatase (46-116) U/L Troponin I (0.000-0.056) ng/mL C-Reactive Protein (0.00-0.90) mg/dL Total Protein (6.4-8.2) g/dL Albumin (3.4-5.0) g/dL Globulin (2.6-4.0) g/dL Albumin/Globulin Ratio (0.9-1.6) Urine Color YELLOW Urine Appearance CLOUDY Urine pH 8.5 H (5.0-8.0) Ur Specific [place] <= 1.005 (1.001-1.035) Urine Protein 100 H (NEGATIVE) mg/dL Urine Glucose (UA) 250 H (NEGATIVE) mg/dL Urine Ketones NEGATIVE (NEGATIVE) mg/dL Urine Occult Blood MODERATE H (NEGATIVE) Urine Nitrite POSITIVE H (NEGATIVE) Urine Bilirubin NEGATIVE (NEGATIVE) Urine Urobilinogen 0.2 (<2.0) EU/dL Ur Leukocyte Esterase LARGE H (NEGATIVE) Urine RBC 20-30 (0-2/HPF) Urine WBC 3-6 (0-5/HPF) Ur Epithelial Cells FEW (NONE-FEW) Triple Phos Crystals MANY (NEGATIVE) Amorphous Sediment MODERATE (NEGATIVE) Urine Bacteria 1+ H (NEGATIVE) Result Diagrams: 05/24/21 05:17 05/24/21 05:17 Sepsis Event Note - Evaluation Sepsis Screening Result: No Definite Risk - Focused Exam Vital Signs: Vital Signs Temp Pulse Resp BP Pulse Ox 05/22/21 23:50 38.5 C H 86 18 144/66 H 95 - Problem List (1) Sepsis SNOMED Code(s): 03461283 ICD Code: A41.9 - SEPSIS, UNSPECIFIED ORGANISM Status: Acute Current Visit: Yes (2) Hypernatremia SNOMED Code(s): 841628622 ICD Code: E87.0 - HYPEROSMOLALITY AND HYPERNATREMIA Status: Acute Current Visit: Yes (3) Cellulitis SNOMED Code(s): 204455027 ICD Code: L03.90 - CELLULITIS, UNSPECIFIED Status: Acute Current Visit: Yes Qualifiers: Site of cellulitis: neck Qualified Code(s): L03.221 - Cellulitis of neck (4) Parotitis SNOMED Code(s): 81212773 ICD Code: K11.20 - SIALOADENITIS, UNSPECIFIED Status: Acute Current Visit: Yes (5) Dehydration SNOMED Code(s): 32679878 ICD Code: E86.0 - DEHYDRATION Status: Acute Current Visit: Yes (6) Hypernatremia SNOMED Code(s): 906103485 ICD Code: E87.0 - HYPEROSMOLALITY AND HYPERNATREMIA Status: Acute Current Visit: No (7) UTI (urinary tract infection) SNOMED Code(s): 50498277 ICD Code: N39.0 - URINARY TRACT INFECTION, SITE NOT SPECIFIED Status: Acute Current Visit: Yes (8) Dementia SNOMED Code(s): 19386855 ICD Code: F03.90 - UNSPECIFIED DEMENTIA WITHOUT BEHAVIORAL DISTURBANCE Status: Chronic Current Visit: Yes Qualifiers: Dementia type: unspecified type (9) Hypertension SNOMED Code(s): 75478579 ICD Code: I10 - ESSENTIAL (PRIMARY) HYPERTENSION Status: Chronic Current Visit: Yes Problem List Initiated/Reviewed/Updated: Yes Orders Last 24hrs: Active Orders 24 hr Category Date Time Status Patient Status [ADT] Routine ADT 05/23/21 01:53 Active Antiembolic Devices [RC] PER UNIT ROUTINE Care 05/23/21 02:16 Ordered EKG Documentation Completion [RC] STAT Care 05/22/21 23:41 Active Oxygen Therapy [RC] PRN Care 05/23/21 02:15 Ordered VTE/DVT Education [RC] PER UNIT ROUTINE Care 05/23/21 02:15 Ordered Vital Signs [RC] Q4H Care 05/23/21 02:15 Ordered Regular Diet [DIET] Diet 05/23/21 Breakfast Ordered CBC WITH AUTO DIFF [HEME] AM Lab 05/23/21 05:11 Ordered COMPREHENSIVE METABOLIC PN,CMP [CHEM] AM Lab 05/23/21 05:11 Ordered CORONAVIRUS COVID-19 LUZ [MOLEC] Stat Lab 05/22/21 23:41 Ordered CULTURE BLOOD [BC] Stat Lab 05/23/21 00:00 Received CULTURE BLOOD [BC] Stat Lab 05/23/21 00:35 Received REFLEX LACTIC ACID YES OR NO [CHEM] Routine Lab 05/23/21 00:42 Received Pharmacy to Dose - Vancomycin Med 05/23/21 02:15 Ordered 1 dose .XX ASDIRECTED Piperacillin/Tazobactam [Piperacil-Tazobact] 3.375 gm Med 05/23/21 06:00 Active Sodium Chloride 0.9% [Normal Saline] 50 ml IV Q6H Sodium Chloride 0.9% @ 125 MLS/HR (1000ml) Med 05/23/21 02:15 Ordered Sodium Chloride 0.9% [Normal Saline] 1,000 ml IV ASDIRECTED Sodium Chloride 0.9% [Saline Flush] Med 05/22/21 23:41 Active 10 ml FLUSH ASDIRECTED PRN Sodium Chloride 0.9% [Saline Flush] Med 05/22/21 23:41 Active 2.5 ml FLUSH ASDIRECTED PRN VANCOmycin 1.5 GM/300 ML 1.5 gm Med 05/23/21 01:44 Active Premix Bag 1 bag IV ONETIME Blood Culture x2 Reflex Set [OM.PC] Stat Oth 05/23/21 00:10 Ordered Saline Lock Insert [OM.PC] Stat Oth 05/22/21 23:41 Ordered Sequential Compression Device [OM.PC] Per Unit Routine Oth 05/23/21 02:15 Ordered Resuscitation Status Routine Resus Stat 05/23/21 02:15 Ordered Medication Orders Vancomycin HCl 1.5 gm/ Premix 300 mls @ 200 mls/hr IV ONETIME ONE Stop: 05/23/21 03:13 Last Admin: 05/23/21 02:04 Dose: 200 mls/hr Documented by: KEMAR Piperacillin Sod/Tazobactam (Sod 3.375 gm/ Sodium Chloride) 50 mls @ 100 mls/hr IV Q6H YOLI Sodium Chloride (Normal Saline) 1,000 mls @ 125 mls/hr IV ASDIRECTED YOLI Stop: 05/23/21 10:14 Sodium Chloride (Sodium Chloride 0.9% 10 Ml Syringe) 10 ml FLUSH ASDIRECTED PRN PRN Reason: Keep Vein Open Last Admin: 05/23/21 00:40 Dose: 10 ml Documented by: KEMAR Sodium Chloride (Sodium Chloride 0.9% 2.5 Ml Syringe) 2.5 ml FLUSH ASDIRECTED PRN PRN Reason: Keep Vein Open Last Admin: 05/23/21 00:41 Dose: 2.5 ml Documented by: KEMAR Vancomycin HCl (Pharmacy To Dose - Vancomycin) 1 dose .XX ASDIRECTED [facility] Assessment/Plan Comment:: 75 yo female admitted for parotiditis and possible UTI. We will treat with Zosyn and vancomycin. Cultures have been ordered. Discussed treatment plan with son who is at bedside. Goals of care are primary comfort and palliative
[2021-05-23 05:45] LABS: CARBON DIOXIDE,CO2 24.7 mmol/L (21.0-32.0); POTASSIUM,K 3.3 mmol/L (3.5-5.1)
[2021-05-23] MEDS ORDERED: Piperacillin/Tazobactam 2.25 GM in Sodium Chloride 0.9% 50 ML IV SCH (06:00)
[2021-05-23] MEDS ORDERED: Piperacillin/Tazobactam 3.375 GM in Sodium Chloride 0.9% 50 ML IV SCH (06:00)
[2021-05-23] MEDS ORDERED: 50% Dextrose in Water 50 ML Syringe IVPUSH PRN (08:20)
[2021-05-23] MEDS ORDERED: Glucagon,Human Recombinant 1 MG Vial IM PRN (08:20)
[2021-05-23] MEDS ORDERED: Potassium Chloride 20 MEQ Tab.ER PO ONE (09:11)
[2021-05-23] MEDS: Furosemide 20 MG Tab PO SCH (10:16)
[2021-05-23] MEDS: buPROPion 150 MG Tab.ER PO SCH (10:16)
[2021-05-23] MEDS: Losartan 50 MG Tab PO SCH (10:16)
[2021-05-23] MEDS: Apixaban 5 MG Tab PO SCH ×2 (10:16→22:32)
[2021-05-23] MEDS: Sertraline 100 MG Tab PO SCH (10:16)
[2021-05-23] MEDS: Dextrose 5% in Water 1,000 ML IV SCH (10:32)
[2021-05-23] MEDS: Piperacillin/Tazobactam 2.25 GM in Sodium Chloride 0.9% 100 ML IV SCH ×3 (11:49→22:45)
[2021-05-23] MEDS: Insulin Aspart 100 Units/ML 3 ML Pen SUBCUT SCH ×2 (12:16→17:35)
[2021-05-23] MEDS: oxyCODONE 5 MG Tab PO SCH ×2 (12:17→23:45)
--- NOTE | 2021-05-23 16:52 | PCM.PN ---
- General Info Date of Service: 05/23/21 Subjective Update: Difficult to ascertain information from patient due to history of dementia. Patient however is responsive to sound and touch. Family members were present this morning during rounds and stated that for the past day patient has been lethargic and not as responsive as normal. - Review of Systems General: Denies: Fever Pulmonary: Denies: Cough - Patient Data Vitals - Most Recent: Last Vital Signs Temp 97.4 F 05/23/21 12:00 Pulse 61 05/23/21 12:00 Resp 20 05/23/21 12:00 BP 120/60 05/23/21 12:00 Pulse Ox 93 L 05/23/21 12:00 Weight - Most Recent: 199 lb 8.293 oz I&O - Last 24 Hours: Intake & Output 05/23/21 05/23/21 05/23/21 06:59 14:59 22:59 Intake Total 0 Output Total 300 Balance -300 Lab Results Last 24 Hours: Laboratory Results - last 24 hr 05/23/21 05/23/21 05/23/21 Range/Units 00:00 00:00 00:00 WBC 23.96 H (4.0-11.0) K/uL RBC 4.91 (4.30-5.90) M/uL Hgb 14.5 (12.0-16.0) g/dL Hct 43.7 (36.0-46.0) % MCV 89.0 (80.0-98.0) fL MCH 29.5 (27.0-32.0) pg MCHC 33.2 (31.0-37.0) g/dL RDW Std Deviation 52.9 (28.0-62.0) fl RDW Coeff of Litzy 16 H (11.0-15.0) % Plt Count 131 L (150-400) K/uL MPV 12.20 H (7.40-12.00) fL Neut % (Auto) 88.6 H (48.0-80.0) % Lymph % (Auto) 4.7 L (16.0-40.0) % [place] % (Auto) 6.6 (0.0-15.0) % Eos % (Auto) 0.0 (0.0-7.0) % Baso % (Auto) 0.1 (0.0-1.5) % Neut # (Auto) 21.2 H (1.4-5.7) K/uL Lymph # (Auto) 1.1 (0.6-2.4) K/uL [place] # (Auto) 1.6 H (0.0-0.8) K/uL Eos # (Auto) 0.0 (0.0-0.7) K/uL Baso # (Auto) 0.0 (0.0-0.1) K/uL Nucleated RBC % 0.0 /100WBC Nucleated RBCs # 0 K/uL Sodium 147 H (136-145) mmol/L Potassium 3.3 L (3.5-5.1) mmol/L Chloride 112 H (98-107) mmol/L Carbon Dioxide 24.1 (21.0-32.0) mmol/L BUN 51 H (7.0-18.0) mg/dL Creatinine 1.8 H (0.6-1.0) mg/dL Est Cr Clr Drug Dosing TNP Estimated GFR (MDRD) 27.4 ml/min Glucose 354 H (74-106) mg/dL POC Glucose (70-99) mg/dL Lactic Acid 2.1 H* (0.4-2.0) mmol/L Calcium 9.7 (8.5-10.1) mg/dL Magnesium 1.9 (1.8-2.4) mg/dL Total Bilirubin 0.7 (0.2-1.0) mg/dL AST 24 (15-37) IU/L ALT 34 (14-63) IU/L Alkaline Phosphatase 89 (46-116) U/L Troponin I < 0.050 (0.000-0.056) ng/mL C-Reactive Protein 23.10 H (0.00-0.90) mg/dL Total Protein 7.0 (6.4-8.2) g/dL Albumin 2.6 L (3.4-5.0) g/dL Globulin 4.4 H (2.6-4.0) g/dL Albumin/Globulin Ratio 0.6 L (0.9-1.6) Urine Color Urine Appearance Urine pH (5.0-8.0) Ur Specific [place] (1.001-1.035) Urine Protein (NEGATIVE) mg/dL Urine Glucose (UA) (NEGATIVE) mg/dL Urine Ketones (NEGATIVE) mg/dL Urine Occult Blood (NEGATIVE) Urine Nitrite (NEGATIVE) Urine Bilirubin (NEGATIVE) Urine Urobilinogen (<2.0) EU/dL Ur Leukocyte Esterase (NEGATIVE) Urine RBC (0-2/HPF) Urine WBC (0-5/HPF) Ur Epithelial Cells (NONE-FEW) Triple Phos Crystals (NEGATIVE) Amorphous Sediment (NEGATIVE) Urine Bacteria (NEGATIVE) 05/23/21 05/23/21 05/23/21 Range/Units 00:45 05:10 05:10 WBC 19.22 H (4.0-11.0) K/uL RBC 4.37 (4.30-5.90) M/uL Hgb 12.8 (12.0-16.0) g/dL Hct 39.3 (36.0-46.0) % MCV 89.9 (80.0-98.0) fL MCH 29.3 (27.0-32.0) pg MCHC 32.6 (31.0-37.0) g/dL RDW Std Deviation 53.8 (28.0-62.0) fl RDW Coeff of Litzy 16 H (11.0-15.0) % Plt Count 110 L (150-400) K/uL MPV 12.30 H (7.40-12.00) fL Neut % (Auto) 87.3 H (48.0-80.0) % Lymph % (Auto) 5.7 L (16.0-40.0) % [place] % (Auto) 6.9 (0.0-15.0) % Eos % (Auto) 0.0 (0.0-7.0) % Baso % (Auto) 0.1 (0.0-1.5) % Neut # (Auto) 16.8 H (1.4-5.7) K/uL Lymph # (Auto) 1.1 (0.6-2.4) K/uL [place] # (Auto) 1.3 H (0.0-0.8) K/uL Eos # (Auto) 0.0 (0.0-0.7) K/uL Baso # (Auto) 0.0 (0.0-0.1) K/uL Nucleated RBC % 0.0 /100WBC Nucleated RBCs # 0 K/uL Sodium 151 H (136-145) mmol/L Potassium 3.3 L (3.5-5.1) mmol/L Chloride 116 H (98-107) mmol/L Carbon Dioxide 24.7 (21.0-32.0) mmol/L BUN 47 H (7.0-18.0) mg/dL Creatinine 1.7 H (0.6-1.0) mg/dL Est Cr Clr Drug Dosing 29.42 Estimated GFR (MDRD) 29.2 ml/min Glucose 303 H (74-106) mg/dL POC Glucose (70-99) mg/dL Lactic Acid (0.4-2.0) mmol/L Calcium 8.9 (8.5-10.1) mg/dL Magnesium (1.8-2.4) mg/dL Total Bilirubin 0.7 (0.2-1.0) mg/dL AST 18 (15-37) IU/L ALT 31 (14-63) IU/L Alkaline Phosphatase 81 (46-116) U/L Troponin I (0.000-0.056) ng/mL C-Reactive Protein (0.00-0.90) mg/dL Total Protein 6.0 L (6.4-8.2) g/dL Albumin 2.2 L (3.4-5.0) g/dL Globulin 3.8 (2.6-4.0) g/dL Albumin/Globulin Ratio 0.6 L (0.9-1.6) Urine Color YELLOW Urine Appearance CLOUDY Urine pH 8.5 H (5.0-8.0) Ur Specific [place] <= 1.005 (1.001-1.035) Urine Protein 100 H (NEGATIVE) mg/dL Urine Glucose (UA) 250 H (NEGATIVE) mg/dL Urine Ketones NEGATIVE (NEGATIVE) mg/dL Urine Occult Blood MODERATE H (NEGATIVE) Urine Nitrite POSITIVE H (NEGATIVE) Urine Bilirubin NEGATIVE (NEGATIVE) Urine Urobilinogen 0.2 (<2.0) EU/dL Ur Leukocyte Esterase LARGE H (NEGATIVE) Urine RBC 20-30 (0-2/HPF) Urine WBC 3-6 (0-5/HPF) Ur Epithelial Cells FEW (NONE-FEW) Triple Phos Crystals MANY (NEGATIVE) Amorphous Sediment MODERATE (NEGATIVE) Urine Bacteria 1+ H (NEGATIVE) 05/23/21 05/23/21 05/23/21 Range/Units 05:10 06:29 11:35 WBC (4.0-11.0) K/uL RBC (4.30-5.90) M/uL Hgb (12.0-16.0) g/dL Hct (36.0-46.0) % MCV (80.0-98.0) fL MCH (27.0-32.0) pg MCHC (31.0-37.0) g/dL RDW Std Deviation (28.0-62.0) fl RDW Coeff of Litzy (11.0-15.0) % Plt Count (150-400) K/uL MPV (7.40-12.00) fL Neut % (Auto) (48.0-80.0) % Lymph % (Auto) (16.0-40.0) % [place] % (Auto) (0.0-15.0) % Eos % (Auto) (0.0-7.0) % Baso % (Auto) (0.0-1.5) % Neut # (Auto) (1.4-5.7) K/uL Lymph # (Auto) (0.6-2.4) K/uL [place] # (Auto) (0.0-0.8) K/uL Eos # (Auto) (0.0-0.7) K/uL Baso # (Auto) (0.0-0.1) K/uL Nucleated RBC % /100WBC Nucleated RBCs # K/uL Sodium (136-145) mmol/L Potassium (3.5-5.1) mmol/L Chloride (98-107) mmol/L Carbon Dioxide (21.0-32.0) mmol/L BUN (7.0-18.0) mg/dL Creatinine (0.6-1.0) mg/dL Est Cr Clr Drug Dosing Estimated GFR (MDRD) ml/min Glucose (74-106) mg/dL POC Glucose 290 H 251 H (70-99) mg/dL Lactic Acid 1.9 (0.4-2.0) mmol/L Calcium (8.5-10.1) mg/dL Magnesium (1.8-2.4) mg/dL Total Bilirubin (0.2-1.0) mg/dL AST (15-37) IU/L ALT (14-63) IU/L Alkaline Phosphatase (46-116) U/L Troponin I (0.000-0.056) ng/mL C-Reactive Protein (0.00-0.90) mg/dL Total Protein (6.4-8.2) g/dL Albumin (3.4-5.0) g/dL Globulin (2.6-4.0) g/dL Albumin/Globulin Ratio (0.9-1.6) Urine Color Urine Appearance Urine pH (5.0-8.0) Ur Specific [place] (1.001-1.035) Urine Protein (NEGATIVE) mg/dL Urine Glucose (UA) (NEGATIVE) mg/dL Urine Ketones (NEGATIVE) mg/dL Urine Occult Blood (NEGATIVE) Urine Nitrite (NEGATIVE) Urine Bilirubin (NEGATIVE) Urine Urobilinogen (<2.0) EU/dL Ur Leukocyte Esterase (NEGATIVE) Urine RBC (0-2/HPF) Urine WBC (0-5/HPF) Ur Epithelial Cells (NONE-FEW) Triple Phos Crystals (NEGATIVE) Amorphous Sediment (NEGATIVE) Urine Bacteria (NEGATIVE) Med Orders - Current: Current Medications Apixaban (Apixaban 5 Mg Tab) 5 mg PO BID [facility] Last Admin: 05/23/21 10:16 Dose: 5 mg Documented by: Bupropion HCl (Bupropion 150 Mg Tab.Er) 150 mg PO DAILY [facility] Last Admin: 05/23/21 10:16 Dose: 150 mg Documented by: Dextrose/Water (50% Dextrose In Water 50 Ml Syringe) 50 ml IVPUSH ASDIRECTED PRN PRN Reason: Hypoglycemia Furosemide (Furosemide 20 Mg Tab) 20 mg PO DAILY [facility] Last Admin: 05/23/21 10:16 Dose: 20 mg Documented by: Glucagon (Glucagon,Human Recombinant 1 Mg Vial) 1 mg IM ASDIRECTED PRN PRN Reason: Hypoglycemia Hydralazine HCl (Hydralazine 25 Mg Tab) 25 mg PO Q12HR [facility] Vancomycin HCl 1.25 gm/ Sodium (Chloride) 250 mls @ 166.667 mls/hr IV Q24H [facility] Dextrose/Water (Dextrose 5% In Water) 1,000 mls @ 75 mls/hr IV Q13H [facility] Last Admin: 05/23/21 10:32 Dose: 75 mls/hr Documented by: Piperacillin Sod/Tazobactam (Sod 2.25 gm/ Sodium Chloride) 100 mls @ 200 mls/hr IV Q6H [facility] Last Admin: 05/23/21 11:49 Dose: 200 mls/hr Documented by: Insulin Aspart (Insulin Aspart 100 Units/Ml 3 Ml Pen) 0 unit SUBCUT TIDAC [facility]; Protocol Last Admin: 05/23/21 12:16 Dose: 3 units Documented by: Losartan Potassium (Losartan 50 Mg Tab) 50 mg PO DAILY [facility] Last Admin: 05/23/21 10:16 Dose: 50 mg Documented by: Oxycodone HCl (Oxycodone 5 Mg Tab) 5 mg PO Q12H [facility] Last Admin: 05/23/21 12:17 Dose: 5 mg Documented by: Sertraline HCl (Sertraline 100 Mg Tab) 100 mg PO DAILY [facility] Last Admin: 05/23/21 10:16 Dose: 100 mg Documented by: Sodium Chloride (Sodium Chloride 0.9% 10 Ml Syringe) 10 ml FLUSH ASDIRECTED PRN PRN Reason: Keep Vein Open Last Admin: 05/23/21 00:40 Dose: 10 ml Documented by: Sodium Chloride (Sodium Chloride 0.9% 2.5 Ml Syringe) 2.5 ml FLUSH ASDIRECTED PRN PRN Reason: Keep Vein Open Last Admin: 05/23/21 00:41 Dose: 2.5 ml Documented by: Vancomycin HCl (Pharmacy To Dose - Vancomycin) 1 dose .XX ASDIRECTED YOLI Discontinued Medications Sodium Chloride (Normal Saline) 1,000 mls @ 999 mls/hr IV .Bolus ONE Stop: 05/23/21 00:41 Last Admin: 05/23/21 00:40 Dose: 999 mls/hr Documented by: Piperacillin Sod/Tazobactam (Sod 3.375 gm/ Sodium Chloride) 50 mls @ 100 mls/hr IV ONETIME ONE Stop: 05/23/21 00:38 Last Admin: 05/23/21 00:40 Dose: 100 mls/hr Documented by: Sodium Chloride (Normal Saline) 1,000 mls @ 999 mls/hr IV .Bolus ONE Stop: 05/23/21 02:18 Last Admin: 05/23/21 02:05 Dose: 999 mls/hr Documented by: Vancomycin HCl 1.5 gm/ Premix 300 mls @ 200 mls/hr IV ONETIME ONE Stop: 05/23/21 03:13 Last Admin: 05/23/21 02:04 Dose: 200 mls/hr Documented by: Piperacillin Sod/Tazobactam (Sod 3.375 gm/ Sodium Chloride) 50 mls @ 100 mls/hr IV Q6H [facility]OLI Sodium Chloride (Normal Saline) 1,000 mls @ 125 mls/hr IV ASDIRECTED YOLI Stop: 05/23/21 10:14 Last Admin: 05/23/21 04:33 Dose: 125 mls/hr Documented by: Piperacillin Sod/Tazobactam (Sod 2.25 gm/ Sodium Chloride) 50 mls @ 100 mls/hr IV Q6H [facility] Last Admin: 05/23/21 06:12 Dose: 100 mls/hr Documented by: Potassium Chloride (Potassium Chloride 20 Meq Tab.Er) 40 meq PO ONETIME ONE Stop: 05/23/21 09:12 Last Admin: 05/23/21 10:15 Dose: 40 meq Documented by: - Exam General: Lethargic HEENT: Other (Area of swelling, erythema noted at patient's left jaw, left neck.) Lungs: Clear to Auscultation, Normal Respiratory Effort Cardiovascular: Regular Rate, Irregular Rhythm GI/Abdominal Exam: Soft, Non-Tender Extremities: No Pedal Edema Physical Findings Comments:: History of dementia, nonresponsive to questioning. - Patient Data Lab Results Last 24 hrs: Laboratory Results - last 24 hr 05/23/21 05/23/21 05/23/21 Range/Units 00:00 00:00 00:00 WBC 23.96 H (4.0-11.0) K/uL RBC 4.91 (4.30-5.90) M/uL Hgb 14.5 (12.0-16.0) g/dL Hct 43.7 (36.0-46.0) % MCV 89.0 (80.0-98.0) fL MCH 29.5 (27.0-32.0) pg MCHC 33.2 (31.0-37.0) g/dL RDW Std Deviation 52.9 (28.0-62.0) fl RDW Coeff of Lit[place] 16 H (11.0-15.0) % Plt Count 131 L (150-400) K/uL MPV 12.20 H (7.40-12.00) fL Neut % (Auto) 88.6 H (48.0-80.0) % Lymph % (Auto) 4.7 L (16.0-40.0) % [place] % (Auto) 6.6 (0.0-15.0) % Eos % (Auto) 0.0 (0.0-7.0) % Baso % (Auto) 0.1 (0.0-1.5) % Neut # (Auto) 21.2 H (1.4-5.7) K/uL Lymph # (Auto) 1.1 (0.6-2.4) K/uL [place] # (Auto) 1.6 H (0.0-0.8) K/uL Eos # (Auto) 0.0 (0.0-0.7) K/uL Baso # (Auto) 0.0 (0.0-0.1) K/uL Nucleated RBC % 0.0 /100WBC Nucleated RBCs # 0 K/uL Sodium 147 H (136-145) mmol/L Potassium 3.3 L (3.5-5.1) mmol/L Chloride 112 H (98-107) mmol/L Carbon Dioxide 24.1 (21.0-32.0) mmol/L BUN 51 H (7.0-18.0) mg/dL Creatinine 1.8 H (0.6-1.0) mg/dL Est Cr Clr Drug Dosing TNP Estimated GFR (MDRD) 27.4 ml/min Glucose 354 H (74-106) mg/dL POC Glucose (70-99) mg/dL Lactic Acid 2.1 H* (0.4-2.0) mmol/L Calcium 9.7 (8.5-10.1) mg/dL Magnesium 1.9 (1.8-2.4) mg/dL Total Bilirubin 0.7 (0.2-1.0) mg/dL AST 24 (15-37) IU/L ALT 34 (14-63) IU/L Alkaline Phosphatase 89 (46-116) U/L Troponin I < 0.050 (0.000-0.056) ng/mL C-Reactive Protein 23.10 H (0.00-0.90) mg/dL Total Protein 7.0 (6.4-8.2) g/dL Albumin 2.6 L (3.4-5.0) g/dL Globulin 4.4 H (2.6-4.0) g/dL Albumin/Globulin Ratio 0.6 L (0.9-1.6) Urine Color Urine Appearance Urine pH (5.0-8.0) Ur Specific [place] (1.001-1.035) Urine Protein (NEGATIVE) mg/dL Urine Glucose (UA) (NEGATIVE) mg/dL Urine Ketones (NEGATIVE) mg/dL Urine Occult Blood (NEGATIVE) Urine Nitrite (NEGATIVE) Urine Bilirubin (NEGATIVE) Urine Urobilinogen (<2.0) EU/dL Ur Leukocyte Esterase (NEGATIVE) Urine RBC (0-2/HPF) Urine WBC (0-5/HPF) Ur Epithelial Cells (NONE-FEW) Triple Phos Crystals (NEGATIVE) Amorphous Sediment (NEGATIVE) Urine Bacteria (NEGATIVE) 05/23/21 05/23/21 05/23/21 Range/Units 00:45 05:10 05:10 WBC 19.22 H (4.0-11.0) K/uL RBC 4.37 (4.30-5.90) M/uL Hgb 12.8 (12.0-16.0) g/dL Hct 39.3 (36.0-46.0) % MCV 89.9 (80.0-98.0) fL MCH 29.3 (27.0-32.0) pg MCHC 32.6 (31.0-37.0) g/dL RDW Std Deviation 53.8 (28.0-62.0) fl RDW Coeff of [place] 16 H (11.0-15.0) % Plt Count 110 L (150-400) K/uL MPV 12.30 H (7.40-12.00) fL Neut % (Auto) 87.3 H (48.0-80.0) % Lymph % (Auto) 5.7 L (16.0-40.0) % [place] % (Auto) 6.9 (0.0-15.0) % Eos % (Auto) 0.0 (0.0-7.0) % Baso % (Auto) 0.1 (0.0-1.5) % Neut # (Auto) 16.8 H (1.4-5.7) K/uL Lymph # (Auto) 1.1 (0.6-2.4) K/uL [place] # (Auto) 1.3 H (0.0-0.8) K/uL Eos # (Auto) 0.0 (0.0-0.7) K/uL Baso # (Auto) 0.0 (0.0-0.1) K/uL Nucleated RBC % 0.0 /100WBC Nucleated RBCs # 0 K/uL Sodium 151 H (136-145) mmol/L Potassium 3.3 L (3.5-5.1) mmol/L Chloride 116 H (98-107) mmol/L Carbon Dioxide 24.7 (21.0-32.0) mmol/L BUN 47 H (7.0-18.0) mg/dL Creatinine 1.7 H (0.6-1.0) mg/dL Est Cr Clr Drug Dosing 29.42 Estimated GFR (MDRD) 29.2 ml/min Glucose 303 H (74-106) mg/dL POC Glucose (70-99) mg/dL Lactic Acid (0.4-2.0) mmol/L Calcium 8.9 (8.5-10.1) mg/dL Magnesium (1.8-2.4) mg/dL Total Bilirubin 0.7 (0.2-1.0) mg/dL AST 18 (15-37) IU/L ALT 31 (14-63) IU/L Alkaline Phosphatase 81 (46-116) U/L Troponin I (0.000-0.056) ng/mL C-Reactive Protein (0.00-0.90) mg/dL Total Protein 6.0 L (6.4-8.2) g/dL Albumin 2.2 L (3.4-5.0) g/dL Globulin 3.8 (2.6-4.0) g/dL Albumin/Globulin Ratio 0.6 L (0.9-1.6) Urine Color YELLOW Urine Appearance CLOUDY Urine pH 8.5 H (5.0-8.0) Ur Specific [place] <= 1.005 (1.001-1.035) Urine Protein 100 H (NEGATIVE) mg/dL Urine Glucose (UA) 250 H (NEGATIVE) mg/dL Urine Ketones NEGATIVE (NEGATIVE) mg/dL Urine Occult Blood MODERATE H (NEGATIVE) Urine Nitrite POSITIVE H (NEGATIVE) Urine Bilirubin NEGATIVE (NEGATIVE) Urine Urobilinogen 0.2 (<2.0) EU/dL Ur Leukocyte Esterase LARGE H (NEGATIVE) Urine RBC 20-30 (0-2/HPF) Urine WBC 3-6 (0-5/HPF) Ur Epithelial Cells FEW (NONE-FEW) Triple Phos Crystals MANY (NEGATIVE) Amorphous Sediment MODERATE (NEGATIVE) Urine Bacteria 1+ H (NEGATIVE) 05/23/21 05/23/21 05/23/21 Range/Units 05:10 06:29 11:35 WBC (4.0-11.0) K/uL RBC (4.30-5.90) M/uL Hgb (12.0-16.0) g/dL Hct (36.0-46.0) % MCV (80.0-98.0) fL MCH (27.0-32.0) pg MCHC (31.0-37.0) g/dL RDW Std Deviation (28.0-62.0) fl RDW Coeff of [place] (11.0-15.0) % Plt Count (150-400) K/uL MPV (7.40-12.00) fL Neut % (Auto) (48.0-80.0) % Lymph % (Auto) (16.0-40.0) % [place] % (Auto) (0.0-15.0) % Eos % (Auto) (0.0-7.0) % Baso % (Auto) (0.0-1.5) % Neut # (Auto) (1.4-5.7) K/uL Lymph # (Auto) (0.6-2.4) K/uL [place] # (Auto) (0.0-0.8) K/uL Eos # (Auto) (0.0-0.7) K/uL Baso # (Auto) (0.0-0.1) K/uL Nucleated RBC % /100WBC Nucleated RBCs # K/uL Sodium (136-145) mmol/L Potassium (3.5-5.1) mmol/L Chloride (98-107) mmol/L Carbon Dioxide (21.0-32.0) mmol/L BUN (7.0-18.0) mg/dL Creatinine (0.6-1.0) mg/dL Est Cr Clr Drug Dosing Estimated GFR (MDRD) ml/min Glucose (74-106) mg/dL POC Glucose 290 H 251 H (70-99) mg/dL Lactic Acid 1.9 (0.4-2.0) mmol/L Calcium (8.5-10.1) mg/dL Magnesium (1.8-2.4) mg/dL Total Bilirubin (0.2-1.0) mg/dL AST (15-37) IU/L ALT (14-63) IU/L Alkaline Phosphatase (46-116) U/L Troponin I (0.000-0.056) ng/mL C-Reactive Protein (0.00-0.90) mg/dL Total Protein (6.4-8.2) g/dL Albumin (3.4-5.0) g/dL Globulin (2.6-4.0) g/dL Albumin/Globulin Ratio (0.9-1.6) Urine Color Urine Appearance Urine pH (5.0-8.0) Ur Specific [place] (1.001-1.035) Urine Protein (NEGATIVE) mg/dL Urine Glucose (UA) (NEGATIVE) mg/dL Urine Ketones (NEGATIVE) mg/dL Urine Occult Blood (NEGATIVE) Urine Nitrite (NEGATIVE) Urine Bilirubin (NEGATIVE) Urine Urobilinogen (<2.0) EU/dL Ur Leukocyte Esterase (NEGATIVE) Urine RBC (0-2/HPF) Urine WBC (0-5/HPF) Ur Epithelial Cells (NONE-FEW) Triple Phos Crystals (NEGATIVE) Amorphous Sediment (NEGATIVE) Urine Bacteria (NEGATIVE) Result Diagrams: 05/23/21 05:10 05/23/21 05:10 Sepsis Event Note - Evaluation Sepsis Screening Result: No Definite Risk - Focused Exam Vital Signs: Vital Signs Temp Pulse Resp BP BP Pulse Ox 05/23/21 12:00 97.4 F 61 20 120/60 93 L 05/23/21 10:16 150/51 H 05/23/21 08:00 97.3 F 60 24 H 150/51 H 91 L - Problem List & Annotations (1) Cellulitis SNOMED Code(s): 625381834 Code(s): L03.90 - CELLULITIS, UNSPECIFIED Status: Acute Current Visit: Gareth becker Qualifiers: Site of cellulitis: neck Qualified Code(s): L03.221 - Cellulitis of neck (2) Hypernatremia SNOMED Code(s): 969174511 Code(s): E87.0 - HYPEROSMOLALITY AND HYPERNATREMIA Status: Acute Current Visit: Yes (3) Parotitis SNOMED Code(s): 27220148 Code(s): K11.20 - SIALOADENITIS, UNSPECIFIED Status: Acute Current Visit: Yes (4) HERBERT (acute kidney injury) SNOMED Code(s): 62965764, 48518867 Code(s): N17.9 - ACUTE KIDNEY FAILURE, UNSPECIFIED Status: Acute Current Visit: Yes (5) Dehydration SNOMED Code(s): 41050460 Code(s): E86.0 - DEHYDRATION Status: Acute Current Visit: Yes (6) UTI (urinary tract infection) SNOMED Code(s): 81035175 Code(s): N39.0 - URINARY TRACT INFECTION, SITE NOT SPECIFIED Status: Acute Current Visit: Yes (7) Dementia SNOMED Code(s): 94582920 Code(s): F03.90 - UNSPECIFIED DEMENTIA WITHOUT BEHAVIORAL DISTURBANCE Status: Chronic Current Visit: Yes Qualifiers: Dementia type: unspecified type (8) Hypertension SNOMED Code(s): 93101938 Code(s): I10 - ESSENTIAL (PRIMARY) HYPERTENSION Status: Chronic Current Visit: Yes - Problem List Review Problem List Initiated/Reviewed/Updated: Yes - My Orders Last 24 Hours: My Active Orders 05/23/21 Breakfast [employer] Diet [DIET] 05/23/21 08:20 Dextrose 50% in Water 50 ml IVPUSH ASDIRECTED PRN Glucagon,Human Recombinant [GlucaGen] 1 mg IM ASDIRECTED PRN 05/23/21 10:00 Apixaban [Eliquis] 5 mg PO BID Furosemide [Lasix] 20 mg PO DAILY Losartan [Cozaar] 50 mg PO DAILY Sertraline [Zoloft] 100 mg PO DAILY buPROPion [Wellbutrin XL] 150 mg PO DAILY 05/23/21 11:30 Insulin Aspart [NovoLOG] See Protocol SUBCUT TIDAC 05/23/21 11:45 oxyCODONE 5 mg PO Q12H 05/23/21 17:00 BASIC METABOLIC PANEL,BMP [CHEM] Routine 05/23/21 21:00 hydrALAZINE [Apresoline] 25 mg PO Q12HR - Plan Plan:: Parotiditis-vancomycin Q24hr, Zosyn Q6hr Hyponatremiapatient started on D5W 75 mL/hour. Will recheck BMP later this afternoon to assess sodium and chloride values UTI-Zosyn Q6hr Diabetes-Insulin sliding scale, low-dose. Diabetic diet.
[2021-05-23 17:49] LABS: CARBON DIOXIDE,CO2 22.4 mmol/L (21.0-32.0); POTASSIUM,K 3.2 mmol/L (3.5-5.1)
[2021-05-23] MEDS: hydrALAZINE 25 MG Tab PO SCH (22:35)
[2021-05-24] MEDS: Dextrose 5% in Water 1,000 ML IV SCH ×2 (00:47→17:54)
[2021-05-24] MEDS: Piperacillin/Tazobactam 2.25 GM in Sodium Chloride 0.9% 100 ML IV SCH ×3 (05:45→18:29)
[2021-05-24 06:22] LABS: CARBON DIOXIDE,CO2 24.4 mmol/L (21.0-32.0); POTASSIUM,K 3.1 mmol/L (3.5-5.1)
[2021-05-24] MEDS ORDERED: Potassium Chloride 20 MEQ Tab.ER PO ONE (07:31)
[2021-05-24] MEDS ORDERED: Potassium Chloride Riders 40 MEQ in Premix Bag 1 BAG IV ONE (08:52)
[2021-05-24] MEDS: Apixaban 5 MG Tab PO SCH ×2 (09:20→21:37)
[2021-05-24] MEDS: Furosemide 20 MG Tab PO SCH (09:21)
[2021-05-24] MEDS: buPROPion 150 MG Tab.ER PO SCH (09:21)
[2021-05-24] MEDS: Sertraline 100 MG Tab PO SCH (09:21)
[2021-05-24] MEDS: hydrALAZINE 25 MG Tab PO SCH ×2 (09:22→21:37)
[2021-05-24] MEDS: Losartan 50 MG Tab PO SCH (09:22)
[2021-05-24] MEDS: Insulin Aspart 100 Units/ML 3 ML Pen SUBCUT SCH ×3 (09:23→18:32)
--- NOTE | 2021-05-24 13:55 | PCM.PN ---
- General Info Date of Service: 05/24/21 Subjective Update: Difficulty communicating with patient due to history dementia. Patient however appears to be more awake this morning. No nursing concerns noted overnight. - Review of Systems General: Denies: Fever, Chills Pulmonary: Denies: Cough - Patient Data Vitals - Most Recent: Last Vital Signs Temp 97.6 F 05/24/21 08:00 Pulse 61 05/24/21 08:00 Resp 20 05/24/21 08:00 BP 173/74 H 05/24/21 09:22 Pulse Ox 93 L 05/24/21 08:00 Weight - Most Recent: 199 lb 8.293 oz I&O - Last 24 Hours: Intake & Output 05/23/21 05/24/21 05/24/21 22:59 06:59 14:59 Intake Total 605 Output Total 450 Balance 155 Lab Results Last 24 Hours: Laboratory Results - last 24 hr 05/23/21 05/23/21 05/24/21 Range/Units 17:24 17:34 05:17 WBC 14.31 H (4.0-11.0) K/uL RBC 4.11 L (4.30-5.90) M/uL Hgb 11.9 L (12.0-16.0) g/dL Hct 36.7 (36.0-46.0) % MCV 89.3 (80.0-98.0) fL MCH 29.0 (27.0-32.0) pg MCHC 32.4 (31.0-37.0) g/dL RDW Std Deviation 53.5 (28.0-62.0) fl RDW Coeff of Litzy 16 H (11.0-15.0) % Plt Count 122 L (150-400) K/uL MPV 12.90 H (7.40-12.00) fL Neut % (Auto) 86.7 H (48.0-80.0) % Lymph % (Auto) 5.9 L (16.0-40.0) % [place] % (Auto) 6.2 (0.0-15.0) % Eos % (Auto) 1.1 (0.0-7.0) % Baso % (Auto) 0.1 (0.0-1.5) % Neut # (Auto) 12.4 H (1.4-5.7) K/uL Lymph # (Auto) 0.9 (0.6-2.4) K/uL [place] # (Auto) 0.9 H (0.0-0.8) K/uL Eos # (Auto) 0.2 (0.0-0.7) K/uL Baso # (Auto) 0.0 (0.0-0.1) K/uL Nucleated RBC % 0.0 /100WBC Nucleated RBCs # 0 K/uL Sodium 153 H (136-145) mmol/L Potassium 3.2 L (3.5-5.1) mmol/L Chloride 117 H (98-107) mmol/L Carbon Dioxide 22.4 (21.0-32.0) mmol/L BUN 39 H (7.0-18.0) mg/dL Creatinine 1.5 H (0.6-1.0) mg/dL Est Cr Clr Drug Dosing 33.34 mL/min Estimated GFR (MDRD) 33.8 ml/min Glucose 254 H (74-106) mg/dL POC Glucose 262 H (70-99) mg/dL Calcium 9.0 (8.5-10.1) mg/dL Magnesium (1.8-2.4) mg/dL 05/24/21 05/24/21 05/24/21 Range/Units 05:17 05:17 06:30 WBC (4.0-11.0) K/uL RBC (4.30-5.90) M/uL Hgb (12.0-16.0) g/dL Hct (36.0-46.0) % MCV (80.0-98.0) fL MCH (27.0-32.0) pg MCHC (31.0-37.0) g/dL RDW Std Deviation (28.0-62.0) fl RDW Coeff of Litzy (11.0-15.0) % Plt Count (150-400) K/uL MPV (7.40-12.00) fL Neut % (Auto) (48.0-80.0) % Lymph % (Auto) (16.0-40.0) % [place] % (Auto) (0.0-15.0) % Eos % (Auto) (0.0-7.0) % Baso % (Auto) (0.0-1.5) % Neut # (Auto) (1.4-5.7) K/uL Lymph # (Auto) (0.6-2.4) K/uL [place] # (Auto) (0.0-0.8) K/uL Eos # (Auto) (0.0-0.7) K/uL Baso # (Auto) (0.0-0.1) K/uL Nucleated RBC % /100WBC Nucleated RBCs # K/uL Sodium 150 H (136-145) mmol/L Potassium 3.1 L (3.5-5.1) mmol/L Chloride 113 H (98-107) mmol/L Carbon Dioxide 24.4 (21.0-32.0) mmol/L BUN 37 H (7.0-18.0) mg/dL Creatinine 1.5 H (0.6-1.0) mg/dL Est Cr Clr Drug Dosing 33.34 mL/min Estimated GFR (MDRD) 33.8 ml/min Glucose 286 H (74-106) mg/dL POC Glucose 260 H (70-99) mg/dL Calcium 8.9 (8.5-10.1) mg/dL Magnesium 1.7 L (1.8-2.4) mg/dL 05/24/21 Range/Units 12:13 WBC (4.0-11.0) K/uL RBC (4.30-5.90) M/uL Hgb (12.0-16.0) g/dL Hct (36.0-46.0) % MCV (80.0-98.0) fL MCH (27.0-32.0) pg MCHC (31.0-37.0) g/dL RDW Std Deviation (28.0-62.0) fl RDW Coeff of Litzy (11.0-15.0) % Plt Count (150-400) K/uL MPV (7.40-12.00) fL Neut % (Auto) (48.0-80.0) % Lymph % (Auto) (16.0-40.0) % [place] % (Auto) (0.0-15.0) % Eos % (Auto) (0.0-7.0) % Baso % (Auto) (0.0-1.5) % Neut # (Auto) (1.4-5.7) K/uL Lymph # (Auto) (0.6-2.4) K/uL [place] # (Auto) (0.0-0.8) K/uL Eos # (Auto) (0.0-0.7) K/uL Baso # (Auto) (0.0-0.1) K/uL Nucleated RBC % /100WBC Nucleated RBCs # K/uL Sodium (136-145) mmol/L Potassium (3.5-5.1) mmol/L Chloride (98-107) mmol/L Carbon Dioxide (21.0-32.0) mmol/L BUN (7.0-18.0) mg/dL Creatinine (0.6-1.0) mg/dL Est Cr Clr Drug Dosing mL/min Estimated GFR (MDRD) ml/min Glucose (74-106) mg/dL POC Glucose 279 H (70-99) mg/dL Calcium (8.5-10.1) mg/dL Magnesium (1.8-2.4) mg/dL Chris Results Last 24 Hours: Microbiology 05/23/21 00:35 Aerobic Blood Culture - Preliminary Blood - Venous - Lab Draw NO GROWTH AFTER 1 DAY Anaerobic Blood Culture - Preliminary NO GROWTH AFTER 1 DAY 05/23/21 00:00 Aerobic Blood Culture - Preliminary Blood - Venous NO GROWTH AFTER 1 DAY Anaerobic Blood Culture - Preliminary NO GROWTH AFTER 1 DAY Med Orders - Current: Current Medications Apixaban (Apixaban 5 Mg Tab) 5 mg PO BID [facility] Last Admin: 05/24/21 09:20 Dose: 5 mg Documented by: Bupropion HCl (Bupropion 150 Mg Tab.Er) 150 mg PO DAILY [facility] Last Admin: 05/24/21 09:21 Dose: 150 mg Documented by: Dextrose/Water (50% Dextrose In Water 50 Ml Syringe) 50 ml IVPUSH ASDIRECTED PRN PRN Reason: Hypoglycemia Furosemide (Furosemide 20 Mg Tab) 20 mg PO DAILY [facility] Last Admin: 05/24/21 09:21 Dose: 20 mg Documented by: Glucagon (Glucagon,Human Recombinant 1 Mg Vial) 1 mg IM ASDIRECTED PRN PRN Reason: Hypoglycemia Hydralazine HCl (Hydralazine 25 Mg Tab) 25 mg PO Q12HR [facility] Last Admin: 05/24/21 09:22 Dose: 25 mg Documented by: Vancomycin HCl 1.25 gm/ Sodium (Chloride) 250 mls @ 166.667 mls/hr IV Q24H [facility] Last Admin: 05/24/21 02:35 Dose: 166.667 mls/hr Documented by: Dextrose/Water (Dextrose 5% In Water) 1,000 mls @ 125 mls/hr IV Q13H [facility] Last Admin: 05/24/21 00:47 Dose: 75 mls/hr Documented by: Piperacillin Sod/Tazobactam (Sod 2.25 gm/ Sodium Chloride) 100 mls @ 200 mls/hr IV Q6H [facility] Last Admin: 05/24/21 12:55 Dose: 200 mls/hr Documented by: Insulin Aspart (Insulin Aspart 100 Units/Ml 3 Ml Pen) 0 unit SUBCUT TIDAC [facility]; Protocol Last Admin: 05/24/21 12:42 Dose: 3 units Documented by: Losartan Potassium (Losartan 50 Mg Tab) 50 mg PO DAILY [facility] Last Admin: 05/24/21 09:22 Dose: 50 mg Documented by: Oxycodone HCl (Oxycodone 5 Mg Tab) 5 mg PO Q12H [facility] Last Admin: 05/23/21 23:45 Dose: Not Given Documented by: Sertraline HCl (Sertraline 100 Mg Tab) 100 mg PO DAILY [facility] Last Admin: 05/24/21 09:21 Dose: 100 mg Documented by: Sodium Chloride (Sodium Chloride 0.9% 10 Ml Syringe) 10 ml FLUSH ASDIRECTED PRN PRN Reason: Keep Vein Open Last Admin: 05/23/21 00:40 Dose: 10 ml Documented by: Sodium Chloride (Sodium Chloride 0.9% 2.5 Ml Syringe) 2.5 ml FLUSH ASDIRECTED PRN PRN Reason: Keep Vein Open Last Admin: 05/23/21 00:41 Dose: 2.5 ml Documented by: Vancomycin HCl (Pharmacy To Dose - Vancomycin) 1 dose .XX ASDIRECTED [facility] Discontinued Medications Sodium Chloride (Normal Saline) 1,000 mls @ 999 mls/hr IV .Bolus ONE Stop: 05/23/21 00:41 Last Admin: 05/23/21 00:40 Dose: 999 mls/hr Documented by: Piperacillin Sod/Tazobactam (Sod 3.375 gm/ Sodium Chloride) 50 mls @ 100 mls/hr IV ONETIME ONE Stop: 05/23/21 00:38 Last Admin: 05/23/21 00:40 Dose: 100 mls/hr Documented by: Sodium Chloride (Normal Saline) 1,000 mls @ 999 mls/hr IV .Bolus ONE Stop: 05/23/21 02:18 Last Admin: 05/23/21 02:05 Dose: 999 mls/hr Documented by: Vancomycin HCl 1.5 gm/ Premix 300 mls @ 200 mls/hr IV ONETIME ONE Stop: 05/23/21 03:13 Last Admin: 05/23/21 02:04 Dose: 200 mls/hr Documented by: Piperacillin Sod/Tazobactam (Sod 3.375 gm/ Sodium Chloride) 50 mls @ 100 mls/hr IV Q6H [facility] Sodium Chloride (Normal Saline) 1,000 mls @ 125 mls/hr IV ASDIRECTED [facility] Stop: 05/23/21 10:14 Last Admin: 05/23/21 04:33 Dose: 125 mls/hr Documented by: Piperacillin Sod/Tazobactam (Sod 2.25 gm/ Sodium Chloride) 50 mls @ 100 mls/hr IV Q6H [facility] Last Admin: 05/23/21 06:12 Dose: 100 mls/hr Documented by: Potassium Chloride 40 meq/ (Dextrose/Water) 520 mls @ 130 mls/hr IV ONETIME ONE Stop: 05/24/21 13:19 Last Admin: 05/24/21 09:30 Dose: 130 mls/hr Documented by: Potassium Chloride (Potassium Chloride 20 Meq Tab.Er) 40 meq PO ONETIME ONE Stop: 05/23/21 09:12 Last Admin: 05/23/21 10:15 Dose: 40 meq Documented by: Potassium Chloride (Potassium Chloride 20 Meq Tab.Er) 40 meq PO ONETIME ONE Stop: 05/24/21 07:32 Last Admin: 05/24/21 11:35 Dose: Not Given Documented by: - Exam General: Alert HEENT: Other (swelling, redness noted at left jaw, left neck. ) Lungs: Clear to Auscultation, Normal Respiratory Effort Cardiovascular: Regular Rate, Irregular Rhythm GI/Abdominal Exam: Soft, No Distention Extremities: No Pedal Edema - Patient Data Lab Results Last 24 hrs: Laboratory Results - last 24 hr 05/23/21 05/23/21 05/24/21 Range/Units 17:24 17:34 05:17 WBC 14.31 H (4.0-11.0) K/uL RBC 4.11 L (4.30-5.90) M/uL Hgb 11.9 L (12.0-16.0) g/dL Hct 36.7 (36.0-46.0) % MCV 89.3 (80.0-98.0) fL MCH 29.0 (27.0-32.0) pg MCHC 32.4 (31.0-37.0) g/dL RDW Std Deviation 53.5 (28.0-62.0) fl RDW Coeff of Litzy 16 H (11.0-15.0) % Plt Count 122 L (150-400) K/uL MPV 12.90 H (7.40-12.00) fL Neut % (Auto) 86.7 H (48.0-80.0) % Lymph % (Auto) 5.9 L (16.0-40.0) % [place] % (Auto) 6.2 (0.0-15.0) % Eos % (Auto) 1.1 (0.0-7.0) % Baso % (Auto) 0.1 (0.0-1.5) % Neut # (Auto) 12.4 H (1.4-5.7) K/uL Lymph # (Auto) 0.9 (0.6-2.4) K/uL [place] # (Auto) 0.9 H (0.0-0.8) K/uL Eos # (Auto) 0.2 (0.0-0.7) K/uL Baso # (Auto) 0.0 (0.0-0.1) K/uL Nucleated RBC % 0.0 /100WBC Nucleated RBCs # 0 K/uL Sodium 153 H (136-145) mmol/L Potassium 3.2 L (3.5-5.1) mmol/L Chloride 117 H (98-107) mmol/L Carbon Dioxide 22.4 (21.0-32.0) mmol/L BUN 39 H (7.0-18.0) mg/dL Creatinine 1.5 H (0.6-1.0) mg/dL Est Cr Clr Drug Dosing 33.34 mL/min Estimated GFR (MDRD) 33.8 ml/min Glucose 254 H (74-106) mg/dL POC Glucose 262 H (70-99) mg/dL Calcium 9.0 (8.5-10.1) mg/dL Magnesium (1.8-2.4) mg/dL 05/24/21 05/24/21 05/24/21 Range/Units 05:17 05:17 06:30 WBC (4.0-11.0) K/uL RBC (4.30-5.90) M/uL Hgb (12.0-16.0) g/dL Hct (36.0-46.0) % MCV (80.0-98.0) fL MCH (27.0-32.0) pg MCHC (31.0-37.0) g/dL RDW Std Deviation (28.0-62.0) fl RDW Coeff of Litzy (11.0-15.0) % Plt Count (150-400) K/uL MPV (7.40-12.00) fL Neut % (Auto) (48.0-80.0) % Lymph % (Auto) (16.0-40.0) % [place] % (Auto) (0.0-15.0) % Eos % (Auto) (0.0-7.0) % Baso % (Auto) (0.0-1.5) % Neut # (Auto) (1.4-5.7) K/uL Lymph # (Auto) (0.6-2.4) K/uL [place] # (Auto) (0.0-0.8) K/uL Eos # (Auto) (0.0-0.7) K/uL Baso # (Auto) (0.0-0.1) K/uL Nucleated RBC % /100WBC Nucleated RBCs # K/uL Sodium 150 H (136-145) mmol/L Potassium 3.1 L (3.5-5.1) mmol/L Chloride 113 H (98-107) mmol/L Carbon Dioxide 24.4 (21.0-32.0) mmol/L BUN 37 H (7.0-18.0) mg/dL Creatinine 1.5 H (0.6-1.0) mg/dL Est Cr Clr Drug Dosing 33.34 mL/min Estimated GFR (MDRD) 33.8 ml/min Glucose 286 H (74-106) mg/dL POC Glucose 260 H (70-99) mg/dL Calcium 8.9 (8.5-10.1) mg/dL Magnesium 1.7 L (1.8-2.4) mg/dL 05/24/21 Range/Units 12:13 WBC (4.0-11.0) K/uL RBC (4.30-5.90) M/uL Hgb (12.0-16.0) g/dL Hct (36.0-46.0) % MCV (80.0-98.0) fL MCH (27.0-32.0) pg MCHC (31.0-37.0) g/dL RDW Std Deviation (28.0-62.0) fl RDW Coeff of Litzy (11.0-15.0) % Plt Count (150-400) K/uL MPV (7.40-12.00) fL Neut % (Auto) (48.0-80.0) % Lymph % (Auto) (16.0-40.0) % [place] % (Auto) (0.0-15.0) % Eos % (Auto) (0.0-7.0) % Baso % (Auto) (0.0-1.5) % Neut # (Auto) (1.4-5.7) K/uL Lymph # (Auto) (0.6-2.4) K/uL [place] # (Auto) (0.0-0.8) K/uL Eos # (Auto) (0.0-0.7) K/uL Baso # (Auto) (0.0-0.1) K/uL Nucleated RBC % /100WBC Nucleated RBCs # K/uL Sodium (136-145) mmol/L Potassium (3.5-5.1) mmol/L Chloride (98-107) mmol/L Carbon Dioxide (21.0-32.0) mmol/L BUN (7.0-18.0) mg/dL Creatinine (0.6-1.0) mg/dL Est Cr Clr Drug Dosing mL/min Estimated GFR (MDRD) ml/min Glucose (74-106) mg/dL POC Glucose 279 H (70-99) mg/dL Calcium (8.5-10.1) mg/dL Magnesium (1.8-2.4) mg/dL Result Diagrams: 05/24/21 05:17 05/24/21 05:17 Chris Results Last 24 hrs: Microbiology 05/23/21 00:35 Aerobic Blood Culture - Preliminary Blood - Venous - Lab Draw NO GROWTH AFTER 1 DAY Anaerobic Blood Culture - Preliminary NO GROWTH AFTER 1 DAY 05/23/21 00:00 Aerobic Blood Culture - Preliminary Blood - Venous NO GROWTH AFTER 1 DAY Anaerobic Blood Culture - Preliminary NO GROWTH AFTER 1 DAY Sepsis Event Note - Evaluation Sepsis Screening Result: No Definite Risk - Focused Exam Vital Signs: Vital Signs Temp Pulse Resp BP BP Pulse Ox 05/24/21 09:22 173/74 H 05/24/21 08:00 97.6 F 61 20 173/74 H 93 L 05/24/21 04:00 98.7 F 72 17 99/77 94 L - Problem List & Annotations (1) Cellulitis SNOMED Code(s): 228968020 Code(s): L03.90 - CELLULITIS, UNSPECIFIED Status: Acute Current Visit: Yes Qualifiers: Site of cellulitis: neck Qualified Code(s): L03.221 - Cellulitis of neck (2) Hypernatremia SNOMED Code(s): 755488722 Code(s): E87.0 - HYPEROSMOLALITY AND HYPERNATREMIA Status: Acute Current Visit: Yes (3) Parotitis SNOMED Code(s): 47532885 Code(s): K11.20 - SIALOADENITIS, UNSPECIFIED Status: Acute Current Visit: Yes (4) HERBERT (acute kidney injury) SNOMED Code(s): 04784424, 13727670 Code(s): N17.9 - ACUTE KIDNEY FAILURE, UNSPECIFIED Status: Acute Current Visit: Yes (5) Dehydration SNOMED Code(s): 72268636 Code(s): E86.0 - DEHYDRATION Status: Acute Current Visit: Yes (6) UTI (urinary tract infection) SNOMED Code(s): 14408140 Code(s): N39.0 - URINARY TRACT INFECTION, SITE NOT SPECIFIED Status: Acute Current Visit: Yes (7) Dementia SNOMED Code(s): 52897867 Code(s): F03.90 - UNSPECIFIED DEMENTIA WITHOUT BEHAVIORAL DISTURBANCE Status: Chronic Current Visit: Yes Qualifiers: Dementia type: unspecified type (8) Hypertension SNOMED Code(s): 09646779 Code(s): I10 - ESSENTIAL (PRIMARY) HYPERTENSION Status: Chronic Current Visit: Yes - Problem List Review Problem List Initiated/Reviewed/Updated: Yes - My Orders Last 24 Hours: My Active Orders 05/23/21 18:28 Communication Order [RC] DAILY 05/23/21 20:42 Communication Order [RC] Q2HR 05/23/21 21:00 hydrALAZINE [Apresoline] 25 mg PO Q12HR 05/24/21 17:00 BASIC METABOLIC PANEL,BMP [CHEM] Routine - Plan Plan:: Parotiditis-vancomycin Q24hr, Zosyn Q6hr Hypernatremiapatient continued on D5W 125 mL/hour. Will recheck BMP later this afternoon to assess sodium and chloride values. Sodium and chloride have reduced since yesterday. UTI-Zosyn Q6hr Diabetes-Insulin sliding scale, low-dose. Diabetic diet. Hypomagnesemia- 1.7, repleted with mag sulfate 2gm
[2021-05-24] MEDS ORDERED: Magnesium Sulfate/Water 2 GM in Premix Bag 1 BAG IV ONE (13:57)
[2021-05-24] MEDS: oxyCODONE 5 MG Tab PO SCH (14:23)
[2021-05-24 17:29] LABS: CARBON DIOXIDE,CO2 24.4 mmol/L (21.0-32.0); POTASSIUM,K 3.2 mmol/L (3.5-5.1)
[2021-05-25] MEDS: oxyCODONE 5 MG Tab PO SCH ×2 (00:05→12:03)
[2021-05-25] MEDS: Piperacillin/Tazobactam 2.25 GM in Sodium Chloride 0.9% 100 ML IV SCH ×4 (00:06→17:30)
[2021-05-25] MEDS: Dextrose 5% in Water 1,000 ML IV SCH ×2 (02:39→18:11)
[2021-05-25 07:14] LABS: CARBON DIOXIDE,CO2 23.8 mmol/L (21.0-32.0); POTASSIUM,K 2.9 mmol/L (3.5-5.1)
[2021-05-25] MEDS: Insulin Aspart 100 Units/ML 3 ML Pen SUBCUT SCH ×3 (09:34→17:29)
[2021-05-25] MEDS: Losartan 50 MG Tab PO SCH (09:35)
[2021-05-25] MEDS: Furosemide 20 MG Tab PO SCH (09:36)
[2021-05-25] MEDS: buPROPion 150 MG Tab.ER PO SCH (09:36)
[2021-05-25] MEDS: Sertraline 100 MG Tab PO SCH (09:36)
[2021-05-25] MEDS: hydrALAZINE 25 MG Tab PO SCH ×2 (09:36→21:48)
[2021-05-25] MEDS: Apixaban 5 MG Tab PO SCH ×2 (09:36→21:44)
[2021-05-25 16:28] LABS: CARBON DIOXIDE,CO2 25.7 mmol/L (21.0-32.0); POTASSIUM,K 3.4 mmol/L (3.5-5.1)
--- NOTE | 2021-05-25 16:48 | PCM.PN ---
- General Info Date of Service: 05/25/21 Subjective Update: Patient appears more alert this morning. No concerns overnight per nursing. Patient does not appear to be in pain or distress. - Review of Systems General: Denies: Fever, Chills Pulmonary: Denies: Shortness of Breath Cardiovascular: Denies: Chest Pain Gastrointestinal: Denies: Nausea, Vomiting - Patient Data Vitals - Most Recent: Last Vital Signs Temp 96.4 F L 05/25/21 16:00 Pulse 51 L 05/25/21 16:00 Resp 20 05/25/21 16:00 BP 154/78 H 05/25/21 16:00 Pulse Ox 97 05/25/21 16:00 Weight - Most Recent: 199 lb 8.293 oz I&O - Last 24 Hours: Intake & Output 05/25/21 05/25/21 05/25/21 06:59 14:59 22:59 Intake Total 1435 Output Total 500 Balance 935 Lab Results Last 24 Hours: Laboratory Results - last 24 hr 05/24/21 05/24/21 05/25/21 Range/Units 17:06 17:36 05:27 WBC 10.94 (4.0-11.0) K/uL RBC 3.88 L (4.30-5.90) M/uL Hgb 11.2 L (12.0-16.0) g/dL Hct 34.1 L (36.0-46.0) % MCV 87.9 (80.0-98.0) fL MCH 28.9 (27.0-32.0) pg MCHC 32.8 (31.0-37.0) g/dL RDW Std Deviation 52.0 (28.0-62.0) fl RDW Coeff of Litzy 16 H (11.0-15.0) % Plt Count 117 L (150-400) K/uL MPV 12.40 H (7.40-12.00) fL Neut % (Auto) 83.0 H (48.0-80.0) % Lymph % (Auto) 6.5 L (16.0-40.0) % [place] % (Auto) 6.7 (0.0-15.0) % Eos % (Auto) 3.6 (0.0-7.0) % Baso % (Auto) 0.2 (0.0-1.5) % Neut # (Auto) 9.1 H (1.4-5.7) K/uL Lymph # (Auto) 0.7 (0.6-2.4) K/uL [place] # (Auto) 0.7 (0.0-0.8) K/uL Eos # (Auto) 0.4 (0.0-0.7) K/uL Baso # (Auto) 0.0 (0.0-0.1) K/uL Nucleated RBC % 0.0 /100WBC Nucleated RBCs # 0 K/uL Sodium 146 H (136-145) mmol/L Potassium 3.2 L (3.5-5.1) mmol/L Chloride 114 H (98-107) mmol/L Carbon Dioxide 24.4 (21.0-32.0) mmol/L BUN 33 H (7.0-18.0) mg/dL Creatinine 1.4 H (0.6-1.0) mg/dL Est Cr Clr Drug Dosing 35.73 mL/min Estimated GFR (MDRD) 36.6 ml/min Glucose 297 H (74-106) mg/dL POC Glucose 289 H (70-99) mg/dL Calcium 9.2 (8.5-10.1) mg/dL Magnesium (1.8-2.4) mg/dL 05/25/21 05/25/21 05/25/21 Range/Units 05:27 06:58 12:28 WBC (4.0-11.0) K/uL RBC (4.30-5.90) M/uL Hgb (12.0-16.0) g/dL Hct (36.0-46.0) % MCV (80.0-98.0) fL MCH (27.0-32.0) pg MCHC (31.0-37.0) g/dL RDW Std Deviation (28.0-62.0) fl RDW Coeff of Litzy (11.0-15.0) % Plt Count (150-400) K/uL MPV (7.40-12.00) fL Neut % (Auto) (48.0-80.0) % Lymph % (Auto) (16.0-40.0) % [place] % (Auto) (0.0-15.0) % Eos % (Auto) (0.0-7.0) % Baso % (Auto) (0.0-1.5) % Neut # (Auto) (1.4-5.7) K/uL Lymph # (Auto) (0.6-2.4) K/uL [place] # (Auto) (0.0-0.8) K/uL Eos # (Auto) (0.0-0.7) K/uL Baso # (Auto) (0.0-0.1) K/uL Nucleated RBC % /100WBC Nucleated RBCs # K/uL Sodium 145 (136-145) mmol/L Potassium 2.9 L (3.5-5.1) mmol/L Chloride 113 H (98-107) mmol/L Carbon Dioxide 23.8 (21.0-32.0) mmol/L BUN 26 H (7.0-18.0) mg/dL Creatinine 1.2 H (0.6-1.0) mg/dL Est Cr Clr Drug Dosing 41.68 mL/min Estimated GFR (MDRD) 43.7 ml/min Glucose 247 H (74-106) mg/dL POC Glucose 233 H 256 H (70-99) mg/dL Calcium 8.7 (8.5-10.1) mg/dL Magnesium 1.9 (1.8-2.4) mg/dL 05/25/21 Range/Units 16:06 WBC (4.0-11.0) K/uL RBC (4.30-5.90) M/uL Hgb (12.0-16.0) g/dL Hct (36.0-46.0) % MCV (80.0-98.0) fL MCH (27.0-32.0) pg MCHC (31.0-37.0) g/dL RDW Std Deviation (28.0-62.0) fl RDW Coeff of Litzy (11.0-15.0) % Plt Count (150-400) K/uL MPV (7.40-12.00) fL Neut % (Auto) (48.0-80.0) % Lymph % (Auto) (16.0-40.0) % [place] % (Auto) (0.0-15.0) % Eos % (Auto) (0.0-7.0) % Baso % (Auto) (0.0-1.5) % Neut # (Auto) (1.4-5.7) K/uL Lymph # (Auto) (0.6-2.4) K/uL [place] # (Auto) (0.0-0.8) K/uL Eos # (Auto) (0.0-0.7) K/uL Baso # (Auto) (0.0-0.1) K/uL Nucleated RBC % /100WBC Nucleated RBCs # K/uL Sodium 143 (136-145) mmol/L Potassium 3.4 L (3.5-5.1) mmol/L Chloride 110 H (98-107) mmol/L Carbon Dioxide 25.7 (21.0-32.0) mmol/L BUN 23 H (7.0-18.0) mg/dL Creatinine 1.2 H (0.6-1.0) mg/dL Est Cr Clr Drug Dosing 41.68 mL/min Estimated GFR (MDRD) 43.7 ml/min Glucose 222 H (74-106) mg/dL POC Glucose (70-99) mg/dL Calcium 8.8 (8.5-10.1) mg/dL Magnesium (1.8-2.4) mg/dL Chris Results Last 24 Hours: Microbiology 05/23/21 00:45 Urine Culture - Preliminary Urine Gram Negative Rods 05/23/21 00:35 Aerobic Blood Culture - Preliminary Blood - Venous - Lab Draw NO GROWTH AFTER 2 DAYS Anaerobic Blood Culture - Preliminary NO GROWTH AFTER 2 DAYS 05/23/21 00:00 Aerobic Blood Culture - Preliminary Blood - Venous NO GROWTH AFTER 2 DAYS Anaerobic Blood Culture - Preliminary NO GROWTH AFTER 2 DAYS Med Orders - Current: Current Medications Apixaban (Apixaban 5 Mg Tab) 5 mg PO BID [facility] Last Admin: 05/25/21 09:36 Dose: 5 mg Documented by: Bupropion HCl (Bupropion 150 Mg Tab.Er) 150 mg PO DAILY [facility] Last Admin: 05/25/21 09:36 Dose: 150 mg Documented by: Dextrose/Water (50% Dextrose In Water 50 Ml Syringe) 50 ml IVPUSH ASDIRECTED PRN PRN Reason: Hypoglycemia Furosemide (Furosemide 20 Mg Tab) 20 mg PO DAILY [facility] Last Admin: 05/25/21 09:36 Dose: 20 mg Documented by: Glucagon (Glucagon,Human Recombinant 1 Mg Vial) 1 mg IM ASDIRECTED PRN PRN Reason: Hypoglycemia Hydralazine HCl (Hydralazine 25 Mg Tab) 25 mg PO Q12HR [facility] Last Admin: 05/25/21 09:36 Dose: 25 mg Documented by: Vancomycin HCl 1.25 gm/ Sodium (Chloride) 250 mls @ 166.667 mls/hr IV Q24H [facility] Last Admin: 05/25/21 02:39 Dose: 166.667 mls/hr Documented by: Dextrose/Water (Dextrose 5% In Water) 1,000 mls @ 50 mls/hr IV Q13H [facility] Last Admin: 05/25/21 02:39 Dose: 125 mls/hr Documented by: Piperacillin Sod/Tazobactam (Sod 2.25 gm/ Sodium Chloride) 100 mls @ 200 mls/hr IV Q6H [facility] Last Admin: 05/25/21 12:04 Dose: 200 mls/hr Documented by: Insulin Aspart (Insulin Aspart 100 Units/Ml 3 Ml Pen) 0 unit SUBCUT TIDAC [facility]; Protocol Last Admin: 05/25/21 12:32 Dose: 3 units Documented by: Losartan Potassium (Losartan 50 Mg Tab) 50 mg PO DAILY [facility] Last Admin: 05/25/21 09:35 Dose: 50 mg Documented by: Oxycodone HCl (Oxycodone 5 Mg Tab) 5 mg PO Q12H [facility] Last Admin: 05/25/21 12:03 Dose: 5 mg Documented by: Sertraline HCl (Sertraline 100 Mg Tab) 100 mg PO DAILY [facility] Last Admin: 05/25/21 09:36 Dose: 100 mg Documented by: Sodium Chloride (Sodium Chloride 0.9% 10 Ml Syringe) 10 ml FLUSH ASDIRECTED PRN PRN Reason: Keep Vein Open Last Admin: 05/23/21 00:40 Dose: 10 ml Documented by: Sodium Chloride (Sodium Chloride 0.9% 2.5 Ml Syringe) 2.5 ml FLUSH ASDIRECTED PRN PRN Reason: Keep Vein Open Last Admin: 05/23/21 00:41 Dose: 2.5 ml Documented by: Vancomycin HCl (Pharmacy To Dose - Vancomycin) 1 dose .XX ASDIRECTED [facility] Discontinued Medications Sodium Chloride (Normal Saline) 1,000 mls @ 999 mls/hr IV .Bolus ONE Stop: 05/23/21 00:41 Last Admin: 05/23/21 00:40 Dose: 999 mls/hr Documented by: Piperacillin Sod/Tazobactam (Sod 3.375 gm/ Sodium Chloride) 50 mls @ 100 mls/hr IV ONETIME ONE Stop: 05/23/21 00:38 Last Admin: 05/23/21 00:40 Dose: 100 mls/hr Documented by: Sodium Chloride (Normal Saline) 1,000 mls @ 999 mls/hr IV .Bolus ONE Stop: 05/23/21 02:18 Last Admin: 05/23/21 02:05 Dose: 999 mls/hr Documented by: Vancomycin HCl 1.5 gm/ Premix 300 mls @ 200 mls/hr IV ONETIME ONE Stop: 05/23/21 03:13 Last Admin: 05/23/21 02:04 Dose: 200 mls/hr Documented by: Piperacillin Sod/Tazobactam (Sod 3.375 gm/ Sodium Chloride) 50 mls @ 100 mls/hr IV Q6H [facility] Sodium Chloride (Normal Saline) 1,000 mls @ 125 mls/hr IV ASDIRECTED [facility] Stop: 05/23/21 10:14 Last Admin: 05/23/21 04:33 Dose: 125 mls/hr Documented by: Piperacillin Sod/Tazobactam (Sod 2.25 gm/ Sodium Chloride) 50 mls @ 100 mls/hr IV Q6H [facility] Last Admin: 05/23/21 06:12 Dose: 100 mls/hr Documented by: Potassium Chloride 40 meq/ (Dextrose/Water) 520 mls @ 130 mls/hr IV ONETIME ONE Stop: 05/24/21 13:19 Last Admin: 05/24/21 09:30 Dose: 130 mls/hr Documented by: Magnesium Sulfate 2 gm/ Premix 50 mls @ 12.5 mls/hr IV ONETIME ONE Stop: 05/24/21 17:56 Last Admin: 05/24/21 14:35 Dose: 12.5 mls/hr Documented by: Potassium Chloride 40 meq/ (Dextrose/Water) 520 mls @ 130 mls/hr IV ONETIME ONE Stop: 05/25/21 11:44 Last Admin: 05/25/21 08:39 Dose: 130 mls/hr Documented by: Potassium Chloride (Potassium Chloride 20 Meq Tab.Er) 40 meq PO ONETIME ONE Stop: 05/23/21 09:12 Last Admin: 05/23/21 10:15 Dose: 40 meq Documented by: Potassium Chloride (Potassium Chloride 20 Meq Tab.Er) 40 meq PO ONETIME ONE Stop: 05/24/21 07:32 Last Admin: 05/24/21 11:35 Dose: Not Given Documented by: - Exam Quality Assessment: No: Supplemental Oxygen Urinary Catheter Total Time: 0Days 0Hours General: Alert Lungs: Clear to Auscultation, Normal Respiratory Effort Cardiovascular: Irregular Rhythm, Bradycardia GI/Abdominal Exam: Soft, Non-Tender Extremities: No Pedal Edema Psy/Mental Status: Alert - Patient Data Lab Results Last 24 hrs: Laboratory Results - last 24 hr 05/24/21 05/24/21 05/25/21 Range/Units 17:06 17:36 05:27 WBC 10.94 (4.0-11.0) K/uL RBC 3.88 L (4.30-5.90) M/uL Hgb 11.2 L (12.0-16.0) g/dL Hct 34.1 L (36.0-46.0) % MCV 87.9 (80.0-98.0) fL MCH 28.9 (27.0-32.0) pg MCHC 32.8 (31.0-37.0) g/dL RDW Std Deviation 52.0 (28.0-62.0) fl RDW Coeff of Litzy 16 H (11.0-15.0) % Plt Count 117 L (150-400) K/uL MPV 12.40 H (7.40-12.00) fL Neut % (Auto) 83.0 H (48.0-80.0) % Lymph % (Auto) 6.5 L (16.0-40.0) % [place] % (Auto) 6.7 (0.0-15.0) % Eos % (Auto) 3.6 (0.0-7.0) % Baso % (Auto) 0.2 (0.0-1.5) % Neut # (Auto) 9.1 H (1.4-5.7) K/uL Lymph # (Auto) 0.7 (0.6-2.4) K/uL [place] # (Auto) 0.7 (0.0-0.8) K/uL Eos # (Auto) 0.4 (0.0-0.7) K/uL Baso # (Auto) 0.0 (0.0-0.1) K/uL Nucleated RBC % 0.0 /100WBC Nucleated RBCs # 0 K/uL Sodium 146 H (136-145) mmol/L Potassium 3.2 L (3.5-5.1) mmol/L Chloride 114 H (98-107) mmol/L Carbon Dioxide 24.4 (21.0-32.0) mmol/L BUN 33 H (7.0-18.0) mg/dL Creatinine 1.4 H (0.6-1.0) mg/dL Est Cr Clr Drug Dosing 35.73 mL/min Estimated GFR (MDRD) 36.6 ml/min Glucose 297 H (74-106) mg/dL POC Glucose 289 H (70-99) mg/dL Calcium 9.2 (8.5-10.1) mg/dL Magnesium (1.8-2.4) mg/dL 05/25/21 05/25/21 05/25/21 Range/Units 05:27 06:58 12:28 WBC (4.0-11.0) K/uL RBC (4.30-5.90) M/uL Hgb (12.0-16.0) g/dL Hct (36.0-46.0) % MCV (80.0-98.0) fL MCH (27.0-32.0) pg MCHC (31.0-37.0) g/dL RDW Std Deviation (28.0-62.0) fl RDW Coeff of Litzy (11.0-15.0) % Plt Count (150-400) K/uL MPV (7.40-12.00) fL Neut % (Auto) (48.0-80.0) % Lymph % (Auto) (16.0-40.0) % [place] % (Auto) (0.0-15.0) % Eos % (Auto) (0.0-7.0) % Baso % (Auto) (0.0-1.5) % Neut # (Auto) (1.4-5.7) K/uL Lymph # (Auto) (0.6-2.4) K/uL [place] # (Auto) (0.0-0.8) K/uL Eos # (Auto) (0.0-0.7) K/uL Baso # (Auto) (0.0-0.1) K/uL Nucleated RBC % /100WBC Nucleated RBCs # K/uL Sodium 145 (136-145) mmol/L Potassium 2.9 L (3.5-5.1) mmol/L Chloride 113 H (98-107) mmol/L Carbon Dioxide 23.8 (21.0-32.0) mmol/L BUN 26 H (7.0-18.0) mg/dL Creatinine 1.2 H (0.6-1.0) mg/dL Est Cr Clr Drug Dosing 41.68 mL/min Estimated GFR (MDRD) 43.7 ml/min Glucose 247 H (74-106) mg/dL POC Glucose 233 H 256 H (70-99) mg/dL Calcium 8.7 (8.5-10.1) mg/dL Magnesium 1.9 (1.8-2.4) mg/dL 05/25/21 Range/Units 16:06 WBC (4.0-11.0) K/uL RBC (4.30-5.90) M/uL Hgb (12.0-16.0) g/dL Hct (36.0-46.0) % MCV (80.0-98.0) fL MCH (27.0-32.0) pg MCHC (31.0-37.0) g/dL RDW Std Deviation (28.0-62.0) fl RDW Coeff of Litzy (11.0-15.0) % Plt Count (150-400) K/uL MPV (7.40-12.00) fL Neut % (Auto) (48.0-80.0) % Lymph % (Auto) (16.0-40.0) % [place] % (Auto) (0.0-15.0) % Eos % (Auto) (0.0-7.0) % Baso % (Auto) (0.0-1.5) % Neut # (Auto) (1.4-5.7) K/uL Lymph # (Auto) (0.6-2.4) K/uL [place] # (Auto) (0.0-0.8) K/uL Eos # (Auto) (0.0-0.7) K/uL Baso # (Auto) (0.0-0.1) K/uL Nucleated RBC % /100WBC Nucleated RBCs # K/uL Sodium 143 (136-145) mmol/L Potassium 3.4 L (3.5-5.1) mmol/L Chloride 110 H (98-107) mmol/L Carbon Dioxide 25.7 (21.0-32.0) mmol/L BUN 23 H (7.0-18.0) mg/dL Creatinine 1.2 H (0.6-1.0) mg/dL Est Cr Clr Drug Dosing 41.68 mL/min Estimated GFR (MDRD) 43.7 ml/min Glucose 222 H (74-106) mg/dL POC Glucose (70-99) mg/dL Calcium 8.8 (8.5-10.1) mg/dL Magnesium (1.8-2.4) mg/dL Result Diagrams: 05/25/21 05:27 05/25/21 16:06 Chris Results Last 24 hrs: Microbiology 05/23/21 00:45 Urine Culture - Preliminary Urine Gram Negative Rods 05/23/21 00:35 Aerobic Blood Culture - Preliminary Blood - Venous - Lab Draw NO GROWTH AFTER 2 DAYS Anaerobic Blood Culture - Preliminary NO GROWTH AFTER 2 DAYS 05/23/21 00:00 Aerobic Blood Culture - Preliminary Blood - Venous NO GROWTH AFTER 2 DAYS Anaerobic Blood Culture - Preliminary NO GROWTH AFTER 2 DAYS Sepsis Event Note - Evaluation Sepsis Screening Result: No Definite Risk - Focused Exam Vital Signs: Vital Signs Temp Pulse Resp BP BP Pulse Ox 05/25/21 16:00 96.4 F L 51 L 20 154/78 H 97 05/25/21 12:00 96.1 F L 52 L 20 157/69 H 98 05/25/21 11:00 96.1 F L 52 L 20 157/69 H 98 05/25/21 09:36 156/72 H 05/25/21 09:35 156/72 H 05/25/21 07:11 97.0 F 50 L 20 156/72 H 98 - Problem List & Annotations (1) Cellulitis SNOMED Code(s): 182451715 Code(s): L03.90 - CELLULITIS, UNSPECIFIED Status: Acute Current Visit: Yes Qualifiers: Site of cellulitis: neck Qualified Code(s): L03.221 - Cellulitis of neck (2) Hypernatremia SNOMED Code(s): 874793665 Code(s): E87.0 - HYPEROSMOLALITY AND HYPERNATREMIA Status: Acute Current Visit: Yes (3) Parotitis SNOMED Code(s): 68955874 Code(s): K11.20 - SIALOADENITIS, UNSPECIFIED Status: Acute Current Visit: Yes (4) HERBERT (acute kidney injury) SNOMED Code(s): 17162234, 55506457 Code(s): N17.9 - ACUTE KIDNEY FAILURE, UNSPECIFIED Status: Acute Current Visit: Yes (5) Dehydration SNOMED Code(s): 99082415 Code(s): E86.0 - DEHYDRATION Status: Acute Current Visit: Yes (6) UTI (urinary tract infection) SNOMED Code(s): 03289575 Code(s): N39.0 - URINARY TRACT INFECTION, SITE NOT SPECIFIED Status: Acute Current Visit: Yes (7) Dementia SNOMED Code(s): 98830131 Code(s): F03.90 - UNSPECIFIED DEMENTIA WITHOUT BEHAVIORAL DISTURBANCE St atus: Chronic Current Visit: Yes Qualifiers: Dementia type: unspecified type (8) Hypertension SNOMED Code(s): 81620789 Code(s): I10 - ESSENTIAL (PRIMARY) HYPERTENSION Status: Chronic Current Visit: Yes - Problem List Review Problem List Initiated/Reviewed/Updated: Yes - Plan Plan:: Parotiditis-vancomycin Q24hr, Zosyn Q6hr Hypernatremia Na= 143 resolved, patient continued on D5W 125 mL/hour UTI-Zosyn Q6hr Diabetes-Insulin sliding scale, low-dose. Diabetic diet. Patient's parotiditis and cellulitis is improving. Less redness and erythema noted at the left jaw and left neck. White blood cell count has decreased to 1 0.9
[2021-05-26] MEDS: Piperacillin/Tazobactam 2.25 GM in Sodium Chloride 0.9% 100 ML IV SCH ×5 (01:25→23:00)
[2021-05-26] MEDS: oxyCODONE 5 MG Tab PO SCH ×3 (01:27→22:46)
[2021-05-26 06:19] LABS: CARBON DIOXIDE,CO2 24.4 mmol/L (21.0-32.0); POTASSIUM,K 3.2 mmol/L (3.5-5.1)
[2021-05-26] MEDS ORDERED: Magnesium Sulfate/Water 2 GM in Premix Bag 1 BAG IV ONE (07:20)
[2021-05-26] MEDS ORDERED: WATER IV ONE ×3 (08:00)
[2021-05-26] MEDS ORDERED: MAGNESIUM SULFATE IV ONE ×3 (08:00)
[2021-05-26] MEDS ORDERED: POTASSIUM CHLORIDE IV ONE ×3 (08:00)
[2021-05-26] MEDS ORDERED: DEXTROSE 5% IV ONE ×3 (08:00)
[2021-05-26] MEDS: Insulin Aspart 100 Units/ML 3 ML Pen SUBCUT SCH ×3 (08:41→17:21)
[2021-05-26] MEDS: Losartan 50 MG Tab PO SCH (09:08)
[2021-05-26] MEDS: buPROPion 150 MG Tab.ER PO SCH (09:10)
[2021-05-26] MEDS: Apixaban 5 MG Tab PO SCH ×2 (09:10→20:02)
[2021-05-26] MEDS: hydrALAZINE 25 MG Tab PO SCH ×2 (09:10→20:03)
[2021-05-26] MEDS: Furosemide 20 MG Tab PO SCH (09:10)
[2021-05-26] MEDS: Sertraline 100 MG Tab PO SCH (09:10)
--- NOTE | 2021-05-26 13:45 | PCM.PN ---
- General Info Date of Service: 05/26/21 Subjective Update: No nursing concerns overnight. Patient appears more alert this morning, still not communicating verbally but does grimace due to pain when palpating left side of face. - Review of Systems General: Denies: Fever, Chills Pulmonary: Denies: Shortness of Breath Gastrointestinal: Denies: Vomiting - Patient Data Vitals - Most Recent: Last Vital Signs Temp 96.5 F L 05/26/21 11:57 Pulse 55 L 05/26/21 11:57 Resp 22 H 05/26/21 11:57 BP 147/64 H 05/26/21 11:57 Pulse Ox 98 05/26/21 11:57 Weight - Most Recent: 199 lb 8.293 oz I&O - Last 24 Hours: Intake & Output 05/25/21 05/26/21 05/26/21 22:59 06:59 14:59 Intake Total 1055 747 Output Total 450 400 Balance 605 347 Lab Results Last 24 Hours: Laboratory Results - last 24 hr 05/25/21 05/25/21 05/26/21 Range/Units 16:06 17:28 01:05 WBC (4.0-11.0) K/uL RBC (4.30-5.90) M/uL Hgb (12.0-16.0) g/dL Hct (36.0-46.0) % MCV (80.0-98.0) fL MCH (27.0-32.0) pg MCHC (31.0-37.0) g/dL RDW Std Deviation (28.0-62.0) fl RDW Coeff of Litzy (11.0-15.0) % Plt Count (150-400) K/uL MPV (7.40-12.00) fL Add Manual Diff Neutrophils % (Manual) (48.0-80.0) % Lymphocytes % (Manual) (16.0-40.0) % Monocytes % (Manual) (0.0-15.0) % Eosinophils % (Manual) (0.0-7.0) % Basophils % (Manual) (0.0-1.5) % Nucleated RBC % /100WBC Absolute Seg Neuts (1.4-5.7) Lymphocytes # (Manual) (0.6-2.4) Monocytes # (Manual) (0.0-0.8) Eosinophils # (Manual) (0.0-0.7) Basophils # (Manual) (0.0-0.1) Nucleated RBCs # K/uL Sodium 143 (136-145) mmol/L Potassium 3.4 L (3.5-5.1) mmol/L Chloride 110 H (98-107) mmol/L Carbon Dioxide 25.7 (21.0-32.0) mmol/L BUN 23 H (7.0-18.0) mg/dL Creatinine 1.2 H (0.6-1.0) mg/dL Est Cr Clr Drug Dosing 41.68 mL/min Estimated GFR (MDRD) 43.7 ml/min Glucose 222 H (74-106) mg/dL POC Glucose 217 H (70-99) mg/dL Calcium 8.8 (8.5-10.1) mg/dL Magnesium (1.8-2.4) mg/dL Vancomycin Trough 17.8 H (5.0-10.0) ug/mL 05/26/21 05/26/21 05/26/21 Range/Units 05:43 05:43 06:12 WBC 9.61 (4.0-11.0) K/uL RBC 4.08 L (4.30-5.90) M/uL Hgb 11.9 L (12.0-16.0) g/dL Hct 35.5 L (36.0-46.0) % MCV 87.0 (80.0-98.0) fL MCH 29.2 (27.0-32.0) pg MCHC 33.5 (31.0-37.0) g/dL RDW Std Deviation 50.6 (28.0-62.0) fl RDW Coeff of Litzy 16 H (11.0-15.0) % Plt Count 119 L (150-400) K/uL MPV 11.80 (7.40-12.00) fL Add Manual Diff YES Neutrophils % (Manual) 79 (48.0-80.0) % Lymphocytes % (Manual) 7 L (16.0-40.0) % Monocytes % (Manual) 5 (0.0-15.0) % Eosinophils % (Manual) 8 H (0.0-7.0) % Basophils % (Manual) 1 (0.0-1.5) % Nucleated RBC % 0.0 /100WBC Absolute Seg Neuts 7.6 H (1.4-5.7) Lymphocytes # (Manual) 0.7 (0.6-2.4) Monocytes # (Manual) 0.5 (0.0-0.8) Eosinophils # (Manual) 0.8 H (0.0-0.7) Basophils # (Manual) 0.1 (0.0-0.1) Nucleated RBCs # 0 K/uL Sodium 140 (136-145) mmol/L Potassium 3.2 L (3.5-5.1) mmol/L Chloride 106 (98-107) mmol/L Carbon Dioxide 24.4 (21.0-32.0) mmol/L BUN 18 (7.0-18.0) mg/dL Creatinine 1.1 H (0.6-1.0) mg/dL Est Cr Clr Drug Dosing 45.47 mL/min Estimated GFR (MDRD) 48.3 ml/min Glucose 232 H (74-106) mg/dL POC Glucose 212 H (70-99) mg/dL Calcium 8.8 (8.5-10.1) mg/dL Magnesium 1.6 L (1.8-2.4) mg/dL Vancomycin Trough (5.0-10.0) ug/mL 05/26/21 Range/Units 11:53 WBC (4.0-11.0) K/uL RBC (4.30-5.90) M/uL Hgb (12.0-16.0) g/dL Hct (36.0-46.0) % MCV (80.0-98.0) fL MCH (27.0-32.0) pg MCHC (31.0-37.0) g/dL RDW Std Deviation (28.0-62.0) fl RDW Coeff of Litzy (11.0-15.0) % Plt Count (150-400) K/uL MPV (7.40-12.00) fL Add Manual Diff Neutrophils % (Manual) (48.0-80.0) % Lymphocytes % (Manual) (16.0-40.0) % Monocytes % (Manual) (0.0-15.0) % Eosinophils % (Manual) (0.0-7.0) % Basophils % (Manual) (0.0-1.5) % Nucleated RBC % /100WBC Absolute Seg Neuts (1.4-5.7) Lymphocytes # (Manual) (0.6-2.4) Monocytes # (Manual) (0.0-0.8) Eosinophils # (Manual) (0.0-0.7) Basophils # (Manual) (0.0-0.1) Nucleated RBCs # K/uL Sodium (136-145) mmol/L Potassium (3.5-5.1) mmol/L Chloride (98-107) mmol/L Carbon Dioxide (21.0-32.0) mmol/L BUN (7.0-18.0) mg/dL Creatinine (0.6-1.0) mg/dL Est Cr Clr Drug Dosing mL/min Estimated GFR (MDRD) ml/min Glucose (74-106) mg/dL POC Glucose 204 H (70-99) mg/dL Calcium (8.5-10.1) mg/dL Magnesium (1.8-2.4) mg/dL Vancomycin Trough (5.0-10.0) ug/mL Chris Results Last 24 Hours: Microbiology 05/23/21 00:45 Urine Culture - Final Urine Proteus Mirabilis 05/23/21 00:35 Aerobic Blood Culture - Preliminary Blood - Venous - Lab Draw NO GROWTH AFTER 3 DAYS Anaerobic Blood Culture - Preliminary NO GROWTH AFTER 3 DAYS 05/23/21 00:00 Aerobic Blood Culture - Preliminary Blood - Venous NO GROWTH AFTER 3 DAYS Anaerobic Blood Culture - Preliminary NO GROWTH AFTER 3 DAYS Med Orders - Current: Current Medications Apixaban (Apixaban 5 Mg Tab) 5 mg PO BID [facility] Last Admin: 05/26/21 09:10 Dose: 5 mg Documented by: Bupropion HCl (Bupropion 150 Mg Tab.Er) 150 mg PO DAILY [facility] Last Admin: 05/26/21 09:10 Dose: 150 mg Documented by: Dextrose/Water (50% Dextrose In Water 50 Ml Syringe) 50 ml IVPUSH ASDIRECTED PRN PRN Reason: Hypoglycemia Furosemide (Furosemide 20 Mg Tab) 20 mg PO DAILY [facility] Last Admin: 05/26/21 09:10 Dose: 20 mg Documented by: Glucagon (Glucagon,Human Recombinant 1 Mg Vial) 1 mg IM ASDIRECTED PRN PRN Reason: Hypoglycemia Hydralazine HCl (Hydralazine 25 Mg Tab) 25 mg PO Q12HR [facility] Last Admin: 05/26/21 09:10 Dose: 25 mg Documented by: Piperacillin Sod/Tazobactam (Sod 2.25 gm/ Sodium Chloride) 100 mls @ 200 mls/hr IV Q6H [facility] Last Admin: 05/26/21 12:01 Dose: 200 mls/hr Documented by: Vancomycin HCl 1 gm/ Sodium (Chloride) 250 mls @ 166 mls/hr IV Q24H [facility] Last Admin: 05/26/21 08:38 Dose: 166 mls/hr Documented by: Potassium Chloride 40 meq/Magnesium Sulfate 2 gm/Dextrose/Water 500 mls @ 75 mls/hr IV ONETIME ONE Stop: 05/26/21 14:39 Last Admin: 05/26/21 10:32 Dose: 75 mls/hr Documented by: Insulin Aspart (Insulin Aspart 100 Units/Ml 3 Ml Pen) 0 unit SUBCUT TIDAC [facility]; Protocol Last Admin: 05/26/21 12:05 Dose: 2 units Documented by: Losartan Potassium (Losartan 50 Mg Tab) 50 mg PO DAILY [facility] Last Admin: 05/26/21 09:08 Dose: 50 mg Documented by: Oxycodone HCl (Oxycodone 5 Mg Tab) 5 mg PO Q12H [facility] Last Admin: 05/26/21 12:05 Dose: 5 mg Documented by: Sertraline HCl (Sertraline 100 Mg Tab) 100 mg PO DAILY [facility] Last Admin: 05/26/21 09:10 Dose: 100 mg Documented by: Sodium Chloride (Sodium Chloride 0.9% 10 Ml Syringe) 10 ml FLUSH ASDIRECTED PRN PRN Reason: Keep Vein Open Last Admin: 05/23/21 00:40 Dose: 10 ml Documented by: Sodium Chloride (Sodium Chloride 0.9% 2.5 Ml Syringe) 2.5 ml FLUSH ASDIRECTED PRN PRN Reason: Keep Vein Open Last Admin: 05/23/21 00:41 Dose: 2.5 ml Documented by: Vancomycin HCl (Pharmacy To Dose - Vancomycin) 1 dose .XX ASDIRECTED [facility] Discontinued Medications Sodium Chloride (Normal Saline) 1,000 mls @ 999 mls/hr IV .Bolus ONE Stop: 05/23/21 00:41 Last Admin: 05/23/21 00:40 Dose: 999 mls/hr Documented by: Piperacillin Sod/Tazobactam (Sod 3.375 gm/ Sodium Chloride) 50 mls @ 100 mls/hr IV ONETIME ONE Stop: 05/23/21 00:38 Last Admin: 05/23/21 00:40 Dose: 100 mls/hr Documented by: Sodium Chloride (Normal Saline) 1,000 mls @ 999 mls/hr IV .Bolus ONE Stop: 05/23/21 02:18 Last Admin: 05/23/21 02:05 Dose: 999 mls/hr Documented by: Vancomycin HCl 1.5 gm/ Premix 300 mls @ 200 mls/hr IV ONETIME ONE Stop: 05/23/21 03:13 Last Admin: 05/23/21 02:04 Dose: 200 mls/hr Documented by: Piperacillin Sod/Tazobactam (Sod 3.375 gm/ Sodium Chloride) 50 mls @ 100 mls/hr IV Q6H [facility] Sodium Chloride (Normal Saline) 1,000 mls @ 125 mls/hr IV ASDIRECTED [facility] Stop: 05/23/21 10:14 Last Admin: 05/23/21 04:33 Dose: 125 mls/hr Documented by: Vancomycin HCl 1.25 gm/ Sodium (Chloride) 250 mls @ 166.667 mls/hr IV Q24H [facility] Last Admin: 05/25/21 02:39 Dose: 166.667 mls/hr Documented by: Piperacillin Sod/Tazobactam (Sod 2.25 gm/ Sodium Chloride) 50 mls @ 100 mls/hr IV Q6H [facility] Last Admin: 05/23/21 06:12 Dose: 100 mls/hr Documented by: Dextrose/Water (Dextrose 5% In Water) 1,000 mls @ 50 mls/hr IV Q13H [facility] Last Admin: 05/25/21 18:11 Dose: 50 mls/hr Documented by: Potassium Chloride 40 meq/ (Dextrose/Water) 520 mls @ 130 mls/hr IV ONETIME ONE Stop: 05/24/21 13:19 Last Admin: 05/24/21 09:30 Dose: 130 mls/hr Documented by: Magnesium Sulfate 2 gm/ Premix 50 mls @ 12.5 mls/hr IV ONETIME ONE Stop: 05/24/21 17:56 Last Admin: 05/24/21 14:35 Dose: 12.5 mls/hr Documented by: Potassium Chloride 40 meq/ (Dextrose/Water) 520 mls @ 130 mls/hr IV ONETIME ONE Stop: 05/25/21 11:44 Last Admin: 05/25/21 08:39 Dose: 130 mls/hr Documented by: Potassium Chloride 40 meq/ (Dextrose/Water) 520 mls @ 75 mls/hr IV ONETIME ONE Stop: 05/26/21 14:35 Last Admin: 05/26/21 10:41 Dose: Not Given Documented by: Potassium Chloride (Potassium Chloride 20 Meq Tab.Er) 40 meq PO ONETIME ONE Stop: 05/23/21 09:12 Last Admin: 05/23/21 10:15 Dose: 40 meq Documented by: Potassium Chloride (Potassium Chloride 20 Meq Tab.Er) 40 meq PO ONETIME ONE Stop: 05/24/21 07:32 Last Admin: 05/24/21 11:35 Dose: Not Given Documented by: - Exam Urinary Catheter Total Time: 1Days 14Hours General: Alert, Oriented Lungs: Clear to Auscultation, Normal Respiratory Effort Cardiovascular: Irregular Rhythm, Bradycardia GI/Abdominal Exam: Soft Extremities: No Pedal Edema - Patient Data Lab Results Last 24 hrs: Laboratory Results - last 24 hr 05/25/21 05/25/21 05/26/21 Range/Units 16:06 17:28 01:05 WBC (4.0-11.0) K/uL RBC (4.30-5.90) M/uL Hgb (12.0-16.0) g/dL Hct (36.0-46.0) % MCV (80.0-98.0) fL MCH (27.0-32.0) pg MCHC (31.0-37.0) g/dL RDW Std Deviation (28.0-62.0) fl RDW Coeff of Litzy (11.0-15.0) % Plt Count (150-400) K/uL MPV (7.40-12.00) fL Add Manual Diff Neutrophils % (Manual) (48.0-80.0) % Lymphocytes % (Manual) (16.0-40.0) % Monocytes % (Manual) (0.0-15.0) % Eosinophils % (Manual) (0.0-7.0) % Basophils % (Manual) (0.0-1.5) % Nucleated RBC % /100WBC Absolute Seg Neuts (1.4-5.7) Lymphocytes # (Manual) (0.6-2.4) Monocytes # (Manual) (0.0-0.8) Eosinophils # (Manual) (0.0-0.7) Basophils # (Manual) (0.0-0.1) Nucleated RBCs # K/uL Sodium 143 (136-145) mmol/L Potassium 3.4 L (3.5-5.1) mmol/L Chloride 110 H (98-107) mmol/L Carbon Dioxide 25.7 (21.0-32.0) mmol/L BUN 23 H (7.0-18.0) mg/dL Creatinine 1.2 H (0.6-1.0) mg/dL Est Cr Clr Drug Dosing 41.68 mL/min Estimated GFR (MDRD) 43.7 ml/min Glucose 222 H (74-106) mg/dL POC Glucose 217 H (70-99) mg/dL Calcium 8.8 (8.5-10.1) mg/dL Magnesium (1.8-2.4) mg/dL Vancomycin Trough 17.8 H (5.0-10.0) ug/mL 05/26/21 05/26/21 05/26/21 Range/Units 05:43 05:43 06:12 WBC 9.61 (4.0-11.0) K/uL RBC 4.08 L (4.30-5.90) M/uL Hgb 11.9 L (12.0-16.0) g/dL Hct 35.5 L (36.0-46.0) % MCV 87.0 (80.0-98.0) fL MCH 29.2 (27.0-32.0) pg MCHC 33.5 (31.0-37.0) g/dL RDW Std Deviation 50.6 (28.0-62.0) fl RDW Coeff of Litzy 16 H (11.0-15.0) % Plt Count 119 L (150-400) K/uL MPV 11.80 (7.40-12.00) fL Add Manual Diff YES Neutrophils % (Manual) 79 (48.0-80.0) % Lymphocytes % (Manual) 7 L (16.0-40.0) % Monocytes % (Manual) 5 (0.0-15.0) % Eosinophils % (Manual) 8 H (0.0-7.0) % Basophils % (Manual) 1 (0.0-1.5) % Nucleated RBC % 0.0 /100WBC Absolute Seg Neuts 7.6 H (1.4-5.7) Lymphocytes # (Manual) 0.7 (0.6-2.4) Monocytes # (Manual) 0.5 (0.0-0.8) Eosinophils # (Manual) 0.8 H (0.0-0.7) Basophils # (Manual) 0.1 (0.0-0.1) Nucleated RBCs # 0 K/uL Sodium 140 (136-145) mmol/L Potassium 3.2 L (3.5-5.1) mmol/L Chloride 106 (98-107) mmol/L Carbon Dioxide 24.4 (21.0-32.0) mmol/L BUN 18 (7.0-18.0) mg/dL Creatinine 1.1 H (0.6-1.0) mg/dL Est Cr Clr Drug Dosing 45.47 mL/min Estimated GFR (MDRD) 48.3 ml/min Glucose 232 H (74-106) mg/dL POC Glucose 212 H (70-99) mg/dL Calcium 8.8 (8.5-10.1) mg/dL Magnesium 1.6 L (1.8-2.4) mg/dL Vancomycin Trough (5.0-10.0) ug/mL 05/26/21 Range/Units 11:53 WBC (4.0-11.0) K/uL RBC (4.30-5.90) M/uL Hgb (12.0-16.0) g/dL Hct (36.0-46.0) % MCV (80.0-98.0) fL MCH (27.0-32.0) pg MCHC (31.0-37.0) g/dL RDW Std Deviation (28.0-62.0) fl RDW Coeff of Litzy (11.0-15.0) % Plt Count (150-400) K/uL MPV (7.40-12.00) fL Add Manual Diff Neutrophils % (Manual) (48.0-80.0) % Lymphocytes % (Manual) (16.0-40.0) % Monocytes % (Manual) (0.0-15.0) % Eosinophils % (Manual) (0.0-7.0) % Basophils % (Manual) (0.0-1.5) % Nucleated RBC % /100WBC Absolute Seg Neuts (1.4-5.7) Lymphocytes # (Manual) (0.6-2.4) Monocytes # (Manual) (0.0-0.8) Eosinophils # (Manual) (0.0-0.7) Basophils # (Manual) (0.0-0.1) Nucleated RBCs # K/uL Sodium (136-145) mmol/L Potassium (3.5-5.1) mmol/L Chloride (98-107) mmol/L Carbon Dioxide (21.0-32.0) mmol/L BUN (7.0-18.0) mg/dL Creatinine (0.6-1.0) mg/dL Est Cr Clr Drug Dosing mL/min Estimated GFR (MDRD) ml/min Glucose (74-106) mg/dL POC Glucose 204 H (70-99) mg/dL Calcium (8.5-10.1) mg/dL Magnesium (1.8-2.4) mg/dL Vancomycin Trough (5.0-10.0) ug/mL Result Diagrams: 05/26/21 05:43 05/26/21 05:43 Chris Results Last 24 hrs: Microbiology 05/23/21 00:45 Urine Culture - Final Urine Proteus Mirabilis 05/23/21 00:35 Aerobic Blood Culture - Preliminary Blood - Venous - Lab Draw NO GROWTH AFTER 3 DAYS Anaerobic Blood Culture - Preliminary NO GROWTH AFTER 3 DAYS 05/23/21 00:00 Aerobic Blood Culture - Preliminary Blood - Venous NO GROWTH AFTER 3 DAYS Anaerobic Blood Culture - Preliminary NO GROWTH AFTER 3 DAYS Sepsis Event Note - Evaluation Sepsis Screening Result: No Definite Risk - Focused Exam Vital Signs: Vital Signs Temp Pulse Resp BP BP Pulse Ox 05/26/21 11:57 96.5 F L 55 L 22 H 147/64 H 98 05/26/21 09:10 175/74 H 05/26/21 09:08 175/74 H 05/26/21 07:52 96.6 F L 65 22 H 175/74 H 91 L 05/26/21 04:00 96.6 F L 48 L 20 174/71 H 97 - Problem List & Annotations (1) Cellulitis SNOMED Code(s): 093173805 Code(s): L03.90 - CELLULITIS, UNSPECIFIED Status: Acute Current Visit: Yes Qualifiers: Site of cellulitis: neck Qualified Code(s): L03.221 - Cellulitis of neck (2) Hypernatremia SNOMED Code(s): 698385181 Code(s): E87.0 - HYPEROSMOLALITY AND HYPERNATREMIA Status: Acute Current Visit: Yes (3) Parotitis SNOMED Code(s): 46634291 Code(s): K11.20 - SIALOADENITIS, UNSPECIFIED Status: Acute Current Visit: Yes (4) HERBERT (acute kidney injury) SNOMED Code(s): 49466961, 36269276 Code(s): N17.9 - ACUTE KIDNEY FAILURE, UNSPECIFIED Status: Acute Current Visit: Yes (5) Dehydration SNOMED Code(s): 70077510 Code(s): E86.0 - DEHYDRATION Status: Acute Current Visit: Yes (6) UTI (urinary tract infection) SNOMED Code(s): 95540341 Code(s): N39.0 - URINARY TRACT INFECTION, SITE NOT SPECIFIED Status: Acute Current Visit: Yes (7) Dementia SNOMED Code(s): 97254984 Code(s): F03.90 - UNSPECIFIED DEMENTIA WITHOUT BEHAVIORAL DISTURBANCE S tatus: Chronic Current Visit: Yes Qualifiers: Dementia type: unspecified type (8) Hypertension SNOMED Code(s): 15561498 Code(s): I10 - ESSENTIAL (PRIMARY) HYPERTENSION Status: Chronic Current Visit: Yes - Problem List Review Problem List Initiated/Reviewed/Updated: Yes - My Orders Last 24 Hours: My Active Orders 05/26/21 08:00 Potassium Chloride 40 meq Magnesium Sulfate/Water [Magnesium Sulfate in Water 2 GM/50 ML] 2 gm Dextrose 5% in Water 430 ml IV ONETIME - Plan Plan:: Parotiditis-vancomycin Q24hr, Zosyn Q6hrr UTI-Zosyn Q6hr Diabetes-Insulin sliding scale, low-dose. Diabetic diet. Patient's parotiditis and cellulitis is improving. Less redness and erythema noted at the left jaw and left neck.
[2021-05-27] MEDS: Piperacillin/Tazobactam 2.25 GM in Sodium Chloride 0.9% 100 ML IV SCH ×3 (05:50→19:31)
[2021-05-27 07:27] LABS: CARBON DIOXIDE,CO2 25.1 mmol/L (21.0-32.0); POTASSIUM,K 3.4 mmol/L (3.5-5.1)
[2021-05-27] MEDS: Insulin Aspart 100 Units/ML 3 ML Pen SUBCUT SCH ×3 (07:30→18:13)
[2021-05-27] MEDS: Losartan 50 MG Tab PO SCH (08:39)
[2021-05-27] MEDS: Furosemide 20 MG Tab PO SCH (08:39)
[2021-05-27] MEDS: Apixaban 5 MG Tab PO SCH ×2 (08:39→20:49)
[2021-05-27] MEDS: buPROPion 150 MG Tab.ER PO SCH (08:40)
[2021-05-27] MEDS: hydrALAZINE 25 MG Tab PO SCH ×2 (08:40→20:48)
[2021-05-27] MEDS: Sertraline 100 MG Tab PO SCH (08:40)
[2021-05-27] MEDS: oxyCODONE 5 MG Tab PO SCH (11:46)
--- NOTE | 2021-05-27 12:04 | PCM.PN ---
- General Info Date of Service: 05/27/21 Subjective Update: Patient alert and feeding this morning. Patient still has dermis reaction when palpating left aspect of neck and left side of jaw. Patient did have 4 watery stools yesterday evening and overnight, stool culture was sent results negative for C. difficile. Patient does not appear to be in respiratory distress. - Review of Systems General: Denies: Fever, Chills Pulmonary: Denies: Shortness of Breath, Cough Gastrointestinal: Denies: Vomiting - Patient Data Vitals - Most Recent: Last Vital Signs Temp 97.3 F 05/27/21 07:47 Pulse 60 05/27/21 07:47 Resp 20 05/27/21 07:47 BP 164/77 H 05/27/21 08:40 Pulse Ox 94 L 05/27/21 07:47 Weight - Most Recent: 199 lb 8.293 oz I&O - Last 24 Hours: Intake & Output 05/26/21 05/27/21 05/27/21 22:59 06:59 14:59 Intake Total 800 350 Output Total 650 550 Balance 150 -200 Lab Results Last 24 Hours: Laboratory Results - last 24 hr 05/26/21 05/26/21 05/27/21 Range/Units 11:53 17:19 06:46 WBC (4.0-11.0) K/uL RBC (4.30-5.90) M/uL Hgb (12.0-16.0) g/dL Hct (36.0-46.0) % MCV (80.0-98.0) fL MCH (27.0-32.0) pg MCHC (31.0-37.0) g/dL RDW Std Deviation (28.0-62.0) fl RDW Coeff of Litzy (11.0-15.0) % Plt Count (150-400) K/uL MPV (7.40-12.00) fL Neut % (Auto) (48.0-80.0) % Lymph % (Auto) (16.0-40.0) % Forrest % (Auto) (0.0-15.0) % Eos % (Auto) (0.0-7.0) % Baso % (Auto) (0.0-1.5) % Neut # (Auto) (1.4-5.7) K/uL Lymph # (Auto) (0.6-2.4) K/uL Forrest # (Auto) (0.0-0.8) K/uL Eos # (Auto) (0.0-0.7) K/uL Baso # (Auto) (0.0-0.1) K/uL Nucleated RBC % /100WBC Nucleated RBCs # K/uL Sodium (136-145) mmol/L Potassium (3.5-5.1) mmol/L Chloride (98-107) mmol/L Carbon Dioxide (21.0-32.0) mmol/L BUN (7.0-18.0) mg/dL Creatinine (0.6-1.0) mg/dL Est Cr Clr Drug Dosing mL/min Estimated GFR (MDRD) ml/min Glucose (74-106) mg/dL POC Glucose 204 H 214 H 149 H (70-99) mg/dL Calcium (8.5-10.1) mg/dL 05/27/21 05/27/21 05/27/21 Range/Units 07:03 07:03 11:33 WBC 10.05 (4.0-11.0) K/uL RBC 3.75 L (4.30-5.90) M/uL Hgb 11.0 L (12.0-16.0) g/dL Hct 32.5 L (36.0-46.0) % MCV 86.7 (80.0-98.0) fL MCH 29.3 (27.0-32.0) pg MCHC 33.8 (31.0-37.0) g/dL RDW Std Deviation 50.1 (28.0-62.0) fl RDW Coeff of Litzy 16 H (11.0-15.0) % Plt Count 136 L (150-400) K/uL MPV 11.20 (7.40-12.00) fL Neut % (Auto) 79.5 (48.0-80.0) % Lymph % (Auto) 7.8 L (16.0-40.0) % Forrest % (Auto) 8.3 (0.0-15.0) % Eos % (Auto) 4.0 (0.0-7.0) % Baso % (Auto) 0.4 (0.0-1.5) % Neut # (Auto) 8.0 H (1.4-5.7) K/uL Lymph # (Auto) 0.8 (0.6-2.4) K/uL Forrest # (Auto) 0.8 (0.0-0.8) K/uL Eos # (Auto) 0.4 (0.0-0.7) K/uL Baso # (Auto) 0.0 (0.0-0.1) K/uL Nucleated RBC % 0.0 /100WBC Nucleated RBCs # 0 K/uL Sodium 142 (136-145) mmol/L Potassium 3.4 L (3.5-5.1) mmol/L Chloride 109 H (98-107) mmol/L Carbon Dioxide 25.1 (21.0-32.0) mmol/L BUN 12 (7.0-18.0) mg/dL Creatinine 1.0 (0.6-1.0) mg/dL Est Cr Clr Drug Dosing 50.02 mL/min Estimated GFR (MDRD) 53.9 ml/min Glucose 151 H (74-106) mg/dL POC Glucose 160 H (70-99) mg/dL Calcium 8.8 (8.5-10.1) mg/dL Chris Results Last 24 Hours: Microbiology 05/26/21 06:30 C. difficile Antigen & Toxins A,B - Final Stool / Feces 05/23/21 00:35 Aerobic Blood Culture - Preliminary Blood - Venous - Lab Draw NO GROWTH AFTER 4 DAYS Anaerobic Blood Culture - Preliminary NO GROWTH AFTER 4 DAYS 05/23/21 00:00 Aerobic Blood Culture - Preliminary Blood - Venous NO GROWTH AFTER 4 DAYS Anaerobic Blood Culture - Preliminary NO GROWTH AFTER 4 DAYS 05/23/21 00:45 Urine Culture - Final Urine Proteus Mirabilis Med Orders - Current: Current Medications Apixaban (Apixaban 5 Mg Tab) 5 mg PO BID [facility] Last Admin: 05/27/21 08:39 Dose: 5 mg Documented by: Bupropion HCl (Bupropion 150 Mg Tab.Er) 150 mg PO DAILY [facility] Last Admin: 05/27/21 08:40 Dose: 150 mg Documented by: Dextrose/Water (50% Dextrose In Water 50 Ml Syringe) 50 ml IVPUSH ASDIRECTED PRN PRN Reason: Hypoglycemia Furosemide (Furosemide 20 Mg Tab) 20 mg PO DAILY [facility] Last Admin: 05/27/21 08:39 Dose: 20 mg Documented by: Glucagon (Glucagon,Human Recombinant 1 Mg Vial) 1 mg IM ASDIRECTED PRN PRN Reason: Hypoglycemia Hydralazine HCl (Hydralazine 25 Mg Tab) 25 mg PO Q12HR [facility] Last Admin: 05/27/21 08:40 Dose: 25 mg Documented by: Vancomycin HCl 1 gm/ Sodium (Chloride) 250 mls @ 166 mls/hr IV Q24H [facility] Last Admin: 05/27/21 08:39 Dose: 166 mls/hr Documented by: Piperacillin Sod/Tazobactam (Sod 2.25 gm/ Sodium Chloride) 100 mls @ 200 mls/hr IV Q6H [facility] Last Admin: 05/27/21 05:50 Dose: 200 mls/hr Documented by: Insulin Aspart (Insulin Aspart 100 Units/Ml 3 Ml Pen) 0 unit SUBCUT TIDAC [facility]; Protocol Last Admin: 05/27/21 07:30 Dose: Not Given Documented by: Losartan Potassium (Losartan 50 Mg Tab) 50 mg PO DAILY [facility] Last Admin: 05/27/21 08:39 Dose: 50 mg Documented by: Oxycodone HCl (Oxycodone 5 Mg Tab) 5 mg PO Q12H [facility] Last Admin: 05/26/21 22:46 Dose: 5 mg Documented by: Sertraline HCl (Sertraline 100 Mg Tab) 100 mg PO DAILY [facility] Last Admin: 05/27/21 08:40 Dose: 100 mg Documented by: Sodium Chloride (Sodium Chloride 0.9% 10 Ml Syringe) 10 ml FLUSH ASDIRECTED PRN PRN Reason: Keep Vein Open Last Admin: 05/23/21 00:40 Dose: 10 ml Documented by: Sodium Chloride (Sodium Chloride 0.9% 2.5 Ml Syringe) 2.5 ml FLUSH ASDIRECTED PRN PRN Reason: Keep Vein Open Last Admin: 05/23/21 00:41 Dose: 2.5 ml Documented by: Vancomycin HCl (Pharmacy To Dose - Vancomycin) 1 dose .XX ASDIRECTED [facility] Discontinued Medications Sodium Chloride (Normal Saline) 1,000 mls @ 999 mls/hr IV .Bolus ONE Stop: 05/23/21 00:41 Last Admin: 05/23/21 00:40 Dose: 999 mls/hr Documented by: Piperacillin Sod/Tazobactam (Sod 3.375 gm/ Sodium Chloride) 50 mls @ 100 mls/hr IV ONETIME ONE Stop: 05/23/21 00:38 Last Admin: 05/23/21 00:40 Dose: 100 mls/hr Documented by: Sodium Chloride (Normal Saline) 1,000 mls @ 999 mls/hr IV .Bolus ONE Stop: 05/23/21 02:18 Last Admin: 05/23/21 02:05 Dose: 999 mls/hr Documented by: Vancomycin HCl 1.5 gm/ Premix 300 mls @ 200 mls/hr IV ONETIME ONE Stop: 05/23/21 03:13 Last Admin: 05/23/21 02:04 Dose: 200 mls/hr Documented by: Piperacillin Sod/Tazobactam (Sod 3.375 gm/ Sodium Chloride) 50 mls @ 100 mls/hr IV Q6H [facility] Sodium Chloride (Normal Saline) 1,000 mls @ 125 mls/hr IV ASDIRECTED [facility] Stop: 05/23/21 10:14 Last Admin: 05/23/21 04:33 Dose: 125 mls/hr Documented by: Vancomycin HCl 1.25 gm/ Sodium (Chloride) 250 mls @ 166.667 mls/hr IV Q24H [facility] Last Admin: 05/25/21 02:39 Dose: 166.667 mls/hr Documented by: Piperacillin Sod/Tazobactam (Sod 2.25 gm/ Sodium Chloride) 50 mls @ 100 mls/hr IV Q6H [facility] Last Admin: 05/23/21 06:12 Dose: 100 mls/hr Documented by: Dextrose/Water (Dextrose 5% In Water) 1,000 mls @ 50 mls/hr IV Q13H [facility] Last Admin: 05/25/21 18:11 Dose: 50 mls/hr Documented by: Piperacillin Sod/Tazobactam (Sod 2.25 gm/ Sodium Chloride) 100 mls @ 200 mls/hr IV Q6H [facility] Last Admin: 05/26/21 12:01 Dose: 200 mls/hr Documented by: Potassium Chloride 40 meq/ (Dextrose/Water) 520 mls @ 130 mls/hr IV ONETIME ONE Stop: 05/24/21 13:19 Last Admin: 05/24/21 09:30 Dose: 130 mls/hr Documented by: Magnesium Sulfate 2 gm/ Premix 50 mls @ 12.5 mls/hr IV ONETIME ONE Stop: 05/24/21 17:56 Last Admin: 05/24/21 14:35 Dose: 12.5 mls/hr Documented by: Potassium Chloride 40 meq/ (Dextrose/Water) 520 mls @ 130 mls/hr IV ONETIME ONE Stop: 05/25/21 11:44 Last Admin: 05/25/21 08:39 Dose: 130 mls/hr Documented by: Potassium Chloride 40 meq/ (Dextrose/Water) 520 mls @ 75 mls/hr IV ONETIME ONE Stop: 05/26/21 14:35 Last Admin: 05/26/21 10:41 Dose: Not Given Documented by: Potassium Chloride 40 meq/Magnesium Sulfate 2 gm/Dextrose/Water 500 mls @ 75 mls/hr IV ONETIME ONE Stop: 05/26/21 14:39 Last Admin: 05/26/21 10:32 Dose: 75 mls/hr Documented by: Potassium Chloride (Potassium Chloride 20 Meq Tab.Er) 40 meq PO ONETIME ONE Stop: 05/23/21 09:12 Last Admin: 05/23/21 10:15 Dose: 40 meq Documented by: Potassium Chloride (Potassium Chloride 20 Meq Tab.Er) 40 meq PO ONETIME ONE Stop: 05/24/21 07:32 Last Admin: 05/24/21 11:35 Dose: Not Given Documented by: - Exam Urinary Catheter Total Time: 2Days 4Hours General: Alert Lungs: Clear to Auscultation, Normal Respiratory Effort Cardiovascular: Irregular Rhythm, Bradycardia GI/Abdominal Exam: Soft, Non-Tender Extremities: No Pedal Edema - Patient Data Lab Results Last 24 hrs: Laboratory Results - last 24 hr 05/26/21 05/26/21 05/27/21 Range/Units 11:53 17:19 06:46 WBC (4.0-11.0) K/uL RBC (4.30-5.90) M/uL Hgb (12.0-16.0) g/dL Hct (36.0-46.0) % MCV (80.0-98.0) fL MCH (27.0-32.0) pg MCHC (31.0-37.0) g/dL RDW Std Deviation (28.0-62.0) fl RDW Coeff of Litzy (11.0-15.0) % Plt Count (150-400) K/uL MPV (7.40-12.00) fL Neut % (Auto) (48.0-80.0) % Lymph % (Auto) (16.0-40.0) % Forrest % (Auto) (0.0-15.0) % Eos % (Auto) (0.0-7.0) % Baso % (Auto) (0.0-1.5) % Neut # (Auto) (1.4-5.7) K/uL Lymph # (Auto) (0.6-2.4) K/uL Forrest # (Auto) (0.0-0.8) K/uL Eos # (Auto) (0.0-0.7) K/uL Baso # (Auto) (0.0-0.1) K/uL Nucleated RBC % /100WBC Nucleated RBCs # K/uL Sodium (136-145) mmol/L Potassium (3.5-5.1) mmol/L Chloride (98-107) mmol/L Carbon Dioxide (21.0-32.0) mmol/L BUN (7.0-18.0) mg/dL Creatinine (0.6-1.0) mg/dL Est Cr Clr Drug Dosing mL/min Estimated GFR (MDRD) ml/min Glucose (74-106) mg/dL POC Glucose 204 H 214 H 149 H (70-99) mg/dL Calcium (8.5-10.1) mg/dL 05/27/21 05/27/21 05/27/21 Range/Units 07:03 07:03 11:33 WBC 10.05 (4.0-11.0) K/uL RBC 3.75 L (4.30-5.90) M/uL Hgb 11.0 L (12.0-16.0) g/dL Hct 32.5 L (36.0-46.0) % MCV 86.7 (80.0-98.0) fL MCH 29.3 (27.0-32.0) pg MCHC 33.8 (31.0-37.0) g/dL RDW Std Deviation 50.1 (28.0-62.0) fl RDW Coeff of Litzy 16 H (11.0-15.0) % Plt Count 136 L (150-400) K/uL MPV 11.20 (7.40-12.00) fL Neut % (Auto) 79.5 (48.0-80.0) % Lymph % (Auto) 7.8 L (16.0-40.0) % Forrest % (Auto) 8.3 (0.0-15.0) % Eos % (Auto) 4.0 (0.0-7.0) % Baso % (Auto) 0.4 (0.0-1.5) % Neut # (Auto) 8.0 H (1.4-5.7) K/uL Lymph # (Auto) 0.8 (0.6-2.4) K/uL Forrest # (Auto) 0.8 (0.0-0.8) K/uL Eos # (Auto) 0.4 (0.0-0.7) K/uL Baso # (Auto) 0.0 (0.0-0.1) K/uL Nucleated RBC % 0.0 /100WBC Nucleated RBCs # 0 K/uL Sodium 142 (136-145) mmol/L Potassium 3.4 L (3.5-5.1) mmol/L Chloride 109 H (98-107) mmol/L Carbon Dioxide 25.1 (21.0-32.0) mmol/L BUN 12 (7.0-18.0) mg/dL Creatinine 1.0 (0.6-1.0) mg/dL Est Cr Clr Drug Dosing 50.02 mL/min Estimated GFR (MDRD) 53.9 ml/min Glucose 151 H (74-106) mg/dL POC Glucose 160 H (70-99) mg/dL Calcium 8.8 (8.5-10.1) mg/dL Result Diagrams: 05/27/21 07:03 05/27/21 07:03 Chris Results Last 24 hrs: Microbiology 05/26/21 06:30 C. difficile Antigen & Toxins A,B - Final Stool / Feces 05/23/21 00:35 Aerobic Blood Culture - Preliminary Blood - Venous - Lab Draw NO GROWTH AFTER 4 DAYS Anaerobic Blood Culture - Preliminary NO GROWTH AFTER 4 DAYS 05/23/21 00:00 Aerobic Blood Culture - Preliminary Blood - Venous NO GROWTH AFTER 4 DAYS Anaerobic Blood Culture - Preliminary NO GROWTH AFTER 4 DAYS 05/23/21 00:45 Urine Culture - Final Urine Proteus Mirabilis Sepsis Event Note - Evaluation Sepsis Screening Result: No Definite Risk - Focused Exam Vital Signs: Vital Signs Temp Pulse Resp BP BP Pulse Ox Pulse Ox 05/27/21 08:40 164/77 H 05/27/21 08:39 164/77 H 05/27/21 07:47 97.3 F 60 20 164/77 H 94 L 05/27/21 03:59 98.1 F 63 20 160/93 H 97 05/27/21 02:00 96 - Problem List & Annotations (1) Cellulitis SNOMED Code(s): 195557363 Code(s): L03.90 - CELLULITIS, UNSPECIFIED Status: Acute Current Visit: Yes Qualifiers: Site of cellulitis: neck Qualified Code(s): L03.221 - Cellulitis of neck (2) Hypernatremia SNOMED Code(s): 606080136 Code(s): E87.0 - HYPEROSMOLALITY AND HYPERNATREMIA Status: Acute Current Visit: Yes (3) Parotitis SNOMED Code(s): 59618096 Code(s): K11.20 - SIALOADENITIS, UNSPECIFIED Status: Acute Current Visit: Yes (4) HERBERT (acute kidney injury) SNOMED Code(s): 74090338, 57241648 Code(s): N17.9 - ACUTE KIDNEY FAILURE, UNSPECIFIED Status: Acute Current Visit: Yes (5) Dehydration SNOMED Code(s): 00123179 Code(s): E86.0 - DEHYDRATION Status: Acute Current Visit: Yes (6) UTI (urinary tract infection) SNOMED Code(s): 76203622 Code(s): N39.0 - URINARY TRACT INFECTION, SITE NOT SPECIFIED Status: Acute Current Visit: Yes (7) Dementia SNOMED Code(s): 41530968 Code(s): F03.90 - UNSPECIFIED DEMENTIA WITHOUT BEHAVIORAL DISTURBANCE Status: Chronic Current Visit: Yes Qualifiers: Dementia type: unspecified type (8) Hypertension SNOMED Code(s): 44949096 Code(s): I10 - ESSENTIAL (PRIMARY) HYPERTENSION Status: Chronic Current Visit: Yes - Problem List Review Problem List Initiated/Reviewed/Updated: Yes - My Orders Last 24 Hours: My Active Orders 05/26/21 19:03 Communication Order [RC] ROUTINE 05/27/21 12:01 MAGNESIUM [CHEM] Routine - Plan Plan:: Parotiditis-vancomycin Q24hr, Zosyn Q6hrr UTI-Zosyn Q6hr Diabetes-Insulin sliding scale, low-dose. Diabetic diet. Patient's parotiditis and cellulitis is improving. Less redness and erythema noted at the left jaw and left neck. Patient did have 4 watery stools from yesterday evening overnight. Stool sample sent to lab, stool negative for C. difficile.
[2021-05-27] MEDS ORDERED: Magnesium Sulfate/Water 2 GM in Premix Bag 1 BAG IV ONE (14:01)
[2021-05-27] MEDS ORDERED: Potassium Chloride 10% 20 MEQ/15 ML Soln 15 ML UD Cup PO ONE (14:02)
[2021-05-27] MEDS ORDERED: Potassium Chloride 20 MEQ Tab.ER PO ONE (15:19)
[2021-05-28] MEDS: oxyCODONE 5 MG Tab PO SCH ×3 (00:24→23:06)
[2021-05-28] MEDS: Piperacillin/Tazobactam 2.25 GM in Sodium Chloride 0.9% 100 ML IV SCH ×5 (00:31→23:08)
[2021-05-28 07:02] LABS: CARBON DIOXIDE,CO2 25.8 mmol/L (21.0-32.0); POTASSIUM,K 3.6 mmol/L (3.5-5.1)
[2021-05-28] MEDS: Losartan 50 MG Tab PO SCH (08:34)
[2021-05-28] MEDS: buPROPion 150 MG Tab.ER PO SCH (08:35)
[2021-05-28] MEDS: Sertraline 100 MG Tab PO SCH (08:35)
[2021-05-28] MEDS: hydrALAZINE 25 MG Tab PO SCH ×2 (08:35→20:02)
[2021-05-28] MEDS: Furosemide 20 MG Tab PO SCH (08:35)
[2021-05-28] MEDS: Apixaban 5 MG Tab PO SCH ×2 (08:36→20:03)
[2021-05-28] MEDS: Insulin Aspart 100 Units/ML 3 ML Pen SUBCUT SCH ×3 (08:36→17:16)
[2021-05-28] MEDS: Nystatin Topical Powder 15 GM Bottle TOP SCH ×2 (11:36→21:23)
--- NOTE | 2021-05-28 12:39 | PCM.PN ---
- General Info Date of Service: 05/28/21 - Review of Systems Systems Review Comment:: nonverbal - Patient Data Vitals - Most Recent: Last Vital Signs Temp 36.3 C 05/28/21 11:31 Pulse 54 L 05/28/21 11:31 Resp 18 05/28/21 11:31 BP 136/61 05/28/21 11:31 Pulse Ox 97 05/28/21 11:31 Weight - Most Recent: 90.5 kg I&O - Last 24 Hours: Intake & Output 05/27/21 05/28/21 05/28/21 22:59 06:59 14:59 Intake Total 700 630 Output Total 550 550 Balance 150 80 Lab Results Last 24 Hours: Laboratory Results - last 24 hr 05/27/21 05/28/21 05/28/21 Range/Units 17:35 06:30 06:30 WBC 9.48 (4.0-11.0) K/uL RBC 3.64 L (4.30-5.90) M/uL Hgb 10.5 L (12.0-16.0) g/dL Hct 31.8 L (36.0-46.0) % MCV 87.4 (80.0-98.0) fL MCH 28.8 (27.0-32.0) pg MCHC 33.0 (31.0-37.0) g/dL RDW Std Deviation 50.0 (28.0-62.0) fl RDW Coeff of Litzy 16 H (11.0-15.0) % Plt Count 158 (150-400) K/uL MPV 11.90 (7.40-12.00) fL Neut % (Auto) 76.3 (48.0-80.0) % Lymph % (Auto) 9.6 L (16.0-40.0) % Gaston % (Auto) 9.5 (0.0-15.0) % Eos % (Auto) 4.1 (0.0-7.0) % Baso % (Auto) 0.5 (0.0-1.5) % Neut # (Auto) 7.2 H (1.4-5.7) K/uL Lymph # (Auto) 0.9 (0.6-2.4) K/uL Gaston # (Auto) 0.9 H (0.0-0.8) K/uL Eos # (Auto) 0.4 (0.0-0.7) K/uL Baso # (Auto) 0.1 (0.0-0.1) K/uL Nucleated RBC % 0.0 /100WBC Nucleated RBCs # 0 K/uL Sodium 142 (136-145) mmol/L Potassium 3.6 (3.5-5.1) mmol/L Chloride 110 H (98-107) mmol/L Carbon Dioxide 25.8 (21.0-32.0) mmol/L BUN 11 (7.0-18.0) mg/dL Creatinine 1.1 H (0.6-1.0) mg/dL Est Cr Clr Drug Dosing 45.47 mL/min Estimated GFR (MDRD) 48.3 ml/min Glucose 128 H (74-106) mg/dL POC Glucose 151 H (70-99) mg/dL Calcium 8.4 L (8.5-10.1) mg/dL Magnesium 2.0 (1.8-2.4) mg/dL 05/28/21 05/28/21 Range/Units 06:31 11:35 WBC (4.0-11.0) K/uL RBC (4.30-5.90) M/uL Hgb (12.0-16.0) g/dL Hct (36.0-46.0) % MCV (80.0-98.0) fL MCH (27.0-32.0) pg MCHC (31.0-37.0) g/dL RDW Std Deviation (28.0-62.0) fl RDW Coeff of Litzy (11.0-15.0) % Plt Count (150-400) K/uL MPV (7.40-12.00) fL Neut % (Auto) (48.0-80.0) % Lymph % (Auto) (16.0-40.0) % Gaston % (Auto) (0.0-15.0) % Eos % (Auto) (0.0-7.0) % Baso % (Auto) (0.0-1.5) % Neut # (Auto) (1.4-5.7) K/uL Lymph # (Auto) (0.6-2.4) K/uL Gaston # (Auto) (0.0-0.8) K/uL Eos # (Auto) (0.0-0.7) K/uL Baso # (Auto) (0.0-0.1) K/uL Nucleated RBC % /100WBC Nucleated RBCs # K/uL Sodium (136-145) mmol/L Potassium (3.5-5.1) mmol/L Chloride (98-107) mmol/L Carbon Dioxide (21.0-32.0) mmol/L BUN (7.0-18.0) mg/dL Creatinine (0.6-1.0) mg/dL Est Cr Clr Drug Dosing mL/min Estimated GFR (MDRD) ml/min Glucose (74-106) mg/dL POC Glucose 131 H 144 H (70-99) mg/dL Calcium (8.5-10.1) mg/dL Magnesium (1.8-2.4) mg/dL Chris Results Last 24 Hours: Microbiology 05/23/21 00:35 Aerobic Blood Culture - Final Blood - Venous - Lab Draw NO GROWTH AFTER 5 DAYS Anaerobic Blood Culture - Final NO GROWTH AFTER 5 DAYS 05/23/21 00:00 Aerobic Blood Culture - Final Blood - Venous NO GROWTH AFTER 5 DAYS Anaerobic Blood Culture - Final NO GROWTH AFTER 5 DAYS 05/26/21 06:30 C. difficile Antigen & Toxins A,B - Final Stool / Feces Med Orders - Current: Current Medications Apixaban (Apixaban 5 Mg Tab) 5 mg PO BID [facility] Last Admin: 05/28/21 08:36 Dose: 5 mg Documented by: Bupropion HCl (Bupropion 150 Mg Tab.Er) 150 mg PO DAILY [facility] Last Admin: 05/28/21 08:35 Dose: 150 mg Documented by: Dextrose/Water (50% Dextrose In Water 50 Ml Syringe) 50 ml IVPUSH ASDIRECTED PRN PRN Reason: Hypoglycemia Furosemide (Furosemide 20 Mg Tab) 20 mg PO DAILY [facility] Last Admin: 05/28/21 08:35 Dose: 20 mg Documented by: Glucagon (Glucagon,Human Recombinant 1 Mg Vial) 1 mg IM ASDIRECTED PRN PRN Reason: Hypoglycemia Hydralazine HCl (Hydralazine 25 Mg Tab) 25 mg PO Q12HR [facility] Last Admin: 05/28/21 08:35 Dose: 25 mg Documented by: Vancomycin HCl 1 gm/ Sodium (Chloride) 250 mls @ 166 mls/hr IV Q24H [facility] Last Admin: 05/28/21 08:34 Dose: 166 mls/hr Documented by: Piperacillin Sod/Tazobactam (Sod 2.25 gm/ Sodium Chloride) 100 mls @ 200 mls/hr IV Q6H [facility] Last Admin: 05/28/21 11:58 Dose: 200 mls/hr Documented by: Insulin Aspart (Insulin Aspart 100 Units/Ml 3 Ml Pen) 0 unit SUBCUT TIDAC [facility]; Protocol Last Admin: 05/28/21 11:36 Dose: Not Given Documented by: Losartan Potassium (Losartan 50 Mg Tab) 50 mg PO DAILY [facility] Last Admin: 05/28/21 08:34 Dose: 50 mg Documented by: Nystatin (Nystatin Topical Powder 15 Gm Bottle) 1 gm TOP BID [facility] Last Admin: 05/28/21 11:36 Dose: 1 applic Documented by: Oxycodone HCl (Oxycodone 5 Mg Tab) 5 mg PO Q12H [facility] Last Admin: 05/28/21 11:57 Dose: 5 mg Documented by: Sertraline HCl (Sertraline 100 Mg Tab) 100 mg PO DAILY [facility] Last Admin: 05/28/21 08:35 Dose: 100 mg Documented by: Sodium Chloride (Sodium Chloride 0.9% 10 Ml Syringe) 10 ml FLUSH ASDIRECTED PRN PRN Reason: Keep Vein Open Last Admin: 05/23/21 00:40 Dose: 10 ml Documented by: Sodium Chloride (Sodium Chloride 0.9% 2.5 Ml Syringe) 2.5 ml FLUSH ASDIRECTED PRN PRN Reason: Keep Vein Open Last Admin: 05/23/21 00:41 Dose: 2.5 ml Documented by: Vancomycin HCl (Pharmacy To Dose - Vancomycin) 1 dose .XX ASDIRECTED [facility] Discontinued Medications Sodium Chloride (Normal Saline) 1,000 mls @ 999 mls/hr IV .Bolus ONE Stop: 05/23/21 00:41 Last Admin: 05/23/21 00:40 Dose: 999 mls/hr Documented by: Piperacillin Sod/Tazobactam (Sod 3.375 gm/ Sodium Chloride) 50 mls @ 100 mls/hr IV ONETIME ONE Stop: 05/23/21 00:38 Last Admin: 05/23/21 00:40 Dose: 100 mls/hr Documented by: Sodium Chloride (Normal Saline) 1,000 mls @ 999 mls/hr IV .Bolus ONE Stop: 05/23/21 02:18 Last Admin: 05/23/21 02:05 Dose: 999 mls/hr Documented by: Vancomycin HCl 1.5 gm/ Premix 300 mls @ 200 mls/hr IV ONETIME ONE Stop: 05/23/21 03:13 Last Admin: 05/23/21 02:04 Dose: 200 mls/hr Documented by: Piperacillin Sod/Tazobactam (Sod 3.375 gm/ Sodium Chloride) 50 mls @ 100 mls/hr IV Q6H [facility] Sodium Chloride (Normal Saline) 1,000 mls @ 125 mls/hr IV ASDIRECTED [facility] Stop: 05/23/21 10:14 Last Admin: 05/23/21 04:33 Dose: 125 mls/hr Documented by: Vancomycin HCl 1.25 gm/ Sodium (Chloride) 250 mls @ 166.667 mls/hr IV Q24H [facility] Last Admin: 05/25/21 02:39 Dose: 166.667 mls/hr Documented by: Piperacillin Sod/Tazobactam (Sod 2.25 gm/ Sodium Chloride) 50 mls @ 100 mls/hr IV Q6H [facility] Last Admin: 05/23/21 06:12 Dose: 100 mls/hr Documented by: Dextrose/Water (Dextrose 5% In Water) 1,000 mls @ 50 mls/hr IV Q13H [facility] Last Admin: 05/25/21 18:11 Dose: 50 mls/hr Documented by: Piperacillin Sod/Tazobactam (Sod 2.25 gm/ Sodium Chloride) 100 mls @ 200 mls/hr IV Q6H [facility] Last Admin: 05/26/21 12:01 Dose: 200 mls/hr Documented by: Potassium Chloride 40 meq/ (Dextrose/Water) 520 mls @ 130 mls/hr IV ONETIME ONE Stop: 05/24/21 13:19 Last Admin: 05/24/21 09:30 Dose: 130 mls/hr Documented by: Magnesium Sulfate 2 gm/ Premix 50 mls @ 12.5 mls/hr IV ONETIME ONE Stop: 05/24/21 17:56 Last Admin: 05/24/21 14:35 Dose: 12.5 mls/hr Documented by: Potassium Chloride 40 meq/ (Dextrose/Water) 520 mls @ 130 mls/hr IV ONETIME ONE Stop: 05/25/21 11:44 Last Admin: 05/25/21 08:39 Dose: 130 mls/hr Documented by: Potassium Chloride 40 meq/ (Dextrose/Water) 520 mls @ 75 mls/hr IV ONETIME ONE Stop: 05/26/21 14:35 Last Admin: 05/26/21 10:41 Dose: Not Given Documented by: Potassium Chloride 40 meq/Magnesium Sulfate 2 gm/Dextrose/Water 500 mls @ 75 mls/hr IV ONETIME ONE Stop: 05/26/21 14:39 Last Admin: 05/26/21 10:32 Dose: 75 mls/hr Documented by: Magnesium Sulfate 2 gm/ Premix 50 mls @ 12.5 mls/hr IV ONETIME ONE Stop: 05/27/21 18:00 Last Admin: 05/27/21 15:17 Dose: 12.5 mls/hr Documented by: Potassium Chloride (Potassium Chloride 20 Meq Tab.Er) 40 meq PO ONETIME ONE Stop: 05/23/21 09:12 Last Admin: 05/23/21 10:15 Dose: 40 meq Documented by: Potassium Chloride (Potassium Chloride 20 Meq Tab.Er) 40 meq PO ONETIME ONE Stop: 05/24/21 07:32 Last Admin: 05/24/21 11:35 Dose: Not Given Documented by: Potassium Chloride (Potassium Chloride 10% 20 Meq/15 Ml Soln 15 Ml Ud Cup) 20 meq PO ONETIME ONE Stop: 05/27/21 14:03 Last Admin: 05/27/21 16:21 Dose: Not Given Documented by: Potassium Chloride (Potassium Chloride 20 Meq Tab.Er) 40 meq PO ONETIME ONE Stop: 05/27/21 15:20 Last Admin: 05/27/21 15:30 Dose: 40 meq Documented by: - Exam Urinary Catheter Total Time: 3Days 15Hours General: No Acute Distress Neck: Other (edema and erythema over left parotid gland is improving) Lungs: Clear to Auscultation, Normal Respiratory Effort Cardiovascular: Regular Rate, Regular Rhythm Extremities: Non-Tender, No Pedal Edema - Patient Data Lab Results Last 24 hrs: Laboratory Results - last 24 hr 05/27/21 05/28/21 05/28/21 Range/Units 17:35 06:30 06:30 WBC 9.48 (4.0-11.0) K/uL RBC 3.64 L (4.30-5.90) M/uL Hgb 10.5 L (12.0-16.0) g/dL Hct 31.8 L (36.0-46.0) % MCV 87.4 (80.0-98.0) fL MCH 28.8 (27.0-32.0) pg MCHC 33.0 (31.0-37.0) g/dL RDW Std Deviation 50.0 (28.0-62.0) fl RDW Coeff of Litzy 16 H (11.0-15.0) % Plt Count 158 (150-400) K/uL MPV 11.90 (7.40-12.00) fL Neut % (Auto) 76.3 (48.0-80.0) % Lymph % (Auto) 9.6 L (16.0-40.0) % Gaston % (Auto) 9.5 (0.0-15.0) % Eos % (Auto) 4.1 (0.0-7.0) % Baso % (Auto) 0.5 (0.0-1.5) % Neut # (Auto) 7.2 H (1.4-5.7) K/uL Lymph # (Auto) 0.9 (0.6-2.4) K/uL Gaston # (Auto) 0.9 H (0.0-0.8) K/uL Eos # (Auto) 0.4 (0.0-0.7) K/uL Baso # (Auto) 0.1 (0.0-0.1) K/uL Nucleated RBC % 0.0 /100WBC Nucleated RBCs # 0 K/uL Sodium 142 (136-145) mmol/L Potassium 3.6 (3.5-5.1) mmol/L Chloride 110 H (98-107) mmol/L Carbon Dioxide 25.8 (21.0-32.0) mmol/L BUN 11 (7.0-18.0) mg/dL Creatinine 1.1 H (0.6-1.0) mg/dL Est Cr Clr Drug Dosing 45.47 mL/min Estimated GFR (MDRD) 48.3 ml/min Glucose 128 H (74-106) mg/dL POC Glucose 151 H (70-99) mg/dL Calcium 8.4 L (8.5-10.1) mg/dL Magnesium 2.0 (1.8-2.4) mg/dL 05/28/21 05/28/21 Range/Units 06:31 11:35 WBC (4.0-11.0) K/uL RBC (4.30-5.90) M/uL Hgb (12.0-16.0) g/dL Hct (36.0-46.0) % MCV (80.0-98.0) fL MCH (27.0-32.0) pg MCHC (31.0-37.0) g/dL RDW Std Deviation (28.0-62.0) fl RDW Coeff of Litzy (11.0-15.0) % Plt Count (150-400) K/uL MPV (7.40-12.00) fL Neut % (Auto) (48.0-80.0) % Lymph % (Auto) (16.0-40.0) % Gaston % (Auto) (0.0-15.0) % Eos % (Auto) (0.0-7.0) % Baso % (Auto) (0.0-1.5) % Neut # (Auto) (1.4-5.7) K/uL Lymph # (Auto) (0.6-2.4) K/uL Gaston # (Auto) (0.0-0.8) K/uL Eos # (Auto) (0.0-0.7) K/uL Baso # (Auto) (0.0-0.1) K/uL Nucleated RBC % /100WBC Nucleated RBCs # K/uL Sodium (136-145) mmol/L Potassium (3.5-5.1) mmol/L Chloride (98-107) mmol/L Carbon Dioxide (21.0-32.0) mmol/L BUN (7.0-18.0) mg/dL Creatinine (0.6-1.0) mg/dL Est Cr Clr Drug Dosing mL/min Estimated GFR (MDRD) ml/min Glucose (74-106) mg/dL POC Glucose 131 H 144 H (70-99) mg/dL Calcium (8.5-10.1) mg/dL Magnesium (1.8-2.4) mg/dL Result Diagrams: 05/28/21 06:30 05/28/21 06:30 Chris Results Last 24 hrs: Microbiology 05/23/21 00:35 Aerobic Blood Culture - Final Blood - Venous - Lab Draw NO GROWTH AFTER 5 DAYS Anaerobic Blood Culture - Final NO GROWTH AFTER 5 DAYS 05/23/21 00:00 Aerobic Blood Culture - Final Blood - Venous NO GROWTH AFTER 5 DAYS Anaerobic Blood Culture - Final NO GROWTH AFTER 5 DAYS 05/26/21 06:30 C. difficile Antigen & Toxins A,B - Final Stool / Feces Sepsis Event Note - Evaluation Sepsis Screening Result: No Definite Risk - Focused Exam Vital Signs: Vital Signs Temp Pulse Resp BP BP Pulse Ox 05/28/21 11:31 36.3 C 54 L 18 136/61 97 05/28/21 08:35 140/64 05/28/21 08:34 140/64 05/28/21 08:12 36.0 C L 56 L 16 140/64 96 05/28/21 04:02 36.2 C 53 L 16 149/72 H 96 - Problem List & Annotations (1) Sepsis SNOMED Code(s): 03556268 Code(s): A41.9 - SEPSIS, UNSPECIFIED ORGANISM Status: Acute Current Visit: Yes (2) Hypernatremia SNOMED Code(s): 050305826 Code(s): E87.0 - HYPEROSMOLALITY AND HYPERNATREMIA Status: Acute Current Visit: Yes (3) Cellulitis SNOMED Code(s): 656930085 Code(s): L03.90 - CELLULITIS, UNSPECIFIED Status: Acute Current Visit: Yes Qualifiers: Site of cellulitis: neck Qualified Code(s): L03.221 - Cellulitis of neck (4) Parotitis SNOMED Code(s): 62584729 Code(s): K11.20 - SIALOADENITIS, UNSPECIFIED Status: Acute Current Visit: Yes (5) Dehydration SNOMED Code(s): 64402467 Code(s): E86.0 - DEHYDRATION Status: Acute Current Visit: Yes (6) Hypernatremia SNOMED Code(s): 229960347 Code(s): E87.0 - HYPEROSMOLALITY AND HYPERNATREMIA Status: Acute Current Visit: No (7) UTI (urinary tract infection) SNOMED Code(s): 47557925 Code(s): N39.0 - URINARY TRACT INFECTION, SITE NOT SPECIFIED Status: Acute Current Visit: Yes (8) Dementia SNOMED Code(s): 08010468 Code(s): F03.90 - UNSPECIFIED DEMENTIA WITHOUT BEHAVIORAL DISTURBANCE Status: Chronic Current Visit: Yes Qualifiers: Dementia type: unspecified type (9) Hypertension SNOMED Code(s): 75645808 Code(s): I10 - ESSENTIAL (PRIMARY) HYPERTENSION Status: Chronic Current Visit: Yes - Problem List Review Problem List Initiated/Reviewed/Updated: Yes - My Orders Last 24 Hours: My Active Orders 05/28/21 10:30 Nystatin [Nystop] 1 gm TOP BID - Plan Plan:: 75 yo femald admitte for cellulitis and parotiditis. We will continue IV antibiotics for another day but anticipate discharge tomorrow on oral antibiotics.
[2021-05-29] MEDS: Piperacillin/Tazobactam 2.25 GM in Sodium Chloride 0.9% 100 ML IV SCH (05:22)
[2021-05-29] MEDS: Insulin Aspart 100 Units/ML 3 ML Pen SUBCUT SCH ×2 (07:14→12:21)
[2021-05-29] MEDS: buPROPion 150 MG Tab.ER PO SCH (09:59)
[2021-05-29] MEDS: Apixaban 5 MG Tab PO SCH (10:00)
[2021-05-29] MEDS: Losartan 50 MG Tab PO SCH (10:00)
[2021-05-29] MEDS: Furosemide 20 MG Tab PO SCH (10:00)
[2021-05-29] MEDS: Sertraline 100 MG Tab PO SCH (10:00)
[2021-05-29] MEDS: Nystatin Topical Powder 15 GM Bottle TOP SCH (10:01)
[2021-05-29] MEDS: hydrALAZINE 25 MG Tab PO SCH (10:01)
[2021-05-29] MEDS: Sodium Chloride 0.9% 2.5 ML Syringe FLUSH PRN (10:06)
[2021-05-29] MEDS ORDERED: Piperacillin/Tazobactam 3.375 GM in Sodium Chloride 0.9% 50 ML IV SCH (12:00)
[2021-05-29] MEDS: oxyCODONE 5 MG Tab PO SCH (12:23)
--- NOTE | 2021-05-29 13:52 | PCM.DCSUM1 ---
Discharge Summary - Hospital Course Free Text/Narrative:: 75-year-old female presents the ED from [facility] due to severe left face and left neck swelling, erythema, tenderness to palpation. Patient admitted for parotitis with cellulitis. Past medical history to include dementia (nonverbal), hypertension, atrial fibrillation on Eliquis. Patient did not verbally communicate during hospitalization, and was unable to provide history due to baseline dementia. Per documentation patient had a growing mass on left side of neck that was warm and tender to palpation. She was seen by a provider at the [facility] and was given 2 times doses of Augmentin as well as Tylenol throughout the day which did not seem to be resolving symptoms. Patient was transferred CHF for further work-up and treatment. Patient admission course yielded UTI with urine cultures revealing Proteus mirabilis. CT soft tissue neck impression include less sided severe parotitis with surrounding cellulitis extending deeper into the left neck with acne of the left pharyngeal wall. No abscess identified. Patient was treated with vancomycin and Zosyn. Patient was also hypernatremic on initial admission was treated with D5W IV fluid. Patient's hyponatremia did resolve on discharge. Patient's left-sided parotitis and cellulitis did improve prior to discharge. Patient was discharged to [facility] on ciprofloxacin 500 mg twice daily X 7 days, clindamycin 450 mg 3 times daily X 7 days. - Discharge Data Discharge Date: 05/29/21 Discharge Disposition: DC/Tfer to [facility] 03 Condition: Stable - Referral to [facility] Primary Care Physician: Fermin Muñoz MD - Discharge Diagnosis/Problem(s) (1) Cellulitis SNOMED Code(s): 094834050 ICD Code: L03.90 - CELLULITIS, UNSPECIFIED Status: Acute Qualifiers: Site of cellulitis: neck Qualified Code(s): L03.221 - Cellulitis of neck (2) Hypernatremia SNOMED Code(s): 503852330 ICD Code: E87.0 - HYPEROSMOLALITY AND HYPERNATREMIA Status: Acute (3) Parotitis SNOMED Code(s): 71373036 ICD Code: K11.20 - SIALOADENITIS, UNSPECIFIED Status: Acute (4) HERBERT (acute kidney injury) SNOMED Code(s): 37404648, 49986992 ICD Code: N17.9 - ACUTE KIDNEY FAILURE, UNSPECIFIED Status: Acute (5) Dehydration SNOMED Code(s): 37716323 ICD Code: E86.0 - DEHYDRATION Status: Acute (6) UTI (urinary tract infection) SNOMED Code(s): 39990049 ICD Code: N39.0 - URINARY TRACT INFECTION, SITE NOT SPECIFIED Status: Acute (7) Dementia SNOMED Code(s): 78686847 ICD Code: F03.90 - UNSPECIFIED DEMENTIA WITHOUT BEHAVIORAL DISTURBANCE Status: Chronic Qualifiers: Dementia type: unspecified type (8) Hypertension SNOMED Code(s): 20333706 ICD Code: I10 - ESSENTIAL (PRIMARY) HYPERTENSION Status: Chronic - Patient Instructions Diet: Usual Diet as Tolerated Other/Special Instructions: PT, OT AND SPEECH CONSULT - Discharge Plan *PRESCRIPTION DRUG MONITORING PROGRAM REVIEWED*: Not Applicable *COPY OF PRESCRIPTION DRUG MONITORING REPORT IN PATIENT TIFFANI: Not Applicable Prescriptions/Med Rec: Ciprofloxacin HCl [Cipro] 500 mg PO BID 7 Days #14 tablet Clindamycin HCl 450 mg PO TID 7 Days #63 capsule Nystatin [Nystatin Crm] 1 gm TOP DAILY PRN #1 ea PRN Reason: Itching Home Medications: Home Meds Furosemide 20 mg PO DAILY 05/01/18 [History] Losartan Potassium 50 mg PO DAILY 05/01/18 [History] Mirabegron [Myrbetriq] 50 mg PO DAILY 03/15/21 [History] Sertraline [Zoloft] 100 mg PO DAILY 03/15/21 [History] Acetaminophen [Tylenol Extra Strength] 500 mg PO Q4H PRN tablet 03/23/21 [Rx] Docusate Sodium [Colace] 100 mg PO BID PRN cap 03/23/21 [Rx] Memantine [Namenda] 5 mg PO BID tablet 03/23/21 [Rx] Zinc Oxide [Desitin Creamy Diaper Rash Crm] 1 gm TOP DAILY 30 Days #1 tube 03/23/21 [Rx] Apixaban [Eliquis] 5 mg PO BID 04/05/21 [History] Nystatin [Nystop] 1 gram TOP QID 04/05/21 [History] buPROPion [buPROPion XL] 150 mg PO DAILY 04/05/21 [History] hydrALAZINE [Apresoline] 25 mg PO Q12HR 04/05/21 [History] oxyCODONE 5 mg PO Q12H 04/05/21 [History] polyethylene glycoL 3350 [MiraLAX] 17 gm PO BID 04/05/21 [History] Fluconazole [Diflucan] 200 mg PO DAILY #14 tablet 04/09/21 [Rx] Ciprofloxacin HCl [Cipro] 500 mg PO BID 7 Days #14 tablet 05/29/21 [Rx] Clindamycin HCl 450 mg PO TID 7 Days #63 capsule 05/29/21 [Rx] Nystatin [Nystatin Crm] 1 gm TOP DAILY PRN #1 ea 05/29/21 [Rx] Patient Handouts: Cellulitis, Adult, Nystatin topical powder, Ciprofloxacin tablets Referrals: Fermin Muñoz MD [Primary Care Provider] - - Discharge Summary/Plan Comment DC Time >30 min.: Yes - Review of Systems General: Denies: Fever, Chills Pulmonary: Denies: Cough Cardiovascular: Denies: Edema Neurological: Reports: Trouble Speaking (dementia) - Patient Data Vitals - Most Recent: Last Vital Signs Temp 96.3 F L 05/29/21 08:01 Pulse 77 05/29/21 08:01 Resp 16 05/29/21 08:01 BP 137/56 L 05/29/21 10:01 Pulse Ox 100 05/29/21 08:01 Weight - Most Recent: 199 lb 8.293 oz I&O - Last 24 hours: Intake & Output 05/28/21 05/29/21 05/29/21 22:59 06:59 14:59 Intake Total 750 560 Output Total 500 700 Balance 250 -140 Lab Results - Last 24 hrs: Laboratory Results - last 24 hr 05/28/21 05/29/21 05/29/21 Range/Units 17:15 06:24 11:52 POC Glucose 125 H 108 H (70-99) mg/dL SARS-CoV-2 RNA (LUZ) NEGATIVE (NEGATIVE) 05/29/21 Range/Units 12:20 POC Glucose 116 H (70-99) mg/dL SARS-CoV-2 RNA (LUZ) (NEGATIVE) LINDSEY Results - Last 24 hrs: Microbiology 05/26/21 06:30 Shiga Toxin I & II - Final Stool / Feces Med Orders - Current: Current Medications Apixaban (Apixaban 5 Mg Tab) 5 mg PO BID YOLI Last Admin: 05/29/21 10:00 Dose: 5 mg Documented by: Bupropion HCl (Bupropion 150 Mg Tab.Er) 150 mg PO DAILY [facility] Last Admin: 05/29/21 09:59 Dose: 150 mg Documented by: Dextrose/Water (50% Dextrose In Water 50 Ml Syringe) 50 ml IVPUSH ASDIRECTED PRN PRN Reason: Hypoglycemia Furosemide (Furosemide 20 Mg Tab) 20 mg PO DAILY [facility] Last Admin: 05/29/21 10:00 Dose: 20 mg Documented by: Glucagon (Glucagon,Human Recombinant 1 Mg Vial) 1 mg IM ASDIRECTED PRN PRN Reason: Hypoglycemia Hydralazine HCl (Hydralazine 25 Mg Tab) 25 mg PO Q12HR [facility] Last Admin: 05/29/21 10:01 Dose: 25 mg Documented by: Vancomycin HCl 1 gm/ Sodium (Chloride) 250 mls @ 166 mls/hr IV Q24H [facility] Last Admin: 05/29/21 09:59 Dose: 166 mls/hr Documented by: Piperacillin Sod/Tazobactam (Sod 3.375 gm/ Sodium Chloride) 50 mls @ 100 mls/hr IV Q6H [facility] Last Admin: 05/29/21 12:22 Dose: Not Given Documented by: Insulin Aspart (Insulin Aspart 100 Units/Ml 3 Ml Pen) 0 unit SUBCUT TIDAC [facility]; Protocol Last Admin: 05/29/21 12:21 Dose: Not Given Documented by: Losartan Potassium (Losartan 50 Mg Tab) 50 mg PO DAILY [facility] Last Admin: 05/29/21 10:00 Dose: 50 mg Documented by: Nystatin (Nystatin Topical Powder 15 Gm Bottle) 1 gm TOP BID [facility] Last Admin: 05/29/21 10:01 Dose: 1 applic Documented by: Oxycodone HCl (Oxycodone 5 Mg Tab) 5 mg PO Q12H [facility] Last Admin: 05/29/21 12:23 Dose: 5 mg Documented by: Sertraline HCl (Sertraline 100 Mg Tab) 100 mg PO DAILY [facility] Last Admin: 05/29/21 10:00 Dose: 100 mg Documented by: Sodium Chloride (Sodium Chloride 0.9% 10 Ml Syringe) 10 ml FLUSH ASDIRECTED PRN PRN Reason: Keep Vein Open Last Admin: 05/23/21 00:40 Dose: 10 ml Documented by: Sodium Chloride (Sodium Chloride 0.9% 2.5 Ml Syringe) 2.5 ml FLUSH ASDIRECTED PRN PRN Reason: Keep Vein Open Last Admin: 05/29/21 10:06 Dose: 2.5 ml Documented by: Vancomycin HCl (Pharmacy To Dose - Vancomycin) 1 dose .XX ASDIRECTED [facility] Discontinued Medications Sodium Chloride (Normal Saline) 1,000 mls @ 999 mls/hr IV .Bolus ONE Stop: 05/23/21 00:41 Last Admin: 05/23/21 00:40 Dose: 999 mls/hr Documented by: Piperacillin Sod/Tazobactam (Sod 3.375 gm/ Sodium Chloride) 50 mls @ 100 mls/hr IV ONETIME ONE Stop: 05/23/21 00:38 Last Admin: 05/23/21 00:40 Dose: 100 mls/hr Documented by: Sodium Chloride (Normal Saline) 1,000 mls @ 999 mls/hr IV .Bolus ONE Stop: 05/23/21 02:18 Last Admin: 05/23/21 02:05 Dose: 999 mls/hr Documented by: Vancomycin HCl 1.5 gm/ Premix 300 mls @ 200 mls/hr IV ONETIME ONE Stop: 05/23/21 03:13 Last Admin: 05/23/21 02:04 Dose: 200 mls/hr Documented by: Piperacillin Sod/Tazobactam (Sod 3.375 gm/ Sodium Chloride) 50 mls @ 100 mls/hr IV Q6H [facility] Sodium Chloride (Normal Saline) 1,000 mls @ 125 mls/hr IV ASDIRECTED [facility] Stop: 05/23/21 10:14 Last Admin: 05/23/21 04:33 Dose: 125 mls/hr Documented by: Vancomycin HCl 1.25 gm/ Sodium (Chloride) 250 mls @ 166.667 mls/hr IV Q24H [facility] Last Admin: 05/25/21 02:39 Dose: 166.667 mls/hr Documented by: Piperacillin Sod/Tazobactam (Sod 2.25 gm/ Sodium Chloride) 50 mls @ 100 mls/hr IV Q6H [facility] Last Admin: 05/23/21 06:12 Dose: 100 mls/hr Documented by: Dextrose/Water (Dextrose 5% In Water) 1,000 mls @ 50 mls/hr IV Q13H [facility] Last Admin: 05/25/21 18:11 Dose: 50 mls/hr Documented by: Piperacillin Sod/Tazobactam (Sod 2.25 gm/ Sodium Chloride) 100 mls @ 200 mls/hr IV Q6H [facility] Last Admin: 05/26/21 12:01 Dose: 200 mls/hr Documented by: Potassium Chloride 40 meq/ (Dextrose/Water) 520 mls @ 130 mls/hr IV ONETIME ONE Stop: 05/24/21 13:19 Last Admin: 05/24/21 09:30 Dose: 130 mls/hr Documented by: Magnesium Sulfate 2 gm/ Premix 50 mls @ 12.5 mls/hr IV ONETIME ONE Stop: 05/24/21 17:56 Last Admin: 05/24/21 14:35 Dose: 12.5 mls/hr Documented by: Potassium Chloride 40 meq/ (Dextrose/Water) 520 mls @ 130 mls/hr IV ONETIME ONE Stop: 05/25/21 11:44 Last Admin: 05/25/21 08:39 Dose: 130 mls/hr Documented by: Potassium Chloride 40 meq/ (Dextrose/Water) 520 mls @ 75 mls/hr IV ONETIME ONE Stop: 05/26/21 14:35 Last Admin: 05/26/21 10:41 Dose: Not Given Documented by: Potassium Chloride 40 meq/Magnesium Sulfate 2 gm/Dextrose/Water 500 mls @ 75 mls/hr IV ONETIME ONE Stop: 05/26/21 14:39 Last Admin: 05/26/21 10:32 Dose: 75 mls/hr Documented by: Piperacillin Sod/Tazobactam (Sod 2.25 gm/ Sodium Chloride) 100 mls @ 200 mls/hr IV Q6H [facility] Last Admin: 05/29/21 05:22 Dose: 200 mls/hr Documented by: Magnesium Sulfate 2 gm/ Premix 50 mls @ 12.5 mls/hr IV ONETIME ONE Stop: 05/27/21 18:00 Last Admin: 05/27/21 15:17 Dose: 12.5 mls/hr Documented by: Potassium Chloride (Potassium Chloride 20 Meq Tab.Er) 40 meq PO ONETIME ONE Stop: 05/23/21 09:12 Last Admin: 05/23/21 10:15 Dose: 40 meq Documented by: Potassium Chloride (Potassium Chloride 20 Meq Tab.Er) 40 meq PO ONETIME ONE Stop: 05/24/21 07:32 Last Admin: 05/24/21 11:35 Dose: Not Given Documented by: Potassium Chloride (Potassium Chloride 10% 20 Meq/15 Ml Soln 15 Ml Ud Cup) 20 meq PO ONETIME ONE Stop: 05/27/21 14:03 Last Admin: 05/27/21 16:21 Dose: Not Given Documented by: Potassium Chloride (Potassium Chloride 20 Meq Tab.Er) 40 meq PO ONETIME ONE Stop: 05/27/21 15:20 Last Admin: 05/27/21 15:30 Dose: 40 meq Documented by: - Exam General: Reports: Alert Lungs: Reports: Clear to Auscultation, Normal Respiratory Effort Cardiovascular: Reports: Regular Rate, Irregular Rhythm GI/Abdominal Exam: Soft, Non-Tender Extremities: No Pedal Edema
--- NOTE | 2021-05-30 20:30 | PCM.EKG ---
#1 Interpretation EKG Date: 05/25/21 Time: 10:33 Rhythm: A-Fib Rate (Beats/Min): 57 P-Wave: Absent ST-T: Normal
== END 2021-05-29 13:10 | DRG 872 ==
LOC: MW.ED 23:39 → MW.MS 05-23 01:53
PROVIDERS: ADMIT Internal Medicine; ATTEND Internal Medicine
DX: A41.9 Sepsis, unspecified organism (principal); L03.221 Cellulitis of neck; N39.0 Urinary tract infection, site not specified; I10 Essential (primary) hypertension; E87.0 Hyperosmolality and hypernatremia; E87.1 Hypo-osmolality and hyponatremia; N17.9 Acute kidney failure, unspecified; K11.20 Sialoadenitis, unspecified; F03.90 Unspecified dementia, unspecified severity, without behavioral disturbance, psychotic disturbance, mood disturbance, and anxiety; I48.91 Unspecified atrial fibrillation; I50.9 Heart failure, unspecified; E86.0 Dehydration; I11.0 Hypertensive heart disease with heart failure; Z20.822 Contact with and (suspected) exposure to COVID-19; H91.90 Unspecified hearing loss, unspecified ear; G47.30 Sleep apnea, unspecified; K57.90 Diverticulosis of intestine, part unspecified, without perforation or abscess without bleeding; M19.90 Unspecified osteoarthritis, unspecified site; N39.3 Stress incontinence (female) (male); E11.9 Type 2 diabetes mellitus without complications; Z96.641 Presence of right artificial hip joint; Z96.653 Presence of artificial knee joint, bilateral; E66.9 Obesity, unspecified; Z85.828 Personal history of other malignant neoplasm of skin; Z90.49 Acquired absence of other specified parts of digestive tract; Z86.010 Personal history of colon polyps; Z79.899 Other long term (current) drug therapy; Z91.041 Radiographic dye allergy status; Z79.01 Long term (current) use of anticoagulants; Z90.710 Acquired absence of both cervix and uterus; Z68.29 Body mass index [BMI] 29.0-29.9, adult
CPT/HCPCS: 36415; 70490; 71045; 80053; 81001; 83605; 83735; 84484; 85025; 86140; 87040 ×2; 87086; 87088; 87186; 93005; 96365; 99285; J2543; J7030; 51702; 80048; 80202; 82947; 87045; 87046; 87324; 87449; 87899; A9270-GY; J1815-GY; J3370; J3475; J3480; J7050; J7060; U0002